=== PATIENT | male | born 1970 | race Caucasian/White ===

== ENCOUNTER → 2020-09-23 | Outpatient (CLI) | payer MEDICARE ==
[2020-09-24 14:09] LABS: Lyme Disease IgG/IgM Antibodie <0.91 ISR (0.00-0.90); Lyme Disease IgM Ab Quantitati <0.80 index (0.00-0.79)
== END ==
LOC: M LAB 11:13
PROVIDERS: ATTEND Physician Assistant
DX: R21 Rash and other nonspecific skin eruption (principal)
CPT/HCPCS: 36415; 86617; G0463

== ENCOUNTER → 2020-09-28 | Outpatient (CLI) | payer MEDICARE ==
[2020-09-29 16:08] LABS: IgG P18 AB Absent (.); IgG P23 AB Present (.); IgG P28 AB Absent (.); IgG P30 AB Absent (.); IgG P39 AB Absent (.); IgG P41 AB Absent (.); IgG P45 AB Absent (.); IgG P66 AB Absent (.); IgG P93 AB Absent (.); IgM P23 AB Absent (.); IgM P39 AB Absent (.); IgM P41 AB Absent (.); LYME IgG WB INTERPRETATION Negative (.); LYME IgM WB INTERPRETATION Negative (.)
== END ==
LOC: M LAB 11:57
PROVIDERS: ATTEND Physician Assistant
DX: A69.20 Lyme disease, unspecified (principal)

== ENCOUNTER → 2020-12-23 | Outpatient (REF) | payer MEDICARE ==
[2020-12-23 13:27] LABS: BASO # 0.1 10^3/uL (0.0-0.2); BASO % 1.1 % (0.0-1.0); EOS # 0.4 10^3/uL (0.0-0.5); EOS % 4.9 % (0.0-3.0); HEMATOCRIT 46.2 % (42.0-52.0); HEMOGLOBIN 14.2 g/dl (13.5-17.5); LYMPH # 2.5 10^3/uL (1.5-5.0); LYMPH % 31.2 % (24.0-44.0); MEAN CORPUSCULAR HEMOGLOBIN 24.5 pg (27.0-33.0); MEAN CORPUSCULAR HGB CONC 30.7 g/dl (32.0-36.5); MEAN CORPUSCULAR VOLUME 79.8 fl (80.0-96.0); MONO # 0.7 10^3/uL (0.0-0.8); MONO % 8.6 % (2.0-8.0); NEUTROPHILS # 4.3 10^3/uL (1.5-8.5); NEUTROPHILS % 53.9 % (36.0-66.0); PLATELET COUNT, AUTOMATED 240 10^3/uL (150-450); RED BLOOD COUNT 5.79 10^6/uL (4.30-6.10)
[2020-12-23 14:08] LABS: ALBUMIN 4.1 GM/DL (3.2-5.2); ALT/SGPT 20 U/L (12-78); BILIRUBIN,TOTAL 0.6 MG/DL (0.2-1.0); BLOOD UREA NITROGEN 15 MG/DL (7-18); CALCIUM LEVEL 9.8 MG/DL (8.5-10.1); CARBON DIOXIDE LEVEL 30 MEQ/L (21-32); CHLORIDE LEVEL 106 MEQ/L (98-107); CHOLESTEROL LEVEL 209 MG/DL (<200); CREATININE FOR GFR 0.76 MG/DL (0.70-1.30); FREE T4 0.88 NG/DL (0.76-1.46); GLOMERULAR FILTRATION RATE > 60.0 (>56); GLUCOSE, FASTING 110 MG/DL (70-100); HDL CHOLESTEROL 27 MG/DL (>40); LDL CHOLESTEROL 121 MG/DL (<100); NON-HDL-C 182 MG/DL; POTASSIUM SERUM 4.9 MEQ/L (3.5-5.1); SODIUM LEVEL 139 MEQ/L (136-145); TOTAL PROTEIN 6.8 GM/DL (6.4-8.2); TRIGLYCERIDES LEVEL 304 MG/DL (<150)
[2020-12-23 14:09] LABS: MALB URINE SIEMENS 6.2 MG/L; MAU/CREAT RATIO 9.8 MCG/MG (0.0-30.0)
[2020-12-23 15:07] LABS: HEMOGLOBIN A1c 5.6 %
== END ==
LOC: M PLALAB 09:25
PROVIDERS: ATTEND Student in an Organized Health Care Education/Training Program
DX: Z00.00 Encounter for general adult medical examination without abnormal findings (principal); Z79.899 Other long term (current) drug therapy

== ENCOUNTER 2021-02-02 07:36 | Emergency (ER) | payer MEDICAID, MEDICARE ==
[~2021-02-02] VITALS: Ht 175.3 cm; Wt 112.7 kg
[2021-02-02] MEDS ORDERED: LABETALOL 100MG/20ML VIAL IV STA (08:09)
[2021-02-02 08:14] LABS: BASO # 0.1 10^3/uL (0.0-0.2); EOS # 0.4 10^3/uL (0.0-0.5); EOS % 3.1 % (0.0-3.0); HEMATOCRIT 48.1 % (42.0-52.0); HEMOGLOBIN 15.2 g/dl (13.5-17.5); LYMPH % 26.3 % (24.0-44.0); MEAN CORPUSCULAR HEMOGLOBIN 24.6 pg (27.0-33.0); MEAN CORPUSCULAR HGB CONC 31.6 g/dl (32.0-36.5); MEAN CORPUSCULAR VOLUME 77.8 fl (80.0-96.0); MONO # 0.8 10^3/uL (0.0-0.8); MONO % 6.6 % (2.0-8.0); NEUTROPHILS # 7.1 10^3/uL (1.5-8.5); NEUTROPHILS % 62.6 % (36.0-66.0); PLATELET COUNT, AUTOMATED 233 10^3/uL (150-450); RED BLOOD COUNT 6.18 10^6/uL (4.30-6.10); WHITE BLOOD COUNT 11.4 10^3/uL (4.0-10.0)
[2021-02-02] MEDS ORDERED: DOXY1CAP62 PO (08:14)
[2021-02-02] MEDS ORDERED: METO1TAB87 PO ×2 (08:14)
[2021-02-02] MEDS ORDERED: BUSP30TA PO (08:14)
[2021-02-02] MEDS ORDERED: TAMS1CAP17 PO (08:14)
[2021-02-02] MEDS ORDERED: GABA-283 PO ×2 (08:14)
[2021-02-02] MEDS ORDERED: CLON0.5T2 PO (08:14)
[2021-02-02] MEDS ORDERED: VENL150C43 PO (08:14)
[2021-02-02] MEDS ORDERED: LEVO25TA5 PO (08:14)
[2021-02-02] MEDS ORDERED: HYDR-3363 PO (08:14)
[2021-02-02] MEDS ORDERED: SYMB80INH INH (08:14)
[2021-02-02] MEDS ORDERED: VALS1TAB68 PO (08:14)
[2021-02-02] MEDS ORDERED: OMEP-218 PO (08:14)
[2021-02-02 08:34] LABS: ALBUMIN 4.1 GM/DL (3.2-5.2); BILIRUBIN,DIRECT 0.2 MG/DL (0.0-0.2); BILIRUBIN,TOTAL 0.6 MG/DL (0.2-1.0); TOTAL PROTEIN 7.2 GM/DL (6.4-8.2)
--- NOTE | 2021-02-02 08:45 | REP ---
INDICATION: dizzy. COMPARISON: None. TECHNIQUE: Helical scanning is acquired. 5 mm axial images were reformatted. Coronal MPR images were generated. FINDINGS: Bone window settings demonstrate an intact bony calvarium. There is no evidence of skull fracture or incidental bony calvarial lesion. The visualized paranasal sinuses appear clear. No intraorbital abnormality is seen. On soft tissue window setting images; the lateral, third, and fourth ventricles are normal in size and position. Saldivar-white differentiation pattern is normal above and below the tentorium. There are is no evidence of intracranial hemorrhage. No mass, edema, infarction, or midline shift is seen. No extra-axial fluid collection is appreciated. IMPRESSION: Negative noncontrast head CT. <Electronically signed by Montana Martines > 02/02/21 [id number]
[2021-02-02] MEDS ORDERED: METOPROLOL TART 25 MG TABLET PO ONE (10:00)
[2021-02-02 10:03] VITALS: BP 180/112
--- NOTE | 2021-02-02 13:51 | REPVR ---
PROCEDURE INFORMATION: Exam: MR Head Without Contrast Exam date and time: 02/02/2021 12:33 PM Age: 50 years old Clinical indication: Dizziness; Additional info: Dizzy? Cerebellar TECHNIQUE: Imaging protocol: MR of the head without contrast. COMPARISON: CT Head without contrast 02/02/2021 8:28 AM FINDINGS: Brain: There is no extra-axial collection or intra-axial mass. Mild diffuse volume loss is within the range of normal for patient age. Normal parenchymal signal is preserved. There is no acute intracranial abnormality. Cerebral ventricles: Normal. No ventriculomegaly. Bones/joints: Unremarkable. Paranasal sinuses: Normal as visualized. No acute sinusitis. Mastoid air cells: Normal as visualized. No mastoid effusion. Orbital cavity: Unremarkable. Soft tissues: Unremarkable. IMPRESSION: No acute findings. Electronically signed by: Raeann Covarrubias On 02/02/2021 13:50:49 PM
--- NOTE | 2021-02-02 13:52 | REPVR ---
PROCEDURE INFORMATION: Exam: MRA Head Without Contrast; Arteriography Exam date and time: 02/02/2021 12:33 PM Age: 50 years old Clinical indication: Dizziness and giddiness; Additional info: Dizzy? Cerebellar TECHNIQUE: Imaging protocol: Magnetic resonance angiography head without contrast. Exam focused on the arteries. COMPARISON: CT Head without contrast 02/02/2021 8:28 AM FINDINGS: ANTERIOR CIRCULATION: Right internal carotid artery: Intracranial segment is patent with no significant stenosis. No aneurysm. Right middle cerebral artery: No occlusion or significant stenosis. No aneurysm. Right anterior cerebral artery: No occlusion or significant stenosis. No aneurysm. Left internal carotid artery: Intracranial segment is patent with no significant stenosis. No aneurysm. Left middle cerebral artery: No occlusion or significant stenosis. No aneurysm. Left anterior cerebral artery: No occlusion or significant stenosis. No aneurysm. POSTERIOR CIRCULATION: Right vertebral artery: No occlusion or significant stenosis. No aneurysm. Left vertebral artery: No occlusion or significant stenosis. No aneurysm. Basilar artery: No occlusion or significant stenosis. No aneurysm. Right posterior cerebral artery: No occlusion or significant stenosis. No aneurysm. Left posterior cerebral artery: No occlusion or significant stenosis. No aneurysm. IMPRESSION: No stenosis or occlusion. Electronically signed by: Raeann Covarrubias On 02/02/2021 13:52:30 PM
[2021-02-02 14:15] VITALS: BP 151/105
--- NOTE | 2021-02-03 07:12 | ECGEPIP ---
[facility] - ED Test Date: 2021-02-02 Pat Name: ARLEEN BEVERLY Department: Room: - Gender: Male Hunter Trapper: Awilda BYRNE : 1970 Requested By: Shawna Michael Order Number: [id number] Reading MD: Romeo Edwards Measurements Intervals Thayne Rate: 72 P: NV: 140 QRS: 208 QRSD: 82 T: 80 QT: 390 QTc: 427 Interpretive Statements Normal sinus rhythm Right axis deviation NSTTW ABNORMALITY(S) NO PRIORS FOR COMPARISON Electronically Signed on 02-03-2021 7:12:13 EDT by Romeo Edwards
== END 2021-02-02 14:15 | disposition home or self-care (01) ==
LOC: M ED 07:36 → EDBD 07:36 → M ED 14:15
DX: I10 Essential (primary) hypertension (principal); F17.200 Nicotine dependence, unspecified, uncomplicated; J45.909 Unspecified asthma, uncomplicated; Z86.19 Personal history of other infectious and parasitic diseases

== ENCOUNTER → 2021-04-09 | Outpatient (CLI) | payer MEDICARE ==
[~2021-04-09] MED LIST: ASPI81CH48 PO; BUSP30TA PO; CLON0.5T2 PO; DOXY1CAP62 PO; GABA-283 PO; HYDR-3363 PO; LEVO25TA5 PO; METO1TAB87 PO; METO50TA7 PO; OMEP-218 PO; ROSU40TA4 PO; SYMB80INH INH; TAMS1CAP17 PO; VALS1TAB68 PO; VENL150C43 PO
== END ==
LOC: M LABSMTC 09:26
PROVIDERS: ATTEND Anesthesiology
DX: Z20.828 Contact with and (suspected) exposure to other viral communicable diseases (principal); Z11.59 Encounter for screening for other viral diseases

== ENCOUNTER → 2021-06-30 | Outpatient (CLI) | payer MEDICARE, MEDICAID ==
[~2021-06-30] MED LIST changes: +COQ150CH PO; +DOXY-443 PO; -DOXY1CAP62 PO; +EQL400CA9 PO; +GINK60CA2 PO; +SERO1TAB3 PO; +VALS1TAB67 PO; +VITA400C53 PO; +VITMTA PO
== END ==
LOC: M LABSMTC 11:05
PROVIDERS: ATTEND Anesthesiology
DX: Z01.812 Encounter for preprocedural laboratory examination (principal); Z20.822 Contact with and (suspected) exposure to COVID-19

== ENCOUNTER 2021-07-04 10:38 | Day surgery (SDC) | payer MEDICARE ==
[~2021-07-04] VITALS: Ht 175.3 cm; Wt 108.9 kg
[~2021-07-04 10:38] MED LIST changes: +LIDOCAINE 2% 100MG/5ML SDV (FOR ANES.) As Ordered ONE; +NS 1,000 ML IV ONE; +propofoL 500 MG/50 ML VIAL As Ordered ONE
--- OUTSIDE RECORDS SUMMARY | 2021-07-04 10:42 | CCD ---
Author Author [facility] Organization [facility] Address Unknown Phone Unavailable Care Team Providers Care Environment Artist Name Role Phone Tameka Dick Unavailable PROBLEMS ALLERGIES No Known Allergies ENCOUNTERS from 1970 to 2021-06-29 IMMUNIZATIONS No Information SOCIAL HISTORY REASON FOR REFERRAL No Information VITAL SIGNS MEDICATIONS PROCEDURES No Information RESULTS No Results REASON FOR VISIT MEDICAL (GENERAL) HISTORY Goals Section Health Concerns MEDICAL EQUIPMENT No Information MENTAL STATUS FUNCTIONAL STATUS ASSESSMENTS No Information PLAN OF TREATMENT Insurance Providers
--- OUTSIDE RECORDS SUMMARY | 2021-07-04 10:43 | CCD ---
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 Active confirmed 747175639 Problem Mild persistent asthma without complication J45.30 Active confirmed 839360156 Problem MARIA (obstructive sleep apnea) G47.33 Active confirm ed 23442375 Problem POTS (postural orthostatic tachycardia syndrome) I 49.8 Active confirmed 186666197 Problem Essential hypertension with goal blood pressure less t euceda 130/80 I10 Active confirmed 77530052 ALLERGIES No Known Allergies ENCOUNTERS from 1970 to 2021-06-08 Encounter Location Date Provider Diagnosis [facility] [place] [address] [facility] [address] [phone] [place] [address] May, Efraín Seth IMMUNIZATIONS No Information SOCIAL HISTORY Tobacco Use: Social History Observation Description Date Details (start date - stop date) Current Smoker Sex Assigned At : Social History Observation Description Sex Assigned At Unknown Education: Question Answer Notes Level of Education: College Language: Question Answer Notes Languages spoken: Latvian Alcohol Screening: Question Answer Notes Did you have a drink containing alcohol in the past year? Ye s Points 1 Interpretation Negative How often did you have six or more drinks on one occas ion in the past year? Never (0 points) How many drinks did you have on a typica l day when you were drinking in the past year? 1 or 2 (0 points) How often did you have a drink containing alcohol in t he past year? Monthly or less (1 point) Tobacco Use: Question Answer Notes Are you a: current smoker How many cigarettes a day do you smoke? 5 or less REASON FOR REFERRAL No Information VITAL SIGNS No information MEDICATIONS Medication SIG (Take, Route, Frequency, Duration) Notes Start Da te End Date Status Flomax 0.4 MG 1 capsule 30 minutes after t he same meal each day Orally Once a day for 90 days Active Ginkgo Biloba 40 MG as directed Orally Active Metoprolol Tartrate 25 MG TAKE 1 TABLET BY MOUTH DAILY TAKE WITH METOPROLOL 50MG AT NIGHT Oral for 30 Not-Taking Omeprazole 20 MG TAKE ONE CAPSULE BY MOUTH 30 MINUTES PRIOR TO MORNING MEAL for 90 Active Nasonex 50 MCG/ACT 2 sprays in each nostril Nasally Once a day f or 30 day(s) December, Active PIC 200 434.8 (200 Fe) MG 1 capsule Orally Once a day for 30 day(s) Active Venlafaxine HCl 25 MG 1 tablet with food Orally Twice a day for 30 da y(s) Active clonazePAM 0.5 MG 1 tablet at bedtime Orally twice a day Active Symbicort 80-4.5 MCG/ACT 2 puffs Inhalation Twice a day Nov, Active Albuterol Sulfate (2.5 MG/3ML) 0.083% 3 ml as needed I nhalation every 6 hrs for 90 days Apr, Active hydrOXYzine HCl 25 MG 1 tablet as needed Orally 3 times a day Active busPIRone HCl 30 MG 1 tablet Orally Twice a day for 90 days Active Doxycycline Monohydrate 100 MG 1 capsule Orally Once a day for 30 day s Active Rosuvastatin Calcium 40 MG 1 tablet Orally Once a day for 90 day s Feb, Active Sinemet CR 25-100mg 1 tablet orally at night Not-Taking Gabapentin 400 MG 3 capsule Orally 2qhs & 1 am Active Probiotic Acidophilus - as directed Orally Active Valsartan 320 MG 1 tablet Orally Once a day for 90 day(s) Not-Taking Levothyroxine Sodium 25 MCG 1 tablet in the morning on an empty stomach Orally Every other day Active Vitamin D3 250 MCG (65127 UT) as directed Orally Once a day for 30 da ys Not-Taking Metoprolol Tartrate 50 MG 1 tablet with food Orally 2 tablets in am and 1 tablet in PM for 90 days Active Sinemet 25-100 MG 1 tablet Orally Once a day for 30 day(s) Not-Taking [place] 3 1000 MG 2 capsule Orally Once a day Active Aspirin 81 MG 1 tablet Orally Once a day for 30 day(s) Feb, Active Ibuprofen 200 MG 1 tablet with food or milk as needed Ora lly Three times a day Not-Taking Coenzyme Q10 50 MG as directed Orally Feb, Active Flonase Allergy Relief 50 MCG/ACT 1 spray in each nost ril Nasally Once a day for 30 day(s) December, Not-Taking Albuterol Sulfate HFA 108 (90 Base) MCG/ACT 1 puff as needed Inhalation every 4 hrs for 90 days May, Active PROCEDURES No Information RESULTS No Results REASON FOR VISIT New Refill Request MEDICAL (GENERAL) HISTORY Type Description Date Medical History High blood pressure Medical History Parkinsons disease undiagnosed Medical History hypothyroidism Medical History lymes disease Medical History mild persistent asthma Medical History sarcoidosis involving multip le organs brain, lungs, liver, spleen, skin Medical History GERD Medical History generalized anxiety disorder Medical History major depressive disorder Medical History osteoarthritis] open cervical, thoracic, lumbar bracket close Medical History morgellons disease Medical History irritable bowel syndrome Medical History memory loss Medical History neuropathy bilateral legs Medical History cognitive decline Surgical History cardiac cath 03/2021 Hospitalization History cardiac 03/2021 Goals Section No Information Health Concerns No Information MEDICAL EQUIPMENT No Information MENTAL STATUS No Information FUNCTIONAL STATUS No Information ASSESSMENTS No Information PLAN OF TREATMENT Medication Medication Name Sig Start Date Stop Date Venlafaxine HCl 25 MG 1 tablet with food Orally Twice a day for 30 day(s) Albuterol Sulfate HFA 108 (90 Base) MCG/ACT 1 puff as needed Inhalation every 4 hrs for 90 days May, Omeprazole 20 MG TAKE ONE CAPSULE BY MOUTH 30 MINUTES PRIOR TO MORNING MEAL for 90 Albuterol Sulfate (2.5 MG/3ML) 0.083% 3 ml as needed I nhalation every 6 hrs for 90 days Apr, Next Appt Details Provider Name:Efraín Mcculloughi, 2021-07-14 10: 30:00 AM, [address] [facility], , [place], [address], Insurance Providers Payer Name Payer Address Payer Phone Insured Name Patient Relati onship to Insured Coverage Start Date Coverage End Date MEDICAID [employer] [address] [facility] [id number] ARLEEN BEVERLY self [facility] [id number] [facility] [phone] WO ARLEEN GRESHAM self
--- OUTSIDE RECORDS SUMMARY | 2021-07-04 10:43 | CCD ---
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 Active confirmed 130946465 Problem Mild persistent asthma without complication J45.30 Active confirmed 326324758 Problem MARIA (obstructive sleep apnea) G47.33 Active confirm ed 56672689 Problem POTS (postural orthostatic tachycardia syndrome) I 49.8 Active confirmed 540590874 Problem Essential hypertension with goal blood pressure less t euceda 130/80 I10 Active confirmed 41544947 ALLERGIES No Known Allergies ENCOUNTERS from 1970 to 2021-06-10 Encounter Location Date Provider Diagnosis [address] [phone] [place] [address] May, Efraín Seth IMMUNIZATIONS No Information SOCIAL HISTORY Tobacco Use: Social History Observation Description Date Details (start date - stop date) Current Smoker Sex Assigned At : Social History Observation Description Sex Assigned At Unknown Education: Question Answer Notes Level of Education: College Language: Question Answer Notes Languages spoken: Chinese Alcohol Screening: Question Answer Notes Did you [...] Once a day for 90 days Active Omeprazole 20 MG TAKE ONE CAPSULE BY MOUTH 30 MINUTES PRIOR TO MORNING MEAL for 90 Active Metoprolol Tartrate 25 MG TAKE 1 TABLET BY MOUTH DAILY TAKE WITH METOPROLOL 50MG AT NIGHT Oral for 30 Not-Taking Vitamin D3 250 MCG (36917 UT) as directed Orally Once a day for 30 da ys Not-Taking Venlafaxine HCl 25 MG 1 tablet with food Orally Twice a day for 30 da y(s) Active clonazePAM 0.5 MG 1 tablet at bedtime Orally twice a day Active Venlafaxine HCl ER 150 MG 1 capsule with food Orally Once a day for 90 day(s) May, Active Ginkgo Biloba 40 MG as directed Orally Active hydrOXYzine HCl 25 MG 1 tablet as needed Orally 3 times a day Active Nasonex 50 MCG/ACT 2 sprays in each nostril Nasally Once a day f or 30 day(s) December, Active PIC 200 434.8 (200 Fe) MG 1 capsule Orally Once a day for 30 day(s) Active Symbicort 80-4.5 MCG/ACT 2 puffs Inhalation Twice a day Nov, Active busPIRone HCl 30 MG 1 tablet Orally Twice a day for 90 days Active Doxycycline Monohydrate 100 MG 1 capsule Orally Once a day for 30 day s Active Rosuvastatin Calcium 40 MG 1 tablet Orally Once a day for 90 day s Feb, Active Sinemet CR 25-100mg 1 tablet orally at night Not-Taking Levothyroxine Sodium 25 MCG 1 tablet in the morning on an empty stomach Orally Every other day Active Probiotic Acidophilus - as directed Orally Active Valsartan 320 MG 1 tablet Orally Once a day for 90 day(s) Not-Taking Albuterol Sulfate (2.5 MG/3ML) 0.083% 3 ml as needed I nhalation every 6 hrs for 90 days Apr, Active Gabapentin 400 MG 3 capsule Orally 2qhs & 1 am Active Metoprolol Tartrate 50 MG 1 tablet with food Orally 2 tablets in am and 1 tablet in PM for 90 days Active Sinemet 25-100 MG 1 tablet Orally Once a day for 30 day(s) Not-Taking [place] 3 1000 MG 2 capsule Orally Once [...] Information RESULTS No Results REASON FOR VISIT Venlafaxine ER HCl 150 Mg MEDICAL (GENERAL) HISTORY Type Description Date Medical [...] Sig Start Date Stop Date Venlafaxine HCl ER 150 MG 1 capsule with food Orally Once a day for 90 day(s) May, Albuterol Sulfate HFA 108 (90 Base) MCG/ACT 1 puff as needed Inhalation every 4 hrs for 90 days May, Albuterol Sulfate (2.5 MG/3ML) 0.083% 3 ml as needed I nhalation every 6 hrs for 90 days Apr, Venlafaxine HCl 25 MG 1 tablet with food Orally Twice a day for 30 day(s) Omeprazole 20 MG TAKE ONE CAPSULE BY MOUTH 30 MINUTES PRIOR TO MORNING MEAL for 90 Next Appt Details Provider Name:Efraín Seth, 2021-07-14 10: 30:00 AM, [address] [facility], , [place], [address], Insurance Providers Payer Name Payer Address Payer Phone Insured Name Patient Relati onship to Insured Coverage Start Date Coverage End Date MEDICAID [employer] [address] [facility] [id number] ARLEEN BEVERLY self [facility] [address] [facility] [id number] WO ARLEEN GRESHAM self
--- OUTSIDE RECORDS SUMMARY | 2021-07-04 10:43 | CCD ---
Author Author [facility] Organization [facility] Address Unknown Phone Unavailable Care Team Providers Care Dental Appliance Fixer Name Role Phone Efraín Seth Unavailable PROBLEMS Type Condition ICD9-CM Code XAS84-BF Code Onset Dates Condition S tatus W/U Status Risk SNOMED Code Notes Problem Essential hypertension with goal blood pressure less t euceda 130/80 I10 Active confirmed 41932011 Problem MARIA (obstructive sleep apnea) G47.33 Active confirm ed 16007743 Problem Delusions of parasitosis F22 Active confirmed 395297481 Problem Mild persistent asthma without complication J45.30 Active confirmed 158277734 Problem POTS (postural orthostatic tachycardia syndrome) I 49.8 Active confirmed 487706343 ALLERGIES No Known Allergies ENCOUNTERS from 1970 to 2021-04-08 Encounter Location Date Provider Diagnosis [address] [phone] [place] [address] Mar, Efraín Seth IMMUNIZATIONS No Information SOCIAL HISTORY Tobacco Use: Social History Observation Description Date Details (start date - stop date) Current Smoker Sex Assigned At : Social History Observation Description Sex Assigned At Unknown Education: Question Answer Notes Level of Education: College Language: Question Answer Notes Languages spoken: Hebrew Alcohol Screening: Question Answer Notes Did you [...] Notes Start Da te End Date Status Rosuvastatin Calcium 40 MG 1 tablet Orally Once a day for 90 day s Feb, Unknown hydrOXYzine HCl 25 MG 1 tablet as needed Orally every 8 hrs for 90 da ys Unknown Metoprolol Tartrate 50 MG 1 tablet with food Orally 2 tablets in am and 1 tablet in PM for 90 days Unknown Symbicort 80-4.5 MCG/ACT 2 puffs Inhalation Once a day for 30 da ys Nov, Unknown Doxycycline Monohydrate 100 MG 1 capsule Orally Once a day for 30 day s Active PIC 200 434.8 (200 Fe) MG 1 capsule Orally Once a day for 30 day(s) Unknown Flonase Allergy Relief 50 MCG/ACT 1 spray in each nost ril Nasally Once a day for 30 day(s) December, Unknown Venlafaxine HCl 25 MG 1 tablet with food Orally Twice a day for 30 da y(s) Unknown Sinemet CR 25-100mg 1 tablet orally at night Not-Taking Ginkgo Biloba 40 MG as directed Orally Unknown Metoprolol Tartrate 25 MG TAKE 1 TABLET BY MOUTH DAILY TAKE WITH METOPROLOL 50MG AT NIGHT Oral for 30 Unknown Flomax 0.4 MG 1 capsule 30 minutes after t he same meal each day Orally Once a day for 90 days Unknown [place] 3 1000 MG 2 capsule Orally Once a day Unknown Sinemet 25-100 MG 1 tablet Orally Once a day for 30 day(s) Not-Taking Aspirin 81 MG 1 tablet Orally Once a day for 30 day(s) Feb, Unknown Valsartan 320 MG 1 tablet Orally Once a day for 90 day(s) Unknown Omeprazole 20 MG 1 capsule 30 minutes before morning meal Orally Once a day for 90 days Unknown Levothyroxine Sodium 25 MCG 1 tablet in the morning on an empty stomach Orally Every other day for 30 days Unkn own Ibuprofen 200 MG 1 tablet with food or milk as needed Ora lly Three times a day Unknown Probiotic Acidophilus - as directed Orally Unknown busPIRone HCl 30 MG 1 tablet Orally Twice a day for 90 days Unknown Coenzyme Q10 50 MG as directed Orally Feb, Unknown Gabapentin 400 MG 3 capsule Orally qhs for 60 days Unknown Nasonex 50 MCG/ACT 2 sprays in each nostril Nasally Once a day f or 30 day(s) December, Unknown Vitamin D3 250 MCG (13777 UT) as directed Orally Once a day for 30 da ys Unknown clonazePAM 0.5 MG 1 tablet at bedtime Orally twice a day Unknown PROCEDURES No Information RESULTS No Results REASON FOR VISIT stopped Valsartan MEDICAL (GENERAL) HISTORY Type Description Date Medical History High blood pressure Medical History Parkinsons disease Medical History hypothyroidism Medical History lymes disease [...] legs Medical History cognitive decline Surgical History No Surgical history information Goals Section No Information Health Concerns No Information MEDICAL EQUIPMENT No Information MENTAL STATUS No Information FUNCTIONAL STATUS No Information ASSESSMENTS No Information PLAN OF TREATMENT Medication Medication Name Sig Start Date Stop Date Doxycycline Monohydrate 100 MG 1 capsule Orally Once a day for 3 0 days Next Appt Details Provider Name:Efraín Seth, 2021-05-03 10: 00:00 AM, [facility], , [place], [address], Provider Name:Efraín Seth, 2021-05-10 11: 00:00 AM, [address] [facility] [address], , [place], [address], Insurance Providers Payer Name Payer Address Payer Phone Insured Name Patient Relati onship to Insured Coverage Start Date Coverage End Date [facility] [address] [facility] [id number] [address] ARLEEN GRESHAM self MEDICAID [employer] [address] [facility] [id number] ARLEEN BEVERLY self
--- OUTSIDE RECORDS SUMMARY | 2021-07-04 10:43 | CCD ---
Continuity of Care Document (CCD) Created on: 05/16/2021 Myles Hannon External Reference #: [id number] : 1970 Sex: Male Author Organization Unknown Address Unknown Phone Unavailable Care Team Providers Care Optimization Engineer Name Role Phone Efraín Seth MD AUTM [phone] Problems Description No Information Available Social History Type Date Description Comments Sex Unknown Allergies and adverse reactions Description No Information Available Medications Description No Information Available Immunizations Description No Information Available Vital Signs Description No Information Available Results Test Acquired Date Facility Test Result H/L Range Note CMP 12/23/2020 [facility] - not interfaced (315)- - Albumin Serum/Plasma 4.1 Alt - SGPT 20 Calcium Ser/Plasma Mass/Vol 9.8 Carbon Dioxide Ser/Plasm 30 Chloride Serum/Plasma 106 Alkaline Phosphatase 82 Potassium 4.9 Protein Total 6.8 Sodium 139 Ast - Sgot 33 BUN - Urea Nitrogen 15 Glucose 110 High 70-100 Creatinine For GFR 0.76 Lipid Profile/Cardiac Risk Pro 12/23/2020 [facility] - not interfaced (315)- - Triglycerides 304 High <150 Cholesterol 209 High <200 HDL 27 Low >40.0 LDL Cholesterol 121 Chol/HDL Ratio 7.740 High <5 Laboratory test finding 12/23/2020 [facility] - not interf aced (315)- - Thyroid Stimulating Hormone 2.040 Free T4 0.88 Procedures Description No Information Available Medical Devices Description No Information Available Encounters Description No Information Available Assessments Description No Information Available Plan of Treatment Future Appointment(s):* 05/20/2021 10:30 am - Valerio Farmer MD at Main Office Functional Status Description No Information Available Mental Status Description No Information Available Referrals Description No Information Available
--- OUTSIDE RECORDS SUMMARY | 2021-07-04 10:43 | CCD | Continuity of Care Document ---
Author Organization Unknown Address Unknown Phone Unavailable Care Team Providers Care Entry Level Mechanical Engineer Name Role Phone Efraín Seth MD AUT [phone] Problems Description No Information Available Social History Type Date Description Comments Sex Unknown Allergies and adverse reactions Description No Information Available Medications Description No Information Available Immunizations Description No Information Available Vital Signs Description No Information Available Results Test Acquired Date Facility Test Result H/L Range Note Liver Function Test/ Liver Hep 02/02/2021 [facility] - not interfaced (315)- - Ast/Sgot 39 High 15-37 Alt/SGPT 60 30-65 Alk Phos 100 50-136 Albumin 4.1 3.2-5.2 Total Bilirubin 0.6 0.0-1.0 Total Protein 7.2 6.4-8.2 A/G Ratio 1.3 1.00-1.93 CBC without Differential 02/02/2021 [facility] - not inter faced (315)- - White Blood Count 11.4 High 4.0-10.0 Red Blood Count 6.18 High 4.30-6.10 Platelets 233 150-450 Hemoglobin 15.2 Hematocrit 48.1 CMP 12/23/2020 [facility] - not interfaced (315)- - Albumin Serum/Plasma 4.1 Alt - SGPT 20 Calcium Ser/Plasma Mass/Vol 9.8 Carbon Dioxide Ser/Plasm 30 Chloride Serum/Plasma 106 Alkaline Phosphatase 82 Potassium 4.9 Protein Total 6.8 Sodium 139 Ast - Sgot 33 BUN - Urea Nitrogen 15 Glucose 110 High 70-100 Creatinine For GFR 0.76 Lipid Profile/Cardiac Risk Pro 12/23/2020 [facility] - not interfaced (315)- - Triglycerides 304 High <150 Cholesterol 209 High <200 HDL 27 Low >40.0 LDL Cholesterol 121 Chol/HDL Ratio 7.740 High <5 Laboratory test finding 12/23/2020 [facility] - not interf aced (315)- - Thyroid [...]
--- OUTSIDE RECORDS SUMMARY | 2021-07-04 10:43 | CCD ---
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 Active confirmed 085020972 Problem Mild persistent asthma without complication J45.30 Active confirmed 532255109 Problem MARIA (obstructive sleep apnea) G47.33 Active confirm ed 23412957 Problem POTS (postural orthostatic tachycardia syndrome) I 49.8 Active confirmed 312050661 Problem Essential hypertension with goal blood pressure less t euceda 130/80 I10 Active confirmed 04573551 ALLERGIES No Known Allergies ENCOUNTERS from 1969 to 2021-05-11 Encounter Location Date Provider Diagnosis [address] [phone] [place] [address] Apr, Efraín Seth Mild persistent asthma witho ut complication J45.30 IMMUNIZATIONS No Information SOCIAL HISTORY Tobacco Use: Social History Observation Description Date Details (start date - stop date) Current Smoker Sex Assigned At : Social History Observation Description Sex Assigned At Unknown Education: Question Answer Notes Level of Education: College Language: Question Answer Notes Languages spoken: Austrian Alcohol Screening: Question Answer Notes Did you [...] Notes Start Da te End Date Status Omeprazole 20 MG 1 capsule 30 minutes before morning meal Orally Once a day for 90 days Active PIC 200 434.8 (200 Fe) MG 1 capsule Orally Once a day for 30 day(s) Active Flomax 0.4 MG 1 capsule 30 minutes after t he same meal each day Orally Once a day for 90 days Active clonazePAM 0.5 MG 1 tablet at bedtime Orally twice a day Active Albuterol Sulfate (2.5 MG/3ML) 0.083% 3 ml as needed I nhalation every 6 hrs for 90 days Apr, Active hydrOXYzine HCl 25 MG 1 tablet as needed Orally 3 times a day Active Nasonex 50 MCG/ACT 2 sprays in each nostril Nasally Once a day f or 30 day(s) December, Active Venlafaxine HCl 25 MG 1 tablet with food Orally Twice a day for 30 da y(s) Active Levothyroxine Sodium 25 MCG 1 tablet in the morning on an empty stomach Orally Every other day Active Symbicort 80-4.5 MCG/ACT 2 puffs Inhalation Twice a day Nov, Active Valsartan 320 MG 1 tablet Orally Once a day for 90 day(s) Not-Taking busPIRone HCl 30 MG 1 tablet Orally Twice a day for 90 days Active Metoprolol Tartrate 50 MG 1 tablet with food Orally 2 tablets in am and 1 tablet in PM for 90 days Active Sinemet 25-100 MG 1 tablet Orally Once a day for 30 day(s) Not-Taking Vitamin D3 250 MCG (39134 UT) as directed Orally Once a day for 30 da ys Not-Taking [place] 3 1000 MG 2 capsule Orally Once a day Active Sinemet CR 25-100mg 1 tablet orally at night Not-Taking Gabapentin 400 MG 3 capsule Orally 2qhs & 1 am Active Ginkgo Biloba 40 MG as directed Orally Active Probiotic Acidophilus - as directed Orally Active Metoprolol Tartrate 25 MG TAKE 1 TABLET BY MOUTH DAILY TAKE WITH METOPROLOL 50MG AT NIGHT Oral for 30 Not-Taking Doxycycline Monohydrate 100 MG 1 capsule Orally Once a day for 30 day s Active Rosuvastatin Calcium 40 MG 1 tablet Orally Once a day for 90 day s Feb, Active Coenzyme Q10 50 MG as directed Orally Feb, Active Aspirin 81 MG 1 tablet Orally Once a day for 30 day(s) Feb, Active Ibuprofen 200 MG 1 tablet with food or milk as needed Ora lly Three times a day Not-Taking Flonase Allergy Relief 50 MCG/ACT 1 spray in each nost ril Nasally Once a day for 30 day(s) December, Not-Taking PROCEDURES No Information RESULTS No Results REASON FOR VISIT Prio auth MEDICAL (GENERAL) HISTORY Type Description Date Medical [...] No Information FUNCTIONAL STATUS No Information ASSESSMENTS Encounter Date Diagnosis Assessment Notes Treatment Notes Treatm ent Clinical Notes Apr, Mild persistent asthma without complication (ICD -10 - J45.30) PLAN OF TREATMENT Medication Medication Name Sig Start Date Stop Date Albuterol Sulfate (2.5 MG/3ML) 0.083% 3 ml as needed I nhalation every 6 hrs for 90 days Apr, Next Appt Details Provider Name:Efraín Seth, 2021-05-31 03: 30:00 PM, [address] , , [place], [address], Insurance Providers Payer Name Payer Address Payer Phone Insured Name Patient Relati onship to Insured Coverage Start Date Coverage End Date [facility] [id number] [facility] [phone] [place] B self MEDICAID [employer] [address] [facility] [address] ARLEEN [place]
--- OUTSIDE RECORDS SUMMARY | 2021-07-04 10:43 | CCD ---
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 Active confirmed 277215764 Problem Mild persistent asthma without complication J45.30 Active confirmed 082242095 Problem MARIA (obstructive sleep apnea) G47.33 Active confirm ed 91283127 Problem POTS (postural orthostatic tachycardia syndrome) I 49.8 Active confirmed 257355503 Problem Essential hypertension with goal blood pressure less t euceda 130/80 I10 Active confirmed 75045605 ALLERGIES No Known Allergies ENCOUNTERS from 1970 to 2021-06-09 Encounter Location Date Provider Diagnosis [address] [phone] [place] [address] May, Efraín Seth IMMUNIZATIONS No Information SOCIAL HISTORY Tobacco Use: Social History Observation Description Date Details (start date - stop date) Current Smoker Sex Assigned At : Social History Observation Description Sex Assigned At Unknown Education: Question Answer Notes Level of Education: College Language: Question Answer Notes Languages spoken: Welsh Alcohol Screening: Question Answer Notes Did you [...] other day Active Vitamin D3 250 MCG (07826 UT) as directed Orally Once a day for 30 da ys Not-Taking Metoprolol Tartrate 50 MG 1 tablet with food Orally 2 tablets in am and 1 tablet in PM for 90 days Active Sinemet 25-100 MG 1 tablet Orally Once a day for 30 day(s) Not-Taking [place] 3 1000 MG 2 capsule Orally Once [...] Information RESULTS No Results REASON FOR VISIT REFILL Venlafaxine HCl 25 MG Tablet MEDICAL (GENERAL) HISTORY Type Description Date Medical [...] Name:Efraín Mcculloughi, 2021-07-14 10: 30:00 AM, [address] [facility] [address] , , [place], [address], Insurance Providers Payer Name Payer Address Payer Phone Insured Name Patient Relati onship to Insured Coverage Start Date Coverage End Date [facility] [id number] [facility] [id number] ARLEEN COTTON OD self MEDICAID [id number] [address] [facility] [id number] AR[place] self
--- OUTSIDE RECORDS SUMMARY | 2021-07-04 10:44 | CCD ---
Author Author [facility] Organization [facility] Address Unknown Phone Unavailable Care Team Providers Care Sponge Clipper Name Role Phone Azzam, R Yahya DO Unavailable Unavailable Azzam, R Yahya DO Unavailable Unavailable Azzam, R Yahya DO Unavailable Unavailable Azzam, R Yahya DO Unavailable Unavailable Azzam, R Yahya DO Unavailable Unavailable Denia Griggs MD, PGY-1 Unavailable Unavailable Denia Griggs MD, PGY-1 Unavailable Unavailable Denia Griggs MD, PGY-1 Unavailable Unavailable MAC VIRAMONTES Unavailable Unavailable Jayashree SANTOS Unavailable Unavailable Jayashree SANTOS Unavailable Unavailable Ugo Bertrand MD, MD [facility] Unavailable [phone] MD Rosemary Arnold MD Unavailable [phone] EINAV, ELDAD MD Unavailable Unavailable EINAV, ELDAD MD Unavailable Unavailable EINAV, ELDAD MD Unavailable Unavailable EINAV, ELDAD MD Unavailable Unavailable EINAV, ELDAD MD Unavailable Unavailable EINAV, ELDAD MD Unavailable Unavailable EINAV, ELDAD MD Unavailable Unavailable EINAV, ELDAD MD Unavailable Unavailable EINAV, ELDAD MD Unavailable Unavailable EINAV, ELDAD MD Unavailable Unavailable EINAV, ELDAD MD Unavailable Unavailable EINAV, ELDAD MD Unavailable Unavailable EINAV, ELDAD MD Unavailable Unavailable EINAV, ELDAD MD Unavailable Unavailable EINAV, ELDAD MD Unavailable Unavailable Girshab, Cooper MD Unavailable Unavailable Girshab, Cooper MD Unavailable Unavailable Girshab, Cooper MD Unavailable Unavailable Girshab, Cooper MD Unavailable Unavailable Girshab, Cooper MD Unavailable Unavailable Girshab, Cooper MD Unavailable Unavailable Girshab, Cooper MD Unavailable Unavailable Girshab, Cooper MD Unavailable Unavailable Girshab, Cooper MD Unavailable Unavailable Girshab, Cooper MD Unavailable Unavailable Girshab, Cooper MD Unavailable Unavailable Girshab, Cooper MD Unavailable Unavailable Girshab, Cooper MD Unavailable Unavailable Girshab, Cooper MD Unavailable Unavailable WASSEL, ANWAR MD Unavailable Unavailable WASSEL, ANWAR MD Unavailable Unavailable WASSEL, ANWAR MD Unavailable Unavailable WASSEL, ANWAR MD Unavailable Unavailable WASSEL, ANWAR MD Unavailable Unavailable WASSEL, ANWAR MD Unavailable Unavailable WASSEL, ANWAR MD Unavailable Unavailable WASSEL, ANWAR MD Unavailable Unavailable WASSEL, ANWAR MD Unavailable Unavailable WASSEL, ANWAR MD Unavailable Unavailable WASSEL, ANWAR MD Unavailable Unavailable WASSEL, ANWAR MD Unavailable Unavailable WASSEL, ANWAR MD Unavailable Unavailable WASSEL, ANWAR MD Unavailable Unavailable WASSEL, ANWAR MD Unavailable Unavailable WASSEL, ANWAR MD Unavailable Unavailable WASSEL, ANWAR MD Unavailable Unavailable WASSEL, ANWAR MD Unavailable Unavailable WASSEL, ANWAR MD Unavailable Unavailable WASSEL, ANWAR MD Unavailable Unavailable WASSEL, ANWAR MD Unavailable Unavailable WASSEL, ANWAR MD Unavailable Unavailable WASSEL, ANWAR MD Unavailable Unavailable WASSEL, ANWAR MD Unavailable Unavailable WASSEL, ANWAR MD Unavailable Unavailable WASSEL, ANWAR MD Unavailable Unavailable WASSEL, ANWAR MD Unavailable Unavailable WASSEL, ANWAR MD Unavailable Unavailable WASSEL, ANWAR MD Unavailable Unavailable WASSEL, ANWAR MD Unavailable Unavailable WASSEL, ANWAR MD Unavailable Unavailable WASSEL, ANWAR MD Unavailable Unavailable WASSEL, ANWAR MD Unavailable Unavailable WASSEL, ANWAR MD Unavailable Unavailable WASSEL, ANWAR MD Unavailable Unavailable WASSEL, ANWAR MD Unavailable Unavailable WASSEL, ANWAR MD Unavailable Unavailable WASSEL, ANWAR MD Unavailable Unavailable WASSEL, ANWAR MD Unavailable Unavailable WASSEL, ANWAR MD Unavailable Unavailable WASSEL, ANWAR MD Unavailable Unavailable WASSEL, ANWAR MD Unavailable Unavailable WASSEL, ANWAR MD Unavailable Unavailable WASSEL, ANWAR MD Unavailable Unavailable WASSEL, ANWAR MD Unavailable Unavailable WASSEL, ANWAR MD Unavailable Unavailable WASSEL, ANWAR MD Unavailable Unavailable WASSEL, ANWAR MD Unavailable Unavailable VALERIO, A LEIGHTON MD Unavailable Unavailable VALERIO, A LEIGHTON MD Unavailable Unavailable VALERIO, A LEIGHTON MD Unavailable Unavailable VALERIO, A LEIGHTON MD Unavailable Unavailable VALERIO, A LEIGHTON MD Unavailable Unavailable VALERIO, A LEIGHTON MD Unavailable Unavailable VALERIO, A LEIGHTON MD Unavailable Unavailable VALERIO, A LEIGHTON MD Unavailable Unavailable VALERIO, A LEIGHTON MD Unavailable Unavailable VALERIO, A LEIGHTON MD Unavailable Unavailable VALERIO, A LEIGHTON MD Unavailable Unavailable VALERIO, A LEIGHTON MD Unavailable Unavailable VALERIO, A LEIGHTON MD Unavailable Unavailable VALERIO, A LEIGHTON MD Unavailable Unavailable VALERIO, A LEIGHTON MD Unavailable Unavailable VALERIO, A LEIGHTON MD Unavailable Unavailable VALERIO, A LEIGHTON MD Unavailable Unavailable VALERIO, A LEIGHTON MD Unavailable Unavailable VALERIO, A LEIGHTON MD Unavailable Unavailable VALERIO, A LEIGHTON MD Unavailable Unavailable VALERIO, A LEIGHTON MD Unavailable Unavailable VALERIO, A LEIGHTON MD Unavailable Unavailable VALERIO, A LEIGHTON MD Unavailable Unavailable VALERIO, A LEIGHTON MD Unavailable Unavailable VALERIO, A LEIGHTON MD Unavailable Unavailable VALERIO, A LEIGHTON MD Unavailable Unavailable VALERIO, A LEIGHTON MD Unavailable Unavailable VALERIO, A LEIGHTON MD Unavailable Unavailable VALERIO, A LEIGHTON MD Unavailable Unavailable VALERIO, A LEIGHTON MD Unavailable Unavailable Bridger Pavonhi Unavailable Unavailable Makhuli, N Zahi Unavailable Unavailable Makhuli, N Zahi Unavailable Unavailable Makhuli, N Zahi Unavailable Unavailable Makhuli, N Zahi Unavailable Unavailable Makhuli, N Zahi Unavailable Unavailable Makhuli, N Zahi Unavailable Unavailable Makhuli, N Zahi Unavailable Unavailable Makhuli, N Zahi Unavailable Unavailable Makhuli, N Zahi Unavailable Unavailable Makhuli, N Zahi Unavailable Unavailable Makhuli, N Zahi Unavailable Unavailable Makhuli, N Zahi Unavailable Unavailable Makhuli, N Zahi Unavailable Unavailable Makhuli, N Zahi Unavailable Unavailable Makhuli, N Zahi Unavailable Unavailable Makhuli, N Zahi Unavailable Unavailable Makhuli, N Zahi Unavailable Unavailable Makhuli, N Zahi Unavailable Unavailable Makhuli, N Zahi Unavailable Unavailable Makhuli, N Zahi Unavailable Unavailable Makhuli, N Zahi Unavailable Unavailable Makhuli, N Zahi Unavailable Unavailable Makhuli, N Zahi Unavailable Unavailable Makhuli, N Zahi Unavailable Unavailable Makhuli, N Zahi Unavailable Unavailable Makhuli, N Zahi Unavailable Unavailable Makhuli, N Zahi Unavailable Unavailable Makhuli, N Zahi Unavailable Unavailable Makhuli, N Zahi Unavailable Unavailable Makhuli, N Zahi Unavailable Unavailable Makhuli, N Zahi Unavailable Unavailable Makhuli, N Zahi Unavailable Unavailable Makhuli, N Zahi Unavailable Unavailable Makhuli, N Zahi Unavailable Unavailable Makhuli, N Zahi Unavailable Unavailable Makhuli, N Zahi Unavailable Unavailable Makhuli, N Zahi Unavailable Unavailable Makhuli, N Zahi Unavailable Unavailable Makhuli, N Zahi Unavailable Unavailable Makhuli, N Zahi Unavailable Unavailable Makhuli, N Zahi Unavailable Unavailable Makhuli, N Zahi Unavailable Unavailable Makhuli, N Zahi Unavailable Unavailable Makhuli, N Zahi Unavailable Unavailable Makhuli, N Zahi Unavailable Unavailable Makhuli, N Zahi Unavailable Unavailable Mago Almanzar MD Unavailable Unavailable Mago Almanzar MD Unavailable Unavailable Yohan K Ruben DIAZ Unavailable Unavailable Yohan K Ruben MD Unavailable Unavailable Yohan K Ruben MD Unavailable Unavailable Yohan K Ruben MD Unavailable Unavailable Yohan K Ruben Unavailable Unavailable Yohan K Ruben MD Unavailable Unavailable Almanzar, K Ruben MD Unavailable Unavailable Almanzar, K Ruben MD Unavailable Unavailable Almanzar, K Ruben MD Unavailable Unavailable Almanzar, K Ruben MD Unavailable Unavailable Almanzar, K Ruben MD Unavailable Unavailable Almanzar, K Ruben MD Unavailable Unavailable Almanzar, K Ruben MD Unavailable Unavailable Almanzar, K Ruben MD Unavailable Unavailable Almanzar, K Ruben MD Unavailable Unavailable Schader, M Jyoti Unavailable Unavailable Schader, M Jyoti Unavailable Unavailable Schader, M Jyoti Unavailable Unavailable Schader, M Jyoti Unavailable Unavailable Schader, M Jyoti Unavailable Unavailable Schader, M Jyoti Unavailable Unavailable Schader, M Jyoti Unavailable Unavailable Schader, M Jyoti Unavailable Unavailable Schader, M Jyoti Unavailable Unavailable Schader, M Jyoti Unavailable Unavailable Schader, M Jyoti Unavailable Unavailable Schader, M Jyoti Unavailable Unavailable Schader, M Jyoti Unavailable Unavailable Schader, M Jyoti Unavailable Unavailable Schader, M Jyoti Unavailable Unavailable Schader, M Jyoti Unavailable Unavailable Schader, M Jyoti Unavailable Unavailable Schader, M Jyoti Unavailable Unavailable Schader, M Jyoti Unavailable Unavailable Schader, M Jyoti Unavailable Unavailable Schader, M Jyoti Unavailable Unavailable Strassburg B Jeffrey DIAZ Unavailable Unavailable [place], B Jeffrey MD Unavailable Unavailable [place] B Jeffrey MD Unavailable Unavailable [place], B Jeffrey MD Unavailable Unavailable [place], B Jeffrey MD Unavailable Unavailable [place], B Jeffrey MD Unavailable Unavailable [place], B Jeffrey DIAZ Unavailable Unavailable [place], B Jeffrey MD Unavailable Unavailable [place], B Jeffrey MD Unavailable Unavailable [place], B Jeffrey MD Unavailable Unavailable [place], B Jeffrey MD Unavailable Unavailable [place], B Jeffrey MD Unavailable Unavailable Pamela Pedraza MD Unavailable Unavailable Pamela Pedraza MD Unavailable Unavailable Pamela Pedraza MD Unavailable Unavailable Pamela Pedraza MD Unavailable Unavailable Pamela Pedraza MD Unavailable Unavailable Pamela Pedraza MD Unavailable Unavailable Pamela Pedraza MD Unavailable Unavailable Pamela Pedraza MD Unavailable Unavailable Pamela Pedraza MD Unavailable Unavailable Pamela Pedraza MD Unavailable Unavailable Pamela Pedraza MD Unavailable Unavailable Pamela Pedraza MD Unavailable Unavailable Pamela Pedraza MD Unavailable Unavailable Pamela BROWN MD Unavailable Unavailable SASSOWER, Pamela ZURITA MD Unavailable Unavailable SASSOWER, Pamela ZURITA MD Unavailable Unavailable SASSOWER, Pamela ZURITA MD Unavailable Unavailable SASSOWER, Pamela ZURITA MD Unavailable Unavailable SASSOWER, Pamela ZURITA MD Unavailable Unavailable SASSOWER, Pamela ZURITA MD Unavailable Unavailable SASSOWER, Pamela ZURITA MD Unavailable Unavailable SASSOWER, Pamela ZURITA MD Unavailable Unavailable SASSOWER, Pamela ZURITA MD Unavailable Unavailable SASSOWER, Pamela ZURITA MD Unavailable Unavailable SASSOWER, Pamela ZURITA MD Unavailable Unavailable SASSOWER, Pamela ZURITA MD Unavailable Unavailable SASSOWER, Pamela ZURITA MD Unavailable Unavailable SASSOWER, Pamela ZURITA MD Unavailable Unavailable SASSOWER, Pamela ZURITA MD Unavailable Unavailable SASSOWER, Pamela ZURITA MD Unavailable Unavailable SASSOWER, Pamela ZURITA MD Unavailable Unavailable SASSOWER, Pamela ZURITA MD Unavailable Unavailable SASSOWER, Pamela ZURITA MD Unavailable Unavailable SASSOWER, Pamela ZURITA MD Unavailable Unavailable SASSOWER, Pamela ZURITA MD Unavailable Unavailable SASSOWER, Pamela ZURITA MD Unavailable Unavailable SASSOWER, Pamela ZURITA MD Unavailable Unavailable SASSOWER, Pamela ZURITA MD Unavailable Unavailable SASSOWER, Pamela ZURITA MD Unavailable Unavailable SASSOWER, Pamela ZURITA MD Unavailable Unavailable SASSOWER, Pamela ZURITA MD Unavailable Unavailable SASSOWER, Pamela ZURITA MD Unavailable Unavailable SASSOWER, Pamela ZURITA MD Unavailable Unavailable SASSOWER, Pamela ZURITA MD Unavailable Unavailable SASSOWER, Pamela ZURITA MD Unavailable Unavailable SASSOWER, Pamela ZURITA MD Unavailable Unavailable SASSOWER, Pamela ZURITA MD Unavailable Unavailable SASSOWER, Pamela ZURITA MD Unavailable Unavailable SASSOWER, Pamela ZURITA MD Unavailable Unavailable SASSOWER, Pamela ZURITA MD Unavailable Unavailable SASSOWER, Pamela ZURITA MD Unavailable Unavailable SASSOWER, Pamela ZURITA MD Unavailable Unavailable SASSOWER, Pamela ZURITA MD Unavailable Unavailable SASSOWER, Pamela ZURITA MD Unavailable Unavailable SASSOWER, Pamela ZURITA MD Unavailable Unavailable SASSOWER, Pamela ZURITA MD Unavailable Unavailable SASSOWER, Pamela ZURITA MD Unavailable Unavailable SASSOWER, Pamela ZURITA MD Unavailable Unavailable SASSOWER, Pamela ZURITA MD Unavailable Unavailable Makhuli, N Zahi Unavailable Unavailable Makhuli, N Zahi Unavailable Unavailable Makhuli, N Zahi Unavailable Unavailable Makhuli, N Zahi Unavailable Unavailable Makhuli, N Zahi Unavailable Unavailable Makhuli, N Zahi Unavailable Unavailable Makhuli, N Zahi Unavailable Unavailable Makhuli, N Zahi Unavailable Unavailable Makhuli, N Zahi Unavailable Unavailable Makhuli, N Zahi Unavailable Unavailable Makhuli, N Zahi Unavailable Unavailable Makhuli, N Zahi Unavailable Unavailable Makhuli, N Zahi Unavailable Unavailable Makhuli, N Zahi Unavailable Unavailable Makhuli, N Zahi Unavailable Unavailable Makhuli, N Zahi Unavailable Unavailable Makhuli, N Zahi Unavailable Unavailable Makhuli, N Zahi Unavailable Unavailable Makhuli, N Zahi Unavailable Unavailable Makhuli, N Zahi Unavailable Unavailable Makhuli, N Zahi Unavailable Unavailable Makhuli, N Zahi Unavailable Unavailable Makhuli, N Zahi Unavailable Unavailable Makhuli, N Zahi Unavailable Unavailable Makhuli, N Zahi Unavailable Unavailable Makhuli, N Zahi Unavailable Unavailable Makhuli, N Zahi Unavailable Unavailable Makhuli, N Zahi Unavailable Unavailable Makhuli, N Zahi Unavailable Unavailable Makhuli, N Zahi Unavailable Unavailable Makhuli, N Zahi Unavailable Unavailable Makhuli, N Zahi Unavailable Unavailable Makhuli, N Zahi Unavailable Unavailable Makhuli, N Zahi Unavailable Unavailable Makhuli, N Zahi Unavailable Unavailable Makhuli, N Zahi Unavailable Unavailable Makhuli, N Zahi Unavailable Unavailable Makhuli, N Zahi Unavailable Unavailable Makhuli, N Zahi Unavailable Unavailable Makhuli, N Zahi Unavailable Unavailable Makhuli, N Zahi Unavailable Unavailable Makhuli, N Zahi Unavailable Unavailable Makhuli, N Zahi Unavailable Unavailable Makhuli, N Zahi Unavailable Unavailable Makhuli, N Zahi Unavailable Unavailable Makhuli, N Zahi Unavailable Unavailable Makhuli, N Zahi Unavailable Unavailable Esdras, Edwin DO Unavailable Unavailable Esdras, Edwin DO Unavailable Unavailable Esdras, Edwin DO Unavailable Unavailable Esdras, Edwin DO Unavailable Unavailable Esdras, Edwin DO Unavailable Unavailable Esdras, Edwin DO Unavailable Unavailable Esdras, Edwin DO Unavailable Unavailable Esdras, Edwin DO Unavailable Unavailable Esdras, Edwin DO Unavailable Unavailable Esdras, Edwin DO Unavailable Unavailable Esdras, Edwin DO Unavailable Unavailable Esdras, Edwin DO Unavailable Unavailable Esdras, Edwin DO Unavailable Unavailable Esdras, Edwin DO Unavailable Unavailable Esdras, Edwin DO Unavailable Unavailable Esdras, Edwin DO Unavailable Unavailable Esdras, Edwin DO Unavailable Unavailable Esdras, Edwin DO Unavailable Unavailable Esdras, Edwin DO Unavailable Unavailable Esdras, Edwin DO Unavailable Unavailable Esdras, Edwin DO Unavailable Unavailable Esdras, Edwin DO Unavailable Unavailable Esdras, Edwin DO Unavailable Unavailable Esdras, Edwin DO Unavailable Unavailable Esdras, Edwin DO Unavailable Unavailable Esdras, Edwin DO Unavailable Unavailable Esdras, Edwin DO Unavailable Unavailable Esdras, Edwin DO Unavailable Unavailable Esdras, Edwin DO Unavailable Unavailable Tania LEMUS MD Unavailable Unavailable Tania LEMUS MD Unavailable Unavailable Tania LEMUS MD Unavailable Unavailable Tania LEMUS MD Unavailable Unavailable Tania LEMUS MD Unavailable Unavailable Tania LEMUS MD Unavailable Unavailable Tania LEMUS MD Unavailable Unavailable Tania LEMUS MD Unavailable Unavailable Tania LEMUS MD Unavailable Unavailable Tania LEMUS MD Unavailable Unavailable Tania LEMUS MD Unavailable Unavailable Tania LEMUS MD Unavailable Unavailable Tania LEMUS MD Unavailable Unavailable Tania LEMUS MD Unavailable Unavailable Tania LEMUS MD Unavailable Unavailable Tania LEMUS MD Unavailable Unavailable Tania LEMUS MD Unavailable Unavailable Tania LEMUS MD Unavailable Unavailable Tania LEMUS MD Unavailable Unavailable Tania LEMUS MD Unavailable Unavailable Tania LEMUS MD Unavailable Unavailable Tania LEMUS MD Unavailable Unavailable Tania LEMUS MD Unavailable Unavailable Tania LEMUS MD Unavailable Unavailable Tania LEMUS MD Unavailable Unavailable Tania LEMUS MD Unavailable Unavailable Tania LEMUS MD Unavailable Unavailable Tania LEMUS MD Unavailable Unavailable Tania LEMUS MD Unavailable Unavailable Tania LEMUS MD Unavailable Unavailable Tania LEMUS MD Unavailable Unavailable Tania LEMUS MD Unavailable Unavailable Tania LEMUS MD Unavailable Unavailable Tania LEMUS MD Unavailable Unavailable Tania LEMUS MD Unavailable Unavailable Tania LEMUS MD Unavailable Unavailable Tania LEMUS MD Unavailable Unavailable Tania LEMUS MD Unavailable Unavailable Tania LEMUS MD Unavailable Unavailable Tania LEMUS MD Unavailable Unavailable MIHAILA, L JERAD MD Unavailable Unavailable MIHAILA, L JERAD MD Unavailable Unavailable MIHAILA, L JERAD MD Unavailable Unavailable MIHAILA, L JERAD MD Unavailable Unavailable MIHAILA, L JERAD MD Unavailable Unavailable MIHAILA, L JERAD MD Unavailable Unavailable MIHAILA, L JERAD MD Unavailable Unavailable MIHAILA, L JERAD MD Unavailable Unavailable MIHAILA, L JERAD MD Unavailable Unavailable MIHAILA, L JERAD MD Unavailable Unavailable MIHAILA, L JERAD MD Unavailable Unavailable MIHAILA, L JERAD MD Unavailable Unavailable MIHAILA, L JERAD MD Unavailable Unavailable MIHAILA, L JERAD MD Unavailable Unavailable MIHAILA, L JERAD MD Unavailable Unavailable MIHAILA, L JERAD MD Unavailable Unavailable MIHAILA, L JERAD MD Unavailable Unavailable MIHAILA, L JERAD MD Unavailable Unavailable MIHAILA, L JERAD MD Unavailable Unavailable MIHAILA, L JERAD MD Unavailable Unavailable Re-disclosure Warning The records that you are about to access may contain information from federally-assisted alcohol or drug abuse programs. If such information is present, then the following federally mandated warning applies: This information has been disclosed to you from records protected by federal confidentiality rules (42 CFR part 2). The federal rules prohibit you from making any further disclosure of this information unless further disclosure is expressly permitted by the written consent of the person to whom it pertains or as otherwise permitted by 42 CFR part 2. A general authorization for the release of medical or other information is NOT sufficient for this purpose. The Federal rules restrict any use of the information to criminally investigate or prosecute any alcohol or drug abuse patient.The records that you are about to access may contain highly sensitive health information, the redisclosure of which is protected by Article 27-F of the [facility] Public Health law. If you continue you may have access to information: Regarding HIV / AIDS; Provided by facilities licensed or operated by the [facility] Office of Mental Health; or Provided by the [facility] Office for People With Developmental Disabilities. If such information is present, then the following [facility] mandated warning applies: This information has been disclosed to you from confidential records which are protected by state law. State law prohibits you from making any further disclosure of this information without the specific written consent of the person to whom it pertains, or as otherwise permitted by law. Any unauthorized further disclosure in violation of state law may result in a fine or [place] [facility] sentence or both. A general authorization for the release of medical or other information is NOT sufficient authorization for further disc losure. Allergies and Adverse Reactions Type Description Substance Reaction Status Data Source(s ) Propensity to adverse reactions NO KNOWN ALLERGIES NO KNOWN ALLERGIES [facility] Propensity to adverse reactions NO KNOWN ALLERGIES NO KNOWN ALLERGIES [facility] Propensity to adverse reactions NO ALLERGIES ON FILE NO ALLERGIES ON FILE [facility] Drug allergy No Known Drug Allergies No Known Drug Allergies [facility] Food allergy No Known Food Allergies No Known Food Allergies [facility] Propensity to adverse reactions NO KNOWN ALLERGIES NO KNOWN ALLERGIES [facility] Propensity to adverse reactions ALLERGIES NOT ON FILE ALLERGIES NOT O N FILE [facility] Family History Family Member Name Family Member Gender Family Member Status Date o f Status Description Data Source(s) Unknown Female Diagnosis 06/19/2007 12:00:00 AM EST [facility] Unknown Female Diagnosis 06/19/2007 12:00:00 AM EST [facility] Unknown Female Diagnosis 06/19/2007 12:00:00 AM EST [facility] Encounters Encounter Providers Location Date Indications Data Source(s ) [place] [address] [facility] [address] 06/28/2021 12:00:00 AM EST [facility] [place] [address] [facility] [place] [address] 06/09/2021 12:00:00 AM EDT [facility]CW1 ([facility]) [place] [address] [facility] [place] [address] 06/08/2021 12:00:00 AM EDT eCW1 ([facility]) [place] [address] [facility] [place] [address] 06/02/2021 12:00:00 AM EDT eCW1 ([facility]) [place] [address] [facility] [place] [address] 05/06/2021 12:00:00 AM EDT eCW1 ([facility]) Unknown [address] [facility] [place] [address] 04/08/2021 12:00:00 AM EDT [facility] [place] [address] [facility] [address] 03/31/2021 12:00:00 AM EDT eCW1 ([facility]) [place] [address] [facility] [address] 03/30/2021 12:00:00 AM EDT eCW1 ([facility]) INPATIENT Attender: Chemo Sheridan nder: MALAIKA NANCE MDAttender: Kenneth Dickerson MDAdmitter: Kenneth Dickerson MDConsultant: PARMINDER BROWN MD 2E-[id number] 03/23/2021 04:28:00 PM EDT - 03/24/2021 04:58:00 PM EDT [facility] Patient discharged. Inpatient Attender: Jeffrey Shukla MD Attender: LEIGHTON VALERIO MDAttender: Ruben Almanzar MDAdmitter: Jeffrey Shukla MD 11:17:00 PM EDT - 03/23/2021 03:18:00 PM EDT [facility] Patient discharged. Unknown [address] [facility] [address] 03/21/2021 12:00:00 AM EDT [facility]CW1 [facility] [place] [address] [facility] [address] 03/09/2021 12:00:00 AM EDT eCW1 ([facility]) [place] [address] [facility] [address] 03/09/2021 12:00:00 AM EDT eCW1 ([facility]) [place] [address] [facility] [address] 03/09/2021 12:00:00 AM EDT eCW1 ([facility]) [place] [address] [facility] [address] 02/25/2021 12:00:00 AM EDT eCW1 ([facility]) Unknown [address] [facility] [address] 02/25/2021 12:00:00 AM EDT eCW1 ([facility]) [place] [address] [facility] [address] 02/25/2021 12:00:00 AM EDT eCW1 ([facility]) Unknown [address] [facility] [address] 02/25/2021 12:00:00 AM EDT eCW1 ([facility]) Unknown [address] [facility] [address] 02/25/2021 12:00:00 AM EDT eCW1 ([facility]) [place] [address] [facility] [address] 02/23/2021 12:00:00 AM EDT eCW1 ([facility]) Out[place] [address] [facility] [address] 02/22/2021 12:00:00 AM EDT eCW1 ([facility]) Unknown [address] [facility] [address] 02/21/2021 12:00:00 AM EDT eCW1 ([facility] [facility] [place] [address] [facility] [address] 02/03/2021 12:00:00 AM EDT eCW1 ([facility] [place] [address] [facility] [address] 01/24/2021 12:00:00 AM EDT eCW1 ([facility] [place] [address] [facility] [address] 01/07/2021 12:00:00 AM EDT eCW1 ([facility] [place] [address] [facility] [address] 01/07/2021 12:00:00 AM EDT eCW1 ([facility] [place] [address] [facility] [address] 01/04/2021 12:00:00 AM EDT eCW1 ([facility] [place] [address] [facility] [address] 01/04/2021 12:00:00 AM ED[facility] [address] [facility] [address] 12/28/2020 12:00:00 AM EDT [facility] [place] [address] [facility] [address] 12/28/2020 12:00:00 AM EDT [facility]CW1 [facility] [place] [address] [facility] [address] 12/20/2020 12:00:00 AM EDT [facility] [place] [address] [facility] [address] 12/14/2020 12:00:00 AM EDT eCW1 ([facility] [place] [address] [facility] [address] 11/22/2020 12:00:00 AM EDT eCW1 ([facility]) [place] [address] [facility] [address] 10/27/2020 12:00:00 AM EDT eCW1 ([facility]) [place] [address] [facility] [address] 09/27/2020 12:00:00 AM EST [facility]CW1 [facility] Outpatient Attender: Edwin Dewitt DOAdmitter: Edwin Dewitt DO [facility] 08/20/2020 10:04:00 AM EST - 09/09/2020 07:19:[address] [facility] Patient discharged. Outpatient Attender: JERAD LEMUS MD 08/19/2020 12:00:00 AM [facility] P PCE-PCE 08/09/2020 12:53:[address] [facility] <content styleCode="[id number]">OLL MS4 FIN 20 [id number] Date(s): 08/09/20 - 01/06/21</content>
[address] [phone]
[facility] 08/09/2020 12:53:00 PM EST - 01/06/2021 11:59:[address] [facility] 08/05/2020 09:17:42 AM EST [facility] Observation Attender: RUBY SANTOSAttender: MD Zara Bertrand MD 07/31/2020 02:36:00 PM EST - 08/02/2020 01:00:00 PM EST [facility] Hallucinations Patient discharged. Outpatient Attender: JERAD LEMUS MD 07/21/2020 12:00:00 AM EST [facility] Outpatient Attender: Jyoti SouzaAdmitter: Jyoti Souza OUT-OUT 07/14/2020 11:00:00 AM EST - 07/14/2020 11:00:[address] [facility] Patient discharged. P Attender: Jyoti SouzaAdmitter: Jyoti Souza ANC-ANC 06/16/2020 04:00:[address] [facility] Outpatient Attender: TAMANNA HERRERA MDAdmitter: TAMANNA HERRERA MD LCG-LCG 06/14/2020 12:36:00 PM EST - 06/14/2020 01:36:[address] [facility] Patient discharged. P Attender: TAMANNA HERRERA MDAdmitter: TAMANNA HERRERA MD LCG-LCG 06/14/2020 11:36:[address] [facility] P Attender: Kobe PavonAdmitter: Kobe Pavon ANC -ANC 06/14/2020 04:00:[address] [facility] Outpatient Attender: Kobe Pavon 06/10/2020 12:00:00 AM E [facility] Outpatient Attender: Kobe Valdeztawanna 06/10/2020 12:00:00 AM E [facility] Outpatient Referrer: Kobe Younggeronimo 06/10/2020 12:00:00 AM E [facility] P Attender: Kobe ValdeztawannaAdmitter: Kobe Pavon ANC -ANC 06/07/2020 04:00:[address] [facility] P Attender: Kobe ValdeztawannaAdmitter: Kobe Pavon ANC -ANC 06/04/2020 04:00:[address] [facility] Outpatient Attender: TAMANNA Krausi tter: TAMANNA HERRERA MDReferrer: Denia Griggs MD, PGY-1 LCG-LCG 06/03/2020 04:00:00 AM EDT - 06/03/2020 04:00:[address] [facility] Patient discharged. P Attender: Jyoti SouzaAdmitter: Jyoti Souza ANC-ANC 06/01/2020 04:00:[address] [facility] Outpatient Attender: Kaci Sagastume DOAdmitter: Kaci Sagastume DO PCM-PCM 05/24/2020 12:06:00 PM EDT - 05/24/2020 12:06:[address] [facility] Patient discharged. Outpatient Attender: Kaci Sagastume DOAdmitter: Kaci Sagastume DO [id number] 05/24/2020 12:06:[address] [facility] Outpatient Attender: MAC LAKEdmitter: MAC VIRAMONTES PCE -PCE 05/24/2020 05:00:00 AM EDT - 05/24/2020 06:00:[address] [facility] Patient discharged. Preadmit Attender: MAC LAKEdmitter: MAC VIRAMONTES PCE -PCE 05/24/2020 04:00:[address] [facility] P Attender: Kaci Sagastume DOAttender: MAC Santamaria mitter: MAC VIRAMONTES PCE-PCE 05/24/2020 04:00:[address] [facility] P Attender: MAC Dodsonitter: MAC VIKTORIA PCE -PCE 05/19/2020 02:45:[address] [facility] Outpatient Attender: Kobe PavonAdmitter: Kobe Pavon ANC -ANC 12/04/2019 10:32:00 AM EDT - 12/04/2019 10:32:[address] [facility] Patient discharged. Functional Status Immunizations Vaccine Date Status Description Data Source(s) COVID-19 VACCINE [facility] 12/24/2020 12:00:00 AM EDT completed [facility] Vaccine Series Complete: YESThis Data wa s Submitted to [facility] Via [employer]. Zoster, Recombinant 05/05/2020 12:00:00 AM EDT completed < td ID="[id number]">Zoster, Recombinant</td><td>05/05/2020</td><td></td> [facility] IIV3. This vaccine code is one of two wh ich replace CVX 15, influenza, split virus. 05/05/2020 12:00:00 AM EDT completed <td ID="[id number]">Influenza (IM) Preservative Free</td><td>05/05/2020, 05/13/2009</td><td></td> [facility] New in 2011. IIV4 05/05/2020 12:00:00 AM EDT completed <t d ID="[id number]">Flu, Recombinant, Quadrivalent, PF</td><td>05/05/2020, 07/13/2018</td><td></td> [facility] Medications Medication Brand Name Start Date Product Form Dose Route Admi nistrative Instructions Pharmacy Instructions Status Indications Reaction Description Data Source(s) 24 HR venlafaxine 150 MG Extended Releas e Oral Capsule Venlafaxine HCl ER 150 MG Venlafaxine HCl ER 150 MG 06/09/2021 12:00:00 AM EDT 1 .0 {capsule_with_food} active Venlafaxine HCl ER 1 50 MG eCW1 (Formerly [facility], 1928–1983) 24 HR venlafaxine 150 MG Extended Releas e Oral Capsule Venlafaxine HCl ER 150 MG Venlafaxine HCl ER 150 MG 06/09/2021 12:00:00 AM EDT 1 .0 {capsule_with_food} active eCW1 ([facility]) Albuterol Sulfate HFA 108 (90 Base) MCG/ACT Albuterol Sulfate HFA 108 (90 Base) MCG/ACT 06/07/2021 12:00:00 AM EDT 1.0 {puff_as_needed} active Albuterol Sulfate HFA 108 (90 Base) MCG/ACT eCW1 (Formerly [facility], 1928–1983) Albuterol Sulfate HFA 108 (90 Base) MCG/ACT Albuterol Sulfate HFA 108 (90 Base) MCG/ACT 06/07/2021 12:00:00 AM EDT 1.0 {puff_as_needed} active Albuterol Sulfate HFA 108 (90 Base) MCG/ACT eCW1 ([facility], 1928–1983) Albuterol Sulfate HFA 108 (90 Base) MCG/ACT Albuterol Sulfate HFA 108 (90 Base) MCG/ACT 06/07/2021 12:00:00 AM EDT 1.0 {puff_as_needed} active Albuterol Sulfate HFA 108 (90 Base) MCG/ACT eCW1 ([facility], 1928–1983) Albuterol Sulfate HFA 108 (90 Base) MCG/ACT Albuterol Sulfate HFA 108 (90 Base) MCG/ACT 06/07/2021 12:00:00 AM EDT 1.0 {puff_as_needed} active eCW1 ([facility], 1928–1983) Albuterol 0.83 MG/ML Inhalant Solution Albuterol Sulfa te (2.5 MG/3ML) 0.083% Albuterol Sulfate (2.5 MG/3ML) 0.083% 05/04/2021 12:00:00 AM EDT 3.0 {ml_as_needed} active eCW1 ([facility]) Albuterol 0.83 MG/ML Inhalant Solution Albuterol Sulfa te (2.5 MG/3ML) 0.083% Albuterol Sulfate (2.5 MG/3ML) 0.083% 05/04/2021 12:00:00 AM EDT 3.0 {ml_as_needed} active Albuterol Sulfate (2.5 MG/3ML) 0.083% eCW1 ([facility], 1928–1983) Albuterol 0.83 MG/ML Inhalant Solution Albuterol Sulfa te (2.5 MG/3ML) 0.083% Albuterol Sulfate (2.5 MG/3ML) 0.083% 05/04/2021 12:00:00 AM EDT 3.0 {ml_as_needed} active Albuterol Sulfate (2.5 MG/3ML) 0.083% eCW1 ([facility], 1928–1983) Albuterol 0.83 MG/ML Inhalant Solution Albuterol Sulfa te (2.5 MG/3ML) 0.083% Albuterol Sulfate (2.5 MG/3ML) 0.083% 05/04/2021 12:00:00 AM EDT 3.0 {ml_as_needed} active Albuterol Sulfate (2.5 MG/3ML) 0.083% eCW1 ([facility], 1928–1983) Albuterol 0.83 MG/ML Inhalant Solution Albuterol Sulfa te (2.5 MG/3ML) 0.083% Albuterol Sulfate (2.5 MG/3ML) 0.083% 05/04/2021 12:00:00 AM EDT 3.0 {ml_as_needed} active Albuterol Sulfate (2.5 MG/3ML) 0.083% eCW1 ([facility], 1928–1983) Lactobacillus acidophilus Lactobacillus Acidophilus (Probiotic Acidophilus) 1.5 mg (250 million cell) Capsule Lactobacillus Acidophilus (Probiotic Aci dophilus) 1.5 mg (250 million cell) Capsule 03/23/2021 01:23:03 AM EDT 2000 M MU CELLS active [facility] Metoprolol Tartrate 50 MG Oral Tablet Metoprolol Tartrate 02:03:58 PM EDT 50 MG active [facility] Rosuvastatin calcium 40 MG Oral Tablet Rosuvastatin (C restor) 40 mg Tablet Rosuvastatin (Crestor) 40 mg Tablet 03/22/2021 02:03:58 PM EDT 40 MG active [facility] Clonazepam 0.5 MG Oral Tablet Clonazepam 03/22/2021 02:03:58 PM EDT 0.5 MG active [facility] Gabapentin 03/22/2021 02:03:58 PM EDT 300 MG activ [facility] Albuterol Sulfate (Proair Hfa) 90 mcg/actuation Hfa Aerosol Inhaler 03/22/2021 02:03:58 PM EDT 2 PUFFS active [facility] coenzyme Q10 100 MG Oral Capsule Coenzyme Q10 (Coq-10) 100 mg Capsule Coenzyme Q10 (Coq-10) 100 mg Capsule 03/22/2021 02:03:58 PM EDT [facility] 30 MG Oral Tablet Buspirone Buspiron e 03/22/2021 02:03:58 PM EDT 30 MG active [facility] Hydroxyzine Hydrochloride 25 MG Oral Tablet Hydroxyzine Hcl Hydroxyzine Hcl 03/22/2021 02:03:58 PM EDT 25 MG active [facility] 24 HR venlafaxine 150 MG Extended Releas e Oral Capsule Venlafaxine (Effexor Xr) 150 mg Capsule,Extended Release 24hr Venlafaxine (Effexor Xr) 150 mg Capsule,Extended Release 24hr 03/22/2021 02:03:58 PM EDT 150 MG active [facility] Vitamin E 100 UNT Oral Capsule Vitamin E 03/22/2021 02:03:58 PM EDT 100 UNIT active [facility] B.Breve-L.Acid-L.Rham-S.Thermo (Probiotic) 3 billion cell Ta blet,Chewable 03/22/2021 02:03:58 PM EDT active [facility] Aspirin 81 MG Chewable Tablet Aspirin 03/22/2021 02:03:58 PM EDT 81 MG active [facility] gabapentin 600 MG Oral Tablet Gabapentin Gabapentin 021 02:03:58 PM EDT 600 MG active [facility] valsartan 320 MG Oral Tablet Valsartan Valsartan 03/22/2021 02:0 3:58 PM EDT 320 MG active [facility] Multivitamin 03/22/2021 02:03:58 PM EDT 1 TAB acti ve [facility] Omeprazole 20 MG Delayed Release Oral Tablet Omeprazole 03/22/2021 02:03:58 PM EDT 20 MG active [facility] Tamsulosin hydrochloride 0.4 MG Oral Capsule Tamsulosi n (Flomax) 0.4 mg Capsule Tamsulosin (Flomax) 0.4 mg Capsule 03/22/2021 02:03:58 PM EDT 0.4 MG active [facility] Levothyroxine Sodium 0.025 MG Oral Tablet Levothyroxine 03/22/2021 02:03:58 PM EDT 25 MCG active [facility] coenzyme Q10 50 MG Oral Capsule Coenzyme Q10 50 MG Coenzyme Q10 50 MG 02/22/2021 12:00:00 AM EDT active e CW1 (Former[facility], 1928–1983) Rosuvastatin calcium 40 MG Oral Tablet Rosuvastatin Ca lcium 40 MG Rosuvastatin Calcium 40 MG 02/22/2021 12:00:00 AM EDT 1.0 {tablet} active Rosuvastatin Calcium 40 MG eCW1 ([facility], 1928–1983) coenzyme Q10 50 MG Oral Capsule Coenzyme Q10 50 MG Coenzyme Q10 50 MG 02/22/2021 12:00:00 AM EDT active Coenzyme Q10 50 MG eCW1 ([facility], 1928–1983) Aspirin 81 MG Chewable Tablet Aspirin 81 MG 02/22/2021 12:00:00 AM EDT 1.0 {tablet} active Aspirin 81 MG eCW1 ([facility]) Aspirin 81 MG Chewable Tablet Aspirin 81 MG 02/22/2021 12:00:00 AM EDT 1.0 {tablet} active Aspirin 81 MG eCW1 ([facility]) coenzyme Q10 50 MG Oral Capsule Coenzyme Q10 50 MG Coenzyme Q10 50 MG 02/22/2021 12:00:00 AM EDT active Coenzyme Q10 50 MG eCW1 ([facility], 1928–1983) Rosuvastatin calcium 40 MG Oral Tablet Rosuvastatin Ca lcium 40 MG Rosuvastatin Calcium 40 MG 02/22/2021 12:00:00 AM EDT 1.0 {tablet} active Rosuvastatin Calcium 40 MG eCW1 ([facility], 1928–1983) Aspirin 81 MG Chewable Tablet Aspirin 81 MG 02/22/2021 12:00:00 AM EDT 1.0 {tablet} active Aspirin 81 MG eCW1 ([facility]) Rosuvastatin calcium 40 MG Oral Tablet Rosuvastatin Ca lcium 40 MG Rosuvastatin Calcium 40 MG 02/22/2021 12:00:00 AM EDT 1.0 {tablet} active Rosuvastatin Calcium 40 MG eCW1 ([facility], 1928–1983) Rosuvastatin calcium 40 MG Oral Tablet Rosuvastatin Ca lcium 40 MG Rosuvastatin Calcium 40 MG 02/22/2021 12:00:00 AM EDT 1.0 {tablet} active Rosuvastatin Calcium 40 MG eCW1 ([facility], 1928–1983) Rosuvastatin calcium 40 MG Oral Tablet Rosuvastatin Ca lcium 40 MG Rosuvastatin Calcium 40 MG 02/22/2021 12:00:00 AM EDT 1.0 {tablet} active Rosuvastatin Calcium 40 MG eCW1 ([facility], 1928–1983) Aspirin 81 MG Chewable Tablet Aspirin 81 MG 02/22/2021 12:00:00 AM EDT 1.0 {tablet} active Aspirin 81 MG eCW1 ([facility]) Rosuvastatin calcium 40 MG Oral Tablet Rosuvastatin Ca lcium 40 MG Rosuvastatin Calcium 40 MG 02/22/2021 12:00:00 AM EDT 1.0 {tablet} active Rosuvastatin Calcium 40 MG eCW1 ([facility], 1928–1983) coenzyme Q10 50 MG Oral Capsule Coenzyme Q10 50 MG Coenzyme Q10 50 MG 02/22/2021 12:00:00 AM EDT active Coenzyme Q10 50 MG eCW1 ([facility], 1928–1983) Rosuvastatin calcium 40 MG Oral Tablet Rosuvastatin Ca lcium 40 MG Rosuvastatin Calcium 40 MG 02/22/2021 12:00:00 AM EDT 1.0 {tablet} active Rosuvastatin Calcium 40 MG eCW1 (Former[facility], 1928–1983) Rosuvastatin calcium 40 MG Oral Tablet Rosuvastatin Ca lcium 40 MG Rosuvastatin Calcium 40 MG 02/22/2021 12:00:00 AM EDT 1.0 {tablet} active Rosuvastatin Calcium 40 MG eCW1 (Former[facility], 1928–1983) Aspirin 81 MG Chewable Tablet Aspirin 81 MG 02/22/2021 12:00:00 AM EDT 1.0 {tablet} active Aspirin 81 MG eCW1 ([facility]) Aspirin 81 MG Chewable Tablet Aspirin 81 MG 02/22/2021 12:00:00 AM EDT 1.0 {tablet} active Aspirin 81 MG eCW1 ([facility]) Rosuvastatin calcium 40 MG Oral Tablet Rosuvastatin Ca lcium 40 MG Rosuvastatin Calcium 40 MG 02/22/2021 12:00:00 AM EDT 1.0 {tablet} active Rosuvastatin Calcium 40 MG eCW1 ([facility], 1928–1983) Aspirin 81 MG Chewable Tablet Aspirin 81 MG 02/22/2021 12:00:00 AM EDT 1.0 {tablet} active Aspirin 81 MG eCW1 ([facility]) Aspirin 81 MG Chewable Tablet Aspirin 81 MG 02/22/2021 12:00:00 AM EDT 1.0 {tablet} active Aspirin 81 MG eCW1 ([facility]) Rosuvastatin calcium 40 MG Oral Tablet Rosuvastatin Ca lcium 40 MG Rosuvastatin Calcium 40 MG 02/22/2021 12:00:00 AM EDT 1.0 {tablet} active Rosuvastatin Calcium 40 MG eCW1 ([facility], 1928–1983) coenzyme Q10 50 MG Oral Capsule Coenzyme Q10 50 MG Coenzyme Q10 50 MG 02/22/2021 12:00:00 AM EDT active Coenzyme Q10 50 MG eCW1 ([facility], 1928–1983) Aspirin 81 MG Chewable Tablet Aspirin 81 MG 02/22/2021 12:00:00 AM EDT 1.0 {tablet} active Aspirin 81 MG eCW1 ([facility]) coenzyme Q10 50 MG Oral Capsule Coenzyme Q10 50 MG Coenzyme Q10 50 MG 02/22/2021 12:00:00 AM EDT active Coenzyme Q10 50 MG eCW1 ([facility], 1928–1983) Rosuvastatin calcium 40 MG Oral Tablet Rosuvastatin Ca lcium 40 MG Rosuvastatin Calcium 40 MG 02/22/2021 12:00:00 AM EDT 1.0 {tablet} ac tive eCW1 (Formerly [facility], [facility]–1983) Aspirin 81 MG Chewable Tablet Aspirin 81 MG 02/22/2021 12:00:00 AM EDT 1.0 {tablet} active Aspirin 81 MG eCW1 ([facility]) Aspirin 81 MG Chewable Tablet Aspirin 81 MG 02/22/2021 12:00:00 AM EDT 1.0 {tablet} active Aspirin 81 MG eCW1 ([facility]) Aspirin 81 MG Chewable Tablet Aspirin 81 MG 02/22/2021 12:00:00 AM EDT 1.0 {tablet} active Aspirin 81 MG eCW1 ([facility]) Rosuvastatin calcium 40 MG Oral Tablet Rosuvastatin Ca lcium 40 MG Rosuvastatin Calcium 40 MG 02/22/2021 12:00:00 AM EDT 1.0 {tablet} active Rosuvastatin Calcium 40 MG eCW1 (Former[facility], 1928–1983) Aspirin 81 MG Chewable Tablet Aspirin 81 MG 02/22/2021 12:00:00 AM EDT 1.0 {tablet} active Aspirin 81 MG eCW1 ([facility]) Aspirin 81 MG Chewable Tablet Aspirin 81 MG 02/22/2021 12:00:00 AM EDT 1.0 {tablet} active Aspirin 81 MG eCW1 ([facility]) Aspirin 81 MG Chewable Tablet Aspirin 81 MG 02/22/2021 12:00:00 AM EDT 1.0 {tablet} active eCW1 ([facility], 1928–1983) Rosuvastatin calcium 40 MG Oral Tablet Rosuvastatin Ca lcium 40 MG Rosuvastatin Calcium 40 MG 02/22/2021 12:00:00 AM EDT 1.0 {tablet} active Rosuvastatin Calcium 40 MG eCW1 (Former[facility], 1928–1983) coenzyme Q10 50 MG Oral Capsule Coenzyme Q10 50 MG Coenzyme Q10 50 MG 02/22/2021 12:00:00 AM EDT active Coenzyme Q10 50 MG eCW1 ([facility], 1928–1983) coenzyme Q10 50 MG Oral Capsule Coenzyme Q10 50 MG Coenzyme Q10 50 MG 02/22/2021 12:00:00 AM EDT active Coenzyme Q10 50 MG eCW1 ([facility], 1928–1983) coenzyme Q10 50 MG Oral Capsule Coenzyme Q10 50 MG Coenzyme Q10 50 MG 02/22/2021 12:00:00 AM EDT active Coenzyme Q10 50 MG eCW1 ([facility], 1928–1983) coenzyme Q10 50 MG Oral Capsule Coenzyme Q10 50 MG Coenzyme Q10 50 MG 02/22/2021 12:00:00 AM EDT active Coenzyme Q10 50 MG eCW1 ([facility], 1928–1983) Rosuvastatin calcium 40 MG Oral Tablet Rosuvastatin Ca lcium 40 MG Rosuvastatin Calcium 40 MG 02/22/2021 12:00:00 AM EDT 1.0 {tablet} active Rosuvastatin Calcium 40 MG eCW1 ([facility], 1928–1983) coenzyme Q10 50 MG Oral Capsule Coenzyme Q10 50 MG Coenzyme Q10 50 MG 02/22/2021 12:00:00 AM EDT active Coenzyme Q10 50 MG eCW1 ([facility], 1928–1983) coenzyme Q10 50 MG Oral Capsule Coenzyme Q10 50 MG Coenzyme Q10 50 MG 02/22/2021 12:00:00 AM EDT active Coenzyme Q10 50 MG eCW1 ([facility], 1928–1983) Aspirin 81 MG Chewable Tablet Aspirin 81 MG 02/22/2021 12:00:00 AM EDT 1.0 {tablet} active Aspirin 81 MG eCW1 ([facility]) Rosuvastatin calcium 40 MG Oral Tablet Rosuvastatin Ca lcium 40 MG Rosuvastatin Calcium 40 MG 02/22/2021 12:00:00 AM EDT 1.0 {tablet} active Rosuvastatin Calcium 40 MG eCW1 ([facility], 1928–1983) coenzyme Q10 50 MG Oral Capsule Coenzyme Q10 50 MG Coenzyme Q10 50 MG 02/22/2021 12:00:00 AM EDT active Coenzyme Q10 50 MG eCW1 ([facility], 1928–1983) Rosuvastatin calcium 40 MG Oral Tablet Rosuvastatin Ca lcium 40 MG Rosuvastatin Calcium 40 MG 02/22/2021 12:00:00 AM EDT 1.0 {tablet} active Rosuvastatin Calcium 40 MG eCW1 ([facility], 1928–1983) Aspirin 81 MG Chewable Tablet Aspirin 81 MG 02/22/2021 12:00:00 AM EDT 1.0 {tablet} active Aspirin 81 MG eCW1 ([facility]) Aspirin 81 MG Chewable Tablet Aspirin 81 MG 02/22/2021 12:00:00 AM EDT 1.0 {tablet} active Aspirin 81 MG eCW1 ([facility]) Aspirin 81 MG Chewable Tablet Aspirin 81 MG 02/22/2021 12:00:00 AM EDT 1.0 {tablet} active Aspirin 81 MG eCW1 ([facility]) Rosuvastatin calcium 40 MG Oral Tablet Rosuvastatin Ca lcium 40 MG Rosuvastatin Calcium 40 MG 02/22/2021 12:00:00 AM EDT 1.0 {tablet} active Rosuvastatin Calcium 40 MG eCW1 ([facility], 1928–1983) Rosuvastatin calcium 40 MG Oral Tablet Rosuvastatin Ca lcium 40 MG Rosuvastatin Calcium 40 MG 02/22/2021 12:00:00 AM EDT 1.0 {tablet} active Rosuvastatin Calcium 40 MG eCW1 ([facility], 1928–1983) coenzyme Q10 50 MG Oral Capsule Coenzyme Q10 50 MG Coenzyme Q10 50 MG 02/22/2021 12:00:00 AM EDT active Coenzyme Q10 50 MG eCW1 ([facility], 1928–1983) coenzyme Q10 50 MG Oral Capsule Coenzyme Q10 50 MG Coenzyme Q10 50 MG 02/22/2021 12:00:00 AM EDT active Coenzyme Q10 50 MG eCW1 ([facility], 1928–1983) coenzyme Q10 50 MG Oral Capsule Coenzyme Q10 50 MG Coenzyme Q10 50 MG 02/22/2021 12:00:00 AM EDT active Coenzyme Q10 50 MG eCW1 ([facility], 1928–1983) coenzyme Q10 50 MG Oral Capsule Coenzyme Q10 50 MG Coenzyme Q10 50 MG 02/22/2021 12:00:00 AM EDT active Coenzyme Q10 50 MG eCW1 ([facility], 1928–1983) Aspirin 81 MG Chewable Tablet Aspirin 81 MG 02/22/2021 12:00:00 AM EDT 1.0 {tablet} active Aspirin 81 MG eCW1 ([facility]) Aspirin 81 MG Chewable Tablet Aspirin 81 MG 02/22/2021 12:00:00 AM EDT 1.0 {tablet} active Aspirin 81 MG eCW1 ([facility]) Rosuvastatin calcium 40 MG Oral Tablet Rosuvastatin Ca lcium 40 MG Rosuvastatin Calcium 40 MG 02/22/2021 12:00:00 AM EDT 1.0 {tablet} active Rosuvastatin Calcium 40 MG eCW1 ([facility], 1928–1983) coenzyme Q10 50 MG Oral Capsule Coenzyme Q10 50 MG Coenzyme Q10 50 MG 02/22/2021 12:00:00 AM EDT active Coenzyme Q10 50 MG eCW1 ([facility], 1928–1983) coenzyme Q10 50 MG Oral Capsule Coenzyme Q10 50 MG Coenzyme Q10 50 MG 02/22/2021 12:00:00 AM EDT active Coenzyme Q10 50 MG eCW1 ([facility], 1928–1983) Rosuvastatin calcium 40 MG Oral Tablet Rosuvastatin Ca lcium 40 MG Rosuvastatin Calcium 40 MG 02/22/2021 12:00:00 AM EDT 1.0 {tablet} active Rosuvastatin Calcium 40 MG eCW1 ([facility], 1928–1983) Rosuvastatin calcium 40 MG Oral Tablet Rosuvastatin Ca lcium 40 MG Rosuvastatin Calcium 40 MG 02/22/2021 12:00:00 AM EDT 1.0 {tablet} active Rosuvastatin Calcium 40 MG eCW1 ([facility], 1928–1983) coenzyme Q10 50 MG Oral Capsule Coenzyme Q10 50 MG Coenzyme Q10 50 MG 02/22/2021 12:00:00 AM EDT active Coenzyme Q10 50 MG eCW1 ([facility], 1928–1983) coenzyme Q10 50 MG Oral Capsule Coenzyme Q10 50 MG Coenzyme Q10 50 MG 02/22/2021 12:00:00 AM EDT active Coenzyme Q10 50 MG eCW1 ([facility], [facility]–1983) magnesium citrate 58.2 MG/ML Oral Solution Magnesium Citrate 01/18/2021 12:00:00 AM EDT active [facility] ([facility] ) POLYETHYLENE GLYCOL 3350 142 MG/ML Oral Solution [Miralax] M iralax 01/18/2021 12:00:00 AM EDT active M [facility] ([facility], ) Nasonex 50 MCG/ACT Nasonex 50 MCG/ACT 12/20/2020 12:00:00 AM EDT 2.0 {sprays_in_each_nostril} active Nasonex 50 MCG/ACT eCW1 (Formerly [facility], 1928–1983) Nasonex 50 MCG/ACT Nasonex 50 MCG/ACT 12/20/2020 12:00:00 AM EDT 2.0 {sprays_in_each_nostril} active Nasonex 50 MCG/ACT eCW1 (Formerly [facility], 1928–1983) Nasonex 50 MCG/ACT Nasonex 50 MCG/ACT 12/20/2020 12:00:00 AM EDT 2.0 {sprays_in_each_nostril} active Nasonex 50 MCG/ACT eCW1 (Formerly [facility], 1928–1983) Nasonex 50 MCG/ACT Nasonex 50 MCG/ACT 12/20/2020 12:00:00 AM EDT 2.0 {sprays_in_each_nostril} active Nasonex 50 MCG/ACT eCW1 (Formerly [facility], 1928–1983) Nasonex 50 MCG/ACT Nasonex 50 MCG/ACT 12/20/2020 12:00:00 AM EDT 2.0 {sprays_in_each_nostril} active eCW1 (Formerly [facility], 1928–1983) Nasonex 50 MCG/ACT Nasonex 50 MCG/ACT 12/20/2020 12:00:00 AM EDT 2.0 {sprays_in_each_nostril} active Nasonex 50 MCG/ACT eCW1 (Formerly [facility], 1928–1983) Nasonex 50 MCG/ACT Nasonex 50 MCG/ACT 12/20/2020 12:00:00 AM EDT 2.0 {sprays_in_each_nostril} active Nasonex 50 MCG/ACT eCW1 (Formerly [facility], 1928–1983) Nasonex 50 MCG/ACT Nasonex 50 MCG/ACT 12/20/2020 12:00:00 AM EDT 2.0 {sprays_in_each_nostril} active Nasonex 50 MCG/ACT eCW1 (Formerly [facility], 1928–1983) Nasonex 50 MCG/ACT Nasonex 50 MCG/ACT 12/20/2020 12:00:00 AM EDT 2.0 {sprays_in_each_nostril} active Nasonex 50 MCG/ACT eCW1 (Formerly [facility], 1928–1983) Nasonex 50 MCG/ACT Nasonex 50 MCG/ACT 12/20/2020 12:00:00 AM EDT 2.0 {sprays_in_each_nostril} active Nasonex 50 MCG/ACT eCW1 (Formerly [facility], 1928–1983) Nasonex 50 MCG/ACT Nasonex 50 MCG/ACT 12/20/2020 12:00:00 AM EDT 2.0 {sprays_in_each_nostril} active Nasonex 50 MCG/ACT eCW1 (Formerly [facility], 1928–1983) Nasonex 50 MCG/ACT Nasonex 50 MCG/ACT 12/20/2020 12:00:00 AM EDT 2.0 {sprays_in_each_nostril} active Nasonex 50 MCG/ACT eCW1 (Formerly [facility], 1928–1983) Nasonex 50 MCG/ACT Nasonex 50 MCG/ACT 12/20/2020 12:00:00 AM EDT 2.0 {sprays_in_each_nostril} active Nasonex 50 MCG/ACT eCW1 (Formerly [facility], 1928–1983) Nasonex 50 MCG/ACT Nasonex 50 MCG/ACT 12/20/2020 12:00:00 AM EDT 2.0 {sprays_in_each_nostril} active Nasonex 50 MCG/ACT eCW1 (Formerly [facility], 1928–1983) Nasonex 50 MCG/ACT Nasonex 50 MCG/ACT 12/20/2020 12:00:00 AM EDT 2.0 {sprays_in_each_nostril} active Nasonex 50 MCG/ACT eCW1 (Formerly [facility], 1928–1983) Nasonex 50 MCG/ACT Nasonex 50 MCG/ACT 12/20/2020 12:00:00 AM EDT 2.0 {sprays_in_each_nostril} active Nasonex 50 MCG/ACT eCW1 (Formerly [facility], 1928–1983) Nasonex 50 MCG/ACT Nasonex 50 MCG/ACT 12/20/2020 12:00:00 AM EDT 2.0 {sprays_in_each_nostril} active Nasonex 50 MCG/ACT eCW1 (Formerly [facility], 1928–1983) Nasonex 50 MCG/ACT Nasonex 50 MCG/ACT 12/20/2020 12:00:00 AM EDT 2.0 {sprays_in_each_nostril} active Nasonex 50 MCG/ACT eCW1 (Formerly [facility], 1928–1983) Nasonex 50 MCG/ACT Nasonex 50 MCG/ACT 12/20/2020 12:00:00 AM EDT 2.0 {sprays_in_each_nostril} active Nasonex 50 MCG/ACT eCW1 (Formerly [facility], 1928–1983) Nasonex 50 MCG/ACT Nasonex 50 MCG/ACT 12/20/2020 12:00:00 AM EDT 2.0 {sprays_in_each_nostril} active Nasonex 50 MCG/ACT eCW1 (Formerly [facility], 1928–1983) Nasonex 50 MCG/ACT Nasonex 50 MCG/ACT 12/20/2020 12:00:00 AM EDT 2.0 {sprays_in_each_nostril} active Nasonex 50 MCG/ACT eCW1 (Formerly [facility], 1928–1983) Nasonex 50 MCG/ACT Nasonex 50 MCG/ACT 12/20/2020 12:00:00 AM EDT 2.0 {sprays_in_each_nostril} active eCW1 (Formerly [facility], 1928–1983) Nasonex 50 MCG/ACT Nasonex 50 MCG/ACT 12/20/2020 12:00:00 AM EDT 2.0 {sprays_in_each_nostril} active Nasonex 50 MCG/ACT eCW1 (Formerly [facility], 1928–1983) Nasonex 50 MCG/ACT Nasonex 50 MCG/ACT 12/20/2020 12:00:00 AM EDT 2.0 {sprays_in_each_nostril} active Nasonex 50 MCG/ACT eCW1 (Formerly [facility], 1928–1983) Nasonex 50 MCG/ACT Nasonex 50 MCG/ACT 12/20/2020 12:00:00 AM EDT 2.0 {sprays_in_each_nostril} active Nasonex 50 MCG/ACT eCW1 (Formerly [facility], 1928–1983) Nasonex 50 MCG/ACT Nasonex 50 MCG/ACT 12/20/2020 12:00:00 AM EDT 2.0 {sprays_in_each_nostril} active Nasonex 50 MCG/ACT eCW1 (Formerly [facility], 1928–1983) Nasonex 50 MCG/ACT Nasonex 50 MCG/ACT 12/20/2020 12:00:00 AM EDT 2.0 {sprays_in_each_nostril} active Nasonex 50 MCG/ACT eCW1 (Formerly [facility], 1928–1983) Nasonex 50 MCG/ACT Nasonex 50 MCG/ACT 12/20/2020 12:00:00 AM EDT 2.0 {sprays_in_each_nostril} active Nasonex 50 MCG/ACT eCW1 (Formerly [facility], 1928–1983) Nasonex 50 MCG/ACT Nasonex 50 MCG/ACT 12/20/2020 12:00:00 AM EDT 2.0 {sprays_in_each_nostril} active Nasonex 50 MCG/ACT eCW1 (Formerly [facility], 1928–1983) Nasonex 50 MCG/ACT Nasonex 50 MCG/ACT 12/20/2020 12:00:00 AM EDT 2.0 {sprays_in_each_nostril} active Nasonex 50 MCG/ACT eCW1 (Formerly [facility], 1928–1983) Flonase Allergy Relief 50 MCG/ACT Flonase Allergy Relief 50 MCG/ACT 12/14/2020 12:00:00 AM EDT 1.0 {spray_in_each_nostril} acti ve Flonase Allergy Relief 50 MCG/ACT eCW1 (Formerly [facility], 1928–1983) Flonase Allergy Relief 50 MCG/ACT Flonase Allergy Relief 50 MCG/ACT 12/14/2020 12:00:00 AM EDT 1.0 {spray_in_each_nostril} susp ended Flonase Allergy Relief 50 MCG/ACT eCW1 (Formerly [facility], 1928–1983) Flonase Allergy Relief 50 MCG/ACT Flonase Allergy Relief 50 MCG/ACT 12/14/2020 12:00:00 AM EDT 1.0 {spray_in_each_nostril} acti ve Flonase Allergy Relief 50 MCG/ACT eCW1 (Formerly [facility], 1928–1983) Flonase Allergy Relief 50 MCG/ACT Flonase Allergy Relief 50 MCG/ACT 12/14/2020 12:00:00 AM EDT 1.0 {spray_in_each_nostril} susp ended Flonase Allergy Relief 50 MCG/ACT eCW1 (Formerly [facility], 1928–1983) Flonase Allergy Relief 50 MCG/ACT Flonase Allergy Relief 50 MCG/ACT 12/14/2020 12:00:00 AM EDT 1.0 {spray_in_each_nostril} acti ve Flonase Allergy Relief 50 MCG/ACT eCW1 (Formerly [facility], 1928–1983) Flonase Allergy Relief 50 MCG/ACT Flonase Allergy Relief 50 MCG/ACT 12/14/2020 12:00:00 AM EDT 1.0 {spray_in_each_nostril} acti ve Flonase Allergy Relief 50 MCG/ACT eCW1 (Formerly [facility], 1928–1983) Flonase Allergy Relief 50 MCG/ACT Flonase Allergy Relief 50 MCG/ACT 12/14/2020 12:00:00 AM EDT 1.0 {spray_in_each_nostril} acti ve Flonase Allergy Relief 50 MCG/ACT eCW1 (Formerly [facility], 1928–1983) Flonase Allergy Relief 50 MCG/ACT Flonase Allergy Relief 50 MCG/ACT 12/14/2020 12:00:00 AM EDT 1.0 {spray_in_each_nostril} susp ended Flonase Allergy Relief 50 MCG/ACT eCW1 (Formerly [facility], 1928–1983) Flonase Allergy Relief 50 MCG/ACT Flonase Allergy Relief 50 MCG/ACT 12/14/2020 12:00:00 AM EDT 1.0 {spray_in_each_nostril} acti ve Flonase Allergy Relief 50 MCG/ACT eCW1 (Formerly [facility], 1928–1983) Flonase Allergy Relief 50 MCG/ACT Flonase Allergy Relief 50 MCG/ACT 12/14/2020 12:00:00 AM EDT 1.0 {spray_in_each_nostril} susp ended Flonase Allergy Relief 50 MCG/ACT eCW1 (Formerly [facility], 1928–1983) Flonase Allergy Relief 50 MCG/ACT Flonase Allergy Relief 50 MCG/ACT 12/14/2020 12:00:00 AM EDT 1.0 {spray_in_each_nostril} susp ended Flonase Allergy Relief 50 MCG/ACT eCW1 (Formerly [facility], 1928–1983) Flonase Allergy Relief 50 MCG/ACT Flonase Allergy Relief 50 MCG/ACT 12/14/2020 12:00:00 AM EDT 1.0 {spray_in_each_nostril} susp ended Flonase Allergy Relief 50 MCG/ACT eCW1 (Formerly [facility], 1928–1983) Flonase Allergy Relief 50 MCG/ACT Flonase Allergy Relief 50 MCG/ACT 12/14/2020 12:00:00 AM EDT 1.0 {spray_in_each_nostril} suspende d eCW1 (Formerly [facility], 1928–1983) Flonase Allergy Relief 50 MCG/ACT Flonase Allergy Relief 50 MCG/ACT 12/14/2020 12:00:00 AM EDT 1.0 {spray_in_each_nostril} acti ve Flonase Allergy Relief 50 MCG/ACT eCW1 (Formerly [facility], 1928–1983) Flonase Allergy Relief 50 MCG/ACT Flonase Allergy Relief 50 MCG/ACT 12/14/2020 12:00:00 AM EDT 1.0 {spray_in_each_nostril} susp ended Flonase Allergy Relief 50 MCG/ACT eCW1 (Formerly [facility], 1928–1983) Flonase Allergy Relief 50 MCG/ACT Flonase Allergy Relief 50 MCG/ACT 12/14/2020 12:00:00 AM EDT 1.0 {spray_in_each_nostril} acti ve Flonase Allergy Relief 50 MCG/ACT eCW1 (Formerly [facility], 1928–1983) Flonase Allergy Relief 50 MCG/ACT Flonase Allergy Relief 50 MCG/ACT 12/14/2020 12:00:00 AM EDT 1.0 {spray_in_each_nostril} acti ve Flonase Allergy Relief 50 MCG/ACT eCW1 (Formerly [facility], 1928–1983) Flonase Allergy Relief 50 MCG/ACT Flonase Allergy Relief 50 MCG/ACT 12/14/2020 12:00:00 AM EDT 1.0 {spray_in_each_nostril} susp ended Flonase Allergy Relief 50 MCG/ACT eCW1 (Formerly [facility], 1928–1983) Flonase Allergy Relief 50 MCG/ACT Flonase Allergy Relief 50 MCG/ACT 12/14/2020 12:00:00 AM EDT 1.0 {spray_in_each_nostril} susp ended Flonase Allergy Relief 50 MCG/ACT eCW1 (Formerly [facility], 1928–1983) Flonase Allergy Relief 50 MCG/ACT Flonase Allergy Relief 50 MCG/ACT 12/14/2020 12:00:00 AM EDT 1.0 {spray_in_each_nostril} susp ended Flonase Allergy Relief 50 MCG/ACT eCW1 (Formerly [facility], 1928–1983) Flonase Allergy Relief 50 MCG/ACT Flonase Allergy Relief 50 MCG/ACT 12/14/2020 12:00:00 AM EDT 1.0 {spray_in_each_nostril} susp ended Flonase Allergy Relief 50 MCG/ACT eCW1 (Formerly [facility], 1928–1983) Flonase Allergy Relief 50 MCG/ACT Flonase Allergy Relief 50 MCG/ACT 12/14/2020 12:00:00 AM EDT 1.0 {spray_in_each_nostril} susp ended Flonase Allergy Relief 50 MCG/ACT eCW1 (Formerly [facility], 1928–1983) Flonase Allergy Relief 50 MCG/ACT Flonase Allergy Relief 50 MCG/ACT 12/14/2020 12:00:00 AM EDT 1.0 {spray_in_each_nostril} acti ve Flonase Allergy Relief 50 MCG/ACT eCW1 (Formerly [facility], 1928–1983) Flonase Allergy Relief 50 MCG/ACT Flonase Allergy Relief 50 MCG/ACT 12/14/2020 12:00:00 AM EDT 1.0 {spray_in_each_nostril} susp ended Flonase Allergy Relief 50 MCG/ACT eCW1 (Formerly [facility], 1928–1983) Flonase Allergy Relief 50 MCG/ACT Flonase Allergy Relief 50 MCG/ACT 12/14/2020 12:00:00 AM EDT 1.0 {spray_in_each_nostril} susp ended Flonase Allergy Relief 50 MCG/ACT eCW1 (Formerly [facility], 1928–1983) Flonase Allergy Relief 50 MCG/ACT Flonase Allergy Relief 50 MCG/ACT 12/14/2020 12:00:00 AM EDT 1.0 {spray_in_each_nostril} acti ve Flonase Allergy Relief 50 MCG/ACT eCW1 (Formerly [facility], 1928–1983) Flonase Allergy Relief 50 MCG/ACT Flonase Allergy Relief 50 MCG/ACT 12/14/2020 12:00:00 AM EDT 1.0 {spray_in_each_nostril} susp ended Flonase Allergy Relief 50 MCG/ACT eCW1 (Formerly [facility], 1928–1983) Flonase Allergy Relief 50 MCG/ACT Flonase Allergy Relief 50 MCG/ACT 12/14/2020 12:00:00 AM EDT 1.0 {spray_in_each_nostril} susp ended Flonase Allergy Relief 50 MCG/ACT eCW1 (Formerly [facility], 1928–1983) Flonase Allergy Relief 50 MCG/ACT Flonase Allergy Relief 50 MCG/ACT 12/14/2020 12:00:00 AM EDT 1.0 {spray_in_each_nostril} susp ended Flonase Allergy Relief 50 MCG/ACT eCW1 (Formerly [facility], 1928–1983) Flonase Allergy Relief 50 MCG/ACT Flonase Allergy Relief 50 MCG/ACT 12/14/2020 12:00:00 AM EDT 1.0 {spray_in_each_nostril} active eCW1 (Formerly [facility], 1928–1983) Flonase Allergy Relief 50 MCG/ACT Flonase Allergy Relief 50 MCG/ACT 12/14/2020 12:00:00 AM EDT 1.0 {spray_in_each_nostril} acti ve Flonase Allergy Relief 50 MCG/ACT eCW1 (Formerly [facility], 1928–1983) Flonase Allergy Relief 50 MCG/ACT Flonase Allergy Relief 50 MCG/ACT 12/14/2020 12:00:00 AM EDT 1.0 {spray_in_each_nostril} acti ve Flonase Allergy Relief 50 MCG/ACT eCW1 (Formerly [facility], 1928–1983) 120 ACTUAT Budesonide 0.08 MG/ACTUAT / f ormoterol fumarate 0.0045 MG/ACTUAT Metered Dose Inhaler [Symbicort] Symbicort 80-4.5 MCG/ACT Symbicort 80-4.5 MCG/ACT 11/22/2020 12:00:00 AM EDT 2.0 {puffs} active eCW1 (Formerly [facility], 1928–1983) 120 ACTUAT Budesonide 0.08 MG/ACTUAT / f ormoterol fumarate 0.0045 MG/ACTUAT Metered Dose Inhaler [Symbicort] Symbicort 80-4.5 MCG/ACT Symbicort 80-4.5 MCG/ACT 11/22/2020 12:00:00 AM EDT 2.0 {puffs} activ e Symbicort 80- 4.5 MCG/ACT eCW1 (Formerly [facility], 1928–1983) 120 ACTUAT Budesonide 0.08 MG/ACTUAT / f ormoterol fumarate 0.0045 MG/ACTUAT Metered Dose Inhaler [Symbicort] Symbicort 80-4.5 MCG/ACT Symbicort 80-4.5 MCG/ACT 11/22/2020 12:00:00 AM EDT 2.0 {puffs} activ e Symbicort 80- 4.5 MCG/ACT eCW1 (Formerly [facility], 1928–1983) 120 ACTUAT Budesonide 0.08 MG/ACTUAT / f ormoterol fumarate 0.0045 MG/ACTUAT Metered Dose Inhaler [Symbicort] Symbicort 80-4.5 MCG/ACT Symbicort 80-4.5 MCG/ACT 11/22/2020 12:00:00 AM EDT 2.0 {puffs} activ e Symbicort 80- 4.5 MCG/ACT eCW1 (Formerly [facility], 1928–1983) 120 ACTUAT Budesonide 0.08 MG/ACTUAT / f ormoterol fumarate 0.0045 MG/ACTUAT Metered Dose Inhaler [Symbicort] Symbicort 80-4.5 MCG/ACT Symbicort 80-4.5 MCG/ACT 11/22/2020 12:00:00 AM EDT 2.0 {puffs} activ e Symbicort 80- 4.5 MCG/ACT eCW1 (Formerly [facility], 1928–1983) 120 ACTUAT Budesonide 0.08 MG/ACTUAT / f ormoterol fumarate 0.0045 MG/ACTUAT Metered Dose Inhaler [Symbicort] Symbicort 80-4.5 MCG/ACT Symbicort 80-4.5 MCG/ACT 11/22/2020 12:00:00 AM EDT 2.0 {puffs} activ e Symbicort 80- 4.5 MCG/ACT eCW1 (Formerly [facility], 1928–1983) 120 ACTUAT Budesonide 0.08 MG/ACTUAT / f ormoterol fumarate 0.0045 MG/ACTUAT Metered Dose Inhaler [Symbicort] Symbicort 80-4.5 MCG/ACT Symbicort 80-4.5 MCG/ACT 11/22/2020 12:00:00 AM EDT 2.0 {puffs} activ e Symbicort 80- 4.5 MCG/ACT eCW1 (Formerly [facility], 1928–1983) 120 ACTUAT Budesonide 0.08 MG/ACTUAT / f ormoterol fumarate 0.0045 MG/ACTUAT Metered Dose Inhaler [Symbicort] Symbicort 80-4.5 MCG/ACT Symbicort 80-4.5 MCG/ACT 11/22/2020 12:00:00 AM EDT 2.0 {puffs} activ e Symbicort 80- 4.5 MCG/ACT eCW1 (Formerly [facility], 1928–1983) 120 ACTUAT Budesonide 0.08 MG/ACTUAT / f ormoterol fumarate 0.0045 MG/ACTUAT Metered Dose Inhaler [Symbicort] Symbicort 80-4.5 MCG/ACT Symbicort 80-4.5 MCG/ACT 11/22/2020 12:00:00 AM EDT 2.0 {puffs} activ e Symbicort 80- 4.5 MCG/ACT eCW1 (Formerly [facility], 1928–1983) 120 ACTUAT Budesonide 0.08 MG/ACTUAT / f ormoterol fumarate 0.0045 MG/ACTUAT Metered Dose Inhaler [Symbicort] Symbicort 80-4.5 MCG/ACT Symbicort 80-4.5 MCG/ACT 11/22/2020 12:00:00 AM EDT 2.0 {puffs} activ e Symbicort 80- 4.5 MCG/ACT eCW1 (Formerly [facility], 1928–1983) 120 ACTUAT Budesonide 0.08 MG/ACTUAT / f ormoterol fumarate 0.0045 MG/ACTUAT Metered Dose Inhaler [Symbicort] Symbicort 80-4.5 MCG/ACT Symbicort 80-4.5 MCG/ACT 11/22/2020 12:00:00 AM EDT 2.0 {puffs} activ e Symbicort 80- 4.5 MCG/ACT eCW1 (Formerly [facility], 1928–1983) 120 ACTUAT Budesonide 0.08 MG/ACTUAT / f ormoterol fumarate 0.0045 MG/ACTUAT Metered Dose Inhaler [Symbicort] Symbicort 80-4.5 MCG/ACT Symbicort 80-4.5 MCG/ACT 11/22/2020 12:00:00 AM EDT 2.0 {puffs} activ e Symbicort 80- 4.5 MCG/ACT eCW1 (Formerly [facility], 1928–1983) 120 ACTUAT Budesonide 0.08 MG/ACTUAT / f ormoterol fumarate 0.0045 MG/ACTUAT Metered Dose Inhaler [Symbicort] Symbicort 80-4.5 MCG/ACT Symbicort 80-4.5 MCG/ACT 11/22/2020 12:00:00 AM EDT 2.0 {puffs} activ e Symbicort 80- 4.5 MCG/ACT eCW1 (Formerly [facility], 1928–1983) 120 ACTUAT Budesonide 0.08 MG/ACTUAT / f ormoterol fumarate 0.0045 MG/ACTUAT Metered Dose Inhaler [Symbicort] Symbicort 80-4.5 MCG/ACT Symbicort 80-4.5 MCG/ACT 11/22/2020 12:00:00 AM EDT 2.0 {puffs} active eCW1 (Formerly [facility], 1928–1983) 120 ACTUAT Budesonide 0.08 MG/ACTUAT / f ormoterol fumarate 0.0045 MG/ACTUAT Metered Dose Inhaler [Symbicort] Symbicort 80-4.5 MCG/ACT Symbicort 80-4.5 MCG/ACT 11/22/2020 12:00:00 AM EDT 2.0 {puffs} activ e Symbicort 80- 4.5 MCG/ACT eCW1 (Formerly [facility], 1928–1983) 120 ACTUAT Budesonide 0.08 MG/ACTUAT / f ormoterol fumarate 0.0045 MG/ACTUAT Metered Dose Inhaler [Symbicort] Symbicort 80-4.5 MCG/ACT Symbicort 80-4.5 MCG/ACT 11/22/2020 12:00:00 AM EDT 2.0 {puffs} activ e Symbicort 80- 4.5 MCG/ACT eCW1 (Formerly [facility], 1928–1983) 120 ACTUAT Budesonide 0.08 MG/ACTUAT / f ormoterol fumarate 0.0045 MG/ACTUAT Metered Dose Inhaler [Symbicort] Symbicort 80-4.5 MCG/ACT Symbicort 80-4.5 MCG/ACT 11/22/2020 12:00:00 AM EDT 2.0 {puffs} activ e Symbicort 80- 4.5 MCG/ACT eCW1 (Formerly [facility], 1928–1983) 120 ACTUAT Budesonide 0.08 MG/ACTUAT / f ormoterol fumarate 0.0045 MG/ACTUAT Metered Dose Inhaler [Symbicort] Symbicort 80-4.5 MCG/ACT Symbicort 80-4.5 MCG/ACT 11/22/2020 12:00:00 AM EDT 2.0 {puffs} activ e Symbicort 80- 4.5 MCG/ACT eCW1 (Formerly [facility], 1928–1983) 120 ACTUAT Budesonide 0.08 MG/ACTUAT / f ormoterol fumarate 0.0045 MG/ACTUAT Metered Dose Inhaler [Symbicort] Symbicort 80-4.5 MCG/ACT Symbicort 80-4.5 MCG/ACT 11/22/2020 12:00:00 AM EDT 2.0 {puffs} activ e Symbicort 80- 4.5 MCG/ACT eCW1 (Formerly [facility], 1928–1983) 120 ACTUAT Budesonide 0.08 MG/ACTUAT / f ormoterol fumarate 0.0045 MG/ACTUAT Metered Dose Inhaler [Symbicort] Symbicort 80-4.5 MCG/ACT Symbicort 80-4.5 MCG/ACT 11/22/2020 12:00:00 AM EDT 2.0 {puffs} activ e Symbicort 80- 4.5 MCG/ACT eCW1 (Formerly [facility], 1928–1983) 120 ACTUAT Budesonide 0.08 MG/ACTUAT / f ormoterol fumarate 0.0045 MG/ACTUAT Metered Dose Inhaler [Symbicort] Symbicort 80-4.5 MCG/ACT Symbicort 80-4.5 MCG/ACT 11/22/2020 12:00:00 AM EDT 2.0 {puffs} activ e Symbicort 80- 4.5 MCG/ACT eCW1 (Formerly [facility], 1928–1983) 120 ACTUAT Budesonide 0.08 MG/ACTUAT / f ormoterol fumarate 0.0045 MG/ACTUAT Metered Dose Inhaler [Symbicort] Symbicort 80-4.5 MCG/ACT Symbicort 80-4.5 MCG/ACT 11/22/2020 12:00:00 AM EDT 2.0 {puffs} activ e Symbicort 80- 4.5 MCG/ACT eCW1 (Formerly [facility], 1928–1983) 120 ACTUAT Budesonide 0.08 MG/ACTUAT / f ormoterol fumarate 0.0045 MG/ACTUAT Metered Dose Inhaler [Symbicort] Symbicort 80-4.5 MCG/ACT Symbicort 80-4.5 MCG/ACT 11/22/2020 12:00:00 AM EDT 2.0 {puffs} activ e Symbicort 80- 4.5 MCG/ACT eCW1 (Formerly [facility], 1928–1983) 120 ACTUAT Budesonide 0.08 MG/ACTUAT / f ormoterol fumarate 0.0045 MG/ACTUAT Metered Dose Inhaler [Symbicort] Symbicort 80-4.5 MCG/ACT Symbicort 80-4.5 MCG/ACT 11/22/2020 12:00:00 AM EDT 2.0 {puffs} activ e Symbicort 80- 4.5 MCG/ACT eCW1 (Formerly [facility], 1928–1983) 120 ACTUAT Budesonide 0.08 MG/ACTUAT / f ormoterol fumarate 0.0045 MG/ACTUAT Metered Dose Inhaler [Symbicort] Symbicort 80-4.5 MCG/ACT Symbicort 80-4.5 MCG/ACT 11/22/2020 12:00:00 AM EDT 2.0 {puffs} activ e Symbicort 80- 4.5 MCG/ACT eCW1 (Formerly [facility], 1928–1983) 120 ACTUAT Budesonide 0.08 MG/ACTUAT / f ormoterol fumarate 0.0045 MG/ACTUAT Metered Dose Inhaler [Symbicort] Symbicort 80-4.5 MCG/ACT Symbicort 80-4.5 MCG/ACT 11/22/2020 12:00:00 AM EDT 2.0 {puffs} activ e Symbicort 80- 4.5 MCG/ACT eCW1 (Formerly [facility], 1928–1983) 120 ACTUAT Budesonide 0.08 MG/ACTUAT / f ormoterol fumarate 0.0045 MG/ACTUAT Metered Dose Inhaler [Symbicort] Symbicort 80-4.5 MCG/ACT Symbicort 80-4.5 MCG/ACT 11/22/2020 12:00:00 AM EDT 2.0 {puffs} activ e Symbicort 80- 4.5 MCG/ACT eCW1 (Formerly [facility], 1928–1983) 120 ACTUAT Budesonide 0.08 MG/ACTUAT / f ormoterol fumarate 0.0045 MG/ACTUAT Metered Dose Inhaler [Symbicort] Symbicort 80-4.5 MCG/ACT Symbicort 80-4.5 MCG/ACT 11/22/2020 12:00:00 AM EDT 2.0 {puffs} activ e Symbicort 80- 4.5 MCG/ACT eCW1 (Formerly [facility], 1928–1983) 120 ACTUAT Budesonide 0.08 MG/ACTUAT / f ormoterol fumarate 0.0045 MG/ACTUAT Metered Dose Inhaler [Symbicort] Symbicort 80-4.5 MCG/ACT Symbicort 80-4.5 MCG/ACT 11/22/2020 12:00:00 AM EDT 2.0 {puffs} activ e Symbicort 80- 4.5 MCG/ACT eCW1 (Formerly [facility], 1928–1983) 120 ACTUAT Budesonide 0.08 MG/ACTUAT / f ormoterol fumarate 0.0045 MG/ACTUAT Metered Dose Inhaler [Symbicort] Symbicort 80-4.5 MCG/ACT Symbicort 80-4.5 MCG/ACT 11/22/2020 12:00:00 AM EDT 2.0 {puffs} activ e Symbicort 80- 4.5 MCG/ACT eCW1 (Formerly [facility], 1928–1983) 120 ACTUAT Budesonide 0.08 MG/ACTUAT / f ormoterol fumarate 0.0045 MG/ACTUAT Metered Dose Inhaler [Symbicort] Symbicort 80-4.5 MCG/ACT Symbicort 80-4.5 MCG/ACT 11/22/2020 12:00:00 AM EDT 2.0 {puffs} activ e Symbicort 80- 4.5 MCG/ACT eCW1 (Formerly [facility], 1928–1983) 120 ACTUAT Budesonide 0.08 MG/ACTUAT / f ormoterol fumarate 0.0045 MG/ACTUAT Metered Dose Inhaler [Symbicort] Symbicort 80-4.5 MCG/ACT Symbicort 80-4.5 MCG/ACT 11/22/2020 12:00:00 AM EDT 2.0 {puffs} activ e Symbicort 80- 4.5 MCG/ACT eCW1 (Formerly [facility], 1928–1983) Triamcinolone Acetonide 0.001 MG/MG Topi ariel Ointment Triamcinolone Acetonide 0.1 % Triamcinolone Acetonide 0.1 % 09/23/2020 12:00:00 AM EST 1.0 {application} active Triamcinolone Aceton micah 0.1 % eCW1 (Formerly [facility], 1928–1983) Doxycycline Monohydrate 100 MG Oral Capsule Doxycycline [place] hydrate 100 MG 09/23/2020 12:00:00 AM EST 1.0 {capsule} active Doxycycline Monohydrate 100 MG eCW1 (Formerly [facility], 1928–1983) Ivermectin 3 MG Oral Tablet Ivermectin 3 MG 09/23/2020 12:00:00 AM EST active Ivermectin 3 MG eCW1 ([facility]) Doxycycline Monohydrate 100 MG Oral Capsule Doxycycline [place]assen hydrate 100 MG 09/23/2020 12:00:00 AM EST 1.0 {capsule} active Doxycycline Monohydrate 100 MG eCW1 (Formerly [facility], 1928–1983) Triamcinolone Acetonide 0.001 MG/MG Topi ariel Ointment Triamcinolone Acetonide 0.1 % Triamcinolone Acetonide 0.1 % 09/23/2020 12:00:00 AM EST 1.0 {application} active Triamcinolone Aceton micah 0.1 % eCW1 (Formerly [facility], 1928–1983) Ivermectin 3 MG Oral Tablet Ivermectin 3 MG 09/23/2020 12:00:00 AM EST active Ivermectin 3 MG eCW1 ([facility]) venlafaxine 150 mg oral capsule, extended release [id number] 09/21/2020 02:26:00 PM EST Extended Release Capsule 150.0 mg By Mouth active 150 mg = 1 cap(s), PO (oral), qDay, TAKE 1 CAPSULE BY MOUTH EVERY DAY, # 90 cap(s), 1 Refill(s), Maintenance, Pharmacy: [facility] [id number] [facility], 1 cap(s) PO (oral) qDay,Instr:TAKE 1 CAPSULE BY MOUTH EVERY DAY [facility] metoprolol tartrate 25 mg oral tablet [id number] 09/21/2020 02:26 :00 PM EST Tablet 25.0 mg By Mouth active 25 mg = 1 tab(s), PO (oral), qDay, Take with Metoprolol 50 mg at night, # 30 tab(s), 2 Refill(s), Maintenance, Pharmacy: [facility] [id number] [facility], 1 tab(s) PO (oral) qDay,x30 day(s),Instr:Take with Metoprolol 50 mg at night [facility] Nasonex 50 mcg/inh nasal spray [id number] 09/03/2020 12:55:00 PM EST 2.0 Nose active 2 spray(s), Nasal, qDay, INHALE 2 SPRAYS NASALLY EVERY DAY, # 1 each, 1 Refill(s), Maintenance, Pharmacy: [facility]/pharmacy #[id number], 2 spray(s) Nasal qDay,x30 day(s),Instr:INHALE 2 SPRAYS NASALLY EVERY DAY [facility] Metoprolol Tartrate 50 mg oral tablet [id number] 09/03/2020 12:55 :00 PM EST 50.0 mg By Mouth active 50 mg = 1 tab(s), PO (oral), bid, Take a s directed, # 60 tab(s), 2 Refill(s), Maintenance, Pharmacy: [facility]/pharmacy #[id number], 1 tab(s) PO (oral) bid,x30 day(s),Instr:Take as directed [facility], [facility] Amlodipine 5 MG Oral Tablet amLODIPine 5 mg oral table t amLODIPine 5 mg oral tablet 08/09/2020 02:05:00 PM EST 5.0 mg By Mouth acti ve 5 mg = 1 tab(s), PO (oral), qDay, # 30 t ab(s), Maintenance, Pharmacy: [facility]/pharmacy #[id number], 1 tab(s) PO (oral) qDay [facility] Nasonex 50 mcg/inh nasal spray [id number] 07/13/2020 09:55:00 AM EST 2.0 Nose active 2 spray(s), Nasal, qDay, INHALE 2 SPRAYS NASALLY EVERY DAY, # 1 each, 1 Refill(s), Maintenance, Pharmacy: [facility]/pharmacy #[id number], 2 spray(s) Nasal qDay,x30 day(s),Instr:INHALE [address] DAY [facility] Metoprolol Tartrate 50 mg oral tablet [id number] 06/29/2020 12:35 :00 PM EST 50.0 mg By Mouth active 50 mg = 1 tab(s), PO (oral), bid, Take a s directed, # 60 tab(s), 2 Refill(s), Maintenance, Pharmacy: [facility]/pharmacy #[id number], 1 tab(s) PO (oral) bid,x30 day(s),Instr:Take as directed [facility] metoprolol tartrate 25 mg oral tablet [id number] 06/29/2020 12:34 :00 PM EST Tablet 25.0 mg By Mouth active 25 mg = 1 tab(s), PO (oral), qDay, Take with Metoprolol 50 mg at night, # 30 tab(s), 2 Refill(s), Maintenance, Pharmacy: [facility]/pharmacy #[id number], 1 tab(s) PO (oral) qDay,x30 day(s),Instr:Take with Metoprolol [address] [facility] valsartan 320 MG Oral Tablet valsartan 320 mg oral tab let valsartan 320 mg oral tablet 06/18/2020 03:13:00 PM EST 320.0 mg By Mouth act rose mary 320 mg = 1 tab(s), PO (oral), qDay, # 90 tab(s), 1 Refill(s), Maintenance, Pharmacy: [facility]/pharmacy #[id number], 1 tab(s) PO (oral) qDay [facility], [facility] Vitamin B Complex oral capsule 06/14/2020 11:50:00 AM EST 1.0 By Mouth completed 1 cap(s), PO (oral), qDay, # 30 tab(s), 0 Refill(s), Maintenance [facility], [facility] Vitamin B Complex oral capsule [id number] 06/14/2020 11:50:00 AM EST 1.0 By Mouth active 1 cap(s), PO (oral), qDay, # 30 tab(s), 0 Refill(s), M aintenance [facility], [facility] Vitamin B Complex oral capsule 06/14/2020 11:50:00 AM EST 1.0 By Mouth completed 1 cap(s), PO (oral), qDay, # 30 tab(s), 0 Refill(s), Maintenance [facility] Ginkgo Biloba 06/14/2020 11:49:00 AM EST By Mouth completed PO (oral), qDay, 0 Refill(s), Maintenance [facility] - [facility], [facility] Probiotic Formula oral capsule [id number] 06/14/2020 11:49:00 AM EST 1.0 By Mouth active 1 cap(s), PO (oral), qDay, 0 Refill(s), Maintenance [facility] - [facility], [facility] Ginkgo Biloba [id number] 06/14/2020 11:49:00 AM EST By Mouth active PO (oral), qDay, 0 Refill(s), Maintenance [facility], [facility] Ginkgo Biloba 06/14/2020 11:49:00 AM EST By Mouth completed PO (oral), qDay, 0 Refill(s), Maintenance [facility], [facility] Probiotic Formula oral capsule 06/14/2020 11:49:00 AM EST 1.0 By Mouth completed 1 cap(s), PO (oral), qDay, 0 Ref ill(s), Maintenance [facility] - [facility], [facility] Probiotic Formula oral capsule 06/14/2020 11:49:00 AM EST 1.0 By Mouth completed 1 cap(s), PO (oral), qDay, 0 Ref ill(s), Maintenance [facility] metoprolol tartrate 25 mg oral tablet 06/14/2020 11:47:00 AM EST 25.0 By Mouth completed 25 mg = 1 tab( s), PO (oral), bid, 0 Refill(s), Maintenance [facility] metoprolol tartrate 25 mg oral tablet 06/14/2020 11:47:00 AM EST 25.0 By Mouth completed 25 mg = 1 tab( s), PO (oral), bid, 0 Refill(s), Maintenance [facility] metoprolol tartrate 25 mg oral tablet [id number] 06/14/2020 11:47 :00 AM EST 25.0 mg By Mouth active 25 mg = 1 tab(s), PO (oral), bid, 0 Refill(s), Mainten ance [facility] levothyroxine 25 mcg (0.025 mg) oral tablet 06/01/2020 09: 15:00 PM EDT 25.0 By Mouth completed 25 mcg = 1 tab (s), PO (oral), qOTHERday, # 15 tab(s), 1 Refill(s), Maintenance, Pharm[facility]: [id number], 1 tab(s) PO (oral) qOTHERday [facility] levothyroxine 25 mcg (0.025 mg) oral tablet 06/01/2020 09: 15:00 PM EDT 25.0 By Mouth completed 25 mcg = 1 tab (s), PO (oral), qOTHERday, # 15 tab(s), 1 Refill(s), Maintenance, [facility]acy: [id number], 1 tab(s) PO (oral) [facility] levothyroxine 25 mcg (0.025 mg) oral tablet 06/01/2020 09: 15:00 PM EDT 25.0 By Mouth completed 25 mcg = 1 tab (s), PO (oral), qOTHERday, # 15 tab(s), 1 Refill(s), Maintenance, Pharmacy: [id number], 1 tab(s) PO (oral) qOTHERday [facility] levothyroxine 25 mcg (0.025 mg) oral tablet 06/01/2020 09: 15:00 PM EDT 25.0 By Mouth completed 25 mcg = 1 tab (s), PO (oral), qOTHERday, # 15 tab(s), 1 Refill(s), Maintenance, Pharmacy: [id number], 1 tab(s) PO (oral) qOTHERday [facility], [facility] Levothyroxine Sodium 0.025 MG Oral Table t levothyroxine 25 mcg (0.025 mg) oral tablet levothyroxine 25 mcg (0.025 mg) oral tablet 06/01/2020 09:15 :00 PM EDT Tablet 25.0 ug By Mouth active 25 mcg = 1 tab(s), PO (oral), qOTHERday, # 15 tab(s), 1 Refill(s), Maintenance, [id number], 1 tab(s) PO (oral) qOTHERday [facility] Hydrochlorothiazide 12.5 MG Oral Tablet hydroCHLOROthi azide 12.5 mg oral tablet hydroCHLOROthiazide 12.5 mg oral tablet 05/28/2020 11:34:00 AM EDT 12.5 mg By Mouth active 12.5 mg = 1 tab(s), PO (oral), qDay, Dr. Garay patient-needs medicaid provider, # 90 tab(s), 0 Refill(s), Maintenance, [id number], 1 tab(s) PO (oral) qDay,x90 day(s),Instr:Dr. Garay patient-needs medicaid provider [facility], [facility] hydroCHLOROthiazide 12.5 mg oral tablet 05/28/2020 11:34:0 0 AM EDT 12.5 By Mouth completed 12.5 mg = 1 ta b(s), PO (oral), qDay, Dr. Garay patient-needs medicaid provider, # 90 tab(s), 0 Refill(s), Maintenance, [id number], 1 tab(s) PO (oral) qDay,x90 day(s),Instr:Dr. Rajesh meneses patient-needs medicaid provider Dr. Garay patient-needs medicaid provider [facility] hydroCHLOROthiazide 12.5 mg oral tablet 05/28/2020 11:34:0 0 AM EDT 12.5 By Mouth completed 12.5 mg = 1 ta b(s), PO (oral), qDay, Dr. Garay patient-needs medicaid provider, # 90 tab(s), 0 Refill(s), Maintenance, Pharmacy: [facility]/pharmacy #[id number], 1 tab(s) PO (oral) qDay,x90 day(s),Instr:Dr. Rajesh meneses patient-needs medicaid provider Dr. Garay patient-needs medicaid provider Luke Elmore [facility], [facility] hydroCHLOROthiazide 12.5 mg oral tablet 05/28/2020 11:34:0 0 AM EDT 12.5 By Mouth completed 12.5 mg = 1 ta b(s), PO (oral), qDay, Dr. Garay patient-needs medicaid provider, # 90 tab(s), 0 Refill(s), Maintenance, Pharmacy: [id number], 1 tab(s) PO (oral) qDay,x90 day(s),Instr:Dr. Rajesh meneses patient-needs medicaid provider Dr. Garay patient-needs medicaid provider Luke Elmore [facility], [facility] hydroCHLOROthiazide 12.5 mg oral tablet 05/28/2020 11:34:0 0 AM EDT 12.5 By Mouth completed 12.5 mg = 1 ta b(s), PO (oral), qDay, Dr. Garay patient-needs medicaid provider, # 90 tab(s), 0 Refill(s), Maintenance, Pharmacy: [id number], 1 tab(s) PO (oral) qDay,x90 day(s),Instr:Dr. Rajesh meneses patient-needs medicaid provider Dr. Garay patient-needs medicaid provider Luke Elmore [facility], [facility] hydrOXYzine hydrochloride 25 mg oral tablet 05/27/2020 05: 26:00 PM EDT 25.0 By Mouth completed 25 mg = 1 tab( s), PO (oral), tid, PRN for itching, # 90 tab(s), 3 Refill(s), Maintenance, Pharmacy: [id number], 1 tab(s) PO (oral) tid,x30 day(s),PRN:for itching Luke Elmore [facility], [facility] hydrOXYzine hydrochloride 25 mg oral tablet 05/27/2020 05: 26:00 PM EDT 25.0 By Mouth completed 25 mg = 1 tab( s), PO (oral), tid, PRN for itching, # 90 tab(s), 3 Refill(s), Maintenance, Pharmacy: [id number], 1 tab(s) PO (oral) tid,x30 day(s),PRN:for itching [facility], [facility] Hydroxyzine Hydrochloride 25 MG Oral Tab let hydrOXYzine hydrochloride 25 mg oral tablet hydrOXYzine hydrochloride 25 mg oral tablet 05/27/2020 05:26 :00 PM EDT 25.0 mg By Mouth active 25 mg = 1 tab(s), PO (oral), tid, PRN fo r itching, # 90 tab(s), 3 Refill(s), Maintenance, Pharmacy: [id number], 1 tab(s) PO (oral) tid,x30 day(s),PRN:for itching [facility] hydrOXYzine hydrochloride 25 mg oral tablet 05/27/2020 05: 26:00 PM EDT 25.0 By Mouth completed 25 mg = 1 tab( s), PO (oral), tid, PRN for itching, # 90 tab(s), 3 Refill(s), Maintenance, Pharmacy: [id number], 1 tab(s) PO (oral) tid,x30 day(s),PRN:for itching [facility], [facility] hydrOXYzine hydrochloride 25 mg oral tablet 05/27/2020 05: 26:00 PM EDT 25.0 By Mouth completed 25 mg = 1 tab( s), PO (oral), tid, PRN for itching, # 90 tab(s), 3 Refill(s), Maintenance, [facility]: [id number], 1 tab(s) PO (oral) tid,x30 day(s),PRN:for itching [facility] Carbidopa 25 MG / Levodopa 100 MG Oral T ablet Carbidopa-Levodopa 25-100 MG Oral Tablet (Sinemet) Carbidopa-Levodopa 25-100 MG Oral Tablet (Sinemet) 12:00:00 AM EDT 1 {tbl} Oral active Take 1 tablet by mouth Four times daily [facility] metoprolol tartrate 25 mg oral tablet 03/25/2020 04:02:00 PM EDT 25.0 By Mouth completed 25 mg = 1 tab( s), PO (oral), qDay, Take 1 tablet with each metoprolol tartrate 50 mg dose, # 30 tab(s), 2 Refill(s), Maintenance, Pharmacy: [facility]/pharmacy #[id number], 1 tab(s) PO (oral) qDay,x30 day(s),Instr:Take 1 tablet with each metoprolol tartrate 50 mg... Take 1 tablet with each metoprolol tartrate [address] [facility] Nasonex 50 mcg/inh nasal spray 03/15/2020 03:50:00 PM EDT 2.0 Nose completed 2 spray(s), Nasal, q Day, INHALE 2 SPRAYS NASALLY EVERY DAY, # 1 each, 1 Refill(s), Maintenance, Pharmacy: [facility]/pharmacy #[id number], 2 spray(s) Nasal qDay,x30 day(s),Instr:INHALE 2 SPRAYS NASALLY EVERY DAY INHALE 2 SPRAYS NASALLY EVERY DAY [facility] Nasonex 50 mcg/inh nasal spray 03/15/2020 03:50:00 PM EDT 2.0 Nose completed 2 spray(s), Nasal, q Day, INHALE 2 SPRAYS NASALLY EVERY DAY, # 1 each, 1 Refill(s), Maintenance, Pharmacy: [facility]/pharmacy #[id number], 2 spray(s) Nasal qDay,x30 day(s),Instr:INHALE 2 SPRAYS NASALLY EVERY DAY INHALE 2 SPRAYS NASALLY EVERY DAY [facility] Nasonex 50 mcg/inh nasal spray 03/15/2020 03:50:00 PM EDT 2.0 Nose completed 2 spray(s), Nasal, q Day, INHALE 2 SPRAYS NASALLY EVERY DAY, # 1 each, 1 Refill(s), Maintenance, Pharmacy: [facility]/pharmacy #[id number], 2 spray(s) Nasal qDay,x30 day(s),Instr:INHALE 2 SPRAYS NASALLY EVERY DAY INHALE 2 SPRAYS NASALLY EVERY DAY [facility] Nasonex 50 mcg/inh nasal spray 03/15/2020 03:50:00 PM EDT 2.0 Nose completed 2 spray(s), Nasal, q Day, INHALE 2 SPRAYS NASALLY EVERY DAY, # 1 each, 1 Refill(s), Maintenance, Pharmacy: [facility]/pharmacy #[id number], 2 spray(s) Nasal qDay,x30 day(s),Instr:INHALE 2 SPRAYS NASALLY EVERY DAY INHALE [address] EVERY DAY [facility], [facility] Nasonex 50 mcg/inh nasal spray 03/15/2020 03:50:00 PM EDT 2.0 Nose completed 2 spray(s), Nasal, q Day, INHALE 2 SPRAYS NASALLY EVERY DAY, # 1 each, 1 Refill(s), Maintenance, Pharmacy: [facility]/pharmacy #[id number], 2 spray(s) Nasal qDay,x30 day(s),Instr:INHALE 2 SPRAYS NASALLY EVERY DAY INHALE [address] DAY [facility], [facility] Nasonex 50 mcg/inh nasal spray 03/15/2020 03:50:00 PM EDT 2.0 Nose completed 2 spray(s), Nasal, q Day, INHALE 2 SPRAYS NASALLY EVERY DAY, # 1 each, 1 Refill(s), Maintenance, [id number], 2 spray(s) Nasal qDay,x30 day(s),Instr:INHALE 2 SPRAYS NASALLY EVERY DAY INHALE [address] [facility] Nasonex 50 mcg/inh nasal spray 03/15/2020 03:50:00 PM EDT 2.0 Nose completed 2 spray(s), Nasal, q Day, INHALE 2 SPRAYS NASALLY EVERY DAY, # 1 each, 1 Refill(s), Maintenance, Pharmacy: [facility]/pharmacy #[id number], 2 spray(s) Nasal qDay,x30 day(s),Instr:INHALE 2 SPRAYS NASALLY EVERY DAY INHALE [address] DAY [facility] Nasonex 50 mcg/inh nasal spray 03/15/2020 03:50:00 PM EDT 2.0 Nose completed 2 spray(s), Nasal, q Day, INHALE 2 SPRAYS NASALLY EVERY DAY, # 1 each, 1 Refill(s), Maintenance, Pharmacy: [facility]/pharmacy #[id number], 2 spray(s) Nasal qDay,x30 day(s),Instr:INHALE 2 SPRAYS NASALLY EVERY DAY INHALE [address] [facility], [facility] Nasonex 50 mcg/inh nasal spray 03/15/2020 03:50:00 PM EDT 2.0 Nose completed 2 spray(s), Nasal, q Day, INHALE 2 SPRAYS NASALLY EVERY DAY, # 1 each, 1 Refill(s), Maintenance, Pharmacy: [facility]/pharmacy #[id number], 2 spray(s) Nasal qDay,x30 day(s),Instr:INHALE 2 SPRAYS NASALLY EVERY DAY INHALE [address] [facility], [facility] Nasonex 50 mcg/inh nasal spray 03/15/2020 03:50:00 PM EDT 2.0 Nose completed 2 spray(s), Nasal, q Day, INHALE 2 SPRAYS NASALLY EVERY DAY, # 1 each, 1 Refill(s), Maintenance, Pharmacy: [facility]/pharmacy #[id number], 2 spray(s) Nasal qDay,x30 day(s),Instr:INHALE 2 SPRAYS NASALLY EVERY DAY INHALE [address] [facility], [facility] Nasonex 50 mcg/inh nasal spray 03/15/2020 03:50:00 PM EDT 2.0 Nose completed 2 spray(s), Nasal, q Day, INHALE 2 SPRAYS NASALLY EVERY DAY, # 1 each, 1 Refill(s), Maintenance, Pharmacy: [id number], 2 spray(s) Nasal qDay,x30 day(s),Instr:INHALE 2 SPRAYS NASALLY EVERY DAY INHALE [address] [facility], [facility] Nasonex 50 mcg/inh nasal spray 03/15/2020 03:50:00 PM EDT 2.0 Nose completed 2 spray(s), Nasal, q Day, INHALE 2 SPRAYS NASALLY EVERY DAY, # 1 each, 1 Refill(s), Maintenance, Pharmacy: [facility]/pharmacy #[id number], 2 spray(s) Nasal qDay,x30 day(s),Instr:INHALE 2 SPRAYS NASALLY EVERY DAY INHALE 2 SPRAYS NASALLY EVERY DAY Luke Elmore [facility], [facility] Nasonex 50 mcg/inh nasal spray [id number] 03/15/2020 03:50:00 PM EDT 2.0 Nose active 2 spray(s), Nasal, qDay, INHALE 2 SPRAYS NASALLY EVERY DAY, # 1 each, 1 Refill(s), Maintenance, [id number], 2 spray(s) Nasal qDay,x30 day(s),Instr:INHALE [address] DAY [facility], [facility] Nasonex 50 mcg/inh nasal spray 03/15/2020 03:50:00 PM EDT 2.0 Nose completed 2 spray(s), Nasal, q Day, INHALE 2 SPRAYS NASALLY EVERY DAY, # 1 each, 1 Refill(s), Maintenance, Pharmacy: [facility]/pharmacy #[id number], 2 spray(s) Nasal qDay,x30 day(s),Instr:INHALE 2 SPRAYS NASALLY EVERY DAY INHALE 2 SPRAYS NASALLY EVERY DAY Luke Elmore [facility], [facility] hydroCHLOROthiazide 12.5 mg oral tablet 02/09/2020 12:05:0 0 PM EDT 12.5 By Mouth completed 12.5 mg = 1 ta b(s), PO (oral), qDay, Dr. Garay patient-needs medicaid provider, # 90 tab(s), 0 Refill(s), Maintenance, Pharmacy: [facility]/pharmacy #[id number], 1 tab(s) PO (oral) qDay,x90 day(s),Instr:Dr. Rajesh meneses patient-needs medicaid provider Dr. Garay patient-needs medicaid provider [facility] hydroCHLOROthiazide 12.5 mg oral tablet 02/09/2020 12:05:0 0 PM EDT 12.5 By Mouth completed 12.5 mg = 1 ta b(s), PO (oral), qDay, Dr. Garay patient-needs medicaid provider, # 90 tab(s), 0 Refill(s), Maintenance, [id number], 1 tab(s) PO (oral) qDay,x90 day(s),Instr:Dr. Rajesh meneses patient-needs medicaid provider Dr. Garay patient-needs medicaid provider [facility], [facility] gabapentin 300 mg oral capsule 02/09/2020 12:05:00 PM EDT 300.0 By Mouth completed 300 mg = 1 cap(s ), PO (oral), tid, 1 capsule in the Am and 2 before bedtime, # 180 cap(s), 1 Refill(s), Maintenance, [id number], 1 cap(s) PO (oral) tid,x60 day(s),Instr:1 capsule in the Am and 2 before bedtime 1 capsule in the Am and 2 before bedtime Luke katz [facility], [facility] hydroCHLOROthiazide 12.5 mg oral tablet 02/09/2020 12:05:0 0 PM EDT 12.5 By Mouth completed 12.5 mg = 1 ta b(s), PO (oral), qDay, Dr. Garay patient-needs medicaid provider, # 90 tab(s), 0 Refill(s), Maintenance, Pharmacy: [facility]/pharmacy #[id number], 1 tab(s) PO (oral) qDay,x90 day(s),Instr:Dr. Rajesh meneses patient-needs medicaid provider Dr. Garay patient-needs medicaid provider Luke Elmore [facility], [facility] hydroCHLOROthiazide 12.5 mg oral tablet 02/09/2020 12:05:0 0 PM EDT 12.5 By Mouth completed 12.5 mg = 1 ta b(s), PO (oral), qDay, Dr. Garay patient-needs medicaid provider, # 90 tab(s), 0 Refill(s), Maintenance, Pharmacy: [facility]/pharmacy #[id number], 1 tab(s) PO (oral) qDay,x90 day(s),Instr:Dr. Rajesh meneses patient-needs medicaid provider Dr. Garay patient-needs medicaid provider [facility], [facility] hydroCHLOROthiazide 12.5 mg oral tablet 02/09/2020 12:05:0 0 PM EDT 12.5 By Mouth completed 12.5 mg = 1 ta b(s), PO (oral), qDay, Dr. Garay patient-needs medicaid provider, # 90 tab(s), 0 Refill(s), Maintenance, Pharmacy: [facility]/pharmacy #[id number], 1 tab(s) PO (oral) qDay,x90 day(s),Instr:Dr. Rajesh meneses patient-needs medicaid provider Dr. Garay patient-needs medicaid provider [facility], [facility] hydroCHLOROthiazide 12.5 mg oral tablet 02/09/2020 12:05:0 0 PM EDT 12.5 By Mouth completed 12.5 mg = 1 ta b(s), PO (oral), qDay, Dr. Garay patient-needs medicaid provider, # 90 tab(s), 0 Refill(s), Maintenance, Pharmacy: [facility]/pharm[facility] #[id number], 1 tab(s) PO (oral) qDay,x90 day(s),Instr:Dr. Rajesh meneses patient-needs medicaid provider Dr. Garay patient-needs medicaid provider [facility], [facility] hydroCHLOROthiazide 12.5 mg oral tablet 02/09/2020 12:05:0 0 PM EDT 12.5 By Mouth completed 12.5 mg = 1 ta b(s), PO (oral), qDay, Dr. Garay patient-needs medicaid provider, # 90 tab(s), 0 Refill(s), Maintenance, Pharmacy: [facility]/pharmacy #[id number], 1 tab(s) PO (oral) qDay,x90 day(s),Instr:Dr. Rajesh meneses patient-needs medicaid provider Dr. Garay patient-needs medicaid provider [facility], [facility] hydroCHLOROthiazide 12.5 mg oral tablet 02/09/2020 12:05:0 0 PM EDT 12.5 By Mouth completed 12.5 mg = 1 ta b(s), PO (oral), qDay, Dr. Garay patient-needs medicaid provider, # 90 tab(s), 0 Refill(s), Maintenance, Pharmacy: [facility]/pharm[facility] #[id number], 1 tab(s) PO (oral) qDay,x90 day(s),Instr:Dr. Rajesh meneses patient-needs medicaid provider Dr. Garay patient-needs medicaid provider [facility] hydroCHLOROthiazide 12.5 mg oral tablet 02/09/2020 12:05:0 0 PM EDT 12.5 By Mouth completed 12.5 mg = 1 ta b(s), PO (oral), qDay, Dr. Garay patient-needs medicaid provider, # 90 tab(s), 0 Refill(s), Maintenance, Pharmacy: [facility] #[id number], 1 tab(s) PO (oral) qDay,x90 day(s),Instr:Dr. Rajesh meneses patient-needs medicaid provider Dr. Garay patient-needs medicaid provider [facility] gabapentin 300 mg oral capsule 02/09/2020 12:05:00 PM EDT 300.0 By Mouth completed 300 mg = 1 cap(s ), PO (oral), tid, 1 capsule in the Am and 2 before bedtime, # 180 cap(s), 1 Refill(s), Maintenance, Pharmacy: [facility] #[id number], 1 cap(s) PO (oral) tid,x60 day(s),Instr:1 capsule in the Am and 2 before bedtime 1 capsule in the Am and 2 before bedtime Luke katz [facility] hydrOXYzine hydrochloride 25 mg oral tablet 02/09/2020 12: 04:00 PM EDT 25.0 By Mouth completed 25 mg = 1 tab( s), PO (oral), tid, PRN for itching, # 90 tab(s), 3 Refill(s), Maintenance, [facility]: [id number], 1 tab(s) PO (oral) tid,x30 day(s),PRN:for itching [facility] - [facility] hydrOXYzine hydrochloride 25 mg oral tablet 02/09/2020 12: 04:00 PM EDT 25.0 By Mouth completed 25 mg = 1 tab( s), PO (oral), tid, PRN for itching, # 90 tab(s), 3 Refill(s), Maintenance, [facility]acy: [id number], 1 tab(s) PO (oral) tid,x30 day(s),PRN:for itching [facility] - [facility], [facility] hydrOXYzine hydrochloride 25 mg oral tablet 02/09/2020 12: 04:00 PM EDT 25.0 By Mouth completed 25 mg = 1 tab( s), PO (oral), tid, PRN for itching, # 90 tab(s), 3 Refill(s), Maintenance, Pharmacy: [id number], 1 tab(s) PO (oral) tid,x30 day(s),PRN:for itching [facility] hydrOXYzine hydrochloride 25 mg oral tablet 02/09/2020 12: 04:00 PM EDT 25.0 By Mouth completed 25 mg = 1 tab( s), PO (oral), tid, PRN for itching, # 90 tab(s), 3 Refill(s), Maintenance, Pharmacy: [id number], 1 tab(s) PO (oral) tid,x30 day(s),PRN:for itching [facility] - [facility] hydrOXYzine hydrochloride 25 mg oral tablet 02/09/2020 12: 04:00 PM EDT 25.0 By Mouth completed 25 mg = 1 tab( s), PO (oral), tid, PRN for itching, # 90 tab(s), 3 Refill(s), Maintenance, [facility]acy: [id number], 1 tab(s) PO (oral) tid,x30 day(s),PRN:for itching [facility] hydrOXYzine hydrochloride 25 mg oral tablet 02/09/2020 12: 04:00 PM EDT 25.0 By Mouth completed 25 mg = 1 tab( s), PO (oral), tid, PRN for itching, # 90 tab(s), 3 Refill(s), Maintenance, [facility]: [id number], 1 tab(s) PO (oral) tid,x30 day(s),PRN:for itching [facility], [facility] hydrOXYzine hydrochloride 25 mg oral tablet 02/09/2020 12: 04:00 PM EDT 25.0 By Mouth completed 25 mg = 1 tab( s), PO (oral), tid, PRN for itching, # 90 tab(s), 3 Refill(s), Maintenance, Pharmacy: [id number], 1 tab(s) PO (oral) tid,x30 day(s),PRN:for itching [facility], [facility] hydrOXYzine hydrochloride 25 mg oral tablet 02/09/2020 12: 04:00 PM EDT 25.0 By Mouth completed 25 mg = 1 tab( s), PO (oral), tid, PRN for itching, # 90 tab(s), 3 Refill(s), Maintenance, Pharmacy: [id number], 1 tab(s) PO (oral) tid,x30 day(s),PRN:for itching [facility] hydrOXYzine hydrochloride 25 mg oral tablet 02/09/2020 12: 04:00 PM EDT 25.0 By Mouth completed 25 mg = 1 tab( s), PO (oral), tid, PRN for itching, # 90 tab(s), 3 Refill(s), Maintenance, Pharmacy: [id number], 1 tab(s) PO (oral) tid,x30 day(s),PRN:for itching [facility] Carbidopa 25 MG / Levodopa 100 MG Oral T ablet Carbidopa-Levodopa 25-100 MG Oral Tablet (Sinemet) Carbidopa-Levodopa 25-100 MG Oral Tablet (Sinemet) 05/2020 12:00:00 AM EDT 1 {tbl} Oral active Take 1 tablet by mouth Four times daily [facility] Carbidopa 25 MG / Levodopa 100 MG Extend ed Release Oral Tablet carbidopa- levodopa (SINEMET CR) 25-100 mg CR tablet carbidopa-levodopa (SINEMET CR) 25-100 mg CR tablet 1 {tbl} oral completed Take 1 tablet by mouth every night. Swallow whole. Do not crush, chew, or split. [facility] Take 1 tablet by mouth every night. Swal low whole. Do not crush, chew, or split. Carbidopa 25 MG / Levodopa 100 MG Oral T ablet carbidopa-levodopa (SINEMET) 25- 100 mg tablet carbidopa-levodopa (SINEMET) 25-100 mg tablet 1 {tbl} oral completed Take 1 tablet by mouth 4 (fo ur) times a day. [facility] Take 1 tablet by mouth 4 (four) times a day. Metoprolol Tartrate 25 MG Oral Tablet me toprolol tartrate (LOPRESSOR) 25 mg tablet metoprolol tartrate (LOPRESSOR) 25 mg tablet oral completed Take by mouth. [facility] Take by mouth. Insurance Providers Payer name Policy type / Coverage type Policy ID Covered republican ID Covered republican's relationship to gonzalez Policy Gonzalez Plan Information [facility] MEDICAID [id number] Self [id number] [facility] MEDICARE HMO G [id number] Self [id number] MEDICARE PART A [facility] [id number] A [id number] UHC UNITED MEDICARE DUAL G [id number] Self [id number] UHC UNITED MEDICARE DUAL G [id number] Self [id number] COMMERCIAL INSURANCE OTHER COM [id number] A 1 COM [id number] A [facility] MEDIC[facility] [id number] A [id number] MEDICAID [facility] Hango S [facility] [id number] A [id number] MEDICAID [id number] Self [id number] [facility] [id number] A [id number] ERIC I [id number] Self [id number] [facility] MEDICARE [facility] [id number] A [id number] [facility] MEDICARE ADVANTAGE MEDICAID [facility] COMPUTER S [place] [id number] A [id number] [place] [facility] MEDICARE [id number] Self [id number] [facility] MEDICARE [id number] Self [id number] [facility] MEDICAID [id number] Self [id number] [place]ID [place] [id number] Self [id number] [facility] [place] [id number] self [place] [id number] SP [id number] [id number] MEDICARE MCR [id number] A [id number] [place]ARE [place] [id number] A [id number] HMOBLUE OPTION [place] [id number] A DENTAL [facility] DENT [place] [id number] A [id number] DENTAL DENTAQUEST [place] [id number] A [id number] WELLCARE MEDICARE MCR [id number] A [id number] PFAP 100% COM [id number] A DENTAL MEDICAID [facility] [id number] A [id number] [facility] MCRO [id number] SP [id number] MEDICARE COMPLETE [id number] SP [id number] United [employer] [place]ARE [id number] self [place] Eric [id number] Self [id number] Wellcare [id number] Self [id number] [facility] [id number] SP [id number] UHC MEDICARE MCR [id number] A [id number] MEDICARE COMPLETE [id number] SP [id number] [place]ID [place] COMPUTER [place] [id number] A [id number] UHC MEDICARE MCR [id number] A [id number] [facility] [id number] Self [id number] Medicaid [id number] Self [id number] Problems, Conditions, and Diagnoses Code Display Name Description Problem Type Effective Dates Data Source(s) I20.0 Unstable angina Unstable angina Diagnosis 03/23/2021 05:1 2:09 PM EDT [facility] Z01.818 Encounter for other preprocedural examin ation Encounter for other preprocedural examination Diagnosis 03/23/2021 04:28:00 PM EDT [facility] unstable angina unstable angina Diagnosis 03/23/2021 04:2 8:00 PM EDT [facility] Hospital Follow up Hospital Follow up Diagnosis 0 12:53:[address] 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 XR ESOPH AND UGI MLB XR ESOPH AND UGI MLB Diagnosis 06/16/2020 04:00:[address] [facility] 6 month/Pt prefers NOT coming in office 6 month/Pt prefers NOT coming in office Diagnosis 06/14/2020 12:36:[address] [facility] R079 Chest pain, unspecified Chest pain, unspecified Diagno sis 06/14/2020 12:36:[address] [facility] I10 Essential (primary) hypertension Essential (primary) h ypertension Diagnosis 06/14/2020 12:36:[address] [facility] R931 Abnormal findings on dx imaging of heart and cor circ Abnormal findings on dx imaging of heart and cor circ Diagnosis 06/14/2020 12:36:[address] [facility] US MLB US MLB Diagnosis 06/14/2020 04:00:[address] [facility] US AA US AA Diagnosis 06/07/2020 04:00:[address] [facility] [id number] Unspecified asthma, uncomplicated Unspecified as thma, uncomplicated Diagnosis 06/03/2020 04:00:[address] [facility] R0600 Dyspnea, unspecified Dyspnea, unspecified Diagnosis 06/03/2020 04:00:[address] [facility] XR ESOPH UGI MLB XR ESOPH UGI MLB Diagno sis 06/01/2020 04:00:[address] [facility] [id number] Prediabetes Prediabetes Diagnosis 05/24/2020 12:06:[address] [facility] LABS MLB LABS MLB Diagnosis 05/24/2020 05:00:[address] [facility] BP issues BP issues Diagnosis 05/19/2020 02:45:[address] 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 Problem 05/04/2021 12:00:00 AM EDT eCW1 ([facility]ly [facility], 1928[facility]1983) G20 [id number] Parkinsonism, unspecified Parkinsonism ty pe Problem 05/04/2021 12:00:00 AM EDT eCW1 (Formerly [facility], [facility]1983) G20 [id number] Parkinson's disease Problem 05/03/2021 12:00 :00 AM EDT eCW1 ([facility]ly [facility], [facility]1983) I10 [id number] Essential hypertension with goal blood pressure less than 130/80 Problem 02/22/2021 12:00:00 AM EDT eCW1 ([facility]) I49.8 [id number] POTS (postural orthostatic tachycardia sy ndrome) Problem 02/22/2021 12:00:00 AM EDT eCW1 ([facility]ly [facility], [facility]–1983) G47.33 [id number] MARIA (obstructive sleep apnea) Problem 02/22/2021 12:00:00 AM EDT eCW1 ([facility], [facility]1983) [id number] Essential hypertension Essential hypertension Problem 01/18/2021 12:00:00 AM EDT MEDENT ([facility], ) [id number] Allergic asthma without status asthmatic us Allergic asthma without status asthmaticus Problem 01/18/2021 12:00:00 AM EDT [facility]ENT ([facility], ) J45.30 [id number] Mild persistent asthma without complicati on Problem 11/22/2020 12:00:00 AM EDT eCW1 ([facility], [facility]1983) 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 Cardiology) Echocardiography (procedure) 03/23/2021 01:41:00 PM ED T [facility] Echocardiography, Profl,Tranthoracic, Realtime Image Documen tatio 03/23/2021 12:00:00 AM EDT [facility] Cardiology) INITIAL HOSPITAL CARE/DAY 70 MINUTES 03/23/2021 12:00: 00 AM EDT [facility] Cardiology) CTA Chest non-card W/ & or w/o 03/22/2021 06:15:00 PM EDT [facility] Plain chest X-ray (procedure) 03/22/2021 03:10:00 PM E [facility] SARS-CoV-2 Rapid RNA (RT-PCR) 03/22/2021 12:00:00 AM E [facility] CONTRAINDICATION TO LESLI/ARB CONTRAINDICATION TO LESLI/ARB 07/14 11:36:05 AM EST [facility] NOTIFY PROVIDER (COMMUNICATION) NOTIFY PROVIDER (COMMUNICATI ON) 08/02/2020 11:36:05 AM EST [facility] IV TO SALINE LOCK IV TO SALINE LOCK 08/02/2020 11:36:05 AM EST [facility] DISCHARGE PATIENT DISCHARGE PATIENT 08/02/2020 11:36:04 AM EST [facility] FOLLOW UP PRIMARY PHYSICIAN FOLLOW UP PRIMARY PHYSICIAN 07/14 11:36:01 AM EST [facility] DISCHARGE ACTIVITY DISCHARGE ACTIVITY 08/02/2020 11:36:01 AM EST [facility] ADULT DISCHARGE DIET ADULT DISCHARGE DIET 08/02/2020 11:36:01 AM LOLITA Marmolejo [facility] IP CONSULT TO NUTRITION SERVICES IP CONSULT TO NUTRITION SER VICES 08/02/2020 07:32:05 AM [facility] YELLOW TOP YELLOW TOP 08/01/2020 04:27:00 AM EST [facility] BASIC METABOLIC PANEL BASIC METABOLIC PANEL 08/01/2020 04:04:00 AM [facility] Services OT-EVALUATE PATIENT, DEVELOP A PLAN OF CARE, AND IMPLE MENT PLAN OT-EVALUATE PATIENT, DEVELOP A PLAN OF CARE, AND IMPLEMENT PLAN 07/31/2020 10:03:36 PM EST [facility] PT-EVALUATE PATIENT, DEVELOP A PLAN OF CARE, AND IMPLE MENT PLAN PT-EVALUATE PATIENT, DEVELOP A PLAN OF CARE, AND IMPLEMENT PLAN 07/31/2020 10:03:36 PM [facility] ADMIT TO INPATIENT ADMIT TO INPATIENT 07/31/2020 09:41:10 PM [facility] GRADUATED COMPRESSION STOCKING APPLIED GRADUATED COMPRESSION STOCKING APPLIED 07/31/2020 09:40:01 PM [facility] NOTIFY PROVIDER (VITALS PARAMETERS) NOTIFY PROVIDER (VITALS PARAMETERS) 07/31/2020 09:40:01 PM EST [facility] ACTIVITY ACTIVITY 07/31/2020 09:40:01 PM EST [facility] SALINE LOCK IV SALINE LOCK IV 07/31/2020 09:40:01 PM [facility] MAINTAIN IV ACCESS MAINTAIN IV ACCESS 07/31/2020 09:40:01 PM [facility] INSERT SALINE LOCKIV INSERT SALINE LOCKIV 07/31/2020 09:40:01 PM LOLITA Marmolejo [facility] VITAL SIGNS VITAL SIGNS 07/31/2020 09:40:01 PM EST [facility] ADULT DIET ADULT DIET 07/31/2020 09:40:01 PM EST [facility] FULL CODE FULL CODE 07/31/2020 09:40:01 PM EST [facility] IP CONSULT TO HOSPITALIST IP CONSULT TO HOSPITALIST 07/31/2020 0 7:40:04 PM [facility] CONSULT CPEP CONSULT CPEP 07/31/2020 06:57:20 PM EST [facility] URINALYSIS WITH REFLEX MICROSCOPIC URINALYSIS WITH REFLEX RI CROSCOPIC 07/31/2020 04:48:00 PM [facility] DRUG SCREEN, URINE DRUG SCREEN, URINE 07/31/2020 04:48:00 PM [facility] FLU A/B RSV NAAT FLU A/B RSV NAAT 07/31/2020 04:36:00 PM [facility] SARS-COV-2 BY NAAT SARS-COV-2 BY NAAT 07/31/2020 04:36:00 PM [facility] COVID-19 ORDERABLE [facility] COVID-19 ORDERABLE [facility] 07/31/2020 04:36:00 P M [facility] CT HEAD WO CONTRAST CT HEAD WO CONTRAST 07/31/2020 03:53:01 PM [facility] GASTON TOP (BLOOD) GASTON TOP (BLOOD) 07/31/2020 03:39:00 PM [facility] LIGHT BLUE TOP LIGHT BLUE TOP 07/31/2020 03:39:00 PM [facility] EXTRA BLOOD CULTURE EXTRA BLOOD CULTURE 07/31/2020 03:39:00 PM [facility] EXTRA TUBES EXTRA TUBES 07/31/2020 03:39:00 PM [facility] CBC AUTO DIFF CBC AUTO DIFF 07/31/2020 03:39:00 PM [facility] TSH TSH 07/31/2020 03:39:00 PM [facility] TROPONIN I TROPONIN I 07/31/2020 03:39:00 PM [facility] CBC WITH AUTO DIFFERENTIAL CBC WITH AUTO DIFFERENTIAL 2019 03:39:00 PM [facility] COMPREHENSIVE METABOLIC PANEL COMPREHENSIVE METABOLIC PANEL 07/31/2020 03:39:00 PM [facility] MAGNESIUM MAGNESIUM 07/31/2020 03:39:00 PM [facility] LIPASE LIPASE 07/31/2020 03:39:00 PM [facility] ETHANOL ETHANOL 07/31/2020 03:39:00 PM [facility] SALICYLATE LEVEL SALICYLATE LEVEL 07/31/2020 03:39:00 PM [facility] ACETAMINOPHEN LEVEL ACETAMINOPHEN LEVEL 07/31/2020 03:39:00 PM [facility] CK CK 07/31/2020 03:39:00 PM [facility] C-REACTIVE PROTEIN C-REACTIVE PROTEIN 07/31/2020 03:39:00 PM EST [facility] HIV ANTIBODY SCREEN (RAPID) HIV ANTIBODY SCREEN (RAPID) 07/13 03:39:00 PM EST [facility] XR CHEST 1 VIEW XR CHEST 1 VIEW 07/31/2020 03:30:21 PM EST [facility] ECG 12-LEAD ECG 12-LEAD 07/31/2020 03:19:11 PM EST [facility] FLIGHT RISK FLIGHT RISK 07/31/2020 02:49:40 PM EST [facility] SUICIDE PRECAUTIONS SUICIDE PRECAUTIONS 07/31/2020 02:49:13 PM EST [facility] US EXAM ABDO BACK WALL COMP US EXAM ABDO BACK WALL COMP 09/2019 12:00:[address] [facility] US EXAM ABDO BACK WALL COMP US EXAM ABDO BACK WALL COMP 09/2019 12:00:[address] [facility] GLYCOSYLATED HEMOGLOBIN TEST GLYCOSYLATED HEMOGLOBIN TEST 12:00:[address] [facility] ASSAY THYROID STIM HORMONE ASSAY THYROID STIM HORMONE 2019 12:00:[address] [facility] ASSAY THYROID STIM HORMONE ASSAY THYROID STIM HORMONE 2019 12:00:[address] [facility] ROUTINE VENIPUNCTURE ROUTINE VENIPUNCTURE 05/24/2020 12:00:[address] [facility] GLYCOSYLATED HEMOGLOBIN TEST GLYCOSYLATED HEMOGLOBIN TEST 12:00:[address] [facility] ASSAY THYROID STIM HORMONE ASSAY THYROID STIM HORMONE 2019 12:00:[address] [facility] ASSAY THYROID STIM HORMONE ASSAY THYROID STIM HORMONE 2019 12:00:[address] [facility] ROUTINE VENIPUNCTURE ROUTINE VENIPUNCTURE 05/24/2020 12:00:[address] [facility] GLYCOSYLATED HEMOGLOBIN TEST GLYCOSYLATED HEMOGLOBIN TEST 12:00:[address] [facility] ASSAY THYROID STIM HORMONE ASSAY THYROID STIM HORMONE 2019 12:00:[address] [facility] ASSAY THYROID STIM HORMONE ASSAY THYROID STIM HORMONE 2019 12:00:[address] [facility] ROUTINE VENIPUNCTURE ROUTINE VENIPUNCTURE 05/24/2020 12:00:[address] [facility] ASSAY THYROID STIM HORMONE ASSAY THYROID STIM HORMONE 2019 12:00:[address] [facility] ASSAY THYROID STIM HORMONE ASSAY THYROID STIM HORMONE 2019 12:00:[address] [facility] ROUTINE VENIPUNCTURE ROUTINE VENIPUNCTURE 05/24/2020 12:00:[address] [facility] GLYCOSYLATED HEMOGLOBIN TEST GLYCOSYLATED HEMOGLOBIN TEST 12:00:[address] [facility] ASSAY THYROID STIM HORMONE ASSAY THYROID STIM HORMONE 2019 12:00:[address] [facility] ASSAY THYROID STIM HORMONE ASSAY THYROID STIM HORMONE 2019 12:00:[address] [facility] Results ID Date Data Source [id number] 03/24/2021 09:54:02 PM EDT [facility] Name Value Range Interpretation Code Description Data Jammie rce(s) Supporting Document(s) Discharge Summary [facility] OCQSBn0tXnNONiVd45/IDUxfZRZyl3MjADwoSXc8IWlnRXStQ5OyLAV2xI2tWVV5PJjIQuPwGvHiJWQu [facility] EpGwxDKnQfFASmFqeWMbPrHSfjXvruyUCrCC9XhVO1WNVkJ50cREXzZUAiC9BgNKR9JGC+Gu6FXWRvyD PqPF0XPzxA8WnjY0g1Ez2+Puac3VDytt0JqPT3nBEMLZXgLNKzX6m8+7XlValTI4L3yIz22Mtf4qcepH 89122IjGdjTQZxht7savIiQ3KRg8+LnSiQUorqZ/Ux TmY9pQmi/bMxla2seIa/sw5aYN9kAFeRli+eevjATuJFOkC/WpinQc1lAfQZeSQMjopvKIaKPQvFjAcr 0g2+uhJ1Hd1BsL02JUa6cUxq8QSofJU/NuWDV0QNij8/94MY/Vco3y+yYmZcvIM4DxQvkRNbXWTzdYn4 OSXXtmyGMRvALofmzp6HhA96gJ1bzCx16ERKEGIEOT QsYzOUCOvbaYfp26mjFZc3uqLBwpDB2sXP63zZsLdPW2iRU+VAzDF2fkPY5hVDcGleXiWUPwltkJlFip 7d065PvCOjuqevArw+ekYQEV6Vsx3KkbGZZx+EVKIvAde8YB0F66kHjZxhQlAXqHFE6BPtORrxKQ/KpK MWVZuQoHPJbrj0wYor3cJnnSfn1kZ4+B/Tr+lYvBfn N2n+9xsNAUu76Yy8SB3k0BeIZUSvIXc6n+PY9Z32RilmQSEi5dsfmqhxQx1FasC8ie8fsUhssKWohR/m r3iKNmKpRxcsJkM/m3F6S+JccGTopuFxxXFVT6hTlEJakv9XO9wFVGPr6jtp9z3Iv5qqNECeVeZAFPPi +YoRbVhTpfdo5eIuroF2IauygDs16dVheXXB3/x5b0 rLhZW+/ulPc4DeO8Vy1zCdk+vZ9l4G+WxB9UFkpFjzrXaakFSh/E/Imssi7KIwSKFxyP0RowF8f [file] ICAgICAgICAgICAgICAgICAgICAgICAgICAgICAgIC AgICAgICAgICAgICAgICAgICAgICAgICAgICAgICAgICAgICAgICAgICAgICAgDQogICAgICAgICAgIC AgICAgICAgICAgICAgICAgICAgICAgICAgICAgICAgICAgICAgICAgICAgICAgICAgICAgICAgICAgIC AgICAgICAgICAgICAgICAgICAgICAgICAgICAgDQog ICAgICAgICAgICAgICAgICAgICAgICAgICAgICAgICAgICAgICAgICAgICAgICAgICAgICAgICAgICAg ICAgICAgICAgICAgICAgICAgICAgICAgICAgICAgICAgICAgICAgDQogICAgICAgICAgICAgICAgICAg ICAgICAgICAgICAgICAgICAgICAgICAgICAgICAgIC AgICAgICAgICAgICAgICAgICAgICAgICAgICAgICAgICAgICAgICAgICAgICAgICAgDQogICAgICAgIC AgICAgICAgICAgICAgICAgICAgICAgICAgICAgICAgICAgICAgICAgICAgICAgICAgICAgICAgICAgIC AgICAgICAgICAgICAgICAgICAgICAgICAgICAgICAg DQogICAgICAgICAgICAgICAgICAgICAgICAgICAgICAgICAgICAgICAgICAgICAgICAgICAgICAgICAg ICAgICAgICAgICAgICAgICAgICAgICAgICAgICAgICAgICAgICAgICAgDQogICAgICAgICAgICAgICAg ICAgICAgICAgICAgICAgICAgICAgICAgICAgICAgIC AgICAgICAgICAgICAgICAgICAgICAgICAgICAgICAgICAgICAgICAgICAgICAgICAgICAgDQogICAgIC AgICAgICAgICAgICAgICAgICAgICAgICAgICAgICAgICAgICAgICAgICAgICAgICAgICAgICAgICAgIC AgICAgICAgICAgICAgICAgICAgICAgICAgICAgICAg ICAgDQogICAgICAgICAgICAgICAgICAgICAgICAgICAgICAgICAgICAgICAgICAgICAgICAgICAgICAg ICAgICAgICAgICAgICAgICAgICAgICAgICAgICAgICAgICAgICAgICAgICAgDQogICAgICAgICAgICAg ICAgICAgICAgICAgICAgICAgICAgICAgICAgICAgIC ApUARhHPViIQAsLGYuGXLcQJOfGREwWXIbWRRtCWUhAWWzVHRgSCUuAWKpXESxJUXzQCRbVRWvRWq2B2 gsUDTiBDYrNI2dGQp7Ef2+NBxAJcSbXKZ4abYmyW4TVH9bo8PvRAflBSDru2TsJJz5BW8DSWSpACprYX 9ISIehal0GQAXgDFLmvALJi6htJnMeZQP0HAUxRrnt HP0IMEKmP7iigaLgHRViSXMAYKiwIQFCDEdzFILWGGDuNZNvCpXuTsBpOQGfZTPoQLYOKP8TXjWlN7Vd kX13YSPMDs7+SMfslgLrShzXFzH5UVYim7TvWCx9ZA4UQEEmBmbxj0ItFtilZJTWSWluWA4OJUX7NMM4 QXLjJc7USWUmG794nmNhXH2UAk3LHaWnWK4azr3ULz qgSFPhEcnGRxc1OUimSX3GjAIaTUjSbSRtrDAsL4HkA7AbeCAreEOffTYYEDdmJGVMRGWpGJvslFggBZ IfJNHgTN2oEr3bMGCvXEJeOwV6HWAOWK3OWADaAXBhcHPtYDWsPUYVXG6DRAxhFRH9JvakwjEauKQcIT fvDV0MGPOtvzVcNcftJATVUSx+Dp8JGT9ck0GyXGk4 URMfBT1ozq2VQSpHBwDkI6Z9qGWsX5R2MGmxPw9BGIQsEWByKfXeXYWGTBcrIQ7EHX7ivyQ0LR8LyTBu ALFiYBCebOXvPRq4J13yiQZbFPbnSE1NBSI+[place]+Oj2OXNVhECUxOMLkApPvQQURQlEsH7QcR3CEe3Ev Y2LdKA85nBldgwFsPNhxRP5LPE3gRNBdRTSTZD2FkH MyhM4yakJcUZHxQPIJUcKtP12jzENkSPKcJDT8OVQzCf3BSWJjD9GtemXpoQkqimJeEUOgZGOISE7BEJ vqxgVxkGXzbOqcSK87gXihMJ8IEb0XAaIeGD3gci9KyYArPo7BKLA3FR5JVLGcKTZmFMYuRPF5LKLhNq GeEAviYHGvLGAvPJM9NGPuPLGwWZ6OOvLxSERsKwW3 KcNvVJIxTUVuvt2FPABnAUInQEkzZoVfJVMoBLHaOHgzZQDhFASzXTC7JARuWTQlYQ1MIbCkBSTtWGB9 WRGjJIMlNSQkqk3ESQRbCGTjLip5KRTaDYNeFNCtDLuvIOQmTNQ0Tsy2VUPhDQRqVF3JKcFoWOCzEDI2 ZCtcTVBgUNGwvn3YDPJxUMFtFEW8QPVvJUCbDXWeTQ coUSZuLQU5RnBxBXRjQQVaCQ5GRpEdWNHxRCYgBCOwCKKdSHIvbm9WQGUdKNQlJGN3YHXjOERrHSMuYK yfZLJbUZCoIFM6JSMbPLZsSJ9QKgMbTQLpJMYpYxYoUDDoXSEpui8FMZQyIFOvKXR9PIFpLIZtPQMpSN inIOBwDXM4QAD0FATtDDUsCP5YKgVyDLEsIUM2FBMx ZPNlDNWdjb6WPLEkKQUmXPJbZbMsRAMyWMRnVPjgESRdOAP3SPP8UXSeTUSnJZ8TOuTqDBHlTGV2PwAb IJPcJWJgcs2VHGPmOJJpDni2BoZnPLXtXSQeGZobEPKnKRG2VZB2HXUsVCNkRS1DJzDeBPIlQFleSSZu MFDeGMPbpd1KIEInTBKtEPAcMHHaJHAzJAAaIXbcHM ClHNR1LQDqBVJkRVCrMU8WOkWfYDAyNIm3EDtnQDCgXSVusi1JASRrTVJeDBR1EPQdXRLxYULmIXbrHR KmMZP7DMR1DIOsBRIoZH6PPiBfIQSxNdS5WOQsHNYhWUKawc5FPCRxSMUlZLFrMQTsJNIuHWGmBJfgNF XjINA5SxFuOOByHEAkKD2OXzOkMUSiJrJ2WmGfRVAl IEIapq6JUYDhZCDbAADnQSMuIHTzCMRmDTxcHYVzZNP8BWCiBFWaBYDvPO4HXbXdNQQwOpK1ISklUAVk QFZmil6UQKBcHPDhVit1UDYzANCiXKRaXFkrJRUvNRF5JwenKGDzHAPyQI6AWjEtDGMeGab3FrHjHRVo LYWgep2LSPYpUQUoZOgkQHRxTAEfFGHsAPcbKIMdHG X9BZu8QTIyQMQjJS4KTwFrXQljWAQLMvj8FJcyN1m8INN3EO8VJ4Pwi3GiQGOgUVECKXpqOR9dsvNzID LzAh2PB0kEHlr6FwTnQwHbNwPxLRI5OTp6BxSgJyK1WQW8YMqrCxU2XI0yYFXmGLYiAVF1WsF8Rar1Tm a9IVS0JsB6RvwjACXgFPrnDtBbBD7SCx9LQrB8SYQ0iTEiHj3WVkuvEhYHBcKvKZ8SQZq= ID Date Data Source [id number] 03/24/2021 04:52:29 PM EDT [facility] Name Value Range Interpretation Code Description Data Jammie rce(s) Supporting Document(s) Nursing Note [facility] SDRUKw7xHaHTQeQn44/JIIhwBVNqh0GlNIrjXXe9HNevSFYxA9XkZJF7lH9jQHJ2OIfDFxRtEsOpOHPx lbm [file] KlX6RNao/et[employer] circuit boards+QVx7nCeqO5y5BeGi7RXv0uUS09EjXVZgGMZWWL2jUOXCNbpyIHnXQ8/ALcmlDgNCmVu [file] LmE4U0RRq3M9NbVqGgTtauAxn4NwCmQG6LGh3YCeE0XZK9kCPrIj8NYcBiAJEYZjZuSF2OZRg= ID Date Data Source [id number] 03/24/2021 03:51:32 PM EDT [facility] Name Value Range Interpretation Code Description Data Jammie rce(s) Supporting Document(s) Progress Notes [facility] GDZUPs7lLkTBXyHu72/OGHxxWDKxs2NrSEjfLGu1EVzpLFWaF8HhFXT0wF7lFBX5MKmKIoLcZcFfMECw lbm [file] c4OWU+AT9rEFu+Tq2Nt2LsxxM0ulPyNXwfKbC6ZC3ECIKMR5GJVq== ID Date Data Source [id number] 03/24/2021 03:47:15 PM EDT [facility] Name Value Range Interpretation Code Description Data Jammie rce(s) Supporting Document(s) Progress Notes [facility] LHHHXh7uZdXZChDm04/VZDwdAYLam2ZbQXfnCYh3ZCutLCTrT9EfSXY7aP8cYNZ0HBdCLdXzGjGmCSKo lbm [file] AgICAgICAgICAgICAgICAgICAgICAgICAgICAgICAg PBFtKTNaLPAiVGDvNZXwAJIiZWOiGLCjKYKaSSUyQVGuVSYaXQVcUWNgAB5JIDOnGOSiEQCdXAAoDTEy ICAgICAgICAgICAgICAgICAgICAgICAgICAgICAgICAgICAgICAgICAgICAgICAgICAgICAgICAgICAg FANnUDDrIPHaVQKfMXLgVFYcMPYiOCUzMM4LRYVqVO AgICAgICAgICAgICAgICAgICAgICAgICAgICAgICAgICAgICAgICAgICAgICAgICAgICAgICAgICAgIC HrYWDlKYYsBFFcJVYaWKIuWTVyQYHrOOEqXNWzHWOxXKRyKX2GDAFpSSUqLHSrVWIuXFYfTKRiFMEpRH AgICAgICAgICAgICAgICAgICAgICAgICAgICAgICAg XVXsCZCiIBFbNDWdIEQeGFWsONSjIFMeQVYbVNTkOENdFHSuPPDjZKXfQUTdFC4KOZEpDFHwNIGxVHXi ICAgICAgICAgICAgICAgICAgICAgICAgICAgICAgICAgICAgICAgICAgICAgICAgICAgICAgICAgICAg XEAsQGJrAJDtYPKkZMKyETTxBDIfOMTlFJDhRE0PAY AgICAgICAgICAgICAgICAgICAgICAgICAgICAgICAgICAgICAgICAgICAgICAgICAgICAgICAgICAgIC PqIMFpBZCpRJYpHXGaFDJfCJQzJQIgSKMeBIXcXJWgAAXwKNKwDT6MLUBlCFKzQMAwCJVnOMQbDTVdRW AgICAgICAgICAgICAgICAgICAgICAgICAgICAgICAg WRCkTHCjNKBkAPHjRGGyHAZiYDDhLXWqJNHrZEVwJQKuTTIiJALbZJEaISXpKIIkIC4EWJLtAHVkWNKb ICAgICAgICAgICAgICAgICAgICAgICAgICAgICAgICAgICAgICAgICAgICAgICAgICAgICAgICAgICAg ICAgICAgICAgICAgICAgICAgICAgICAgICAgICAgIA 0KICAgICAgICAgICAgICAgICAgICAgICAgICAgICAgICAgICAgICAgICAgICAgICAgICAgICAgICAgIC OsFTIoIWMlGLBtMKBwVJXqNWWsUMIfVGEjHXHgWPFzFHJyFDFuCJSuOK6YTAJqYJPxFINhRWZuUUYlZU AgICAgICAgICAgICAgICAgICAgICAgICAgICAgICAg FXKkYRIwPCOvHUYmLNZkFUMcCTHlMNRdLYGpMQTnQKBeELLjCXAtIDLnURCyDCWmSJJbWH7MGO17iUIa y7B5PYKtUL3fshz/Tk1MZXryqwJavZAuBJ4IHxRoLG1dhw3BYjPaHO8elx4ZHMqUXrMzE7P4zBApTSVb RNENTdErT65vIVilTn73HIhnFQIhLaFtNRs8Ew3YTj PsO2inVULwGnQ6HFCrOqOiWUasQV0My2BzcTAhOBx+Gy1QVJ9ju0XwJQhvBPLdDW4ude0WOHeJNfZmV6 GowyG3ZVA7IZMrVm9MNBVuNYXmaMTwBpQsDHSEVfAgZ4CcuP06DAXWKp5+ERwesmFgRruRZjE6NFQmh6 LdLBt1QY8YDMYsVSd6eIIdTQWbJ5Xmx5PxYc48HJYb JvljFHT6cwfbQF3eqpFbDG1tXMCfZT2jSg1aMVTdWEGwOjFlABSMQW7LXEJmGPJnqLPpYAFjYQZGEG4F WBmsSCO2BnrgwlSyyMRfODepMV0UWJZbcfDiMaNgKKJWZPr+Je4NGN1ra4YaCHafUtTsKN2jun0PRSzX JrLvM6Z6eQHcX1J2CAzxOb2VNKIyRKAdOfRdRWICDX twIC6FQS7usrK7PC5HkBFxTGXeDOJmlCFtPSg9G84qkISbCGrbRN1JSEM+Paolo+Wt9ZUHBaJUDdUNSuKu JjZSAXIrNqE4KuR2FIw6LlU2SxRO77lJyhazXsEWoxML5COB7bYRQxXPEPAQ0PnXGhvT2ggmOoISIcDA DXCyAbG76zuFDdXZTgEDA7PWKcJc1SMOQcB5LbtjRb jRvpnhVhAVYpYSFIIT8BAIfrkqSmnJFhlPtnRU08lRbaYN9BPq9UXzHzUF7tbx6UcHCsGc1CTERnOJ7S OGYeDTIaNXHvXAZ1GBTcGvFaNFqsYUXfOFEtGUT0MTWvJFJbXQ2TTmUmLFRePuBaGbBsQJUnKISqwi7D HOVsEALbAzEaNZYgVFFmGEKbAYvwSDYiOTJmYAE7KE CtPFJmAZ1QHvVuUKOoQTP2DIWxNPBbGDYsnj8CNEKbPXKoPun2HKHtSDJkGQUrKCbcHNPoQMUbVbE4YP VjZVYkKW7OIfLlADHkOQR2LStmZVZpDVYevj4DLEKwYKJqAOR1TyBeIHGaJIDtWRtvQQCkRPK7ACGtDD MjGITxNF2RIuOzVMCcIRNiPAqcISHyYFPxib1ZZQBl MNBcDOO6FFIgGWCkPUWuBYvySQCzZNP9HVK5EQSlBEWpTG9SGxLnKLQuWVzbPLHhEFAsSTWopi2XYHWj CCVvDVG7FCIyDNOmREGuSRhfZKJlTXL1EZu0TQXdWUSbER6TEiZgIBKkQLs5MVVaJMCrLTLqjd6WJISj RGIzAKJ6OdTjMVYeVXMfFHjuYQQbMRQ3NMg3HLWjAS DaXF4YPcQeKRTkHhXaMBOoHSRzXNGvua6UMAGeCEHpRBd7FQYsVIElXHDvBWinHNIfTDTrWIm1PMRqYP SpCG9QGmUkPVRjUcPgIFOxBZTgTKOjgu9ASTJgCQYjJDe6VJDnUDRpPNAsCRyaOURuBJFzGuElZPNeRW KqBW5KRsAdMSRxEuPuDUFsZUDvRBBzfx4DPRAbLCMc RfWvVELtUUXrITWjRMv1sjNxaSZsJAo1JC4KP3AokhFwExxPQn6Eq850SYB6NGKkCm2HM1nuEk0mEQUn GEOWSw3VEHd9YTNwXlDkEtIuRFYtBQD7HDLwVKjeAPYwEyUfSHTqVLU+PVx5NrKzMXZkR3MiTdGvTYd4 IqF1RFVyOqLdOmYhIdT0ET6zXSPKDt0+SHakaVZtvNcbBGABZnJpZrpyUPbyQZTERi8B ID Date Data Source [id number] 03/24/2021 10:53:23 AM EDT [facility] Name Value Range Interpretation Code Description Data Jammie rce(s) Supporting Document(s) Cardiology/IR note [facility] RLPBBd0cEcWTFyZg38/MKRzqBNUih9HaQAwmNQv7XSehPTKjM9KgBSM7fY4aJGG2OTtMMhKwAdCzBXCx lbm [file] ICAgICAgICAgICAgICAgICAgICAgICAgICAgICAgIC ZpCJTlOAQxEBJnGPRlFIOmCDTnWKMtBKHoEGEwAENfXQEkAMTkTTTcNRObKGTwAUUqXRFiDI9NEXEdPD AgICAgICAgICAgICAgICAgICAgICAgICAgICAgICAgICAgICAgICAgICAgICAgICAgICAgICAgICAgIC AgICAgICAgICAgICAgICAgICAgICAgICAgICAgICAg SJDuXP0CZEOdAUThJSLrDFIyCIMyKNAcCCRsXKHlQATgRFFaAYFxSAGoACElIAHyRNArPFXoQUCpIBSn WKVfCWJxCNKaZTEgGBYbDKGbPJAtKGMmHBBsSQGsYBCdFACmVKSaJNJcNLRxZD4NKSChYBJbZRAzPSAp ICAgICAgICAgICAgICAgICAgICAgICAgICAgICAgIC RfGRLfFROgBHSsBQFnPIHpGWPpLUYkOQPnZZUdEPWfICKbYRIqMIItMZPcIAKxCARbOFSeSICgMA6GHN AgICAgICAgICAgICAgICAgICAgICAgICAgICAgICAgICAgICAgICAgICAgICAgICAgICAgICAgICAgIC AgICAgICAgICAgICAgICAgICAgICAgICAgICAgICAg ZPTpMSCfSI6RCKXcSSZbUWEbRCUzCREoKNLiGINrPAAtUQIuSGVaXKHcJDVlYNBgPCSqQOZoPEQxWGAs XBWiUAZkSMUbZODdUSDrXCUaFXNlJTFjJJYyTWLgSTCkPQBzODEfXOWuMDXjRKKeOH0WOKMlHUZuALAy ICAgICAgICAgICAgICAgICAgICAgICAgICAgICAgIC AgICAgICAgICAgICAgICAgICAgICAgICAgICAgICAgICAgICAgICAgICAgICAgICAgICAgICAgICAgIA 0KICAgICAgICAgICAgICAgICAgICAgICAgICAgICAgICAgICAgICAgICAgICAgICAgICAgICAgICAgIC AgICAgICAgICAgICAgICAgICAgICAgICAgICAgICAg HBCuHOOyGCLbBP7LXUAdHBAdTWJfYOYxUGNcQHVfJVGsJIQqIKHfFCSqBSRkGVZoWQCvCGBaJVRdXUUc JMBpSAHeUEMcHLOsPBOjYGMnHLIzJBNtGMHkYZIpXFRqPZToEDSfKIBaPMFfFCOlMGIfEP2ZAP13aSLf w3X7LNDfHR8fcql/Xl9JUHwudaPqhWLqMO0TBzUuRR 0and5TNeCdIN5rvd3IJRcOIhCoP8S9cDMrKDFwGFBFXbFzZ75aPFjaPi54QArbRYLpHkJbXZe2Px4HSb SsK9oxHMVaVxA5HZKgJtF8DWKiZeUuKWokLY7Eh4VjqCEaQHb+Hd9OXM6nn5ZmWSzwEFUrPU1gqd6IMT wOLlFbN5VkamR4FCR1EQZqLr9SAXYnAJSsoUErRrAw IWTJLcEyT3OvyP67IKRVKt6+CFyztoEhQbuCSqU6XGCtl2GuXDk3WW5IKXKjUCw2nRPlR7LrRUmktY6w wQ5YYwAug5FfMQE1JCpee97bQMIch6RgPFHXDEJlzTH9XdWfDyHtQcZmVVX3THtrAH1dZRbaHV8WHES1 PDkbUXLvSLDjW5sSMqEcOXnaCOMlzYdcCV6KXpRoE1 BhcmVudCAyNSAwIFINCj4+FJuqfsFdEdyCFaG9HVQra3EtMTm8CT1DTLEmWPoeNX8DIAZggG8vVKfcNK 4TTqPqNgDmTQIFMfNmU43qwCXzRCq3L1EuPxZhAKYrTtufQSRsVJuyGxQkYXUfEbMyWOknED6+ID4+DQ ueML6PNLmhssNjAAVtSc5XLLPlWYUbDZ4bZREaSLSu B0V1iJvxDXFMObKdS7lfdeafXP2kJPFjT223qZbqqfRyDXX8JQTrYb9ZTXNnLXF9DKUdiUVgTgBeBHUI MFqkYR8PpDNmLVT1eY0nWAipPRErZSUfR8zMLmXqlMkqWQ91bKdtzcOfoESbJNe+Oz6NGG5ur6YfNWc7 vdNtYEitYOS7XQidYOQtABShFCNaWJJ6QHV9MEQVTg RuWUBnINNiNPonLIEwWUSupu8ZECOwGGUvMHgsBpYpISVoFDPmKHoeREEuDRHfOKa3EOQwNJKuVQ0IRh BpJPIxAVDqAGroYCAjVCNqpm3SNHUfJTZpQocqCPVoRQCmGQDfEEbePJOvJADkSXSmQFNoVOLoXV6CIx LwDAQeXXF5ZUEsDSWzIUBjje3VAMBvFZPgBVi9KUVi SSSuNRTxCOtjSVHcPCQ0TZL6CVXgHIIdWG5DLyJkENRqNNWoUUrrOONmGVMkje5VWPPmZVAiEjNmXWMa LOYyBPIqCDffTQTbLUG9OnJ4SKQqGVMjXC9TUdJmOEZmWIs2HlNzROTjPJUakx3ACEUuXUMtJzV9KOHf WJCqZVRtAKutZZZuGKN4QhD8EUMuJCRrVH7GKjWeWG IkEYn7KIYyJADeVNPtwn3PJABaQAIyQAYzRIKeAVZtQUXeYMtxSSFzUQS0DYK0XJLsZORsAA8TMnUsMK DbQZCoJuXdTAPuXRTqpx8CPHSmTWOjTMM3TPFvLIZbXJHxBLhzDFYxFHSzRvMbXRDvMNJkTB2EIeBjYW PwUCU6OJJrJKXmNXAkxv8IIVQrBCMyOHS4NPQnPFOb OCNgSBhqSPDjIOXiARP7PQHdNWKfVY1IQgEzPGNvPEP3QWZvQNHxUEOcpb2RHRRvQMFlZeS9VbOmZZMu QQJgDEweCGKlWCWsXKQxWTGcVWBlZB4BEeMdDUbaUQYWOvq1TPhuV8j1ETWxWG3EO9Aec3ZxMlsaANDG RIeaFN8howVlKZSpWz9PR4zPIoqjPuKbXua5ENHtEy P7MjceNMLbJyJ6NQFrFWN9LsayLX4dSDQkABSpMHe7QXEbWZLeGLQuIqE5CZX0UvWgPNN7HLYqBcGxMU 7GFy5TBoT8ITF8xJYyDm7LOYRuYLpNTsGnIV8GUVi= ID Date Data Source [id number] 03/24/2021 10:19:42 AM EDT [facility] Name Value Range Interpretation Code Description Data Jammie rce(s) Supporting Document(s) Nursing Note [facility] NYJIUy0qQnJGSaCz81/YYZebJHZij8SyDWilZPo3JQpvOREjK4EyQJI7rD4pPPK6SBtWNgYuLmFwESMw lbm [file] Cmj7CAw2HUX3U6HpFgPwUZQcD2L0Nlm2PCd+IF0g DQo+Rg7Nr6MuypC2rlHzQXfrVIdxEz8DWAVQP6FMDw== ID Date Data Source [id number] 03/24/2021 08:03:40 AM EDT [facility] Name Value Range Interpretation Code Description Data Jammie rce(s) Supporting Document(s) Perioperative Nursing Note [facility] UKJABr1iHeNBTyWy46/GZKesNOJbg7EkFNgeCTn1ELlgBOUgU5YiARO1iB8lLGE5LWzGMgYbNuOkYEUc lbm [file] ICAgICAgICAgICAgICAgICAgICAgICAgICAgICAgICAgICAgICAgICAgICAgICAgICAgICAgICAgICAg ICAgICAgDQogICAgICAgICAgICAgICAgICAgICAgIC AgICAgICAgICAgICAgICAgICAgICAgICAgICAgICAgICAgICAgICAgICAgICAgICAgICAgICAgICAgIC AgICAgICAgICAgICAgICAgDQogICAgICAgICAgICAgICAgICAgICAgICAgICAgICAgICAgICAgICAgIC AgICAgICAgICAgICAgICAgICAgICAgICAgICAgICAg ICAgICAgICAgICAgICAgICAgICAgICAgICAgDQogICAgICAgICAgICAgICAgICAgICAgICAgICAgICAg ICAgICAgICAgICAgICAgICAgICAgICAgICAgICAgICAgICAgICAgICAgICAgICAgICAgICAgICAgICAg ICAgICAgICAgDQogICAgICAgICAgICAgICAgICAgIC AgICAgICAgICAgICAgICAgICAgICAgICAgICAgICAgICAgICAgICAgICAgICAgICAgICAgICAgICAgIC AgICAgICAgICAgICAgICAgICAgDQogICAgICAgICAgICAgICAgICAgICAgICAgICAgICAgICAgICAgIC AgICAgICAgICAgICAgICAgICAgICAgICAgICAgICAg ICAgICAgICAgICAgICAgICAgICAgICAgICAgICAgDQogICAgICAgICAgICAgICAgICAgICAgICAgICAg ICAgICAgICAgICAgICAgICAgICAgICAgICAgICAgICAgICAgICAgICAgICAgICAgICAgICAgICAgICAg ICAgICAgICAgICAgDQogICAgICAgICAgICAgICAgIC AgICAgICAgICAgICAgICAgICAgICAgICAgICAgICAgICAgICAgICAgICAgICAgICAgICAgICAgICAgIC AgICAgICAgICAgICAgICAgICAgICAgDQogICAgICAgICAgICAgICAgICAgICAgICAgICAgICAgICAgIC AgICAgICAgICAgICAgICAgICAgICAgICAgICAgICAg ICAgICAgICAgICAgICAgICAgICAgICAgICAgICAgICAgDQogICAgICAgICAgICAgICAgICAgICAgICAg ICAgICAgICAgICAgICAgICAgICAgICAgICAgICAgICAgICAgICAgICAgICAgICAgICAgICAgICAgICAg BADqYLJwTELxYYNrALDySRe6I0erSWWvAZJkES8oQZ d3Jz8+UDsTCpGjMYO3szKklZ7IEH7yo4RaAAuaTEGee6NhGPt7DG6DPTQdTFaqKW5KMYgmgs8JFTDeVL ZaaNFFp5maLsGwDWO4KXTuCdltZW2BWKJzU6mgcfZmTBFtZGJYFQ5UEgDxM8FfoL18RQJXLc0+DQplbm DfNtzGBzLnOGOxc6ThPMp3CZ9WKZEpAminy6AzAfFq UFSOLIaqVV2OKJC8KSYjVJRaFc5IFFUyX250dfApPD8UQu8EOeKcYA1yrn9VRaJzXYNsHmlBJxo0KTmm MO2BtIDaITeMNMLwm2AnqrJ7jDWxIO82rcIugxaoJw81HJWtrOFXQCTbvvqhFZouTwB1ZVnvHq8jIKTq IL0hAj3rSPCvFWE6WkZ9JFVAPT2OWOWeVVPlkPEpDK JyILVFZZ8RRWxzQRP4EhovetBrbFJvZHslEW0ZKVPxxfMbXrMuJIQNBZz+Gv5LMG2pf8NaAUkxTkZdBW 7kxl9BHYhDSjTdH8J4uKLmG4P3DShxBv5DEXUgYPRjTtlhJDAKVQxsVZ7SBM2wyyK9BB7MhDIiISSyGZ KccNEjQAb3Y52hkEYmSQnlEH2DYHP+Paolo+Wn7DBFFi JEMsDKAsXmMaABGTYfLpZ8LcK3DAh9XxT3IlWT28fObvbkVfIFomAL6OTM8cDBDkSXTKQJ2UjGQqqT8e neQxNWLtTDVBWaRpT50wrNRdDIEmGCF2VKXqDg5CBJIxK5MqulBvwDmrgdYqUWDiEASFYP6BPZazmfIt sZRatBjxXV16cXreHZ9TKa2YEgSxTU8bod2KqZAdGt 6GBTQrSy8QLDFoJQKpIYBjKGM1PTDsNlCbLVnjHDBdWXDeKTR8ZEUrXJVrLW8MEmYuVXDzMqU5XPGqRC UpGNEgcp9DIUVrMPPjOck4BkFwWEMoCHBfFQlbXVLzSRVdHVC0XJJxORVeGB8DLlNgHXLcWFM6IHLvFX MrJHQuqv2PTWXuOODhQAY2NLTsZTZbXCAmXWpvIZUb DEVlNoA9EVXxFQAqKR8JOxGwZWUaKFT3ASchWEGnGGZyju0BTRBpTXBxUen7TuBkTLCuYBRdKQdbBIXe YFDsYLSqDNUcNNBwMG6XOqPqNTKfPINkBBvgFAVwXMEfha6SSUCxDGBwCCJzRTSdVYSlUXOnVUyvEQMl SWV1Njc4PPSdDYObNO0GCkMbLRKvRWD2RNOnNKTnVE Zhtn6XJPFtXKAjWwXmGKRkHYJfIYRrFZuqSSWxEXN9XJP6PTZqTCBqNW8TTvNmGKAvSVm3OEMcTWTwZZ Zmqu1KXFYoRAJjPSBcRwOqZVFvNYZiQRkpUZAoVSS3CbC5BAReYYGnJC1AZpEqRERyJDe7HTHjJONxYH Tbyc1POUJpUAYvLoi8FzWoUDVnWSFnWQtiEQDsMUY2 BUL7GBOkGRXoZP5RAbJzJMDwWwXjAjvtBMHfOXTglb6QBSZcGAKqZEXfUqFgMFZtGNBvQFsbQJEhNXQ2 SxV6VMFlEZEcZN6KCiDuZYIfZfF7TTQgXQGdODHala8UCEJbZIPeCWw0VXLfQDCeESLfCEdhHNYaBYO9 IWC0EMAgYAKzHN8DPuSbUPKsXkK7IECrYWVxBPAtxs 0IUZFgTIKkGin1OLPvJFKcDRNjYLfaEVXyYBR3KJAlHEJjQZFiXW3SBqQyRMTbJinuLZTmGJJjIKBrci 6WrFGblAmebf8FKPpKCh9IzKulQJSlDFicVr4jtRGeFmZeZZXWJm6ThdZhLXQoABBDYZphUQQfVFInOx ZfLAHtH8CmNcXmDYG9KXF0SoOhGWX2L5S6ARswQnO7 PPEiCPWkCRH7RJZ3AZZtFqJ9XAYtXsQ8JJn4WxyoW0X+IM1bGFj+Hp1Na5KtnrH2nmNnLImcQGMyQn4E BBNCZ2YUIq== ID Date Data Source [id number] 03/25/2021 05:10:00 PM EDT [facility] Name Value Range Interpretation Code Description Data Jammie rce(s) Supporting Document(s) Angiotensin Converting Enzyme, S 84 U/L 16 - 85 Normal (applies to non-numeric results) [facility] Test Performed by:[address] [id number] Director: Nahid Niño M.D. Ph.D.; CLIA# [id number] above 1 analytes were performed by [facility] ([id number]) ID Date Data Source [id number] 03/24/2021 06:15:00 AM EDT [facility] Name Value Range Interpretation Code Description Data Jammie rce(s) Supporting Document(s) TSH 3.00 uIU/ml 0.36-3.74 Normal (applies to non-numeric resu lts) [facility] Concentrations of Biotin above 100 ng/mL can potentially result ininterference.The above 1 analytes were performed by [facility] [id number] [place] [address], ,[place] [address] ID Date Data Source [id number] 03/24/2021 06:15:00 AM EDT [facility] Name Value Range Interpretation Code Description Data Jammie rce(s) Supporting Document(s) T4, Free 0.95 ng/dl 0.59-1.61 Normal (applies to non-numeric resul ts) [facility] The above 1 analytes were performed by [facility] [id number] [place] [address], ,[place] [address] ID Date Data Source [id number] 03/24/2021 06:15:00 AM EDT [facility] Name Value Range Interpretation Code Description Data Jammie rce(s) Supporting Document(s) AST 35 IU/L 15-37 Normal (applies to non-numeric resul ts) [facility] Sulfasalazine and sulfapyridine have the potential to falsely depressAspartate Aminotransferase results. Baseline values before medication administration are recommended. ALT 52 IU/L 16-61 Normal (applies to non-numeric resul ts) [facility] Sulfasalazine and sulfapyridine have the potential to falsely depressAlanine Aminotransferase results. Baseline values before medication administration are recommended. Alkaline Phosphatase 92 mIU/ml 50-136 Normal (applies to non-num sun results) [facility] Total Bilirubin 0.60 mg/dl 0.20-1.00 Normal (applies to non-numeric results) [facility] Blood Urea Nitrogen 18 mg/dl 7-18 Normal (applies to non-nume arvin results) [facility] Creatinine 0.82 mg/dl 0.67-1.17 Normal (applies to non-numeric resul ts) [facility] N-Acetylcysteine (NAC) and Metamizole bernstein ve the potential to falselydepress Creatinine results. Baseline values before medication adminstration are recommended. Patients undergoing treatment with phenindione will have falselydepressed results. Patients on phenindione therapy should be tested with an alternativeCREA method.Toxic levels of acetaminophen may lead to falsely depressed results forpatient samples. Glomerular Filtration Rate >90.00 mL/min/1.73m2 [facility] GFR Reference Ranges:Normal Function or Mild Renal Disease,if clinically at risk:>or= 60Moderately decreased:30 - 59Severely decreased:15 - 29Renal Failure:<15 Please note that the MDRD equation requires an additional adjustment forAfrican-Americans (multiply the GFR result by 1.210).Glomarular Filtration Rate (GFR) is estimated based on the MDRDequation, which assumes a steady state for creatinine (Tammi Int Med 139/2 137-149, 2003), as recommended by the NationalKidney Disease Education Program in conjunction with the National Institutes of Health and the National KidneyFoundation. The [place] method used in calculating this result is traceable to IDMS standards. Glucose 102 mg/dl 70-110 Normal (applies to non-numeric resul ts) [facility] Sulfasalazine has the potential to false ly depress Glucose results. Sulfapyridine has the potential to falsely elevate Glucose results. Baseline values before medication administration are recommended. Calcium 9.1 mg/dl 8.5-10.1 Normal (applies to non-numeric resul ts) [facility] Total Protein 7.3 g/dl 6.4-8.2 Normal (applies to non-numeric re sults) [facility] Albumin 3.7 g/dl 3.4-5.0 Normal (applies to non-numeric resul ts) [facility] Sodium 139 mEq/L 136-145 Normal (applies to non-numeric resul ts) [facility] Potassium 3.9 mEq/L 3.5-5.1 Normal (applies to non-numeric resul ts) [facility] Chloride 107.0 mEq/L 98.0-107.0 Normal (applies to non-numeric resu lts) [facility] Carbon Dioxide 23.7 mMol/L 21.0-32.0 Normal (applies to non-numeric results) [facility] Anion Gap 12.2 7.0-15.0 Normal (applies to non-numeric resul ts) [facility] The above 16 analytes were performed by [facility] [id number] [place] [address], ,[place] [address] ID Date Data Source [id number] 03/24/2021 06:15:00 AM EDT [facility] Name Value Range Interpretation Code Description Data Jammie rce(s) Supporting Document(s) Magnesium 2.0 mg/dl 1.6-2.6 Normal (applies to non-numeric resul ts) [facility] The above 1 analytes were performed by [facility] [id number] [place] [address], ,[place] [address] ID Date Data Source [id number] 03/24/2021 05:37:00 AM EDT [facility] Name Value Range Interpretation Code Description Data Jammie rce(s) Supporting Document(s) WBC 17.17 x1000/ul 4.80-10.00 Above high normal [facility] RBC 5.88 x1Mil/ul 4.70-6.10 Normal (applies to non-numeric re sults) [facility] Hemoglobin 14.4 g/dl 14.0-18.0 Normal (applies to non-numeric resul ts) [facility] Hematocrit 45.7 % 42.0-52.0 Normal (applies to non-numeric resul ts) [facility] MCV 77.7 fL 80.0-94.0 Below low normal [facility] MCH 24.5 pg 27.0-31.0 Below low normal [facility] MCHC 31.5 g/dl 32.2-37.0 Below low normal [facility] RDW 15.7 % 11.5-14.5 Above high normal [facility] Platelet Count 219 x1000/ul 130-400 Normal (applies to non-numeric results) [facility] MPV 11.7 fL 9.4-12.4 Normal (applies to non-numeric resul ts) [facility] Neutrophils 73.5 % 40.0-74.0 Normal (applies to non-numeric resu lts) [facility] Lymphocytes 18.2 % 19.0-48.0 Below low normal [facility] Monocytes 7.0 % 3.4-9.0 Normal (applies to non-numeric resul ts) [facility] Eosinophils 0.6 % 0.0-7.0 Normal (applies to non-numeric resu lts) [facility] Basophils 0.4 % 0.0-2.0 Normal (applies to non-numeric resul ts) [facility] Immature Granulocytes 0.3 % 0.0-0.5 Normal (applies to non-nu meric results) [facility] Nucleated RBCs 0.00 % 0.00-0.20 Normal (applies to non-numeric r esults) [facility] Abs. Neutrophils 12.61 x1000/ul 1.92-8.31 Above high normal [facility] Abs. Lymphocyte 3.13 x1000/ul 1.20-3.70 Normal (applies to non-n umeric results) [facility] Abs. Monocytes 1.20 x1000/ul 0.14-0.97 Above high normal [facility] Abs. Eosinophils 0.10 x1000/ul 0.00-0.76 Normal (applie s to non-numeric results) [facility] Abs. Basophils 0.07 x1000/ul 0.00-0.22 Normal (applies to non-n umeric results) [facility] Abs. Immature Gran. 0.06 x1000/ul 0.00-0.02 Above high normal [facility] Abs. Nucleated RBCs 0.00 x1000/ul 0.00-0.02 Normal (appl ies to non-numeric results) [facility] The above 24 analytes were performed by [facility] [id number] [facility]#: [id number],[place] [address] ID Date Data Source [id number] 03/24/2021 04:43:18 AM EDT [facility] Name Value Range Interpretation Code Description Data Jammie rce(s) Supporting Document(s) H&P [facility] FJPOPt0nPpLSFfUw57/CTDseOBYjp1HdWQbwLQh1PCzeQWRoQ3ZyZDO0lU1fYRS3MZqJArHxWrOcDAEj lbm [file] AgICAgICAgICAgICAgICAgICAgICAgICAgICAgICAg ICAgICAgICAgICAgICAgICAgICAgICAgICANCiAgICAgICAgICAgICAgICAgICAgICAgICAgICAgICAg ICAgICAgICAgICAgICAgICAgICAgICAgICAgICAgICAgICAgICAgICAgICAgICAgICAgICAgICAgICAg ICAgICAgICANCiAgICAgICAgICAgICAgICAgICAgIC AgICAgICAgICAgICAgICAgICAgICAgICAgICAgICAgICAgICAgICAgICAgICAgICAgICAgICAgICAgIC AgICAgICAgICAgICAgICAgICANCiAgICAgICAgICAgICAgICAgICAgICAgICAgICAgICAgICAgICAgIC AgICAgICAgICAgICAgICAgICAgICAgICAgICAgICAg ICAgICAgICAgICAgICAgICAgICAgICAgICAgICANCiAgICAgICAgICAgICAgICAgICAgICAgICAgICAg ICAgICAgICAgICAgICAgICAgICAgICAgICAgICAgICAgICAgICAgICAgICAgICAgICAgICAgICAgICAg ICAgICAgICAgICANCiAgICAgICAgICAgICAgICAgIC AgICAgICAgICAgICAgICAgICAgICAgICAgICAgICAgICAgICAgICAgICAgICAgICAgICAgICAgICAgIC AgICAgICAgICAgICAgICAgICAgICANCiAgICAgICAgICAgICAgICAgICAgICAgICAgICAgICAgICAgIC AgICAgICAgICAgICAgICAgICAgICAgICAgICAgICAg ICAgICAgICAgICAgICAgICAgICAgICAgICAgICAgICANCiAgICAgICAgICAgICAgICAgICAgICAgICAg ICAgICAgICAgICAgICAgICAgICAgICAgICAgICAgICAgICAgICAgICAgICAgICAgICAgICAgICAgICAg ICAgICAgICAgICAgICANCiAgICAgICAgICAgICAgIC AgICAgICAgICAgICAgICAgICAgICAgICAgICAgICAgICAgICAgICAgICAgICAgICAgICAgICAgICAgIC AgICAgICAgICAgICAgICAgICAgICAgICANCiAgICAgICAgICAgICAgICAgICAgICAgICAgICAgICAgIC AgICAgICAgICAgICAgICAgICAgICAgICAgICAgICAg ICAgICAgICAgICAgICAgICAgICAgICAgICAgICAgICAgICANCjw/oUSfC7xihJBsppT1F1xlAw7KGp5N JI8nj1OzZESaYQdvthUhZxtLUoYsKAHxQbnBJmh0YGykRU6XfAPmZ8SgC3GtOSgtOU7VAFPyXRBdoKMw ZCCgZWTxQdD1MIPePJfpJT7JgRTcRHomJLDtUDCzEw MiMPZnYQQmIZJkAL1JYNQtK684mcStWm1NAt4QEnQxTO8fid7RWfGxBMVaAkuOUol9MEgsVO0YkIJqpZ NnNnIjJFAYWiXxO7xvm3DeHvEqMTLKRPcjQY6Eq9BbfPYeLTn+Gi5BLY3xy6RgZNscIiRuBS7jqh7NTK bCQxCnA4JdlHhcETwpMDQhrSVUjehnkqYSCAXuVKrm GB8TFLS7RVdsUUVzWyEnFJLyGxi3CMCVIGxURiCjH3Xce7VnPtY0QSNwIxDaVMupOIIwPnN0HC00mZht SL5ZGXBmJTMqHV83BTNrXRNeKu3OCr1AOoUuQQ4yin9RRsOdCAUhQhhHIfq4MFmjPU7GyLItM2HypIEe v2hWUbTkM4QLUUCwYRYrBd0MMOFpHwAdJABcTWjhNK 2kWCIcAKFBrPfgjtY2QD5CHW4roqPoGK9PGwSaRq2eRh0IPdWdQ1KgQ6QtYUWsNANMNSwkDY8XBDblBK 0dPU1Fd8YRgKJbdZ8tqv5CRNMyTBBfFsttvv6WObzhW6R7iXifDIXbYtUkVPNCQUzwEL1YNIFvWEU0MP TnZAOzUQJNQuKmD74eSM6NL0Yyk29iQyS5BZWjIgLy PHbcXN21pMcqteZcuCZooMwdJH9XKs9+DQplbmRvYmoNCnhyZWYNCjAgMzUNCjAwMDAwMDAwMDAgNjU1 MfMjMy2KMCGkUHZgVEOdCvTmBMJpYVIyGPyoSUVlNJWaXSA1RRWlJUHfTM4TYdVhDWSjXAR4IHZuSBRx THPmar5JCCMyKZQtKEP4HcKrIJNxFWAsKJbjARNtJH IvCGK0DCVyTUPuDI6JKdKyMAHaANL5MeelHVFbDMWgyw4RWRCwOVAaWrv2HNKyGVHzBXGuJEcfFKCiAE G4TKw0EQHfTMBnMX3IZfEnOGNySOBzHSnnNTGdFMGpja4CEFLoYVDfUMIlWpEbARJoIUKoXTugPQTnCZ EfCWWlGXLoWWZcHR0CZdFkCGFeBCO7UkJrBWNnCQUq pg2YPECfXNGoMQy3GMMeILYyDOTzYStyRVGuLDGzYYBdQUWiXPUiLW8MSdMwDSDfRCUkYAqhRBHuVKNk ok6XMZElLNDjHiV6RVJzLJNjRMRmRJdeVVBiBRW1IHZvYWQhVNPxZJ0KQuOuZGAmXKZyDYmcDKRgFTDy ox0BOVKoUKNxQXB8IiHbKERhCKLjAWgfSGSsIHI2WQ X1FDYlBCXrRI8BYyPcIZFbKAM2HAVbDGSmCIKcrt2XAGLnOFLuHZh5YEWlCOHbLKNaJQiiHIKmUYZ5Es XbDCCoMYBeSO6PEnFxZECjLubfYvOlFKYsUPDkgi0EWAMnCTKmEKI6DQViZYBaCDUoYLqdGEBjBNRtKK B8SPUwYRUoDG9KMkVjSLKgZVV3YDSrAOAfVSLnjq7D UOJzXTM9TAXfUVJyQBMqRIRdVXvbJWUrWDIhIrA9ZZHwWCTgDE1ORlJrFXHxLOM7FlDdZTTfPYBrjo6Y IHCjZJF9BeT3LUEeXMYgTJCjFAywMEPmIBJrBBBpXWHaXYDrPC8ONeRnAYJmQAG2ODYcJEEhNPMpqc9J IUVaPKM6VHSjHNFcRKPzACAqMHk9bbLbpQFoULw4WK 5DN8SsorJdXpWOTj9Uo105KDB2ZEVqHc7VO6zdMl0fGJEjRZIATc6SKUt0GCZpN7VdVKZmMXX1YQUeTy QkVHZ7ZYv2PmBbHEkuYYM+FQx6XAEaDIA3XSA2NLm9HcQ8KgTcTpKdNaykRQN2EFW2HB3rBGNFUi5+DQ iabQHsyAfvGNXKYfA7EnihRDdyCTHKAt4W ID Date Data Source [id number] 03/23/2021 05:53:00 PM EDT [facility] [address] [place] [id number] [phone] NAME SEX PT STATUS ACCOUNT NUMBER MYLES BEVERLY DIS GOVIND [id number] ORDERING PHYSICIAN LOCATION MEDICAL RECORD NO. Jeffrey Shukla MD EW [id number] ATTENDING PHYSICIAN DATE OF DATE OF EXAM/TIME Alexx Shah 1970 03/23/211340 TYPE / EXAM US Echo complete REASON FOR EXAM chest pain MEASUREMENTS: Aortic root 2.5 cm, left atrium 4.3 cm, left ventricle in diastole 5.5 cm. 2-D AND M-MODE STUDY: 1. Normal sized aortic root. Enlarged left atrium. Normal right atrium, left ventricle and right ventricle. 2. Normal aortic, mitral and tricuspid valve. 3. Normal systolic function, estimated EF 55%. 4. No pericardial effusion. 5. Mild MR and TR. CONCLUSION: 1. Normal systolic function. 2. Left atrial enlargement. 3. Mild MR and TR. Reported By Marcel Hamilton MD on 03/23/211752 Signed By Marcel Hamilton MD on 04/05/21 1331 <<Signature on File>> Date Time CC: Alexx Shah MD; Marcel Hamilton M.D. Techn: BUSMI Trans Dt/Tm: 03/23/211931 Trans by: MAXI Rosas Dt/Tm: : Total DLP = 0.00 mGy-cm [id number]: Total Radiation Dose = 0.0000 mSv Lifetime Dose: 2.5134 mSv Name Value Range Interpretation Code Description Data Jammie rce(s) Supporting Document(s) ID Date Data Source [id number] 03/23/2021 06:48:12 PM EDT [facility] Name Value Range Interpretation Code Description Data Jammie rce(s) Supporting Document(s) Progress Notes [facility] HYCERw2oIvDBIhSk67/UANuzMFKdn8IcOFeiEAh9WXklGMZdA8LlHZI5gV2uDYI9XPvNVkNhLqNiBPAz lbm [file] TpVVUsUcSqCC5LFc6OKhB3JOE8jZTkVw5QEel5YYCCXaGaQL2OMId= ID Date Data Source [id number] 03/23/2021 05:10:24 PM EDT [facility] Name Value Range Interpretation Code Description Data Jammie rce(s) Supporting Document(s) Consults [facility] [id number] [file] Supervisor Statement [id number] [file] [id number] ID Date Data Source [id number] 03/23/2021 01:23:00 PM EDT [facility] Therapy Department MYLES BEVERLY DO B: 1970 [id number] Attending: Jeffrey Shukla MD OT Inpatient Evaluation - Therapy Evaluation OT Order Rec'd:: 03/23/21 Date Started:: 03/23/21 Time Started:: 09:47 Name: Jeffrey Shukla Diagnosis:: SOB Reason for Evaluation: New Admission Rehab Diagnosis:: difficulty walking PMH and Social Hx. Reviewed per MD, Nursing, and ER Assess.: Yes - Subjective/History Subjective:: Pt is a 50 year old male who presented with increased SOB. Pt states he has been unsteady when walking for a few years now. Pt states he was diagnosed in [place] however his MD in [place] believes it is orthostatic tremor. Pt states he uses a 4WW for long distances and a cane for short distance. Pt states he was supposed to start outpatient PT this date at [facility] and is recommendedto call and made new appointment when discharged from hospital as his neurologist wants his to see aPT. Prior Level of Function:: Patient lives alone. He uses a cane for short distances and a 4WW for longdistances. He lives in senior housing. Pt was independent with ADLs and IADLs prior. Type of Dwelling: Apartment Physical Barriers in Home Environment: Elevator - Objective Observations: Alert and oriented x 3 - Transfer Sit<>Stand:: Independent Bed<>Chair:: Contact Guard Assistance Sit<>Supine:: Independent Supine<>Sit:: Independent Bed Mobility:: Independent - Ambulation Ambulation Assistance:: Contact Guard # Required to Assist:: 1 Assistive Device:: Standard Cane Distance (ft):: 150 - Hand Hand Leonila nance: Right - ADL's Upper Body Dressing Ability: Within Normal/Functional Limits for patient Lower Body Dressing Ability: Within Normal/Functional Limits for patient Upper Body Bathing Ability: Within Normal/Functional Limits for patient Lower Body Bathing Ability: Within Normal/Functional Limits for patient Feet Bathing Ability: Within Normal/Functional Limits for patient Oral Care Ability: Within Normal/Functional Limits for patient Grooming Ability: Within Normal/Functional Limits for patient Toileting Ability: Within Normal/Functional Limits for patient Eating (Feeding) Ability: Within Normal/Functional Limits for patient - IADL'S Laundry Ability: Within Normal/Functional Limits for patient Meal Prep Ability: Within Normal/Functional Limits for patient - Assessment/Recommendations Assessment: Pt is a 50 year old male who lives alone with his cat. Pt with decreased balance at times and requires frequent rest breaks when ambulating. Pt states this is his norm. Pt state he hasn't fallenlately. Pt sitting to perform ADLs at home and demonstrates ability to perform transfers and bed mobility. Pt with no further OT needs at this time. PT recommending outpatient PT which pt did have setup prior to admission to hospital. Frequency: 1 - Plan of Care STG #1: na STG #2: na STG #3: na LTG #1: na LTG #2: na LTG #3: na - End Date Ended:: 03/23/21 Time Ended:: 09:58 Elapsed Time (minutes): 11 Elapsed Time Minutes: 11 OT Education - Topic Education Handouts: Asthma (GEN) Therapist Opal Moon 03/23/21 1323 <Electronically signed by Opal Moon > 03/23/21 1336 Date Time Cosigner: Jeffrey Shukla MD 03/23/21 1510 Date Time LAST EDIT: Name Value Range Interpretation Code Description Data Jammie rce(s) Supporting Document(s) ID Date Data Source [id number] 03/23/2021 11:36:00 AM EDT [facility] Therapy Department MYLES BEVERLY : 1970 Date: 03/23/21 [id number] Attending: Jeffrey Shukla MD Physical Therapy Inpatient Radha - Therapy Evaluation Date PT Order Received:: 03/23/21 Time:: 07:00 Date Started:: 03/23/21 Time Started:: 09:46 Diagnosis:: SOB Reason for Evaluation: New Admission Rehab Diagnosis:: difficulty walking - Subjective/History Subjective:: Patient presents due to c/o increased SOB for the past couple weeks that has worsened with exertion. Patient reports he recently moved from [place] and is suppose to set up with a neurologist in the area. He also reports he was suppose to have his first outpatient PT appointment yesterday Hx pertinent to PT concerns:: anxiety, asthma, lyme disease, neuropathy Prior Level of Function:: Patient lives alone. He uses a cane for short distances and a 4WW for longdistances. He lives in senior housing Type of Dwelling: Apartment Physical Barriers in Home Environment: Elevator Does the patient have pain?: Yes - Pain Detail Pain Location: low back Pain Description: Chronic - Objective Observations: Alert and oriented x 3 - Transfer Sit<>Stand:: Independent Bed<>Chair:: Independent Supine<>Sit:: Independent Bed Mobility:: Independent - Ambulation Ambulation Assistance:: Contact Guard # Required to Assist:: 1 Assistive Devices: Standard Cane Distance (ft):: 150 Ambulation Comments: patient's knees buckle at times and he states this is chronic for him due to his low back pain - Balance Balance Tests:: fair - Assessment Physical Therapy Impressions/Assessment: Patient is a 50 y/o male who presents to hospital due to SOB. Patient would benefit from use of 4WWat all times due to knees buckling from chronic LB pain - End Date Ended:: 03/23/21 Time Ended:: 09:58 Elapsed Time (minutes): 12 Elapsed Time Minutes: 12 - PT Orders Current Equipment: Walker Strength - Extremity Strength Extremities: Bilateral Extremities: Leg Muscle Strength (Extremity): Mild Weakness Education Topics - Topic Education Handouts: Asthma (GEN) Therapist Mary Blakely 03/23/21 1136 I certify this plan of care Jeffrey Cabral MD 03/23/21 1510 Date Time LAST EDIT: Name Value Range Interpretation Code Description Data Jammie rce(s) Supporting Document(s) ID Date Data Source [id number] 03/23/2021 11:23:00 AM EDT [facility] Name: MYLES BEVERLY : 1970 Age: 50 MR#: [id number] Admit Date: 03/22/21 Provider: Jeffrey Shukla MD Room #: 295 Consulting Provider: Dictation Date: 03/23/21 Discharge Summary Discharge Summary Admit Info/Diagnoses/Course Date of service:: 03/23/21 Admission Information: Patient, MYLES BEVERLY, a 50 year old M, admitted on 03/22/21 23:17 by Jeffrey Shukla MD for [facility] No Family Doctor Provided Discharge Date: 03/23/21 Most Recent Lab Results: 03/23/21 05:23 03/23/21 05:23 Laboratory Results Last 24 hours 03/22/21 15:10: WBC 9.7, RBC 5.71, Hgb 14.2, Hct 44.8, MCV 79 L, MCH 25 L, MCHC 32 L, RDW 16 H, Plt Count 201, MPV 11.0, Immature Gran % (Auto) 0.2, Neut % (Auto) 58.9, Lymph % (Auto) 29.3, Lassen % (Auto) 7.0, Eos % (Auto) 3.6, Baso % (Auto) 1.0, Lymph # (Auto) 2.9, Abs Immat Gran (auto) 0.0, Add Manual Diff No, Absolute Neutrophils 5.7, Monocytes # 0.7, Absolute Eosinophils 0.4, Absolute Basophils 0.1 03/22/21 15:10: Sodium 141, Potassium 4.2, Chloride 110 H, Carbon Dioxide 28, Anion Gap 7 L, BUN 14,Creatinine 0.9, GFR Calculation Greater than 60, Glucose 122 H, Calcium 8.4 L, Total Bilirubin 0.5, AST 37 H, ALT 52 H, Alkaline Phosphatase 89, Troponin I Less than 0.015, Kte-N-Cugezejdldo Pept 546.00 H, Serum Total Protein 6.9, Albumin 3.9 03/22/21 15:10: Magnesium 2.1 03/23/21 05:23: WBC 12.9 H, RBC 5.92, Hgb 14.6, Hct 46.8, MCV 79 L, MCH 25 L, MCHC 31 L, RDW 16 H, Plt Count 211 03/23/21 05:23: Sodium 141, Potassium 4.5, Chloride 108, Carbon Dioxide 30, Anion Gap 8, BUN 15, Creatinine 0.9, GFR Calculation Greater than 60, Glucose 94, Calcium 8.8, Total Bilirubin 0.6, AST 44 H, ALT 55 H, Alkaline Phosphatase 97, Serum Total Protein 7.0, Albumin 4.0 03/23/21 09:35: Troponin I Less than 0.015 Microbiology 03/22/21 18:20 Nasopharyngeal SA RS-CoV-2 Rapid RNA (RT-PCR) - Final Sars-Cov-2 Not Detected Influenza A Not Detected Influenza B Not Detected RSV Not Detected Hospital Course: Discharge diagnosis: 1. Chest pain/acute coronary syndrome 2. Dyspnea 3. Probable COPD exacerbation 4. Sarcoidosis 5. Anxiety 6. Hypothyroidism 7. Lyme's disease 8. Obstructive sleep apnea 9. Hyperlipidemia 10. Questionable parkinsonism 11. Hypertension 12. GERD 13. Neuropathy 14. Fatigue Hospital course: Patient hospitalized with concern that he may have COPD exacerbation and all this still may represent part of his clinical presentation, his EKG changes and chest pain are more consistent with acute coronary syndrome. His troponins been negative. He is being transferred for urgent cardiac catheterization at [facility] in [place] for the expertise of Dr. Hamilton. He has received aspi rin 325 mg, Lipitor, metoprolol, valsartan. He is stable for transfer. Patient outpatientshould follow-up with consulting actuary both regarding COPD sarcoidosis as well obstructive sleep apnea. Patient also should follow-up outpatient with neurology regarding questionable parkinsonism. Tobacco abstinence marijuana abstinence strongly advised. Patient was also given 1 dose of prednisone and Ceftin regarding mild COPD exacerbation Review of Systems General: Denies Fever HEENT: Denies Headaches Endocrine: Denies Excessive sweating Cardiovascular: Reports Chest Pain Pulmonary: Reports Dyspnea and Cough Gastrointestinal: Denies nausea Genitourinary: Denies Dysuria Musculoskeletal: Denies Muscle Pain Neurological: Denies Weakness Psych: Reports anxiety and depression Hematological/Lymphatic: Denies easy bleeding Allergic/Immunologic: Denies rash or seasonal rhinitis Exam Condition Vital Signs - Most Recent: Last Vital Signs Temp 98.9 F 03/23/21 07:17 Pulse 72 03/23/21 09:32 Resp 18 03/23/21 07:21 BP 160/70 03/23/21 09:32 Pulse Ox 97 03/23/21 07:21 Ht Wt BMI Current Height 5 ft 9 in Current Weight 255 lb 2 oz Body Mass Index (BMI) 37.6 Body Mass Index (BMI) Obese Classification General: positive Alert and positive Oriented x3 HEENT: Atraumatic, PERRLA and EOMI Neck: Supple and No JVD Lungs: Clear to auscultation Cardiovascular: Regular rate, Normal S1 and Normal S2 Abdomen: Normal bowel sounds and Soft; negative for Tenderness Extremities: No clubbing, No cyanosis and No edema Skin: Skin warm and dry, Mucus membranes moist Psych/Mental Status: Mental status NL Discharge Plan Discharge Education Printouts: Asthma (GEN) Free Text/Narrative:: 1. Follow-up with car bracer and hospitalist at [facility] 2. N.p.o. 3. Bedrest 4. Follow-up with pulmonology neurology as outpatient Care plan: Plan of care discussed with patient and or family Medications Home Medications B.breve-L.acid-L.melyam-SFrankthermo [Probiotic] tab 03/22/21 [History] albuterol sulfate [ProAir HFA] 2 puff INHALATION QID 03/22/21 [History] aspirin 81 mg PO DAILY 03/22/21 [History] buspirone 30 mg PO BID 03/22/21 [History] clonazepam 0.5 mg PO BID 03/22/21 [History] coenzyme Q10 [CoQ-10] 100 mg PO DAILY 03/22/21 [History] gabapentin 300 mg PO BID 03/22/21 [History] gabapentin 600 mg PO HS 03/22/21 [History] hydroxyzine HCl 25 mg PO TID 03/22/21 [History] levothyroxine 25 mcg PO DAILY 03/22/21 [History] metoprolol tartrate 50 mg PO TID 03/22/21 [History] multivitamin 1 tab PO DAILY 03/22/21 [History] omeprazole 20 mg PO DAILY 03/22/21 [History] rosuvastatin [Crestor] 40 mg PO DAILY 03/22/21 [History] tamsulosin [Flomax] 0.4 mg PO DAILY 03/22/21 [History] valsartan 320 mg PO DAILY 03/22/21 [History] venlafaxine [Effexor XR] 150 mg PO DAILY 03/22/21 [History] vitamin E 100 unit PO DAILY 03/22/21 [History] Lactobacillus acidophilus [Probiotic Acidophilus] 2,000 mmu cells PO DAILY 03/23/21 [History] Time Spent on Discharge: > 30 Minutes Quality Measures Tobacco Use Smoking Status: Current some day smoker Smoking Cessation Education: Patient refused smoking cessation information BMI Screening: Current Height: 5 ft 9 in Current Weight: 255 lb 2 oz Body Mass Index (BMI): 37.6 Influenza Immunization Hx/Date of Influenza Vaccination (from nursing Hx): Yes Safety Future fall risk?: Patient screens as a future fall risk Diabetes Care Measures Glucose/POC Glucose: Glucose last 48 hrs 03/22/21 03/23/21 15:10 05:23 Glucose 122 H 94 Discharge Plan Admission/Discharge Dx Primary (Admit) Diagnosis: COPD with hypoxia, marijuana abuse Primary DC Diagnosis: Chest pain acute coronary syndrome Condition Condition: Serious Discharge Detail Disposition: Transfer - [facility] Med Rec New Prescriptions: No Action multivitamin Tablet 1 tab PO DAILY RF: 0 gabapentin 600 mg Tablet 600 mg PO HS RF: 0 vitamin E 100 unit Capsule 100 unit PO DAILY RF: 0 clonazepam 0.5 mg Tablet 0.5 mg PO BID RF: 0 venlafaxine [Effexor XR] 150 mg Capsule,Extended Release 24hr 150 mg PO DAILY RF: 0 levothyroxine 25 mcg Tablet 25 mcg PO DAILY RF: 0 tamsulosin [Flomax] 0.4 mg Capsule 0.4 mg PO DAILY RF: 0 buspirone 30 mg Tablet 30 mg PO BID RF: 0 valsartan 320 mg Tablet 320 mg PO DAILY RF: 0 metoprolol tartrate 50 mg Tablet 50 mg PO TID RF: 0 aspirin 81 mg Tablet,Chewable 81 mg PO DAILY RF: 0 hydroxyzine HCl 25 mg Tablet 25 mg PO TID RF: 0 albuterol sulfate [ProAir HFA] 90 mcg/actuation Hfa Aerosol Inhaler 2 puff INHALATION QID RF: 0 coenzyme Q10 [CoQ-10] 100 mg Capsule 100 mg PO DAILY RF: 0 rosuvastatin [Crestor] 40 mg Tablet 40 mg PO DAILY RF: 0 gabapentin 300 mg Tablet 300 mg PO BID RF: 0 omeprazole 20 mg Tablet,Delayed Release (Dr/Ec) 20 mg PO DAILY RF: 0 Probiotic 3 billion cell Tablet,Chewable RF: 0 Probiotic Acidophilus 1.5 mg (250 million cell) Capsule 2,000 mmu cells PO DAILY RF: 0 Discharge Education Printouts: Asthma (GEN) Diet:: NPO Medications Medication reconciliation performed by provider at discharge: Yes Follow Up Care/Instructions Diet/Activity/Wound Care..: 1. Follow-up with car bracer and hospitalist at [facility] 2. N.p.o. 3. Bedrest 4. Follow-up with pulmonology neurology as outpatient *Discharge Patient* Discharge Orders: Discharge Order (Routine); Ordered 03/23/21 Ordered By: Jeffrey Shukla Dictated by: <Electronically signed by Jeffrey Shukla MD> Jeffrey Shukla MD 03/23/21 1510 Jeffrey Shukla MD SIGNATURE DA Report Cosigners: D: STRAL 03/23/21 1123 T: STRAL 03/23/21 1123 CC: Name Value Range Interpretation Code Description Data Jammie rce(s) Supporting Document(s) ID Date Data Source [id number] 03/23/2021 11:06:00 AM EDT [facility] Name Value Range Interpretation Code Description Data Jammie rce(s) Supporting Document(s) Troponin I.cardiac [Mass/volume] in Serum or Plasma Less Than 0.015 0.00-0.09 [facility] Less than 0.09 NG/ML Negative0.10 - 0.77 NG/ML High Risk0.78 NG/ML or Greater PositiveThe WHO defined the cutoff (definition for diagnosis of RI)for this method as 0.78 ng/ml. ID Date Data Source [id number] 03/23/2021 09:22:00 AM EDT [facility] Name: MYLES BEVERLY : 1970 Age: 50 MR#: [id number] Admit Date: 03/22/21 Provider: Jeffrey Shukla MD Room #: 295 Consulting Provider: Dictation Date: 03/23/21 Progress Note Subjective-ROS Date of service Date of service:: 03/23/21 Review of Systems ROS (Free Text/Narrative):: Patient states he has had chest pain on and off for the last several days. Symptoms occur with exertion. He states that echocardiogram or stress test year ago May at outside [place] and was told he has no coronary disease. He has sarcoidosis and follow with consulting actuary regular the last 15 years [place] of state. He recently moved here. His dyspnea mostly with exertion. He does smoke tobacco and marijuana daily. He denies abdominal pain. He does feel better this morning. He is thinking about leaving AGAINST MEDICAL ADVICE General: Denies Fever or Chills HEENT: Denies Headaches Endocrine: Denies Excessive sweating Cardiovascular: Reports Chest Pain Pulmonary: Reports Dyspnea Gastrointestinal: Denies nausea, vomiting or abdominal pain Genitourinary: Denies Dysuria Musculoskeletal: Denies Muscle Pain Neurological: Denies Weakness Psych: Denies anxiety or feelings of guilt Hematological/Lymphatic: Denies easy bleeding Allergic/Immunologic: Denies rash Attestation/Length Of Stay: 03/22/21 23:17 Observation Order [STATUS] Routine Location: [facility] Primary diagnosis: SOB Isolation: Standard precautions Admitting Provider: Jeffrey Shukla Observation Status: OBV less than 2 midnights Anticipated Length of stay:: NA -Observation Patient Vital Signs and I O Vitals and I O: Vital Signs last 12 hours Temp Pulse Pulse Resp BP BP Pulse Ox 03/23/21 07:21 98 18 97 03/23/21 07:17 98.9 F 58 L 12 150/90 97 03/23/21 04:30 97.7 F 56 L 18 137/75 97 03/23/21 02:10 65 180/102 03/23/21 01:45 97.9 F 180/102 03/23/21 01:15 97.9 F 96 20 180/102 96 03/22/21 23:46 70 16 98 Intake Output Last 24 Hours 03/21/21 03/22/21 03/23/21 23:59 23:59 23:59 Intake Total 300 / 300 Output Total 600 / 600 Balance -300 / -300 Current Weight 256 lb 255 lb 2 oz Results Results: 03/23/21 05:23 03/23/21 05:23 Laboratory Results Last 24 hours 03/22/21 15:10: WBC 9.7, RBC 5.71, Hgb 14.2, Hct 44.8, MCV 79 L, MCH 25 L, MCHC 32 L, RDW 16 H, Plt Count 201, MPV 11.0, Immature Gran % (Auto) 0.2, Neut % (Auto) 58.9, Lymph % (Auto) 29.3, Lassen % (Auto) 7.0, Eos % (Auto) 3.6, Baso % (Auto) 1.0, Lymph # (Auto) 2.9, Abs Immat Gran (auto) 0.0, Add Manual Diff No, Absolute Neutrophils 5.7, Monocytes # 0.7, Absolute Eosinophils 0.4, Absolute Basophils 0.1 03/22/21 15:10: Sodium 141, Potassium 4.2, Chloride 110 H, Carbon Dioxide 28, Anion Gap 7 L, BUN 14, Creatinine 0.9, GFR Calculation Greater than 60, Glucose 122 H, Calcium 8.4 L, Total Bilirubin 0.5, AST 37 H, ALT 52 H, Alkaline Phosphatase 89, Troponin I Less than 0.015, Fdb-E-Ovskfychfyc Pept 546.00 H, Serum Total Protein 6.9, Albumin 3.9 03/22/21 15:10: Magnesium 2.1 03/23/21 05:23: WBC 12.9 H, RBC 5.92, Hgb 14.6, Hct 46.8, MCV 79 L, MCH 25 L, MCHC 31 L, RDW 16 H, Plt Count 211 03/23/21 05:23: Sodium 141, Potassium 4.5, Chloride 108, Carbon Dioxide 30, Anion Gap 8, BUN 15, Creatinine 0.9, GFR Calculation Greater than 60, Glucose 94, Calcium 8.8, Total Bilirubin 0.6, AST 44 H, ALT 55 H, Alkaline Phosphatase 97, Serum Total Protein 7.0, Albumin 4.0 Microbiology 03/22/21 18:20 Nasopharyngeal SARS-CoV-2 Rapid RNA (RT-PCR) - Final Sars-Cov-2 Not Detected Influenza A Not Detected Influenza B Not Detected RSV Not Detected Exam Orientation: Alert HEENT: Atraumatic, PERRLA and EOMI Lungs: wheezes Cardiovascular Exam: regular rate and normal rhythm Abdomen: Normal bowel sounds and Soft; negative for Tenderness Extremities: normal inspection Skin: Skin warm and dry, Mucus membranes moist Neurological: Normal speech Psych/Mental Status: normal affect Assessment/Plan A P Free Text/Narrative :: Impression: 1. Chest pain 2. Dyspnea 3. Probable COPD exacerbation 4. Sarcoidosis 5. Anxiety 6. Hypothyroidism 7. Lyme's disease 8. Obstructive sleep apnea 9. Hyperlipidemia 10. Questionable parkinsonism 11. Hypertension 12. GERD 13. Neuropathy 14. Fatigue Plan: Patient advised continued observation with telemetry serial troponin echocardiogram and obtain outside records. Patient will need urgent cardiac stress test once RI has been ruled out. EKG changes noted T wave inversions precordial. Will start low-dose prednisone and Ceftin continue inhaler regimen appreciate respiratory therapy expertise and tobacco and marijuana abstinence strongly advised. Continue outpatient medication. Patient full code Dictated by: <Electronically signed by Jeffrey Shukla MD> Jeffrey Shukla MD 03/23/21925 Jeffrey hSukla MD SIGNATURE DA Report Cosigners: D: STRAL 03/23/21921 T: STRAL 03/23/21921 CC: Name Value Range Interpretation Code Description Data Jammie rce(s) Supporting Document(s) ID Date Data Source [id number] 03/23/2021 05:59:00 AM EDT [facility] Name Value Range Interpretation Code Description Data Jammie rce(s) Supporting Document(s) Leukocytes [#/volume] in Blood by Automated count 12.9 10*3/uL 4.45-10.71 Above high normal [facility] Erythrocytes [#/volume] in Blood by Automated count 5.92 10*6/uL 4.3- 6.1 N [facility] Hemoglobin [Moles/volume] in Blood 14.6 g/dL 13-18 N [facility] Hematocrit [Volume Fraction] of Blood by Automated count 46.8 % 4 2-52 N [facility] Erythrocyte mean corpuscular volume [Ent itic volume] in Cord blood by Automated count 79 fL 80-96 Below low normal [facility] Erythrocyte mean corpuscular hemoglobin [Entitic mass] by Au tomated count 25 pg 27-31 Below low normal [facility] Erythrocyte mean corpuscular hemoglobin concentration [Mass/volume] in Cord blood 31 g/dL 33-37 Below low normal [facility] Erythrocyte distribution width [Entitic volume] by Automated cou nt 16 % 11-15 Above high normal [facility] Platelets [#/volume] in Blood by Automated count 211 10*3/uL 130-472 N [facility] ID Date Data Source [id number] 03/23/2021 06:41:00 AM EDT [facility] Name Value Range Interpretation Code Description Data Jammie rce(s) Supporting Document(s) Urea nitrogen [Mass/volume] in Serum or Plasma 15 mg/dL 9-23 N [facility] Sodium [Moles/volume] in Serum or Plasma 141 mmol/L 132-146 N [facility] Potassium [Moles/volume] in Serum or Plasma 4.5 mmol/L 3.5-5.5 N [facility] Chloride [Moles/volume] in Serum or Plasma 108 mmol/L 99-109 N [facility] Carbon dioxide, total [Moles/volume] in Serum or Plasma 30 mmol/L 20 -31 N [facility] Anion gap in Serum or Plasma 8 mmol/L 8-16 [facility] Glucose [Mass/volume] in Serum or Plasma 94 mg/dL 74-106 N [facility] Creatinine 0.9 mg/dL 0.5-1.1 [facility] Glomerular filtration rate/1.73 sq M.pre dicted [Volume Rate/Area] in Serum or Plasma Greater Than 60 ABOVE 60 [facility] Alanine aminotransferase [Enzymatic acti vity/volume] in Serum or Plasma by With P-5'-P 55 U/L 10-49 Above high normal [facility] Aspartate aminotransferase [Enzymatic ac tivity/volume] in Serum or Plasma by With P-5'-P 44 U/L 0-33 Above high normal [facility] Alkaline phosphatase [Enzymatic activity/volume] in Serum or Plasma 97 U/L 45-129 N [facility] Calcium [Mass/volume] in Serum or Plasma 8.8 mg/dL 8.5-10.1 [facility] Bilirubin.total [Mass/volume] in Serum or Plasma 0.6 mg/dL 0.3-1.2 [facility] Albumin [Mass/volume] in Serum or Plasma by Bromocresol purple (BCP) dye binding method 4.0 g/dL 3.2-4.8 [facility] ital Protein [Mass/volume] in Serum or Plasma 7.0 g/dL 5.7-8.2 N [facility] ID Date Data Source [id number] 03/22/2021 11:41:00 PM EDT [facility] Name: MYLES BEVERLY : 1970 Age: 50 MR#: [id number] Admit Date: 03/22/21 Provider: Henry Corcoran Room #: 295 Consulting Provider: Dictation Date: 03/22/21 History Physical HPI Date of service Date of service:: 03/22/21 History of Present Illness Chief Complaint: SOB Emergency Room stated complaint: Respiratory Pulmonary Admitted From: Emergency Dept Primary (Admitting) Diagnosis: SOB Source of information: Patient, Medical Record and Emergency Med Personnel HPI Free Text/Narrative:: Mr. Myles Beverly is a 50 y/o male pt who presented to [facility] ER with c/o increasing SOB. Pt states he has had progressive SOB for the past year but the past couple of weekshis SOB has worsened. He reports exertional dyspnea with any walking. He endorses occasional nonproductive cough. He reports "severe sleep apnea." He denies any chest pain or pressure, no jawpain but he endorses a history of costochondritis. No fever or chills, no recent illness. he reports a history of varying amount of cigarette smoking over the past two to three decades. He reports a regular history of marijuana smoking over the past two decades. he reports improvement with oxygen use in ER. ER reports SPO2 decreases to 88% with ambulation in ER. ER labs and imaging reviewed and noted. No leukocytosis, respiratory panel negative, CTA chest positive emphysematous change. No PE. pt to be admitted observation. Allergies/Home Meds Allergies Allergy/AdvReac Type Severity Reaction Status Date / Time No Known Drug Allergies Allergy Verified 03/22/21 14:03 [From No known Food or Drug Allergies] No Known Food Allergies Allergy Verified 03/22/21 14:03 [From No known Food or Drug Allergies] Home Medications Medication Instructions Recorded Confirmed Last Taken Type B.breve-L.acid-L.rham-S.thermo tab 03/22/21 03/22/21 08:00 History [Probiotic] albuterol sulfate [ProAir HFA] 2 puff INHALATION QID 03/22/21 03/22/21 03/22/21 11:30 History aspirin 81 mg PO DAILY 03/22/21 03/22/21 03/22/21 08:00 History buspirone 30 mg PO BID 03/22/21 03/22/21 03/22/21 08:00 History clonazepam 0.5 mg PO BID 03/22/21 03/22/21 03/22/21 08:00 History coenzyme Q10 [CoQ-10] 100 mg PO DAILY 03/22/21 03/22/21 03/22/21 08:00 History gabapentin 300 mg PO BID 03/22/21 03/22/21 03/22/21 08:00 History gabapentin 600 mg PO HS 03/22/21 03/22/21 03/21/21 21:00 History hydroxyzine HCl 25 mg PO TID 03/22/21 03/22/21 03/22/21 08:00 History levothyroxine 25 mcg PO DAILY 03/22/21 03/22/21 03/22/21 08:00 History metoprolol tartrate 50 mg PO QID 03/22/21 03/22/21 03/22/21 11:30 History multivitamin 1 tab PO DAILY 03/22/21 03/22/21 03/22/21 08:00 History omeprazole 20 mg PO DAILY 03/22/21 03/22/21 03/22/21 08:00 History rosuvastatin [Crestor] 40 mg PO DAILY 03/22/21 03/22/21 03/22/21 08:00 History tamsulosin [Flomax] 0.4 mg PO DAILY 03/22/21 03/22/21 03/22/21 08:00 History valsartan 320 mg PO DAILY 03/22/21 03/22/21 03/22/21 08:00 History venlafaxine [Effexor XR] 150 mg PO DAILY 03/22/21 03/22/21 03/22/21 08:00 History vitamin E 100 unit PO DAILY 03/22/21 03/22/21 03/22/21 08:00 History PFSH Medical History Anxiety Asthma Hypothyroidism Lyme disease Neuropathy Sarcoidosis Sleep apnea Social History Does the Patient have a Healthcare Proxy: No Does Patient have a DNR?: No Does Patient have a Living Will?: No Smoking Status: Current every day smoker Sickle cell Sickle Cell Screening:: Not indicated ROS Const Denies body ache(s), Denies chills, Denies fatigue, Denies fever(s), Denies headache(s) and Denies weakness Eyes Denies diplopia, Denies loss of vision and Denies eye pain ENT Denies dizziness, Denies headache(s), Denies nasal congestion, Denies sinus pain, Denies sinus pressure and Denies sore throat Card Denies chest pain, Denies lightheadedness, Denies radiating jaw, neck or arm pain, Denies palpitations, Reports dyspnea and Reports dyspnea on exertion Resp Reports cough, Denies hemoptysis, Denies excessive phlegm production, Reports dyspnea, Reports dyspnea on exertion and Denies wheezing GI Denies abdominal pain, Denies constipation, Denies diarrhea, Denies nausea and Denies vomiting Musc Denies myalgias, Denies muscle weakness and Denies radiating pain into limb Skin/Breast Reports lesions, Reports erythema, Reports rash and Reports wounds Neuro Denies di zziness, Denies headache(s), Denies loss of vision and Denies weakness Psych Reports system reviewed and no additional complaints, except as documented Endo Denies fatigue and Denies palpitations Vega/Lymph Reports system reviewed and no additional complaints, except as documented Aller/Immun Denies wheezing Vital Signs and I O Vitals and I O: Vital Signs last 12 hours Temp Pulse Resp BP Pulse Ox 03/22/21 13:31 98.0 F 67 18 156/101 98 Intake Output Last 24 Hours 03/20/21 03/21/21 03/22/21 23:59 23:59 23:59 Current Weight 256 lb Height,Weight BMI: Ht Wt BMI Current Height 5 ft 9 in Current Weight 256 lb Results Results: 03/22/21 15:10 03/22/21 15:10 Laboratory Results Last 24 hours 03/22/21 15:10: WBC 9.7, RBC 5.71, Hgb 14.2, Hct 44.8, MCV 79 L, MCH 25 L, MCHC 32 L, RDW 16 H, Plt Count 201, MPV 11.0, Immature Gran % (Auto) 0.2, Neut % (Auto) 58.9, Lymph % (Auto) 29.3, Lassen % (Auto) 7.0, Eos % (Auto) 3.6, Baso % (Auto) 1.0, Lymph # (Auto) 2.9, Abs Immat Gran (auto) 0.0, Add Manual Diff No, Absolute Neutrophils 5.7, Monocytes # 0.7, Absolute Eosinophils 0.4, Absolute Basophils 0.1 03/22/21 15:10: Sodium 141, Potassium 4.2, Chloride 110 H, Carbon Dioxide 28, Anion Gap 7 L, BUN 14,Creatinine 0.9, GFR Calculation Greater than 60, Glucose 122 H, Calcium 8.4 L, Total Bilirubin 0.5, AST 37 H, ALT 52 H, Alkaline Phosphatase 89, Troponin I Less than 0.015, Vct-R-Kjnzgamiihj Pept 546.00 H, Serum Total Protein 6.9, Albumin 3.9 Microbiology 03/22/21 18:20 Nasopharyngeal SARS-CoV-2 Rapid RNA (RT-PCR) - Final Sars-Cov-2 Not Detected Influenza A Not Detected Influenza B Not Detected RSV Not Detected Exam Const General: cooperative, comfortable and no acute distress Nutritional Appearance: obese Orientation: alert, awake and oriented x3 HENMT Head: normal to inspection and atraumatic Ears: hearing grossly normal bilaterally and external ears normal General nose exam: external nose normal Face and sinus: face symmetric Eyes General: appearance normal, both eyes and all related structures Conjunctivae: conjunctivae normal Sclera: sclerae normal Neck Neck: full ROM and JVD present Resp Effort Inspection: able to speak in complete sentences, no audible wheezes, no pursed lip breathing and no use of accessory muscles Auscultation: clear to auscultation bilaterally (decreased breath sounds upper lobes bilaterally), no rales, no rhonchi and no wheezes Cardio Jugular venous pressure: no JVD Rate: regular rate Rhythm: regular rhythm GI Inspection: Yes obesity Palpation: soft, no guarding and nontender Auscultation: normal bowel sounds Musc Cervical Spine: cervical ROM normal Skin Lesions: lesion noted Rashes: rashes noted Trauma: no abrasions Wounds: no wounds Neuro General: patient alert, patient awake, patient oriented x3 and moves all extremities Cognition: normal cognition Speech: speech normal Extrem General: normal to inspection, full ROM, capillary refill normal and no pedal edema Psych Appearance: grossly normal Mental Status: mental status grossly normal Speech and Movement: speech and movement normal Affect: normal affect Attitude: cooperative Thought Process: normal Thought Content: normal Assessment/Plan A P Free Text/Narrative :: SOB admit observation RT consult and treat supplemental O2 prn, nebs prn trend labs continue to monitor HTN continue metoprolol valsartan GERD continue omeprazole dyslipidemia continue Crestor hypothyroid continue levothyroxine anxiety / depression continue clonazepam, buspirone Dictated by: <Electronically signed by Henry DAVIS> Henry DAVIS 03/23/21 0003 Henry Corcoran SIGNATURE DA Report Cosigners: <<Signature on File>> Jeffrey Shukla MD 03/23/211509 <Electronically signed by Jeffrey Shukla MD> Jeffrey Shukla MD 03/23/211509 D: PAOLA 03/22/212340 T: PAOLA 03/22/212340 CC: Name Value Range Interpretation Code Description Data Jammie rce(s) Supporting Document(s) ID Date Data Source [id number] 03/22/2021 08:09:00 PM EDT [facility] [address] [place], [place] [id number] [phone] NAME SEX PT STATUS ACCOUNT NUMBER MYLES BEVERLY REG ER [id number] ORDERING PHYSICIAN LOCATION MEDICAL RECORD NO. Ruben Almanzar MD ER [id number] ATTENDING PHYSICIAN DATE OF DATE OF EXAM/TIME Doctor Provided,No Family 1970 03/22/211814 TYPE / EXAM CTA Chest non-card W/ or w/o REASON FOR EXAM r/o pe CTA CHEST WITH IV CONTRAST HISTORY: 50-year-old male with concern for pulmonary embolus. COMPARISON: Chest x- ray performed the same day. TECHNIQUE: Multiple axial images are taken from the level of the thyroid down through the upper abdomen with and without the use of IV contrast. Images are then reconstructed in the sagittal and coronal planes. This exam was performed according to our departmental dose- optimization program which includes use of Automated Exposure Control, adjustment of the mA and/or kV according to patient size and/or use of iterative reconstruction technique. Postprocessing was performed for CTA with the follow ing as per hospital protocol: Maximum intensity projection (MIPs) Contrast Used: 75 mL of Omnipaque 350 FINDINGS: Lungs: Lungs demonstrate emphysematous change. There is mild prominence of bronchopulmonary markings. On axial image 26 there is a focal opacity in the left apex. Bronchiectasis is demonstrated. Pleura: No pneumothorax. No pneumomediastinum. Thyroid: Normal Mediastinum: Aorta: Normal. Pulmonary artery: Normal. No pulmonary embolus. Heart: Borderline enlarged. Trachea/Bronchi: Well aerated. No intraluminal masses. Esophagus: Decompressed which limits evaluation. Normal for the lack of distention. Lymph Nodes: Subcentimeter lymph nodes are seen in the mediastinum. Chest wall: Normal. Axilla: Normal. Osseous Structures: Normal for patient's age. Sub diaphragm: Subdiaphragmatic abdominal organs included in the [id number] do not demonstrate any acute abnormality. IMPRESSION: No CT evidence for acute pulmonary embolus. Reported By Tania Benson MD on 03/22/212008 Signed By Tania Benson MD on 03/22/212017 Date Time CC: Tania Benson MD; No Family PHYS Provided Techn: BAIAB Trans Dt/Tm: Trans by: DT Prt Dt/Tm: : Total DLP = 426.00 mGy-cm : Total Radiation Dose = 2.5134 mSv Lifetime Dose: 2.5134 mSv Name Value Range Interpretation Code Description Data Jammie rce(s) Supporting Document(s) ID Date Data Source [id number] 03/22/2021 06:32:00 PM EDT [facility] ED Physician Documentation NAME: MYLES BEVERLY : 1970 AGE: 50 MR#: [id number] SERVICE DATE: 03/22/[address]: Leighton Valerio MD PRIMARY CARE DR: Alexx Shah MD ROOM#: [id number] HPI (Adult, General) <Ruben Almanzar MD - Last Filed: 04/10/21 17:29> General Chief Complaint: Respiratory Pulmonary Stated Complaint: SOB Time Seen by Provider: 03/22/21 13:40 History of Present Illness Narrative: Patient is a 50-year-old male who presented to the emergency room with chief complaint of shortness of breath with minimal exertion progressively getting worse since last 5 to 7 days.. Patient denies any fever or chills. Denies any cough. Denies any chest pain. Hemoptysis sputum production. Not wearany oxygen at home. Complain of generalized weakness. History of Present Illness Timing/Duration: 1 week Allergies/Home Meds Allergies Allergy/AdvReac Type Severity Reaction Status Date / Time No Known Drug Allergies Allergy Verified 03/22/21 14:03 [From No known Food or Drug Allergies] No Known Food Allergies Allergy Verified 03/22/21 14:03 [From No known Food or Drug Allergies] Home Medications Medication Instructions Recorded Confirmed Last Taken Type B.breve-L.acid-L.rham-S. tab 03/22/21 03/22/21 08:00 History thermophilus 3 billion cell chewable tablet albute rol sulfate 90 mcg/actuation 2 puff INHALATION QID 03/22/21 03/23/21 03/22/21 11:30 History aerosol inhaler (ProAir HFA) aspirin 81 mg chewable tablet 81 mg PO DAILY 03/22/21 03/23/21 03/22/21 08:00 History buspirone 30 mg tablet 30 mg PO BID 03/22/21 03/23/21 03/22/21 08:00 History clonazepam 0.5 mg tablet 0.5 mg PO BID 03/22/21 03/23/21 03/22/21 08:00 History coenzyme Q10 100 mg capsule 100 mg PO DAILY 03/22/21 03/23/21 03/22/21 08:00 History (CoQ-10) gabapentin 300 mg tablet 300 mg PO BID 03/22/21 03/23/21 03/22/21 08:00 History gabapentin 600 mg tablet 600 mg PO HS 03/22/21 03/23/21 03/21/21 21:00 History hydroxyzine HCl 25 mg tablet 25 mg PO TID 03/22/21 03/23/21 03/22/21 08:00 History levothyroxine 25 mcg tablet 25 mcg PO DAILY 03/22/21 03/23/21 03/22/21 08:00 History metoprolol tartrate 50 mg tablet 50 mg PO TID 03/22/21 03/23/21 03/22/21 11:30 History multivitamin 1 tab PO DAILY 03/22/21 03/23/21 03/22/21 08:00 History omepraz ole 20 mg tablet,delayed 20 mg PO DAILY 03/22/21 03/23/21 03/22/21 08:00 History release rosuvastatin 40 mg tablet (Crestor) 40 mg PO DAILY 03/22/21 03/23/21 03/22/21 08:00 History tamsulosin 0.4 mg capsule (Flomax) 0.4 mg PO DAILY 03/22/21 03/23/21 03/22/21 08:00 History valsartan 320 mg tablet 320 mg PO DAILY 03/22/21 03/23/21 03/22/21 08:00 History venlafaxine 150 mg 150 mg PO DAILY 03/22/21 03/23/21 03/22/21 08:00 History capsule,extended release 24 hr (Effexor XR) vitamin E 100 unit capsule 100 unit PO DAILY 03/22/21 03/23/21 03/22/21 08:00 History Lactobacillus acidophilus 1.5 mg 2,000 mmu cells PO DAILY 03/23/21 03/23/21 03/22/21 08:00 History (250 million cell) capsule (Probiotic Acidophilus) PMH (from Triage) <Ruben Almanzar MD - Last Filed: 04/10/21 17:29> Patient Medical History PMH/PSH from Triage: Medical History (Updated 03/22/21 @ 13:57 by Chris López) Anxiety (Medical) F41.9 Asthma (Medical) J45.909 Hypothyroidism (Medical) E03.9 Lyme disease (Medical) A69.20 Neuropathy (Medical) G62.9 Sarcoidosis (Medical) D86.9 Sleep apnea (Medical) G47.30 Hx Drug Resistant Infections Hx Other Resistant Infection?: No Isolation: Standard precautions Social History Are you in a relationship with/Does anyone hit you, yell/swear at you, steal from you?: No Substance Use Smoking Status: Current every day smoker Tobacco Use Tobacco Products:: Cigarettes 1/2 PPD Vaccination History Hx/Date of Tetanus, Diphtheria Vaccination: No Hx/Date of Influenza Vaccination: Yes Hx/Date of Pneumococcal Vaccination: No Immunizations Up to Date: Yes (COVID) <Leighton Valerio M.D. - Last Filed: 03/23/21 05:52> Patient Medical History PMH Reviewed/Updated as Needed: Yes PMH/PSH from Triage: Medical History (Updated 03/22/21 @ 13:57 by Chris López) Anxiety (Medical) F41.9 Asthma (Medical) J45.909 Hypothyroidism (Medical) E03.9 Lyme disease (Medical) A69.20 Neuropathy (Medical) G62.9 Sarcoidosis (Medical) D86.9 Sleep apnea (Medical) G47.30 PFSH <Ruben Almanzar MD - Last Filed: 04/10/21 17:29> Medical History Anxiety Asthma Hypothyroidism Lyme disease Neuropathy Sarcoidosis Sleep apnea Social History Does the Patient have a Healthcare Proxy: Yes Does Patient have a DNR?: No Does Patient have a Living Will?: No Does the Patient have a MOLST?: No Advance Directives on File or in chart?: No Hx Recent Travel (where): No Smoking Status: Current some day smoker <Leighton Valerio M.D. - Last Filed: 03/23/21 05:52> Sickle cell Sickle Cell Screening:: Not indicated ROS <Ruben Almanzar MD - Last Filed: 04/10/21 17:29> Review of Systems ROS Narrative: 13 systems were reviewed and negative except for above Physical Exam <Ruben Almanzar MD - Last Filed: 04/10/21 17:29> General Physical Exam Narrative: 50-year-old old male is lying in bed he appears to be comfortable sitting in bed while wearing oxygen General appearance: alert and in no apparent distress Head Head exam: Present atraumatic and normocephalic Eye Eye exam: Present normal apperance and EOMI ENT ENT exam: Present normal exam and normal orophraynx Neck Neck exam: Present normal inspection and full ROM Respiratory Respiratory exam: Present normal lung sounds bilaterally Cardiovascular Cardiovascular Exam: Present regular rate and normal rhythm GI/Abdominal GI/Abdominal exam: Present Abd soft, bowel sounds present all quadrents Extremities Exam Extremities exam: Present normal inspection and Full ROM without tenderness, capillary refill brisk Back Exam Back exam: Present normal inspection and full ROM Neurological Exam Neurological exam: Present alert, altered, oriented X3 and CN II-XII intact Skin Skin exam: Present warm and normal color Vital Signs Vital Signs: Vital Signs 03/22/21 13:31 03/22/21 23:46 Temperature 98.0 F Pulse Rate 67 70 Respiratory Rate 18 16 Blood Pressure 156/101 O2 Sat by Pulse Oximetry 98 98 <Leighton Valerio M.D. - Last Filed: 03/23/21 05:52> Vital Signs Vital Signs: Vital Signs 03/22/21 13:31 03/22/21 23:46 Temperature 98.0 F Pulse Rate 67 70 Respiratory Rate 18 16 Blood Pressure 156/101 O2 Sat by Pulse Oximetry 98 98 [facility] (comprehensive) <Ruben Almanzar MD - Last Filed: 04/10/21 17:29> Lab Data Labs: 03/22/21 15:10 03/22/21 15:10 Microbiology 03/22/21 18:20 Nasopharyngeal SARS-CoV-2 Rapid RNA (RT-PCR) - Final Sars-Cov-2 Not Detected Influenza A Not Detected Influenza B Not Detected RSV Not Detected Radiology Data Radiology impressions: IMPRESSION: Minor central interstitial prominence which is nonspecific possibly pneumonitis or airway disease versus some vascular congestion. Follow-up is suggested. Medical Decision Making Free Text/Narative:: I tried to get patient up and ambulate around. Minimal exertion his oxygen saturation dropped to mid80s and he got tachypneic and short of breath. Put back on bed and he will be sent for CT angiogram to rule out pulmonary embolism. Patient was signed out to the night provider Dr. Leighton Valerio differential pending reevaluation And follow-up on CT angiogram Accepted the patient in signout at approximately [address] angiogram ordered by my predecessor was returned is normal. I made an opportunity to go and talk to him. He has had sarcoidosis in the distant past. He has been short of breath with exertion for a long period of time. He informs me that he has severe obstructive sleep apnea that is untreated because he cannot tolerate the mask. When I pointed out to him that he had COPD and emphysema on the CT scan I asked him how much he smoked. He smokes cigarettes only occasionally but has been smoking marijuana regularly for over 34 years. I did point out to him that he had a "focal opacity" on image 26 in the left apex and that he would need to have this carefully washed in the future. I asked him not to forget that during this admission. I pointed out to him that he desaturated into the 80s with only minimal exercise I suggested admitting him for further evaluation and provision of oxygen at home at this time. He was accepted for admission by Henry Corcoran and admitted. <Leighton Valerio M.D. - Last Filed: 03/23/21 05:52> Lab Data Labs: 03/22/21 15:10 03/22/21 15:10 Microbiology 03/22/21 18:20 Nasopharyngeal SARS-CoV-2 Rapid RNA (RT-PCR) - Final Sars-Cov-2 Not Detected Influenza A Not Detected Influenza B Not Detected RSV Not Detected Medical Decision Making Free Text/Narative:: I tried to get patient up and ambulate around. Minimal exertion his oxygen saturation dropped to mid80s and he got tachypneic and short of breath. Put back on bed and he will be sent for CT angiogram to rule out pulmonary embolism Accepted the patient in signout at approximately [address] angiogram ordered by my predecessor was returned is normal. I made an opportunity to go and talk to him. He has had sarcoidosis in the distant past. He has been short of breath with exertion for a long period of time. He informs me that he has severe obstructive sleep apnea that is untreated because he cannot tolerate the mask. When I pointed out to him that he had COPD and emphysema on the CT scan I asked him how much he smoked. He smokes cigarettes only occasionally but has been smoking marijuana regularly for over 34 years. I did point out to him that he had a "focal opacity" on image 26 in the left apex and that he would need to have this carefully washed in the future. I asked him not to forget that during this admission. I pointed out to him that he desaturated into the 80s with only minimal exercise I suggested admitting him for further evaluation and provision of oxygen at home at this time. He was accepted for admission by Henry Corcoran and admitted. Plan <Ruben Almanzar MD - Last Filed: 04/10/21 17:29> Plan Plan: Patient will be signed out to the night provider disposition pending follow-up on the CAT scan and reevaluation. Visit Medications Administered ED medications:: Medications Discontinued Medications Generic Name Dose Route Start Last Admin Trade Name Mark PRN Reason Stop Dose Admin Albuterol Sulfate 2.5 mg 07:00 03/23/21 07:16 Albuterol Sulf 2.5 Mg/3 Ml Vial NEB Not Given RTQID ARNALDO Aspirin 81 mg 03/23/21 09:00 03/23/21 09:19 Aspirin Chew 81 Mg PO 81 mg DAILY ARNALDO Administration Aspirin 243 mg 03/23/21 12:16 03/23/21 12:55 Aspirin Chew 81 Mg PO 03/23/21 12:17 243 mg 1T STA Administration Atorvastatin Calcium 80 mg 03/23/21 09:00 03/23/21 09:24 Atorvastatin Calcium 40 Mg Tablet PO 80 mg DAILY ARNALDO Administration Buspirone HCl 30 mg 03/23/21 01:40 03/23/21 09:22 Buspirone Hcl 15 Mg Tablet PO 30 mg BID ARNALDO Administration Cefuroxime Axetil 250 mg 03/23/21 09:30 03/23/21 10:34 Cefuroxime Axetil 250 Mg Tablet PO 250 mg BID ARNALDO Administration Clonazepam 0.5 mg 03/23/21 01:45 03/23/21 09:25 Clonazepam 0.5 Mg Tablet PO 0.5 mg BID ARNALDO Administration Gabapentin 300 mg 03/23/21 09:00 03/23/21 13:34 Gabapentin 300 Mg Capsule PO 300 mg 0900,1400 ARNALDO Administration Gabapentin 600 mg 03/23/21 01:45 03/23/21 02:09 Gabapentin 300 Mg Capsule PO 600 mg HS ARNALDO Administration Hydroxyzine HCl 25 mg 03/23/21 09:00 03/23/21 12:55 Hydroxyzine Hcl 25 Mg Tablet PO 25 mg TID ARNALDO Administration Levothyroxine Sodium 25 mcg 03/23/21 06:00 03/23/21 05:26 Levothyroxine Sodium 25 Mcg Tablet PO 25 mcg 0600 ARNALDO Administration Metoprolol Tartrate 50 mg 03/23/21 01:25 03/23/21 12:59 Metoprolol Tartrate 50 Mg Tablet PO 50 mg QID ARNALDO Administration Omeprazole 20 mg 03/23/21 09:00 03/23/21 09:26 Omeprazole 20 Mg Capsule.Dr PO 20 mg DAILY ARNALDO Administration Prednisone 40 mg 03/23/21 09:20 03/23/21 10:32 Prednisone 20 Mg Tablet PO 40 mg 0800 ARNALDO Administration Tamsulosin HCl 0.4 mg 03/23/21 09:00 03/23/21 09:24 Tamsulosin Hcl 0.4 Mg Capsule PO 0.4 mg DAILY ARNALDO Administration Valsartan 320 mg 03/23/21 09:00 03/23/21 09:21 Valsartan 160 Mg Tablet PO 320 mg DAILY ARNALDO Administration Venlafaxine HCl 150 mg 03/23/21 09:00 03/23/21 09:20 Venlafaxine Hcl 75 Mg Er Cap PO 150 mg DAILY ARNALDO Administration <Leighton Valerio M.D. - Last Filed: 03/23/21 05:52> Visit Medications Administered ED medications:: Medications Discontinued Medications Generic Name Dose Route Start Last Admin Trade Name Freq PRN Reason Stop Dose Admin Albuterol Sulfate 2.5 mg 03/23/21 07:00 03/23/21 07:16 Albuterol Sulf 2.5 Mg/3 Ml Vial NEB Not Given RTQID [facility] Aspirin 81 mg 03/23/21 09:00 03/23/21 09:19 Aspirin Chew 81 Mg PO 81 mg DAILY ARNALDO Administration Aspirin 243 mg 03/23/21 12:16 03/23/21 12:55 Aspirin Chew 81 Mg PO 03/23/21 12:17 243 mg 1T STA Administration Atorvastatin Calcium 80 mg 03/23/21 09:00 03/23/21 09:24 Atorvastatin Calcium 40 Mg Tablet PO 80 mg DAILY ARNALDO Administration Buspirone HCl 30 mg 03/23/21 01:40 03/23/21 09:22 Buspirone Hcl 15 Mg Tablet PO 30 mg BID ARNALDO Administration Cefuroxime Axetil 250 mg 03/23/21 09:30 03/23/21 10:34 Cefuroxime Axetil 250 Mg Tablet PO 250 mg BID ARNALDO Administration Clonazepam 0.5 mg 03/23/21 01:45 03/23/21 09:25 Clonazepam 0.5 Mg Tablet PO 0.5 mg BID ARNALDO Administration Gabapentin 300 mg 03/23/21 09:00 03/23/21 13:34 Gabapentin 300 Mg Capsule PO 300 mg 0900,1400 ARNALDO Administration Gabapentin 600 mg 03/23/21 01:45 03/23/21 02:09 Gabapentin 300 Mg Capsule PO 600 mg HS ARNALDO Administration Hydroxyzine HCl 25 mg 03/23/21 09:00 03/23/21 12:55 Hydroxyzine Hcl 25 Mg Tablet PO 25 mg TID ARNALDO Administration Levothyroxine Sodium 25 mcg 03/23/21 06:00 03/23/21 05:26 Levothyroxine Sodium 25 Mcg Tablet PO 25 mcg 0600 ARNALDO Administration Metoprolol Tartrate 50 mg 03/23/21 01:25 03/23/21 12:59 Metoprolol Tartrate 50 Mg Tablet PO 50 mg QID ARNALDO Administration Omeprazole 20 mg 03/23/21 09:00 03/23/21 09:26 Omeprazole 20 Mg Capsule.Dr PO 20 mg DAILY ARNALDO Administration Prednisone 40 mg 03/23/21 09:20 03/23/21 10:32 Prednisone 20 Mg Tablet PO 40 mg 0800 ARNALDO Administration Tamsulosin HCl 0.4 mg 03/23/21 09:00 03/23/21 09:24 Tamsulosin Hcl 0.4 Mg Capsule PO 0.4 mg DAILY ARNALDO Administration Valsartan 320 mg 03/23/21 09:00 03/23/21 09:21 Valsartan 160 Mg Tablet PO 320 mg DAILY ARNALDO Administration Venlafaxine HCl 150 mg 03/23/21 09:00 03/23/21 09:20 Venlafaxine Hcl 75 Mg Er Cap PO 150 mg DAILY ARNALDO Administration Discharge Plan Admission/Discharge Dx Primary (Admit) Diagnosis: COPD with hypoxia, marijuana abuse Primary DC Diagnosis: Chest pain acute coronary syndrome ED Provider: Leighton Valerio ED Status: Discharge to ADM Time Seen by Provider: 03/22/21 13:40 Triaged At: 03/22/21 13:31 Condition Condition: Serious Discharge Detail Disposition: Admit to [facility] Diet:: NPO Medications Medication reconciliation performed by provider at discharge: Yes *Discharge Patient* Discharge Orders: Discharge Order (Routine); Ordered 03/23/21 Ordered By: Jeffrey Shukla Discharge Date/Time: 03/23/21 01:02 Interventions Interventions: ED Admission/Handoff Last Done: 03/23/21 01:02 ED Respiratory/Pulmonary Last Done: 03/22/21 13:48 Report Signers: <Electronically signed by Ruben Almanzar MD> Ruben Almanzar MD 04/10/21 1729 Ruben Almanzar MD SIGNATURE DA Report Cosigners: <Electronically signed by Leighton Valerio MD> Leighton Valerio MD 03/23/21 0553 D: PRABHA 03/22/211831 T: PRABHA 03/22/211831 CC: Alexx Shah MD Name Value Range Interpretation Code Description Data Jammie rce(s) Supporting Document(s) ID Date Data Source [id number] 03/22/2021 08:21:00 PM EDT [facility] NORMAL RESULT IS "Not Detected"Cepheid S ARS-CoV-2,FLU/RSV is Multiplex real time RT-PCRNegative results do not preclude SARS-COV-2, influenza orRSV infection and should not be used as the sole basis fortreatment or other patient management decisions.False negative results may occur if virus is present atlevels below the analytical limit of detection.This test has been authorized by FDA under an EUA for use by[facility] laboratoriesSARS-rel CoV RNA Resp Ql NITO+probeFLUAV RNA Resp Ql NITO+probeFLUBV RNA Resp Ql NITO+probeRSV RNA Resp Ql NITO+probe Name Value Range Interpretation Code Description Data Jammie rce(s) Supporting Document(s) ID Date Data Source [id number] 03/22/2021 06:20:00 PM EDT [facility] Name Value Range Interpretation Code Description Data Jammie rce(s) Supporting Document(s) Cepheid SARS/FLU/RSV RT-PCR SARS-COV-2 NOT DETECTED [facility] This lab was ordered by [facility] and reported by [facility]. ID Date Data Source [id number] 03/22/2021 03:23:00 PM EDT [facility] [address] [place] [address] [phone] NAME SEX PT STATUS ACCOUNT NUMBER MYLES BEVERLY REG ER [id number] ORDERING PHYSICIAN LOCATION MEDICAL RECORD NO. Ruben Almanzar MD ER [id number] ATTENDING PHYSICIAN DATE OF DATE OF EXAM/TIME Doctor Provided,No Family 1970 03/22/21 / 1510 TYPE / EXAM Xray Chest One View REASON FOR EXAM sob CLINICAL HISTORY: [facility] sob TECHNIQUE: Portable chest radiograph COMPARISON: None . FINDINGS: Heart/Mediastinum: Heart is normal size. Mediastinum is normal contour. Lungs: There is some prominence of the central interstitial markings which is nonspecific. There isno consolidation or effusion. Mild apical pleural thickening is present. Bony structures: No acute findings. Other: None IMPRESSION: Minor central interstitial prominence which is nonspecific possibly pneumonitis or airway disease versus some vascular congestion. Follow-up is suggested. Reported By Tae Lara MD on 03/22/21 152 Signed By Tae Lara MD on 03/22/21 152 Date Time CC: Tae Lara M.D.; No Family PHYS Provided Techn: CARRDwight Trans Dt/Tm: Trans by: DT Prt Dt/Tm: [id number]: Total DLP = 0.00 mGy-cm Fluoroscopy Time (in secs): Name Value Range Interpretation Code Description Data Jammie rce(s) Supporting Document(s) ID Date Data Source [id number] 03/23/2021 12:29:00 AM EDT [facility] Name Value Range Interpretation Code Description Data Jammie rce(s) Supporting Document(s) Magnesium [Mass/volume] in Serum or Plasma 2.1 mg/dL 1.3-2.7 [facility] ID Date Data Source [id number] 03/22/2021 03:18:00 PM EDT [facility] Name Value Range Interpretation Code Description Data Jammie rce(s) Supporting Document(s) Leukocytes [#/volume] in Blood by Automated count 9.7 10*3/uL 4.45-10 .71 N [facility] Erythrocytes [#/volume] in Blood by Automated count 5.71 10*6/uL 4.3- 6.1 N [facility] Hemoglobin [Moles/volume] in Blood 14.2 g/dL 13-18 N [facility] Hematocrit [Volume Fraction] of Blood by Automated count 44.8 % 4 2-52 N [facility] Erythrocyte mean corpuscular volume [Ent itic volume] in Cord blood by Automated count 79 fL 80-96 Below low normal [facility] Erythrocyte mean corpuscular hemoglobin [Entitic mass] by Au tomated count 25 pg 27-31 Below low normal [facility] Erythrocyte mean corpuscular hemoglobin concentration [Mass/volume] in Cord blood 32 g/dL 33-37 Below low normal [facility] Erythrocyte distribution width [Entitic volume] by Automated cou nt 16 % 11-15 Above high normal [facility] Platelets [#/volume] in Blood by Automated count 201 10*3/uL 130-472 N [facility] Platelet mean volume [Entitic volume] in Blood 11.0 fL 9.1-13.1 N [facility] Neutrophils/100 leukocytes in Blood by Automated count 58.9 % 41- 77 N [facility] Neutrophils [#/volume] in Blood by Automated count 5.7 U 1.7-7.6 N [facility] Lymphocytes/100 leukocytes in Blood by Automated count 29.3 % 14- 46 N [facility] Lymphocytes [#/volume] in Blood by Automated count 2.9 U 0.6-4.6 N [facility] Monocytes/100 leukocytes in Blood by Automated count 7.0 % 4-12 N [facility] Monocytes [#/volume] in Blood by Automated count 0.7 U 0.2-1.2 N [facility] Eosinophils/100 leukocytes in Blood by Automated count 3.6 % 0-7 N [facility] Eosinophils [#/volume] in Blood by Automated count 0.4 U 0.0-0.5 N [facility] Basophils/100 leukocytes in Blood by Automated count 1.0 % 0.4-1 .3 N [facility] Basophils [#/volume] in Blood by Automated count 0.1 U 0.0-0.2 N [facility] NUCLEATED RED BLOOD CELL 0 % [facility] NUCLEATED RED BLOOD CELL# 0 [facility] Immature granulocytes [Presence] in Blood by Automated count 0-2 N [facility] Immature granulocytes [#/volume] in Blood by Automated count 0.0 U 0-0.1 N [facility] Manual Differential panel - Blood NO [facility] ID Date Data Source [id number] 03/22/2021 03:41:00 PM EDT [facility] Name Value Range Interpretation Code Description Data Jammie rce(s) Supporting Document(s) Urea nitrogen [Mass/volume] in Serum or Plasma 14 mg/dL 9-23 N [facility] Sodium [Moles/volume] in Serum or Plasma 141 mmol/L 132-146 N [facility] Potassium [Moles/volume] in Serum or Plasma 4.2 mmol/L 3.5-5.5 [facility] Chloride [Moles/volume] in Serum or Plasma 110 mmol/L 99-109 Above high normal [facility] Carbon dioxide, total [Moles/volume] in Serum or Plasma 28 mmol/L 20 -31 [facility] Anion gap in Serum or Plasma 7 mmol/L 8-16 Below low normal [facility] Glucose [Mass/volume] in Serum or Plasma 122 mg/dL 74-106 Above high normal [facility] Creatinine 0.9 mg/dL 0.5-1.1 [facility] Glomerular filtration rate/1.73 sq M.pre dicted [Volume Rate/Area] in Serum or Plasma Greater Than 60 ABOVE 60 [facility] Alanine aminotransferase [Enzymatic acti vity/volume] in Serum or Plasma by With P-5'-P 52 U/L 10-49 Above high normal [facility] Aspartate aminotransferase [Enzymatic ac tivity/volume] in Serum or Plasma by With P-5'-P 37 U/L 0-33 Above high normal [facility] Alkaline phosphatase [Enzymatic activity/volume] in Serum or Plasma 89 U/L 45-129 N [facility] Calcium [Mass/volume] in Serum or Plasma 8.4 mg/dL 8.5-10.1 Below low normal [facility] Bilirubin.total [Mass/volume] in Serum or Plasma 0.5 mg/dL 0.3-1.2 N [facility] Albumin [Mass/volume] in Serum or Plasma by Bromocresol purple (BCP) dye binding method 3.9 g/dL 3.2-4.8 [facility] ital Protein [Mass/volume] in Serum or Plasma 6.9 g/dL 5.7-8.2 [facility] ID Date Data Source [id number] 03/22/2021 03:41:00 PM EDT [facility] Name Value Range Interpretation Code Description Data Jammie rce(s) Supporting Document(s) Troponin I.cardiac [Mass/volume] in Serum or Plasma Less Than 0.015 0.00-0.09 [facility] Less than 0.09 NG/ML Negative0.10 - 0.77 NG/ML High Risk0.78 NG/ML or Greater PositiveThe WHO defined the cutoff (definition for diagnosis of RI)for this method as 0.78 ng/ml. ID Date Data Source [id number] 03/22/2021 03:41:00 PM EDT [facility] Name Value Range Interpretation Code Description Data Jammie rce(s) Supporting Document(s) Natriuretic peptide.B prohormone N-Terminal [Mass/volu me] in Serum or Plasma 546.00 pg/mL 0.00-175 Above high normal [facility] ID Date Data Source [id number] 02/02/2021 04:19:00 PM EDT [facility] ([facility]) Name Value Range Interpretation Code Description Data Jammie rce(s) Supporting Document(s) White Blood Count 11.4 4.0-10.0 [facility] ([facility]) Platelets 233 150-450 [facility] ([facility]) Red Blood Count 6.18 4.30-6.10 [facility] ([facility]) Hemoglobin 15.2 [facility] ([facility]) Hematocrit 48.1 [facility] ([facility]) ID Date Data Source [id number] 02/02/2021 04:19:00 PM EDT [facility] ([facility]) Name Value Range Interpretation Code Description Data Jammie rce(s) Supporting Document(s) Aspartate aminotransferase [Enzymatic activity/volume] in Se rum or Plasma 39 15-37 [facility] ([facility]) Alanine aminotransferase [Enzymatic activity/volume] i n Serum or Plasma 60 30-65 [facility] ([facility] [place]) Alk Phos 100 50-136 [facility] Albumin 4.1 3.2-5.2 [facility] [place] Total Bilirubin 0.6 0.0-1.0 [facility] Total Protein 7.2 6.4-8.2 [facility] ([facility]) A/G Ratio 1.3 1.00-1.93 [facility] ID Date Data Source [id number] 12/23/2020 04:15:00 PM EDT [facility] ([facility] Name Value Range Interpretation Code Description Data Jammie rce(s) Supporting Document(s) Thyroid Stimulating Hormone 2.040 ME [facility] ([facility]) Free T4 0.88 [facility]) ID Date Data Source [id number] 12/23/2020 04:15:00 PM EDT [facility] ([facility]) Name Value Range Interpretation Code Description Data Jammie rce(s) Supporting Document(s) Triglycerides 304 [facility] Cholesterol 209 [facility] HDL 27 [facility]) Cholesterol in LDL [Mass/volume] in Serum or Plasma by calculation 12 1 [facility] Chol/HDL Ratio 7.740 [facility] ([facility]) ID Date Data Source [id number] 12/23/2020 04:15:00 PM EDT [facility]) Name Value Range Interpretation Code Description Data Jammie rce(s) Supporting Document(s) Albumin [Mass/volume] in Serum or Plasma 4.1 [facility] ([facility] [place]) Calcium [Mass/volume] in Serum or Plasma 9.8 [facility]) Alanine aminotransferase [Enzymatic activity/volume] in Serum or Pl asma 20 [facility] Carbon dioxide, total [Moles/volume] in Serum or Plasma 30 [facility]) Chloride [Moles/volume] in Serum or Plasma 106 [facility]) Alkaline phosphatase [Enzymatic activity/volume] in Serum or Plasma 8 2 [facility] ([facility]) Potassium [Moles/volume] in Serum or Plasma 4.9 [facility] ([facility]) Sodium 139 [facility] ([facility]) Protein [Mass/volume] in Serum or Plasma 6.8 [facility] ([facility]) Aspartate aminotransferase [Enzymatic activity/volume] in Serum or Plasma 33 [facility] ([facility]) Urea nitrogen [Mass/volume] in Serum or Plasma 15 [facility] ([facility]) Glucose 110 70-100 [facility] ([facility]) Creatinine For GFR 0.76 [facility] ([facility]) ID Date Data Source [id number] 08/11/2020 01:53:[address] [place] [facility], [facility] MYLES BEVERLY BPATIENT IDENTIFICATION:Psychiatric Site: [facility] Name: MYLES BEVERLY BMedical Record Number: [id number] Of : [id number] COMPLAINT:[facility] hospital f/uHISTORY OF PRESENT ILLNESS:Patient is a 50-year-old male with comorbidities [facility] . Patient reports it was social admission.Patient reports discharge paperwork was unable to be sent to our office andhe will tryto collectPatient is currently living with mother. dye worker follows up withpatient. Patient needsPT/OT referral for home- Catarina at home. and referral for home health aide. Current concern: Skin lesions: x 5 months, microbiotic cleanse given lastweek by hospital. Reports lesions initially were on legs, got a couch (floor model), reportssymptoms startedafter that. Lesions vary in size. he has not noticed any discharge fromthese lesions. heis constantly scratching at those lesions. Lesions on face, legs,arms, abdomen, upper backlower back. She has not had this type of lesions in the past. pt has triedbed bug spray/powderwithout much relief. Reports "sharp white" things , is what prompts him tokeep on scratchingthese lesions. Patient denies any illicit drug use. Neurology: Will be evaluated in [facility]: Currently on Valsartan 320 mg, Metoprolol 75 mg daily, hctzVaccines: Received flu vaccine.Medication refills, does not need.Psych: No delusions, hallucinations, suicidal ideations, homicidal ideationsColonoscopy hasnt had done since 2013- polyps. Did it at [facility].Smoking cigarettes: 1 pack a week, 1 pack every 3-4 days for only 3 yearsAlcohol use: NoneIllicit drug use: QUit marijuana about 6 weeks ago. Cocaine in 's. NOrecent ilicit drug use. REVIEW OF SYSTEMS:Review of Systems is as per HPI. All other systems reviewed and negative. PROBLEM LIST/PAST MEDICAL HISTORY:OngoingAsthmaAtopic dermatitisChest painDementiaDepression with anxietyDyspneaEchocardiogram abnormalGERD (gastroesophageal reflux disease)HyperlipemiaHypertensionIBS (irritable bowel syndrome)InsomniaLumbar herniated discLump in neckMemory lossNumerous molesOnychomycosis of toenailOsteoarthritisParkinsonismParkinsons diseasePolycythemiaPoor sleep patternRLS (restless legs syndrome)SarcoidSolar lentigoTourette syndromeTremorUnstable gaitUTI (urinary tract infection) with pyuriaVitamin D deficiencyHistoricalAbdominal pain in maleAcute gastroenteritisAcute URIAtypical chest painDiarrheaDizziness - light- headedExposure to potentially hazardous body fluidsFoot painGastroenteritis and colitis, viralHA (headache)HTN (hypertension)Lower leg edemaNausea and vomitingPROCEDURE/SURGICAL HISTORY:Procedure on wrist (Procedure on wrist)Biopsy of LiverCurettage of Calcaneus Bone CystArthroscopy Shoulder LeftBiopsy Lung PercutaneousCyst removed from lip as childSOCIAL HISTORY:AlcoholAlcohol Use Current. 1-2 times per month, 05/07/2019Alcohol Use Current., 09/20/2017Substance UseDrug Use Current. Marijuana, Daily, 07/24/2018Tobacco/Nicotine4 packs per month Use:., 06/14/2020FAMILY HISTORY:Anxiety: Patient.Brain tumor: Mother.Degenerative disc disease: Father.Gout: Father.Heart attack: Mother and Father.Hyperlipidemia.: Patient .Hypertension: Patient.Sarcoidosis: Patient.ALLERGIES:NKAHome Medications:Home Medications (29) ActiveMisc Medication (blood pressure cuff) See Instructions, Taking as prescribed;dose verified,(Special Instructions: take blood pressure daily) Misc Medication (cane) See Instructions, Taking as prescribed; dose verified,(SpecialInstructions: to use with ambulation) Misc Medication (held shower head) See Instructions, Taking as prescribed;dose verified,(Special Instructions: to use when showering) Misc Medication (shower bench) See Instructions, Taking as prescribed; doseverified, (SpecialInstructions: to use with showering) Misc Rx Supply (right wrist brace/splint) See Instructions, Taking asprescribed; dose verified,(Special Instructions: m25.531) Misc Rx Supply (Adjustable shower head) See Instructions, Taking asprescribed; dose verified,(Special Instructions: Use as Directed Dx: G20) Misc Rx Supply (Rollator/walker with brakes) See Instructions, Taking asprescribed; doseverified, (Special Instructions: Use as Directed) amLODIPine (amLODIPine 5 mg oral tablet) 5 mg = 1 tab(s), PO (oral), qDaybifidobacterium-lactobacillus (Probiotic Formula oral capsule) 1 cap(s), PO(oral), qDay, Takingas prescribed; dose verifiedbusPIRone (busPIRone 30 mg oral tablet) 30 mg = 1 tab(s), PO (oral), bid,Taking as prescribed;dose verifiedcarbidopa-levodopa (Sinemet 25 mg- 100 mg oral tablet) 1 tab(s), PO (oral),qid, Taking asprescribed; dose verifiedcarbidopa-levodopa (carbidopa-levodopa 25 mg-100 mg oral tablet, extendedrelease) 1 tab(s), PO(oral), at bedtime, Taking as prescribed; dose verifiedcholecalciferol (Vitamin D3 1000 intl units (25 mcg) oral capsule) 1,000IUnits = 1 cap(s), PO(oral), qDay, Taking as prescribed; dose verifiedgabapentin (gabapentin 300 mg oral capsule) 300 mg = 1 cap(s), PO (oral ),qAM, Taking asprescribed; dose verifiedgabapentin (gabapentin 300 mg oral capsule) 900 mg = 3 cap(s), PO (oral), atbedtime, Taking asprescribed; dose verifiedginkgo (Ginkgo Biloba) , PO (oral), qDay, Taking as prescribed; dose verifiedhydrOXYzine (hydrOXYzine hydrochloride 25 mg oral tablet) 25 mg = 1 tab(s),PRN, PO (oral), tid,Taking as prescribed; dose verifiedhydroCHLOROthiazide (hydroCHLOROthiazide 12.5 mg oral tablet) 12.5 mg = 1tab(s), PO (oral),qDay, Taking as prescribed; dose verified, (Special Instructions: patient-needsmedicaid provider) levothyroxine (levothyroxine 25 mcg (0.025 mg) oral tablet) 25 mcg = 1tab(s), PO (oral),qOTHERday, Taking as prescribed; dose verifiedmetoprolol (metoprolol tartrate 25 mg oral tablet) 25 mg = 1 tab(s), PO(oral), qDay, Taking asprescribed; dose verified, (Special Instructions: Take with Metoprolol 50 mgat night)metoprolol (Metoprolol Tartrate 50 mg oral tablet) 50 mg = 1 tab(s), PO(oral), bid, Taking asprescribed; dose verified, (Special Instructions: Take as directed) mometasone nasal (Nasonex 50 mcg/inh nasal spray) 2 spray(s), Nasal, qDay,Taking as prescribed;dose verified, (Special Instructions: INHALE 2 SPRAYS NASALLY EVERY DAY) multivitamin (Vitamin B Complex oral capsule) 1 cap(s), PO (oral), qDay,Taking as prescribed;dose verifiedomega-3 polyunsaturated fatty acids ([place]-3 oral capsule) 1 cap(s), PO(oral), qDay, Taking asprescribed; dose verifiedomeprazole (omeprazole 20 mg oral delayed release capsule) See Instructions,Taking asprescribed; dose verified, (Special Instructions: take 1 capsule by mouth oncedaily)rosuvastatin (Crestor 5 mg oral tablet) 5 mg = 1 tab(s), PO (oral), qDay,Taking as prescribed;dose verifiedtamsulosin (tamsulosin 0.4 mg oral capsule) 0.8 mg = 2 cap(s), PO (oral),qDay, Taking asprescribed; dose verifiedvalsartan (valsartan 320 mg oral tablet) 320 mg = 1 tab(s), PO (oral), qDay,Taking asprescribed; dose verifiedvenlafaxine (venlafaxine 150 mg oral capsule, extended release) 150 mg = 1cap(s), PO (oral),qDay, Taking as prescribed; dose verified, (Special Instructions: TAKE 1CAPSULE BY MOUTH EVERYDAY) PHYSICAL EXAM:VITALS:T: 35.9 C (Temporal Artery) T: 96.6 F (Temporal Artery)HR: 68 RR: 16 BP: 138/98HT: 180 cm WT: 107.5 kg BMI: 33.2 General: Better mood than prior visit. NO acute distressHead: Normocephalic, atraumatic.HEENT: Pupils round, equal and react to light. ENT - WNL.Neck: supple. no JVD. Trachea mid- line.Lungs: Clear bilaterally with no rales, rhonchi, or wheeze.Heart: Regular rhythm at normal rate is present without murmur, rub, or gallop.Abdomen: Flat, soft, and non-tender with positive BS.Extremities: Full RoM in all extremities. No clubbing, cyanosis, edema ordeformity noted.Distal pulses present and equal to opposing side.Neurological: Alert and Oriented X3. No focal deficits noted.Skin: Numerous circular/ovoid lesions of various sizes noted on bilateralupper/lowerextremities, abdomen, trunk. no signs of cellulitis noted. no active drainagefrom any lesions.Patient was actively picking at several lesions during office visit. Nourticaria. No erythemanodosum noted.LAB RESULTS:No qualifying data available.PATHOLOGY RESULTS:Pathology Results No qualifying data available.DIAGNOSTIC RESULTS:No qualifying data available.ASSESSMENT AND PLAN:1. Skin lesionsDifferential diagnosis discussed with patientEncourage patient to apply either CeraVe Cetaphil or Aquaphor to dry skinFor pruritus, patient can take Benadryl as neededEncourage patient to avoid scratching to limit possibility of secondaryinfection/cellulitisGiven nature of lesions will send referral to dermatology for furtherevaluation and management2. HypertensionDiscontinue hydrochlorothiazideContinue with valsartanPatient to start amlodipine, side effects discussed with patientBP log advised to bring to follow-up visitContinue with low-salt dietencouraged Physical activity3. Depression with anxietyCOntinue with current medsNo acute concerns4. [facility] send referrals for PT/OT and Catarina at [facility] followup at [place] No qualifying data available.Medications Affected this Encounter: Medication Changes/Renewals This Visit Status amLODIPine 5 mg, 1 tab(s), PO (oral), qDay, 30 Ordered tab(s) chlorhexidine topical See Instructions, Rinse area Discontinued with water, then apply minimum amount Misc Rx Supply See Instructions, PH[facility], 1 each, 0 Discontinued Refill(s) melatonin 2.5 mg, 1 cap(s), PO (oral), at bedtime, 30 Discontinued cap(s) Misc Rx Supply See Instructions, Use as Directed, 1 Discontinued each Misc Rx Supply See Instructions, Use as Directed, 1 Discontinued each Added Patient Education Heart Disease EducationEating Heart-Healthy Foods Follow-Up Appointments With: Denia Griggs MD, PGY-2Address: [phone] [place], [place], [facility]; This document was authenticated by Denia Griggs MD, PGY-2 , P on08/11/2020 01:53 PMItem was sent for review to Anabelle Jorge DO DO Name Value Range Interpretation Code Description Data Jammie rce(s) Supporting Document(s) ID Date Data Source [id number] 08/05/2020 09:17:42 AM EST [facility] Name Value Range Interpretation Code Description Data Jammie rce(s) Supporting Document(s) [facility] rv[facility] MIMLXg4rLeFRWyHd82/XKWcvSDOsz6TjBIhfYKu4VUzcSDPrA8KgAKJ9uW0aXPN9MCaKKyOwApZgHaU6 lbm [file] BOT5BoI+XG9fGBr+Yn3Bc1TdapR5svMfFPzpSJh1Av8QFSQAG0NYRf== ID Date Data Source [id number] 08/02/2020 03:23:11 PM EST [facility] Name Value Range Interpretation Code Description Data Jammie rce(s) Supporting Document(s) [facility]ch [facility] [place]HHYn6zCmKWZzVu67/DJSdgBJQjz2BiGUadIIl6FSiwXSFdL2YuQVK9aV0xYYU0ZPsBDbIhJfLpBjRk lbm [file] IlWgBL3ZMz3KPxL6IQA9uPLiKa0KWko3MhdKOiUkGO0EFCd= ID Date Data Source [id number] 08/02/2020 11:17:29 AM EST [facility] Name Value Range Interpretation Code Description Data Jammie rce(s) Supporting Document(s) [facility] XSYLOn8zBoGXVoRe91/KZIrrNKRof7CvKFsiFAl5QTzlYBVoA0WgENF3tB9zTLV7MXxQPsHuCaTbSuXf lbm [file] +Silver [file] Cg== ID Date Data Source [id number] 08/02/2020 06:39:00 AM EST [facility] Name Value Range Interpretation Code Description Data Jammie rce(s) Supporting Document(s) SODIUM (MMOL/L) IN SER/PLAS 135-146 [facility] POTASSIUM (MMOL/L) IN SER/PLAS 3.5-5.3 [facility] CHLORIDE (MMOL/L) IN SER/PLAS 98-107 [facility] CARBON DIOXIDE, TOTAL (MMOL/L) IN SER/PLAS 21-32 [facility] UREA NITROGEN (MG/DL) IN SER/PLAS 7-23 [facility] CREATININE (MG/DL) IN SER/PLAS 0.7-1.3 [facility] GLUCOSE (MG/DL) IN SER/PLAS 65-99 [facility] CALCIUM (MG/DL) IN SER/PLAS 8.4-10.4 [facility] ANION GAP IN SER/PLAS 5-15 [facility] GLOMERULAR FILTRATION RATE ML/MIN/1.73 SQ M.PREDICTED >60 [facility] UREA NITROGEN/CREATININE (MASS RATIO) IN SER/PLAS [facility] ID Date Data Source [id number] 08/02/2020 06:14:00 AM EST [facility] Name Value Range Interpretation Code Description Data Jammie rce(s) Supporting Document(s) LEUKOCYTES(10*3/UL) IN BLOOD BY AUTOMATED COUNT 4.0-10.5 Above high normal [facility] ERYTHROCYTES (10*6/UL) IN BLOOD BY AUTOMATED COUNT 4.00-5. 80 [facility] HEMOGLOBIN (G/DL) IN BLOOD 13.0-18.0 [facility] HEMATOCRIT (%) IN BLOOD BY AUTOMATED COUNT 37.0-50.0 [facility] ERYTHROCYTE MEAN CORPUSCULAR VOLUME (FL) BY AUTOMATED COUNT 77.0-100.0 [facility] ERYTHROCYTE MEAN CORPUSCULAR HEMOGLOBIN (PG) BY AUTOMATED COUNT 26.0-33.0 [facility] ERYTHROCYTE MEAN CORPUSCULAR HEMOGLOBIN CONCENTRATION (G/DL) BY AUTOMATED 31.0-36.0 [facility] ERYTHROCYTE DISTRIBUTION WIDTH (RATIO) BY AUTOMATED COUNT 12.0-17.0 [facility] PLATELET MEAN VOLUME (FL) IN BLOOD BY AUTOMATED COUNT 8.0-12.0 Above high normal [facility] NEUTROPHILS/100 LEUKOCYTES IN BLOOD BY AUTOMATED COUNT 35. 0-78.0 [facility] LYMPHOCYTES/100 LEUKOCYTES IN BLOOD BY AUTOMATED COUNT 20. 0-42.0 [facility] MONOCYTES/100 LEUKOCYTES IN BLOOD BY AUTOMATED COUNT <=15. 0 [facility] EOSINOPHILS/100 LEUKOCYTES IN BLOOD BY AUTOMATED COUNT <=1 0.0 [facility] BASOPHILS/100 LEUKOCYTES IN BLOOD BY AUTOMATED COUNT <=2.0 [facility] NEUTROPHILS (10*3/UL) IN BLOOD BY AUTOMATED COUNT 1.40-8.4 0 [facility] LYMPHOCYTES (10*3/UL) IN BLOOD BY AUTOMATED COUNT 1.00-4.0 0 [facility] MONOCYTES (10*3/UL) IN BLOOD BY AUTOMATED COUNT <=1.50 [facility] EOSINOPHILS (10*3/UL) IN BLOOD BY AUTOMATED COUNT <=0.70 [facility] BASOPHILS (10*3/UL) IN BLOOD BY AUTOMATED COUNT <=0.10 [facility] PLATELETS (10*3/UL) IN BLOOD AUTOMATED COUNT 125-425 [facility] IMMATURE NEUTROPHILS/100 LEUKOCYTES IN BLOOD BY AUTOMATED COUNT <=0.5 [facility] IMMATURE NEUTROPHILS (10*3/UL) IN BLOOD BY AUTOMATED COUNT <=0.40 [facility] ID Date Data Source [id number] 08/01/2020 12:22:23 PM EST [facility] Name Value Range Interpretation Code Description Data Jammie rce(s) Supporting Document(s) [facility] KWRJDh5zYzPJBhTn45/QCOggGEYxx3CcQMqwZQp2LWhzBQZvF3HgZNR1fR3vOPY5GGaOCtTmKrXpGpVt lbm [file] AgICAgICAgICAgICAgICAgICAgICAgICAgICAgICAg ICAgICAgICAgICAgICAgICAgICAgICAgICAgICAgICAgICAgICAgICAgDQogICAgICAgICAgICAgICAg ICAgICAgICAgICAgICAgICAgICAgICAgICAgICAgICAgICAgICAgICAgICAgICAgICAgICAgICAgICAg ICAgICAgICAgICAgICAgICAgICAgICAgDQogICAgIC AgICAgICAgICAgICAgICAgICAgICAgICAgICAgICAgICAgICAgICAgICAgICAgICAgICAgICAgICAgIC AgICAgICAgICAgICAgICAgICAgICAgICAgICAgICAgICAgDQogICAgICAgICAgICAgICAgICAgICAgIC AgICAgICAgICAgICAgICAgICAgICAgICAgICAgICAg ICAgICAgICAgICAgICAgICAgICAgICAgICAgICAgICAgICAgICAgICAgICAgDQogICAgICAgICAgICAg ICAgICAgICAgICAgICAgICAgICAgICAgICAgICAgICAgICAgICAgICAgICAgICAgICAgICAgICAgICAg ICAgICAgICAgICAgICAgICAgICAgICAgICAgDQogIC AgICAgICAgICAgICAgICAgICAgICAgICAgICAgICAgICAgICAgICAgICAgICAgICAgICAgICAgICAgIC AgICAgICAgICAgICAgICAgICAgICAgICAgICAgICAgICAgICAgDQogICAgICAgICAgICAgICAgICAgIC AgICAgICAgICAgICAgICAgICAgICAgICAgICAgICAg ICAgICAgICAgICAgICAgICAgICAgICAgICAgICAgICAgICAgICAgICAgICAgICAgDQogICAgICAgICAg ICAgICAgICAgICAgICAgICAgICAgICAgICAgICAgICAgICAgICAgICAgICAgICAgICAgICAgICAgICAg ICAgICAgICAgICAgICAgICAgICAgICAgICAgICAgDQ ogICAgICAgICAgICAgICAgICAgICAgICAgICAgICAgICAgICAgICAgICAgICAgICAgICAgICAgICAgIC AgICAgICAgICAgICAgICAgICAgICAgICAgICAgICAgICAgICAgICAgDQogICAgICAgICAgICAgICAgIC AgICAgICAgICAgICAgICAgICAgICAgICAgICAgICAg GXMcPFXtZQTsCGWjPWQmNSZoTVEkNPPlRKVvHKZhGPTlDYZhVRTtEJAiMXWrYKCmQCZlYZg4U7cnKZFg BZUlIJ5sBRi4Py3+DNtTVgIkHEC2ivVkfX5MHH4yz8BaYZqaQLGst1CdEQl8JK7XJBMbSYzdDG2TGYpu gc4ROEKnXMLpySTSq0ycRqCiVDU8IJWsRvenYY7PNK YuW5zaqrQpLHRjZNXNEGqhJHEZQFzsOFMIAZUiJNReYjUnTuBiQXCkGJUyIPWQLZM5CENsJgCuTDEbPV QbTlCtPLIWHDKcNEBjPiQmFBPzWQXvKW6RHWYjV006uqZpZDPYZr0+HEkrfyJsYczWEcWsMBGer7YyQU y9JL6KBUVhYscnv1MkRIJiZYCJVZpvYF0FSEF6NCJw WFRhJd6JFFNkL336olHuQB7TYh9SLkPzUF1rfe7CJHCxNNMwDarOApe5BIdrYH3KbPNuLGsCpn7hksZp auMXh5JiujGlcYJHGPWhgUEXQBYpX7kbSALiFD0NMAY7NGZbSvZpKiIhHvOvAOP2QFAvWX6gFOdbME3W ZQM1ITfnGACdUFHaN7tBVlEyJPy2UnCglBftHL1XCy PcI9XiljChiEM9MXVyUYTFKa2+CFngubBbKsdIIzWsVUZna1QtZSj4ZE7PHPOcWOblPU1VSQLjjC9qZG khVM5HNxLtFBLySRICNcLkF09eqGLpVLc2V3RnEaVqHVIqRcfwMSOnQYqgTdOzGGRtPjGuJYlrUD1+ID 4+EPcsMB8CTTopnvQsXMTfPx0BRSFaWTAeKH6bDPRg SFBiZ7R0gOfyTBBBMbOfA5yxvgcnAN4tLZOvU304rTogrrFiOIQqZWCzWz4ZDLIrXLP4EZNbbKGdYtmm VHEGQQgvFC5HyBQsEQI7aK0uMApcNNQzOQYmI2fSAeInvJxnCP98hPdyknZnjTQjFMx+Te3MZL4dg8Hm THi7czRaXIqrQNFvDUkeGHStEMKlBMMqGAY7UNH2JJ CZVwHgBLLyTFMjFMyqSSYtBVFfnn1IHKOrVVAuUXo7OKTqQUTnZICoWYlnAACsQVAcVdk1UOIvAMNvUW 2NOhYvOJJlLEWlTFcjURWoOWJqzp1VCNDjCVUvKjJqHPFxNSTfEFTqOMszYZRfSPDgDzF9RQJwTRWrXT 2ZQzWbKKXoDLR0HzHvCNUyCKPvjb9WHDSpUFPpWFj4 LCHhQAHrGRBaTDmrETUiOLS6DMM6FBOkTNReTU3SLhQmTJEwJNinFjkoBYFvOKGoqo8RXLDuEXOxTFd5 BMKvMUBjUALdZLspWFYuTYY3QEj5RBMhNDLnDR6PQpTxLBMwDMX2TuAdXFYcXPGkrw0MHHGtGFUnXJvx WuPsVTKoVRPqYNjmUOIxAMDsGaG4FFNsEGRnSG6QUc HvKRMnMXK0BvIsVWMjYDMuqe1LPDQiIWWyKAN7XGRuCNCvGBJpGZapNORvACE0SOw3CMKgBMIaTP4IRe CjCAVyBEjhEgkoHORvHXVoos7MXBUaMGYfIzT1JAUyZFJjXTKwPLdwFCSbOYT6PGlpHEKzKRDgPT1TTq RzJRKlCWfyLerwKECiKYJmtd5EYLPgSQXrZOW3JUYu XPVdVXYfVUvaYFFhBGNqErC6WNAmCMOdXU4QYrVyOWLjExOuLhFmCNXtJOUhhk1BRALaKOMtYyIeDRNk WFUxHIBxGAvvWPFsBJT2ZAc3RFOmXALwST3LXcVyWTIvDrV3OTloJMYmFHSfhk7XSTUgGELdWWe7JuJx AJYpHOBaPUduYCDzTYU0ARF9EXKzRALoHV5TIvNkLJ WoAkIpHzEqMWHbZFNllv3QZFKwRVZgZiJyFoXwUXVtHQObDQepWYMkZYH1JJw1CQQmSGSmBL0FLxQjZL LuNivsBXBjJGAuYQTcyf4OPRBiOZElAiY8VxAjRUDwPXNtGWezHXYxAAV8JNKnVPArICSbES9JBuBtQR WzOoz8RlFmNKHlJUFrop9NXTUgJQMwBVttPkMxWRTm KRCjVUxqVSRcPPX7DkR7VDWyEGAnZD8DSjCiAXZkZrK0VyEiVTGqVNYqgn2JURWyNREpTOgaOzAsOXGb ZOOtTRgzCNOvIUOeQHu4RHFwZMDmWT9BXjKaAHcsIFHEAme1LDrzY3h9XXV1Wb5PK1Zmi2ZrBPQeFIAO QAlzJR1gwoEeGHWhBj6MI3ySUwblNahpGtV5GWmvPG Y8BCXbVQB9DBV7SjE5EdSdHcvwNf2eTRL3YEZiLuCwQKXrSOX4ZPE5DqFqOXUuMAGeGfGiG6DbNaOjOI 2QJm9HPwO7KSZ2wREsVt1NBhDtUcAZKrGzIM2KKSs= ID Date Data Source [id number] 08/01/2020 04:53:00 AM EST [facility] Name Value Range Interpretation Code Description Data Jammie rce(s) Supporting Document(s) SODIUM (MMOL/L) IN [facility]/PLAS 135-146 [facility] POTASSIUM (MMOL/L) IN SER/PLAS 3.5-5.3 [facility] CHLORIDE (MMOL/L) IN SER/PLAS 98-107 [facility] CARBON DIOXIDE, TOTAL (MMOL/L) IN SER/PLAS 21-32 [facility] UREA NITROGEN (MG/DL) IN SER/PLAS 7-23 [facility] CREATININE (MG/DL) IN SER/PLAS 0.7-1.3 [facility] GLUCOSE (MG/DL) IN SER/PLAS 65-99 [facility] CALCIUM (MG/DL) IN SER/PLAS 8.4-10.4 [facility] ANION GAP IN SER/PLAS 5-[address] [facility] GLOMERULAR FILTRATION RATE ML/MIN/1.73 SQ M.PREDICTED >60 [facility] UREA NITROGEN/CREATININE (MASS RATIO) IN SER/PLAS [facility] ID Date Data Source [id number] 08/01/2020 04:35:00 AM EST [facility] Name Value Range Interpretation Code Description Data Jammie rce(s) Supporting Document(s) LEUKOCYTES(10*3/UL) IN BLOOD BY AUTOMATED COUNT 4.0-10.5 Above high normal [facility] ERYTHROCYTES (10*6/UL) IN BLOOD BY AUTOMATED COUNT 4.00-5. 80 [facility] HEMOGLOBIN (G/DL) IN BLOOD 13.0-18.0 [facility] HEMATOCRIT (%) IN BLOOD BY AUTOMATED COUNT 37.0-50.0 [facility] ERYTHROCYTE MEAN CORPUSCULAR VOLUME (FL) BY AUTOMATED COUNT 77.0-100.0 [facility] ERYTHROCYTE MEAN CORPUSCULAR HEMOGLOBIN (PG) BY AUTOMATED COUNT 26.0-33.0 [facility] ERYTHROCYTE MEAN CORPUSCULAR HEMOGLOBIN CONCENTRATION (G/DL) BY AUTOMATED 31.0-36.0 [facility] ERYTHROCYTE DISTRIBUTION WIDTH (RATIO) BY AUTOMATED COUNT 12.0-17.0 [facility] PLATELET MEAN VOLUME (FL) IN BLOOD BY AUTOMATED COUNT 8.0-12.0 Above high normal [facility] NEUTROPHILS/100 LEUKOCYTES IN BLOOD BY AUTOMATED COUNT 35. 0-78.0 [facility] LYMPHOCYTES/100 LEUKOCYTES IN BLOOD BY AUTOMATED COUNT 20. 0-42.0 [facility] MONOCYTES/100 LEUKOCYTES IN BLOOD BY AUTOMATED COUNT <=15. 0 [facility] EOSINOPHILS/100 LEUKOCYTES IN BLOOD BY AUTOMATED COUNT <=1 0.0 [facility] BASOPHILS/100 LEUKOCYTES IN BLOOD BY AUTOMATED COUNT <=2.0 [facility] NEUTROPHILS (10*3/UL) IN BLOOD BY AUTOMATED COUNT 1.40-8.4 0 [facility] LYMPHOCYTES (10*3/UL) IN BLOOD BY AUTOMATED COUNT 1.00-4.0 0 [facility] MONOCYTES (10*3/UL) IN BLOOD BY AUTOMATED COUNT <=1.50 [facility] EOSINOPHILS (10*3/UL) IN BLOOD BY AUTOMATED COUNT <=0.70 [facility] BASOPHILS (10*3/UL) IN BLOOD BY AUTOMATED COUNT <=0.10 Above high normal [facility] PLATELETS (10*3/UL) IN BLOOD AUTOMATED COUNT 125-425 [facility] IMMATURE NEUTROPHILS/100 LEUKOCYTES IN BLOOD BY AUTOMATED COUNT <=0.5 [facility] IMMATURE NEUTROPHILS (10*3/UL) IN BLOOD BY AUTOMATED COUNT <=0.40 [facility] ID Date Data Source [id number] 07/31/2020 10:02:42 PM EST [facility] Name Value Range Interpretation Code Description Data Jammie rce(s) Supporting Document(s) H&P [facility] es NEGHMo1gBzUQDfWc93/LDLfmWGGrw4OrQQplCVz1UMajOLYoY2CvLHG3xX2rBBJ6DImMGkBcOiRdHmZ4 lbm [file] GhOaE6u6l7Jb9QwkrHZd00HdF01jUBZ7j5x3nLFSGX4zdy87Ayu9q/yarn skeins examiner+43Lu8YeC+9g515BOvzcvLp wUEXfjW72lCjcMo52TcK4iEs9ACH8cc4KzQPQkVRmf tuAcLusLWmRaAXWke3LmGPcoFAr4ICivVTTzD7B2qMCxOLUcWU3DZBJwXQ1HMAGgkaKoFtPiYUUCHpLf MVCtHmKxb0DqR3SzRTLcOFZDYKnaQGIyD02uKJtsHi80QRehTSYmBnZmGUl1Kx7GYhMiANFgD08ypYYi jRQbZfHwBLKCHRpiLGLoY0vae0PbNSn3WR1XFI4Rmf Zuw0HboqCwR4cqE5EPVO5LDGVbG1FHV0LgA5vtNiWbd9IbK1nzSeLsx4VkWb2SYsMqVh5OFnLzZE1psz 2NTlElLGEkYcmLLtTuSVvbTtgbeTRoCC8FvHG4INOrR01dJGTmMVQcO8FzPFOzFvL+Tf1QHPEtlGZoRU 4NUayZ1Dwhf2s5OU0+YP+VA5WbZbYLig3BZkMy3YQY 29g6bQzxD9XVIgkuBObUvgBzDxvEWzeaNQgbrbz0GPaJ+8E7scz03hxevqQBvQ94NBjvEFCR86+3j3Gq hQtGuHwDkFvoq6jye68s4N7ta3FX0L6sc3S06kt1VDXT4HU+El4d4o8ng0/1zi5d7wR31u/Gol6KSsh6 eVtM/1txw93s6f1/c00bTUkomAQTXyLt7gwqIt/philip [file] AgICAgICAgICAgICAgICAgICAgICAgICAgICAgICAgICAgICAgICAgICAgICAgICAgICAgICAgICAgIC AgICAgICAgICAgICAgICAgICAgICAgICAgICAgICAgICAgDQogICAgICAgICAgICAgICAgICAgICAgIC AgICAgICAgICAgICAgICAgICAgICAgICAgICAgICAg ICAgICAgICAgICAgICAgICAgICAgICAgICAgICAgICAgICAgICAgICAgICAgDQogICAgICAgICAgICAg ICAgICAgICAgICAgICAgICAgICAgICAgICAgICAgICAgICAgICAgICAgICAgICAgICAgICAgICAgICAg ICAgICAgICAgICAgICAgICAgICAgICAgICAgDQogIC AgICAgICAgICAgICAgICAgICAgICAgICAgICAgICAgICAgICAgICAgICAgICAgICAgICAgICAgICAgIC AgICAgICAgICAgICAgICAgICAgICAgICAgICAgICAgICAgICAgDQogICAgICAgICAgICAgICAgICAgIC AgICAgICAgICAgICAgICAgICAgICAgICAgICAgICAg ICAgICAgICAgICAgICAgICAgICAgICAgICAgICAgICAgICAgICAgICAgICAgICAgDQogICAgICAgICAg ICAgICAgICAgICAgICAgICAgICAgICAgICAgICAgICAgICAgICAgICAgICAgICAgICAgICAgICAgICAg ICAgICAgICAgICAgICAgICAgICAgICAgICAgICAgDQ ogICAgICAgICAgICAgICAgICAgICAgICAgICAgICAgICAgICAgICAgICAgICAgICAgICAgICAgICAgIC AgICAgICAgICAgICAgICAgICAgICAgICAgICAgICAgICAgICAgICAgDQogICAgICAgICAgICAgICAgIC AgICAgICAgICAgICAgICAgICAgICAgICAgICAgICAg ICAgICAgICAgICAgICAgICAgICAgICAgICAgICAgICAgICAgICAgICAgICAgICAgICAgDQogICAgICAg ICAgICAgICAgICAgICAgICAgICAgICAgICAgICAgICAgICAgICAgICAgICAgICAgICAgICAgICAgICAg ICAgICAgICAgICAgICAgICAgICAgICAgICAgICAgIC AgDQogICAgICAgICAgICAgICAgICAgICAgICAgICAgICAgICAgICAgICAgICAgICAgICAgICAgICAgIC FwCCDlUADwIALsNZKqQVVyWMQxOPLxBCAsQGEpHKQfGYLbJYTwLANlGIWrFNr3Z9zrGPPlJAXbRF3uRB d3Jz8+XHtNMoTwODA8mbHjhP4MJK1zg8YfFNliQIXz l7UqKDz0QZ1QGWXdJAjeDS3ASOczrt7IUKHlIVDmnJONs3gaRlOrBMG0JSXzVvzuNM8HJEDmM6abiaTw DTQyYWIKDSqnJHRSOLvkAFPBGHOeIPPyTzYeJrXrIBVvSSFsLNZXHUF5AKNcGvKlDAYpULNqLkKgQHKT EIWdZRTdGlCbVCKtOXYlKsgjTYKIPWR6WNYbFhSaCJ oeTZ1Xl5HrvMUxBx1FLt5FByExTK6kym1FAUVyFESjEwoIQvj8GXihJP1BcJUwnTO6WxJxQPCNDpAdC3 quw5FkDUUnWICNTOfeZP0Hd4EfeWUiRCf+Bx4SPZ6ns3FcCKe4RsNaST6gat9ZRTtZCsFuQ1MclZrhER qbPILqsCJZjLfbnU2pGNVNsGKfLUPHUWDrmPLbRm0b LS8cICYyZOG6SaUbCQXYGN8QJVQtOQDiiSXzNRAvWCZCGV0JPTszPAJ8SPYalxFwfKSrLWnlHS5MEDTt bnQgNTIgMCBSDQo+Yq0JFR5kj4PnNOa4TKGcCB7fuh7GPVeTTkDzX4Q9jMKcM6R2CPvdGm3HLSMgPHKj IGQfCESPPWgxMO4BJF8ajyC4JJ4EoSYrPETeJRFdxG BcEOs5W99unWGtVXldYI6BTIL+Paolo+Wc5LNBGbXZZkFNUdCdCrBRYSFcEjI7RaV5TTi4GbZ7FrCJ43cE xdlmWsYKboGD1JGL7sBDJwJZPJAF0IpFFmxN2ebsR8BhJaOHCDLlZfA21jiPNqUBGuYPMaCELbTa8NAQ NnR5UnndUorVvhskWcDMDkJNSTQZ4HAPslkuBdyOXt ePxsGR48wXmkZS5ZQa5NGzSaFP3fjv5BcJPgGo4RNMU8LP3FPPIlJJEbEWPiOHQ3PFIaHvNtIOedOWYe IBSdCIE0PKNeTYQkFD1JMqEcBYGdJHetTpKqPZMiRUQuiw7RMWBpNTX3MHdsGYPaFCUqJWPxXIknHWVd YAWvGSQ1ARWqGZDzHT1SPzDcLJUhKOP2FRFqNUTpCA Zpgs2UGCIcLHXyFuszTgFrLCLyLXGnFDoiFOMwHQL7FTvhTZDkLUYoOX6TYoHnICXzXJYvZuMaLLPhJA Nkyp9FUOCpYYXfMdP9FoQaZHPjULJaMEuuKHWaEHG4KJOyIMNtGADnGU4DIzDuTQWjURf3SGBgTZTzVJ Fezi4AFCZnSYHlOTc8JbFrXKWxHVWoLLyhXERfSOXj KiFrBXNlBBEuOL2KGiRuMCYkTZF8ECWlERSnBHYuqs0ULOSpAUHwVHMeKUTeCKMxGDIpEHhkAGXkWXX9 IbKtSSUyPHMyIL1HEnKaZAXkETZpMWgpKJUzPVXccu3PPLLlBMGgNtY4DYMwEZGuYAKiEXjtYFDcVLA8 HsT1ISMgLBMyMM3RUhBrAADuFVp6FvRpWJRzTMCqtj 4WVQHdOIOyHGc1WuDcTDJrXFGdSUonPZDuWPBrCeAjPAZwTQSiSB4AVtSpRZYxIrBgGzSvSUOpILYwbq 8HEQBdVYJqXxDrBsYmURBsTKHtIGsfWIWvPWN4BTy0RRSyTMByUL9CPsEiZRKvKvO8XBJfDHWtGIMbzq 4UPGXsXTCkOzsoWHGpCOLaDAHjMQjaCAZfIYV9QJN6 KXGpNEZvLU4LHlHrWPOcCtn1FeWkVBAvLQRsge3MTHGfTNCbLYU1QBDlXTYnVZKlJOyfOJXlSAV0GIw5 QRPcTPAqOW8YCzVzRVNuIjg5OMMvSPNcDPWxpj6JCCHkRIAeGLn1MQBgDPWfLUKrWXpzUCZyXMNyOTM3 VRJaYPDsWN5QGmYeUDKePrDsHDLgZOWvAPXyrd0KCK YuUQGkQYBdYDGyCJPwXJBoFXctJXLhWRDrAkd0FTNjHAHtUK3EOmKjTOZoYkR1DWYvFDKgIYBygg3UWR WmRCAnMjL1FDUqRMAcPVBwKDpzYYTaSQHnJcJrJHGeEPQrHJ6DJkNvKXUrUiE9TTOcZIZpOGMsbn2OLL UtZIYmKRQuSPNrLCEkGNWcOEbmLBJvMYQ3XAi4EPOl NABbQA9FHeKyFRRoLUnxFJBzVZPkMRIrsb5PMHNzKED8YbDlHFSdVNLyMXYoSKkzZFHgXYH6YmO6ETLy ZAJbJC3QAcFsBBAzLIl6MTvtNMSeBRRdfm0CKLCeSAZ7YRpsDRHcQBOtYOGnYXhrHIEgXYR9OBLiIWIw JNAaRO1MIwNyOUEzUXhcFVTcHMYjXWLrhf3ZWWMiTP U5PEW3LCQzCERlKJMaCGjoZYOaNIRqMGkpNNZlNESwBV0NGrYcBIAgSRScHDXaXVGdYIYdjv8HWLEmCL W9XYF3FBJzUJNcSXJrHLp6azHcwRZfFVy4RM3GU1ExdwQdKUTUVz8Ut862SBJ8OTBkNl6AY7mnMk7iJV QhJKEQLq9YQHq6RUK0TsOiMcR7ZRJcTOXkVtDzXVX8 YkQ0RCI7EQZ5JFQ+VFrsDCxlHfRkBGuoDGC1GSOwDMYvKRgsHVH4OufxORpyOM5xVTIRGt5+DQpzdGFy oRriPXPRBbVjPEZ2HLbuIXNACl4Y ID Date Data Source [id number] 07/31/2020 05:35:00 PM EST [facility] Name Value Range Interpretation Code Description Data Jammie rce(s) Supporting Document(s) AMPHETAMINE+METHAMPHETAMINE SCREEN ([place]) IN URINE Negative (Cutoff: 1000 ng/mL) [facility] Drug of Abuse tests are screening result s only.Positive results are not confirmed by independent methodsand should be used for medical (treatment) purposes only.Unconfirmed screening results should not be used fornon-medical purposes(employment or legal testing). BENZODIAZEPINES ([place]) IN URINE BY SCREEN METHOD Negative (Cutoff: 200 ng/mL) [facility] CANNABINOID ([facility]) IN URINE BY SCREEN METHOD Negative (Cutoff: 50 ng/mL) Abnormal (applies to non-numeric results) [facility] ices COCAINE ([place]) IN URINE BY SCREEN METHOD Negative (Cut off: 300 ng/mL) [facility] BARBITURATES PRESENCE IN URINE BY SCREEN METHOD Negative (Cutoff: 200 ng/mL) [facility] OPIATES ([facility]) IN URINE BY SCREEN METHOD Negative (Cut off: 300 ng/mL) [facility] Please note that the Opiate assay does n ot detect Oxycodone and Metabolites. CREATININE IN URINE FOR UDS >30.0 [facility] ID Date Data Source [id number] 07/31/2020 05:06:00 PM EST [facility] Name Value Range Interpretation Code Description Data Jammie rce(s) Supporting Document(s) COLOR OF URINE Yellow, Light Yellow, Straw, Clear, Colorle ss, Dark Yellow [facility] CLARITY OF URINE Clear [facility] PH OF URINE 5.0, 5.5, 6.0, 6.5, 7.0, 7.5 [facility] LEUKOCYTE ESTERASE PRESENCE IN URINE BY TEST STRIP Negativ e, Trace [facility] NITRITE PRESENCE IN URINE Negative [facility] PROTEIN IN URINE BY TEST STRIP Negative, Trace [facility] GLUCOSE IN URINE Normal [facility] BILIRUBIN, PRESENCE IN URINE Negative [facility] SPECIFIC GRAVITY OF URINE 1.005-1.030 [facility] KETONES (MG/DL) IN URINE Negative, Trace [facility] UROBILINOGEN (MG/DL) IN URINE Normal Ab normal (applies to non-numeric results) [facility] HEMOGLOBIN PRESENCE IN URINE Negative [facility] ID Date Data Source [id number] 07/31/2020 04:36:00 PM EST [facility] Name Value Range Interpretation Code Description Data Jammie rce(s) Supporting Document(s) SARS-CoV-2 RNA Resp Ql NITO+probe [facility] This lab was ordered by [facility] and reported by [facility]. ID Date Data Source [id number] 07/31/2020 06:31:00 PM EST [facility] Name Value Range Interpretation Code Description Data Jammie rce(s) Supporting Document(s) INFLUENZA A DNA BY NAAT Negative [facility] INFLUENZA B DNA BY NAAT Negative [facility] RESPIRATORY SYNCYTIAL VIRUS DNA BY NAAT Negative [facility] ID Date Data Source [id number] 07/31/2020 06:24:00 PM EST [facility] Name Value Range Interpretation Code Description Data Jammie rce(s) Supporting Document(s) SARS-COV-2 BY NAAT Negative, Indeterminate [facility] NUCLEIC ACID SEQUENCES OF THE 2019 NOVEL CORONAVIRUSWERE NOT DETECTED BY NAAT.NOTE: THIS TEST WAS DEVELOPED FOR THE PURPOSE OFDIAGNOSTIC TESTING TO ALLOW FOR RAPID RESPONSEDURING A DECLARED PUBLIC HEALTH EMERGENCY AND HASEUA CLEARANCE FROM THE FDA. NEGATIVE RESULTS DO NOTPRECLUDE 2019_nCoV INFECTION AND SHOULD NOT BEUSED THE SOLE BASIS FOR PATIENT MANAGEMENT DECISIONS. ID Date Data Source [id number] 07/31/2020 04:11:57 PM EST [facility] -REPORT:HISTORY: Hallucinations.TECHNIQU E: Multiple axial images of the brain are submitted for review.COMPARISON: MRI of the brain dated March 29, 2015. Head CT dated 2014.FINDINGS: There is no hydrocephalus. There is no midline shift. There isno acute intracranial hemorrhage. There is no extra-axial fluidcollection. There is no CT evidence for acute large territorialinfarction. No depressed skull fracture is identified. Visualizedparanasal sinuses and mastoid air cells are well aerated.IMPRESSION:There is no acute intracranial hemorrhage or mass effect.TECHNICAL NOTE: This CT exam was performed using one or more of thefollowing dose reduction techniques: automated exposure control,adjustment of the mA and/or kV according to patient size, and/or use ofiterative reconstruction techniques.DWS: [id number] SIGNATURE: Angelo Rosado MD Name Value Range Interpretation Code Description Data Jammie rce(s) Supporting Document(s) ID Date Data Source [id number] 07/31/2020 04:03:40 PM EST [facility] Name Value Range Interpretation Code Description Data Jammie rce(s) Supporting Document(s) ED Procedure [facility] UTPIZg3iQoEDCqIa65/CZXphNESqz5JcQXupJKy0KGfeHCFlX3VfPHR8xP6wJYU3VIdWNiSpOkBtJrZ9 lbm [file] ICAgICAgICAgICAgICAgICAgICAgICAgICAgICAgIC LpDVNsYKAlVLCaVWIlQFEoOQSsYJCpSAKeXDRxTQIdXZZtUTMjGPFrKZRhRHBdSHNeGLPzWL5KOEFfVJ AgICAgICAgICAgICAgICAgICAgICAgICAgICAgICAgICAgICAgICAgICAgICAgICAgICAgICAgICAgIC AgICAgICAgICAgICAgICAgICAgICAgICAgICAgICAg HMToRI4IVHZeJUDbHUNoHSPhHUEiMSKdUQRwFZTaMKLxTXJsRKLsBVZyFQHsPSRjMMEyMQLgCZYgYGRm PFYyOQDuIOMaXHHpJEVjHVUmCBOfJGKgHYZjIYYdBRYiSKYgDAVgHVFzGSZxGX6DKIUuDRPtEKMnARJg ICAgICAgICAgICAgICAgICAgICAgICAgICAgICAgIC LdMDNlJPWuDTGeHWJkPJSsMNZyASYrGBOwIAJrMFBvWAVsPJPnRNStHMZuISKjPZBrQQSfWAIrHE5MXA AgICAgICAgICAgICAgICAgICAgICAgICAgICAgICAgICAgICAgICAgICAgICAgICAgICAgICAgICAgIC AgICAgICAgICAgICAgICAgICAgICAgICAgICAgICAg JQYeXVTbGW5CEOUtHVQrLTJeDGFzUMJnYEKvYIYdNFDkMOLkDBBhMZWpEJZuYOTwUDJvYKAqWJPsZCWy BVIeKMNkVLWpTMQzJIPqMFArPTTeLBMtFTYhHTNiAHYcBRWuFEHmSOWtHAKgWKNdHP4LSVYrPPMwPWKi ICAgICAgICAgICAgICAgICAgICAgICAgICAgICAgIC AgICAgICAgICAgICAgICAgICAgICAgICAgICAgICAgICAgICAgICAgICAgICAgICAgICAgICAgICAgIA 0KICAgICAgICAgICAgICAgICAgICAgICAgICAgICAgICAgICAgICAgICAgICAgICAgICAgICAgICAgIC AgICAgICAgICAgICAgICAgICAgICAgICAgICAgICAg DYXkTCShKLPhCC7HNSEwIVGsRLAfJAWsOHPxQGIsSYEfKQCgQADgPNJoYALkJVZsAGWoXRRzGHVcQWKj CUKyCALbMMSbKVPnCBInVWUzVINaDXDaOJUgBKGqFZMvAEDnLAOrGULoNORsVEYiVPMyYO1JMB23bSXf r1L7EJJuGJ6ajfi/Jw2CYKawwyRdaYNvHJ7SJgFuVC 0yxy7RRhZlOT4ibe2KOHpZMfQdX9T5kAQuXBTxXLYGWeCvR24fMZqyJp59ZBwrXVRfNlRqDFz5Tq1ORn MjM5msXTCaKyX4USLbLfX2VWIbWfOsEYoqPX0Ap2FwaCRcTDw+Os9DVQ8my8KrHFnwYrTnLD5fli5ZBG jGAmPlL2ZgstF6YXT7NMKbEg0HXSHbMTIosLGdCJXq KVGAHlXuF1ClzO53RJPNRo1+EAvguzDoInvIExT3PETez3XlATd4ZC6WTMCpBNh7bMMoSBCxKVZqA2Vp eWKbBM9dxSIjZcotVGDfdYEyeFRfJENNZGAvVLldVRBHPTK7FELlGsS6HpNyWsZgPUK7CETkFN7gPUrf GN6QVWQ1ZHhzDKCmACHvX0hSHkDqBKz2EnOwcNzpZA 1DRtGeB0WquoRnsPBnZyQfWRDDTc7+HHydvaNaUuiXKxJ4XZShl2BwQPq9FL1IMOWkFGqlXX8KBTLhiV 7hRGpdWJ5ZXpNxXUNhEJCDDbLoU78tnFZlEUj3I3CzTzMsIQQgFsnwGUPoHUjaXyEdJPFcKxXpIEunZJ 4+ID4+YYohCH5TUCrhbjZlIZXiYy5RYLOhTZGhFJ9x CRMeDAZoR6I6rAhiAMQKJcLhR1rsattiDJ3bMWEdM123yCojieSmEOD3LRBnTk3TINIfNNW9FNSmcEAo BpCiXHGXSIveZG7UhMYrKRW2aD0vMJdkSROiMMLvP6jAImKbbSkqMT70dXdbaaKyeGXkXVt+Wy0VEV0a o0LjSMk9isOfCBhnORMcJPqoYYIjQPVoJMFiXRZ0BS B8XJFVPyKxHBWeBSJiKHanICKxLGZyks3RUZKjVOLdZGAfHNScSKLhPZDlAEppKBCoEAJqJbw4WSIlHE EbRB8FHxGtUCDuBRCsLPnoERZbJJVgud2LPYMtOYAhUjU4DXMoGMYfNQOgKCipTKRyWFDcOgUvAKYiOU KwOW4UQmXjYPFzADS9EWDnBCGcEWMhne1BXSJrVWDq Xak3SSBcOJMgHWNkPCujQTSeSDWyTMMjHGWhODNnLT4ZOdRqJHDcCKJwEQHeDDNoHLPahz0ASEEuFDTe FYB9HTGeRRDjPCZsQXriRQCtICI5UfKhYZLpKWSiPP1JSuThXFFmCFA3CEjsLNCaHYOano7QXLTuRBYq NNRkHTUaBUVoIXDuOSqvHEDoTUM5WXm6HHCiSPHsLI 0VSlZsHGAnIBoiLULrKMCcMTQmxn1YBHWrULGnVbGyUOFyKOOcJTEpGCcqVOGdMMA7ZqZ3WUBxBYWrQD 2SXtMtQJOmZVr1QTMrKPFmCURqlm5VXDEkQFEtEDzwQaTnPWCnRDVrXOvqRINuGYT9JWC9XOLfKZKwDF 3THoOvUZPhMBcoUJKuRVAzFUSthn0POTRwMDCcMJT1 QIRfNRDiSYOnQBadHEKmSDJrFiD6AUAlIXRxIN5TPuMmWKIuHmY8CQRhIAEjUYKoyg5SJKJdFUJaZCev NSQzYAHcQCVmJYdyEORoHLRlWud2QAUuWTMkBU9QOjJaDSEjSlW1CBEwKYTkKNIcpj9BNGRoGNWhEsIv MtVcANLiBKTsTKp6omHxwOQcKDk6AY4TZ7XebuGxLo UWQq7Zj508ZNC5XYVkIo4WQ8joTf6mPOUsFSGNKq0MDAt3MDTkVYvlAYC6IYIjP6QlPactBcK1MQn2Ls [id number] ID Date Data Source [id number] 07/31/2020 03:50:51 PM EST [facility] -REPORT:PROCEDURE: XR CHEST 1 VIEWDATE A ND TIME: 07/31/2020 3:10 PM ESTHISTORY: Hallucinations. Sarcoidosis. Rib pain.COMPARISON: April 15, 2019.TECHNIQUE: Portable erect AP chest.FINDINGS: The lungs are clear and the heart, hilar and mediastinalshadows are unremarkable. There is resection of left distal clavicle.IMPRESSION:No acute pulmonary disease.DWS: [id number] SIGNATURE: Nate Pina MD Name Value Range Interpretation Code Description Data Jammie rce(s) Supporting Document(s) ID Date Data Source [id number] 07/31/2020 08:22:00 PM EST [facility] Name Value Range Interpretation Code Description Data Jammie rce(s) Supporting Document(s) THYROTROPIN (MIU/L) IN SER/PLAS BY DETECTION LIMIT <= 0.05 MIU/L 0.465-4.680 [facility] ID Date Data Source [id number] 07/31/2020 04:47:00 PM EST [facility] Name Value Range Interpretation Code Description Data Jammie rce(s) Supporting Document(s) ACETAMINOPHEN (UG/ML) IN SER/PLAS 3.0-30.0 ug/mL [facility] ID Date Data Source [id number] 07/31/2020 04:47:00 PM EST [facility] Name Value Range Interpretation Code Description Data Jammie rce(s) Supporting Document(s) C REACTIVE PROTEIN (MG/L) IN SER/PLAS <=0.9 Above hig h normal [facility] ID Date Data Source [id number] 07/31/2020 04:47:00 PM EST [facility] Name Value Range Interpretation Code Description Data Jammie rce(s) Supporting Document(s) CREATINE KINASE (U/L) IN SER/PLAS 39-308 [facility] ID Date Data Source [id number] 07/31/2020 04:34:00 PM EST [facility] Name Value Range Interpretation Code Description Data Jammie rce(s) Supporting Document(s) HIV-1 AND HIV-2 ANTIBODIES Non-reactive [facility] A non-reactive result indicates that HIV -1/O/2 antibodies or p24 antigen have not been detected. However, it does not preclude previous exposure of infection with HIV-1/O/2.All reactive results are referred for confirmatory testing by [facility] (EMANUEL).Only samples which give "reactive" results by both HIV-1/O/2 EIA and NATConfirmatory testing should be considered positive for HIV-1/O/2 antibodies.For specimens originating in [facility] the physician or other healthcare providers authorized to order HIV testing must certify that the person tested must be given informed written consent for this test, pursuant [facility] Law 27-F. Informed consent includes explanation of the test, meaning of results, benefits of diagnosis and intervention. Post testcounseling is provided at the time the test results are reported to thepatient when appropriate. This information is protected by [facility] and cannot be disclosed without written permission. HIV-1 P24 AG Non-reactive [facility] ID Date Data Source [id number] 07/31/2020 04:28:00 PM EST [facility] Name Value Range Interpretation Code Description Data Jammie rce(s) Supporting Document(s) TROPONIN I.CARDIAC (NG/ML) IN SERUM OR PLASMA [facility] <0.034 Normal0.034-0.119 Indeterminate>/ = 0.120 Abnormal ID Date Data Source [id number] 07/31/2020 04:17:00 PM EST [facility] Name Value Range Interpretation Code Description Data Jammie rce(s) Supporting Document(s) MAGNESIUM (MG/DL) IN SER/PLAS 1.6-2.4 [facility] ID Date Data Source [id number] 07/31/2020 04:17:00 PM EST [facility] Name Value Range Interpretation Code Description Data Jammie rce(s) Supporting Document(s) LIPASE (U/L) IN SER/PLAS <300 [facility] ID Date Data Source [id number] 07/31/2020 04:17:00 PM EST [facility] Name Value Range Interpretation Code Description Data Jammie rce(s) Supporting Document(s) SALICYLATES (MG/DL) IN SER/PLAS 2.0-20.0 mg/dL [facility] ID Date Data Source [id number] 07/31/2020 04:17:00 PM EST [facility] Name Value Range Interpretation Code Description Data Jammie rce(s) Supporting Document(s) SODIUM (MMOL/L) IN SER/PLAS 135-146 [facility] POTASSIUM (MMOL/L) IN SER/PLAS 3.5-5.3 [facility] CHLORIDE (MMOL/L) IN SER/PLAS 98-107 [facility] CARBON DIOXIDE, TOTAL (MMOL/L) IN SER/PLAS 21-32 [facility] ANION GAP IN SER/PLAS 5-15 [facility] UREA NITROGEN (MG/DL) IN SER/PLAS 7-23 [facility] CREATININE (MG/DL) IN SER/PLAS 0.7-1.3 [facility] UREA NITROGEN/CREATININE (MASS RATIO) IN SER/PLAS [facility] GLUCOSE (MG/DL) IN SER/PLAS 65-99 [facility] CALCIUM (MG/DL) IN SER/PLAS 8.4-10.4 [facility] ASPARTATE AMINOTRANSFERASE (SGOT) (U/L) IN SER/PLAS <59 [facility] ALANINE AMINOTRANSFERASE (SGPT) (U/L) IN SER/PLAS <50 [facility] ALKALINE PHOSPHATASE (U/L) IN SER/PLAS 38-126 [facility] PROTEIN (G/DL) IN SER/PLAS 6.3-8.2 [facility] ALBUMIN (G/DL) IN SER/PLAS 3.5-5.0 [facility] ALBUMIN/GLOBULIN (G/G RATIO) IN SER/PLAS [facility] BILIRUBIN TOTAL (MG/DL) IN SER/PLAS 0.0-1.3 [facility] GLOMERULAR FILTRATION RATE ML/MIN/1.73 SQ M.PREDICTED >60 [facility] ID Date Data Source [id number] 07/31/2020 04:17:00 PM EST [facility] Name Value Range Interpretation Code Description Data Jammie rce(s) Supporting Document(s) ETHANOL (G/DL) IN SER/PLAS <0.01 [facility] This test is for medical use only ID Date Data Source [id number] 07/31/2020 03:49:00 PM EST [facility] Name Value Range Interpretation Code Description Data Jammie rce(s) Supporting Document(s) LEUKOCYTES(10*3/UL) IN BLOOD BY AUTOMATED COUNT 4.0-10.5 Above high normal [facility] ERYTHROCYTES (10*6/UL) IN BLOOD BY AUTOMATED COUNT 4.00-5. 80 [facility] HEMOGLOBIN (G/DL) IN BLOOD 13.0-18.0 [facility] HEMATOCRIT (%) IN BLOOD BY AUTOMATED COUNT 37.0-50.0 [facility] ERYTHROCYTE MEAN CORPUSCULAR VOLUME (FL) BY AUTOMATED COUNT 77.0-100.0 [facility] ERYTHROCYTE MEAN CORPUSCULAR HEMOGLOBIN (PG) BY AUTOMATED COUNT 26.0-33.0 [facility] ERYTHROCYTE MEAN CORPUSCULAR HEMOGLOBIN CONCENTRATION (G/DL) BY AUTOMATED 31.0-36.0 [facility] ERYTHROCYTE DISTRIBUTION WIDTH (RATIO) BY AUTOMATED COUNT 12.0-17.0 [facility] PLATELET MEAN VOLUME (FL) IN BLOOD BY AUTOMATED COUNT 8.0- 12.0 [facility] NEUTROPHILS/100 LEUKOCYTES IN BLOOD BY AUTOMATED COUNT 35. 0-78.0 [facility] LYMPHOCYTES/100 LEUKOCYTES IN BLOOD BY AUTOMATED COUNT 20. 0-42.0 [facility] MONOCYTES/100 LEUKOCYTES IN BLOOD BY AUTOMATED COUNT <=15. 0 [facility] EOSINOPHILS/100 LEUKOCYTES IN BLOOD BY AUTOMATED COUNT <=1 0.0 [facility] BASOPHILS/100 LEUKOCYTES IN BLOOD BY AUTOMATED COUNT <=2.0 [facility] NEUTROPHILS (10*3/UL) IN BLOOD BY AUTOMATED COUNT 1.40-8.4 0 [facility] LYMPHOCYTES (10*3/UL) IN BLOOD BY AUTOMATED COUNT 1.00-4.0 0 [facility] MONOCYTES (10*3/UL) IN BLOOD BY AUTOMATED COUNT <=1.50 [facility] EOSINOPHILS (10*3/UL) IN BLOOD BY AUTOMATED COUNT <=0.70 [facility] BASOPHILS (10*3/UL) IN BLOOD BY AUTOMATED COUNT <=0.10 Above high normal [facility] PLATELETS (10*3/UL) IN BLOOD AUTOMATED COUNT 125-425 [facility] IMMATURE NEUTROPHILS/100 LEUKOCYTES IN BLOOD BY AUTOMATED COUNT <=0.5 [facility] IMMATURE NEUTROPHILS (10*3/UL) IN BLOOD BY AUTOMATED COUNT <=0.40 [facility] ID Date Data Source [id number] 07/14/2020 05:35:[address] [place] [facility] katz - [facility], [facility] EXAM:XR SWALLOWING FUNCTION W/ VIDEOMRN: [id number] PROVIDER:, PGY-1 Osiris Walker MD, PGY-1CLINICAL HISTORY:50-year-old male history of dysphagia.This procedure was performed by VONNIE Jimenes under the directsupervision of Valerio Madrid M.D..COMPARISON STUDY:NoneTECHNIQUE:A swallowing evaluation was performed by the speech pathologist. The patientwas given various consistencies of barium. A video recording of the exam wasobtained. The fluoroscopy time is 1.4 minutes.FINDINGS:No penetration and/or aspiration is identified. There are no strictures noted.There is no abnormal pooling identified. Swallowing reflex and transit timeappeared to be within normal limits.IMPRESSION:Essentially an unremarkable video fluoroscopy. For clinical informationincluding feeding recommendations please refer to the speech pathologist'sreport.This document has been authenticated by Valerio Madrid MD on 07/14/2020 5:33 PM. Thank you for referring your patient to [facility]. Name Value Range Interpretation Code Description Data Jammie rce(s) Supporting Document(s) ID Date Data Source [id number] 06/14/2020 02:49:[address] [place] [facility] - [facility], [facility] EXAMINATION: US KIDNEYS AND BLADDERMRN: [id number] PROVIDER:Kobe Sánchez DATE: 06/14/2020 1:54 PMDATE OF : 1970HISTORY:Urinary retentionCOMPARISON: Retroperitoneal ultrasound 12/04/2019.TECHNIQUE: Routine sonographic images were obtained through the regions of the kidney,bladder and prostate.FINDINGSRIGHT KIDNEY:The right kidney measures 11.2 x 5.6 x 6.1 cm. The right cortex measures 2.4cm.. No focal abnormality, calculi, cyst or hydronephrosis identifiedLEFT KIDNEY:The left kidney measures 12.1 x 5.4 x 6.2 cm. The left cortex measures 1.4 cm.No focal abnormality, calculi, cyst or hydronephrosis identified.BLADDER:Grossly unremarkable on limited visualizationPROSTATE:The prostate measures 3.6 x 3.7 x 3.9 centimetersIMPRESSION:1. Unremarkable sonographic evaluation of the kidney/b ladderThis document has been authenticated by Valerio Barraza MD on 06/14/2020 2:47PM. Thank you for referring your patient to [facility]. Name Value Range Interpretation Code Description Data Jammie rce(s) Supporting Document(s) ID Date Data Source [id number] 06/14/2020 12:27:[address] [place] [facility] rdes - [facility], [facility] MYLES BEVERLY BPATIENT IDENTIFICATION:[facility] Name: MYLES BEVERLY BMedical Record Number: [id number] Of : 1970CHIEF COMPLAINT:Patient presents for follow up with HX HTN and echo completed 06/03/2020. C/OSOB at rest andwith exertion, occasional BLE edema, occasional palpitations, daily postruallightheadednss withoccasional episodes of presyncope and denies CP.HISTORY OF PRESENT ILLNESS:49-year-old man with past medical history ofhypertension, asthma Parkinson, dementia.Patient was previously seen complaining mostly of neurological symptoms.He was also mentioning chest discomfort which is nonexertional and stablefor the last 10 years. Chest pain has improved since he lost weight recently. His shortness ofbreath was attributedto asthma and also improved.No interval changes since last appointment. He denies chest pain.He continues to smoke. Denies orthopnea or PND.His previous echocardiogram from 2015 showed mildly reduced systolicfunction with ejectionfraction of 45 to 50%.Follow-up echocardiogram from June 03, 2020 showed normal systolicfunction ejection to 65% with trace mitral regurgitation. REVIEW OF SYSTEMS:All 10 point review of systems were obtained and all are negative other thanthe ones mentionedin history of present illness. PROBLEM LIST/PAST MEDICAL HISTORY:OngoingAsthmaAtopic dermatitisChest painDementiaDepression with anxietyDyspneaEchocardiogram abnormalGERD (gastroesophageal reflux disease)HyperlipemiaHypertensionIBS (irritable bowel syndrome)InsomniaLumbar herniated discLump in neckMemory lossNumerous molesOnychomycosis of toenailOsteoarthritisParkinsonismParkinsons diseasePolycythemiaPoor sleep patternRLS (restless legs syndrome)SarcoidSolar lentigoTourette syndromeTremorUnstable gaitUTI (urinary tract infection) with pyuriaVitamin D deficiencyHistoricalAbdominal pain in maleAcute gastroenteritisAcute URIAtypical chest painDiarrheaDizziness - light- headedExposure to potentially hazardous body fluidsFoot painGastroenteritis and colitis, viralHA (headache)HTN (hypertension)Lower leg edemaNausea and vomitingPROCEDURE/SURGICAL HISTORY:Procedure on wrist (Procedure on wrist)Biopsy of LiverCurettage of Calcaneus Bone CystArthroscopy Shoulder LeftBiopsy Lung PercutaneousCyst removed from lip as childSOCIAL HISTORY:AlcoholAlcohol Use Current. 1-2 times per month, 05/07/2019Alcohol Use Current., 09/20/2017Substance UseDrug Use Current. Marijuana, Daily, 07/24/2018Tobacco/Nicotine4 packs per month Use:., 06/14/2020FAMILY HISTORY:Anxiety: Patient.Brain tumor: Mother.Degenerative disc disease: Father.Gout: Father.Heart attack: Mother and Father.Hyperlipidemia.: Patient.Hypertension: Patient.Sarcoidosis: Patient.ALLERGIES:NKAHome Medications:Home Medications (31) ActiveMisc Medication (blood pressure cuff) Se e Instructions, Taking as prescribed;dose verified,(Special Instructions: take blood pressure daily) Misc Medication (cane) See Instructions, Taking as prescribed; dose verified,(SpecialInstructions: to use with ambulation) Misc Medication (held shower head) See Instructions, Taking as prescribed;dose verified,(Special Instructions: to use when showering) Misc Medication (shower bench) See Instructions, Taking as prescribed; doseverified, (SpecialInstructions: to use with showering) Misc Rx Supply (Please provide a CPAP compliance in 2 weeks) SeeInstructions, Taking asprescribed; dose verified, (Special Instructions: PHC) Misc Rx Supply (right wrist brace/splint) See Instructions, Taking asprescribed; dose verified,(Special Instructions: m25.531) Misc Rx Supply (Adjustable shower head) See Instructions, Taking asprescribed; dose verified,(Special Instructions: Use as Directed Dx: G20) Misc Rx Supply (Shower bench/chair) See Instructions, Taking as prescribed;dose verified,(Special Instructions: Use as Directed) Misc Rx Supply (Rollator/walker with brakes) See Instructions, Taking asprescribed; doseverified, (Special Instructions: Use as Directed) Misc Rx Supply (Hand held/adjustable shower he ad) See Instructions, Takingas prescribed; doseverified, (Special Instructions: Use as Directed) bifidobacterium-lactobacillus (Probiotic Formula oral capsule) 1 cap(s), PO(oral), qDay, Takingas prescribed; dose verifiedbusPIRone (busPIRone 30 mg oral tablet) 30 mg = 1 tab(s), PO (oral), bid,Taking as prescribed;dose verifiedcarbidopa-levodopa (Sinemet 25 mg-100 mg oral tablet) 1 tab(s), PO (oral),qid, Taking asprescribed; dose verifiedcarbidopa-levodopa (carbidopa- levodopa 25 mg-100 mg oral tablet, extendedrelease) 1 tab(s), PO(oral), at bedtime, Taking as prescribed; dose verifiedcholecalciferol (Vitamin D3 1000 intl units (25 mcg) oral capsule) 1,000IUnits = 1 cap(s), PO(oral), qDay, Taking as prescribed; dose verifiedgabapentin (gabapentin 300 mg oral capsule) 300 mg = 1 cap(s), PO (oral),qAM, Taking asprescribed; dose verifiedgabapentin (gabapentin 300 mg oral capsule) 900 mg = 3 cap(s), PO (oral), atbedtime, Taking asprescribed; dose verifiedginkgo (Ginkgo Biloba) , PO (oral), qDay, Taking as prescribed; dose verifiedhydrOXYzine (hydrOXYzine hydrochloride 25 mg oral tablet) 25 mg = 1 tab(s),PRN, PO (oral), tid,Taking as prescribed; dose verifiedhydroCHLOROthiazide (hydroCHLOROthiazide 12.5 mg oral tablet) 12.5 mg = 1tab(s), PO (oral),qDay, Taking as prescribed; dose verified, (Special Instructions: patient-needsmedicaid provider) levothyroxine (levothyroxine 25 mcg (0.025 mg) oral tablet) 25 mcg = 1tab(s), PO (oral),qOTHERday, Taking as prescribed; dose verifiedmelatonin (Melatonin 2.5 mg oral capsule) 2.5 mg = 1 cap(s), PO (oral), atbedtime, Taking asprescribed; dose verifiedmetoprolol (metoprolol tartrate 25 mg oral tablet) 25 mg = 1 tab(s), PO(oral), bid, Taking asprescribed; dose verifiedmometasone nasal (Nasonex 50 mcg/inh nasal spray) 2 spray(s), Nasal, qDay,Taking as prescribed;dose verified, (Special Instructions: INHALE 2 SPRAYS NASALLY EVERY DAY) multivitamin (Vitamin B Complex oral capsule) 1 cap(s), PO (oral), qDay,Taking as prescribed;dose verifiedomega-3 polyunsaturated fatty acids ([place]-3 oral capsule) 1 cap(s), PO(oral), qDay, Taking asprescribed; dose verifiedomeprazole (omeprazole 20 mg oral delayed release capsule) See Instructions,Taking asprescribed; dose verified, (Special Instructions: take 1 capsule by mouth oncedaily)rosuvastatin (Crestor 5 mg oral tablet) 5 mg = 1 tab(s), PO (oral), qDay,Taking as prescribed;dose verifiedtamsulosin (tamsulosin 0.4 mg oral capsule) 0.8 mg = 2 cap(s), PO (oral),qDay, Taking asprescribed; dose verifiedvalsartan (valsartan 320 mg oral tablet) 320 mg = 1 tab(s), PO (oral), qDay,Taking asprescribed; dose verifiedvenlafaxine (venlafaxine 150 mg oral capsule, extended release) 150 mg = 1cap(s), PO (oral),qDay, Taking as prescribed; dose verified, (Special Instructions: TAKE 1CAPSULE BY MOUTH EVERYDAY) PHYSICAL EXAM:VITALS:BP: 144/107 HT: 180 cm WT: 109.7 kg BMI: 33.9 General- Patient is sitting comfortably with no apparent distress.Head- atraumatic and normocephalic.Neck supple no JVD appreciated.Cardiovascular regular S1 and S2 no murmurs gallops or rubs.Lungs clear to auscultation bilaterally.Abdomen soft nontender.Extremities mild edema noted.Skin warm and dry.Neurologic- patient is alert and oriented 3 no focal deficits.Psychiatric- Normal affect LAB RESULTS:CHEMISTRYEst. Avg. Glucose: 111 mg/dL (05/24/20)Hgb A1c: 5.5 % (05/24/20)TSH: 1.4 mcIU/mL (05/24/20)PATHOLOGY RESULTS:Pathology Results No qualifying data available.DIAGNOSTIC RESULTS:No qualifying data available.EKG INTERPRETATIONSINUS RHYTHMBORDERLINE LEFT AXIS DEVIATION [QRS AXIS < - 20]MODERATE T-WAVE ABNORMALITY, CONSIDER LATERAL ISCHEMIA [-0.1+ mV T WAVE INI/aVL/V5/V6]ABNORMAL ECGPerformed By: Tamanna Herrera Signed Date: 06/14/2020 12:22 ASSESSMENT AND PLAN:1. Echocardiogram abnormal Patient has normal echocardiogram.No CHF symptoms, patient is advised to call for any worsening shortness ofbreath or chestdiscomfort.2. Hypertension Continue management by primary physician.3. Chest pain No episodes since last appoin tme.Previously had atypical chest pain, nonexertional for years which hasresolved recently. No qualifying data available.Medications Affected this Encounter:No Prescription Activity This EncounterAdded Patient Education Heart Disease Education Follow-Up Appointments With: Tamanna HerreraAddress: [facility] (), [address] [place] [address];[place], [place],[facility]; Business ()When: In 1 year(s) [1] Cardiology phone Visit GALA; Tamanna Herrera 12/11/2019 12:05 EDTThis document was authenticated by Tamanna Herrera MD on 06/14/2020 12:27 PM Name Value Range Interpretation Code Description Data Jammie rce(s) Supporting Document(s) ID Date Data Source [id number] 06/14/2020 12:14:[address] [place] Sh[facility] katz - [facility], [facility] TRANSTHORACIC ECHOCARDIOGRAMHeight: 180 cmWeight: 110 kgBP: 136 / 84SONOGRAPHER: Aysha Plascencia RDCS INDICATIONS: Chest pain (R07.9) Shortness of breath(R06.02) CONCLU SIONSSUMMARY:1. Left ventricle: The cavity size is normal. There is moderate concentric hypertrophy. Systolic function is normal. The estimated ejection fraction is 60-65%. Wall motion is normal; there are no regional wall motion abnormalities.2. Aortic valve: Thickening and calcification, consistent with sclerosis. STUDY DATA: Procedure: Transthoracic echocardiography wasperformed for diagnosis. Image quality was technicallylimited. Scanning was performed from the parasternal,apical, and subcostal acoustic windows. M-mode, [id number], complete spectral Doppler, and color Doppler. Studystatus: Routine. Patient status: Outpatient. Location:Echo laboratory. Objective: Diagnostic evaluation.LEFT VENTRICLE: The cavity size is normal. There ismoderate concentr ic hypertrophy. Systolic function isnormal. The estimated ejection fraction is 60-65%. Wallmotion is normal; there are no regional wall motionabnormalities. Diastolic function is normal.LEFT ATRIUM: The left atrium is normal in size.RIGHT VENTRICLE: The cavity size is normal. Wall thicknessis normal. Systolic function is normal.RIGHT ATRIUM: The right atrium is normal in size.ATRIAL SEPTUM: The septum is normal.AORTA: Aortic root: The aortic root is not dilated.AORTIC VALVE: Thickening and calcification, consistentwith sclerosis. Doppler: There is no stenosis. Noregurgitation.MITRAL VALVE: Doppler: There is no evidence forstenosis. No regurgitation.TRICUSPID VALVE: Doppler: There is no evidence forstenosis. Trivial regurgitation.PULMONIC VALVE: Doppler: There is no evidence forstenosis. Trivial regurgitation.PULMONARY ARTERY: PA peak pressure: 10 mm Hg (S).SYSTEMIC VEINS:Inferior vena cava: Diameter: 1.5 cm.PERICARDIUM: There is no pericardial effusion.----- Measurements IVC Value 05/25/2016 Reference Diameter (N) 1.5 cm 1.3 <2.0 Left ventricle Value 05/25/2016 Reference LV Diastolic (N) 4.4 cm 4.5 4.2 - 5.8 Dimension LV Systolic (N) 3.1 cm 3.4 2.5 - 4.0 Dimension LV PW thickness, (H) 1.3 cm 1.1 0.7 - 1.2 ED EF (Bi-Plane) (N) 66 % 50 52 - 74 LV stroke volume, 51 ml --------- Teichholz MM LV stroke 21.4 ml/m2 --------- volume/bsa, Teichholz MM LV e', lateral 8.49 cm/sec 14 --------- LV E/e', lateral 9 3 --------- LV e', medial 8.03 cm/sec --------- LV E/e', medial 10 --------- LV e', average 8.26 cm/sec --------- LV E/e', average 9 ----- ----- --------- Ventricular septum Value 05/25/2016 Reference Diastolic (H) 1.6 cm 1.1 0.7 - 1.2 Thickness LVOT Value 05/25/2016 Reference LVOT ID, S 2.1 cm --------- LVOT area 3 cm2 --------- Aortic valve Value 05/25/2016 Reference Aortic valve peak 1.5 m/sec 1.2 --------- velocity, S Aortic valve VTI, 30.8 cm 20.8 --------- S Mean gradient, S 5 mm Hg 3 --------- Aortic peak 9 mm Hg 6 --------- gradient, S Aorta Value 05/25/2016 Reference Aortic Root (N) 3.3 cm <4.4 Diameter Left atrium Value 05/25/2016 Reference LA volume, ES, 66 ml --------- 2-p RIA (N) 28 ml/m2 16 - 34 Mitral valve Value 05/25/2016 Reference Mitral E-wave 0.78 m/sec 0.46 --------- peak velocity Mitral A-wave 0.71 m/sec 0.54 --------- peak velocity Mitral 153 ms --------- deceleration time Mitral peak 2 mm Hg --------- gradient, D Mitral E/A ratio, 1.09 0.84 --------- peak Pulmonary arteries Value 05/25/2016 Reference PA pressure, S, 10 mm Hg --------- DP Tricuspid valve Value 05/25/2016 Reference Tricuspid regurg 1.4 m/sec 3.1 --------- peak velocity Tricuspid peak 7 mm Hg 38 --------- RV-RA gradient Systemic veins Value 05/25/2016 Reference Estimated RAP 3 mm Hg --------- Right ventricle Value 05/25/2016 Reference TAPSE (N) 2.9 cm 1.7 - 3.1Legend:(L) and (H) loulou values outside specified referencerange.(N) llanes values inside specified reference range.Electronically signed Tamanna Rosa06/14/2020 12:14 Name Value Range Interpretation Code Description Data Jammie rce(s) Supporting Document(s) ID Date Data Source [id number] 05/24/2020 02:44:[address] [place] Sh[facility] katz - [facility] Name Value Range Interpretation Code Description Data Jammie rce(s) Supporting Document(s) Hgb A1c 5.5 % <=5.7 [place] Dinorah roseann - [facility] The estimated average glucose was calcul ated using the [place] [employer] equation eAG = (28.7 X HbA1C) - 46.7In accordance with the ADA, the prediabetic A1c range = 5.7-6.4%The [place] Hemoglobin A1c assay should not be used to diagnose or monitor diabetes in patients with altered red cell lifespan, such as homozygous hemoglobin variants, HbS, HbC, HbF > 5% and hemolytic anemia. Est. Avg. Glucose 111 mg/dL [facility] ID Date Data Source [id number] 05/24/2020 02:21:[address] [facility] [facility] Name Value Range Interpretation Code Description Data Jammie rce(s) Supporting Document(s) TSH 1.40 mcIU/mL 0.36-3.74 [facility] ID Date Data Source [id number] 05/19/2020 03:55:[address] [facility] [facility] MYLES BEVERLY BPATIENT IDENTIFICATION:[facility]LY BMedical Record Number: [id number] Of : [id number] COMPLAINT:BP has been running highHISTORY OF PRESENT ILLNESS:MYLES BEVERLY is a 49 Years old Male who presents to the clinic thisafternoon for concernsabout elevated blood pressure. States that "every time I get up my bloodpressure shoots up [id number]." Reports that he feels light-headed when changing positions tooquickly. He feels like thisall has to do with his adrenal gland. He states that [place] as he feels like all of this is connected.Also complaining ofbilateral tingling and color changes to toenails. Is requesting referral topodiatrist.REVIEW OF SYSTEMS:Complete Review of Systems was performed and is negative unless statedotherwise in the HPI.PROBLEM LIST/PAST MEDICAL HISTORY:OngoingAsthmaAtopic dermatitisChest painDementiaDepression with anxietyDyspneaEchocardiogram abnormalGERD (gastroesophageal reflux disease)HyperlipemiaHypertensionIBS (irritable bowel syndrome)InsomniaLumbar herniated discLump in neckMemory lossNumerous molesOnychomycosis of toenailOsteoarthritisParkinsonismParkinsons diseasePolycythemiaPoor sleep patternRLS (restless legs syndrome)SarcoidSolar lentigoTourette syndromeTremorUnstable gaitUTI (urinary tract infection) with pyuriaVitamin D deficiencyHistoricalAbdominal pain in maleAcute gastroenteritisAcute URIAtypical chest painDiarrheaDizziness - light- headedExposure to potentially hazardous body fluidsFoot painGastroenteritis and colitis, viralHA (headache)HTN (hypertension)Lower leg edemaNausea and vomitingPROCEDURE/SURGICAL HISTORY:Procedure on wrist (Procedure on wrist)Biopsy of LiverCurettage of Calcaneus Bone CystArthroscopy Shoulder LeftBiopsy Lung PercutaneousCyst removed from lip as childSOCIAL HISTORY:AlcoholAlcohol Use Current. 1-2 times per month, 05/07/2019Alcohol Use Current., 09/20/2017Substance UseDrug Use Current. Marijuana, Daily, 07/24/2018Tobacco/Nicotine4 or less cigarettes(less than 1/4 pack)/day in last 30 days Use:.,05/07/2019FAMILY HISTORY:Anxiety: Patient.Brain tumor: Mother.Degenerative disc disease: Father.Gout: Father.Heart attack: Mother and Father.Hyperlipidemia.: Patient.Hypertension: Patient.Sarcoidosis: Patient.ALLERGIES:NKAHome Medications:Home Medications (28) ActiveMisc Medication (blood pressure cuff) See Instructions, Taking as prescribed;dose verified,(Special Instructions: take blood pressure daily) Misc Medication (cane) See Instructions, Taking as prescribed; dose verified,(SpecialInstructions: to use with ambulation) Misc Medication (held shower head) See Instructions, Taking as prescribed;dose verified,(Special Instructions: to use when showering) Misc Medication (shower bench) See Instructions, Taking as prescribed; doseverified, (SpecialInstructions: to use with showering) Misc Rx Supply (Please provide a CPAP compliance in 2 weeks) SeeInstructions, Taking asprescribed; dose verified, (Special Instructions: PHC) Misc Rx Supply (right wrist brace/splint) See Instructions, Taking asprescribed; dose verified,(Special Instructions: m25.531) Misc Rx Supply (Adjustable shower head) See Instructions, Taking asprescribed; dose verified,(Special Instructions: Use as Directed Dx: G20) Misc Rx Supply (Shower bench/chair) See Instructions, Taking as prescribed;dose verified,(Special Instructions: Use as Directed) Misc Rx Supply (Rollator/walker with brakes) See Instructions, Taking asprescribed; doseverified, (Special Instructions: Use as Directed) Misc Rx Supply (Hand held/adjustable shower head) See Instructions, Takingas prescribed; doseverified, (Special Instructions: Use as Directed) busPIRone (busPIRone 30 mg oral tablet) 30 mg = 1 tab(s), PO (oral), bid,Taking as prescribed;dose verifiedcarbidopa-levodopa (Sinemet 25 mg-100 mg oral tablet) 1 tab(s), PO (oral),qid, Taking asprescribed; dose verifiedcarbidopa-levodopa (carbidopa-levodopa 25 mg-100 mg oral tablet, extendedrelease) 1 tab(s), PO(oral), at bedtime, Taking as prescribed; dose verifiedcholecalciferol (Vitamin D3 1000 intl units (25 mcg) oral capsule) 1,000IUnits = 1 cap(s), PO(oral), qDay, Taking as prescribed; dose verifiedgabapentin (gabapentin 300 mg oral capsule) 300 mg = 1 cap(s), PO (oral),qAM, Taking asprescribed; dose verifiedgabapentin (gabapentin 300 mg oral capsule) 900 mg = 3 cap(s), PO (oral), atbedtime, Taking asprescribed; dose verifiedhydrOXYzine (hydrOXYzine hydrochloride 25 mg oral tablet) 25 mg = 1 tab(s),PRN, PO (oral), tid,Taking as prescribed; dose verifiedhydroCHLOROthiazide (hydroCHLOROthiazide 12.5 mg oral tablet) 12.5 mg = 1tab(s), PO (oral),qDay, Taking as prescribed; dose verified, (Special Instructions: patient-needsmedicaid provider) levo thyroxine (levothyroxine 25 mcg (0.025 mg) oral tablet) 25 mcg = 1tab(s), PO (oral),qOTHERday, Taking as prescribed; dose verifiedmelatonin (Melatonin 2.5 mg oral capsule) 2.5 mg = 1 cap(s), PO (oral), atbedtime, Taking asprescribed; dose verified (PRN MED)metoprolol (Metoprolol Tartrate 50 mg oral tablet) 75 mg = 1.5 tab(s), PO(oral), bid, Taking asprescribed; dose verifiedmometasone nasal (Nasonex 50 mcg/inh nasal spray) 2 spray(s), Nasal, qDay,Taking as prescribed;dose verified, (Special Instructions: INHALE 2 SPRAYS NASALLY EVERY DAY) omega-3 polyunsaturated fatty acids ([place]-3 oral capsule) 1 cap(s), PO(oral), qDay, Taking asprescribed; dose verifiedomeprazole (omeprazole 20 mg oral delayed release capsule) See Instructions,(SpecialInstructions: take 1 capsule by mouth once daily) rosuvastatin (Crestor 5 mg oral tablet) 5 mg = 1 tab(s), PO (oral), qDaytamsulosin (tamsulosin 0.4 mg oral capsule) 0.8 mg = 2 cap(s), PO (oral),qDay, Taking asprescribed; dose verifiedvalsartan (valsartan 320 mg oral tablet) 320 mg = 1 tab(s), PO (oral), qDay,Taking asprescribed; dose verifiedvenlafaxine (venlafaxine 150 mg oral capsule, extended release) 150 mg = 1cap(s), PO (oral),qDay, Taking as prescribed; dose verified, (Special Instructions: TAKE 1CAPSULE BY MOUTH EVERYDAY) PHYSICAL EXAM:VITALS:HR: 67 RR: 16 BP: 136 /84 SpO2: 97% HT: 180 cm WT: 109.9 kg BMI: 33.9 General: The patient is well developed, obese, in no acute distress. Skin warmand dry. Patientis sitting comfortably.Lungs: Clear bilaterally with no rales, rhonchi, or wheezing.Heart: Regular rate and rhythm without murmur, rub, or gallop.Extremities: Minimal clubbing of hallux bilateral. Onychomycosis noted onthe fifth digits ofboth feet. 2+ dorsalis pedis bilateral. Sensation intact bilateral.Neurological: Alert and Oriented X4. No focal deficits noted. CNII - XIIgrossly intactbilateral. 2+ Deep Tendon Reflexes of patella bilateral.Psychiatric: Mood and affect appropriate.LAB RESULTS:HEMATOLOGYBasophils, absolute: 0.1 K/mcL (04/20/20)Basophils, auto: 1 % (04/20/20)Eosinophils, absolute: 0.4 K/mcL High (04/20/20)Eosinophils, auto: 2.9 % (04/20/20)Hct: 49.3 % (04/20/20)Hgb: 15.8 gm/dL (04/20/20)Immature Gran: 0.3 % (04/20/20)Immature Gran Absolute: 0.04 K/mcL (04/20/20)Lymphocytes, absolute: 3.2 K/mcL (04/20/20)Lymphocytes, auto: 26.5 % (04/20/20)MCH: 26.5 pg (04/20/20)MCHC: 32 gm/dL (04/20/20)MCV: 82.6 fL (0 04/20/20)Monocytes, absolute: 0.8 K/mcL (04/20/20)Monocytes, auto: 6.8 % (04/20/20)MPV: 11.5 fL (04/20/20)Neutrophils, absolute: 7.5 K/mcL (04/20/20)Neutrophils, auto: 62.5 % (04/20/20)Platelet: 235 K/mcL (04/20/20)RBC: 5.97 Million/mcL (04/20/20)RDW: 14 % (04/20/20)WBC: 12 K/uL High (04/20/20)CHEMISTRYAGAP: 9 mEq/L (04/20/20)Albumin Level: 4.3 gm/dL (04/20/20)Alk Phos: 92 unit/L (04/20/20)ALT: 27 unit/L (04/20/20)AST: 38 unit/L High (04/20/20)Bilirubin Total.: 0.6 mg/dL (04/20/20)BUN: 14 mg/dL (04/20/20)Calcium: 9.2 mg/dL (04/20/20)Chloride: 105 mmol/L (04/20/20)CO2: 24 mmol/L (04/20/20)Creatinine: 0.83 mg/dL (04/20/20)GFR-AA: >60 (04/20/20)GFR-NITO: >60 (04/20/20)Globulin: 3.1 gm/dL (04/20/20)Glucose Level.: 95 mg/dL (04/20/20)Potassium Level: 3.8 mmol/L (04/20/20)Sodium Level: 138 mmol/L (04/20/20)Total Protein: 7.4 gm/dL (04/20/20)Troponin-I: 0.02 ng/mL (04/20/20)COAGULATIONAPTT: 28 second(s) (04/20/20)INR: 1 (04/20/20)PT: 10.9 second(s) (04/20/20)URINALYSISUA Bilirubin: Negative (04/20/20)UA Blood w/UC: Negative (04/20/20)UA Clarity: Clear (04/20/20)UA Color: Yellow (04/20/20)UA Glucose: Normal (04/20/20)UA Ketones: Negative (04/20/20)UA Leuk w/uc: Negative (04/20/20)UA Nitrite w/UC: Negative (04/20/20)UA pH: 7 (04/20/20)UA Protein w/UC: Negative (04/20/20)UA Specific [place]: 1.016 (04/20/20)UA Urobilinogen: Normal (04/20/20)TOXICOLOGYAlcohol percent: <0.010 (04/20/20)Amphetamines Screen, Urine: Negative (04/20/20)Barbiturates Sceen, Urine: Negative (04/20/20)Benzodiazapines Screen, Urine: Negative (04/20/20)Buprenorphine, Urine: Negative (04/20/20)Cannabinoid Screen Urine.: Presumptive Positive Abnormal (04/20/20)Cannabinoids Confimation, Urine: >500 (04/20/20)Cocaine Screen, Urine: Negative (04/20/20)Ecstasy, Urine: NEG (04/20/20)Methadone Screen, Urine: Negative (04/20/20)Methamphetamine Screen, Urine: Negative (04/20/20)Opiates Screen, Urine: Negative (04/20/20)Oxycodone, Urine.: Negative (04/20/20)Phencyclidine Screen, Urine: Negative (04/20/20)Tricyclic Antidepressants Screen, Urine: Negative (04/20/20)PATHOLOGY RESULTS:Pathology Results No qualifying data available.DIAGNOSTIC RESULTS:No qualifying data available.ASSESSMENT AND PLAN:1. Hypertension- Patient is insistent on something being wrong with his blood pressure, thathe thinks it has todo with his adrenal gland- Normotensive in the office- States that his uncontrolled blood pressure changes might have to dosomething withhis parkinsonism, that he is in the process of being evaluated in [place]- Patient was monitored his blood pressure multiple times a, even immediatelyafter positionchanges- Instructed to only check his blood pressure once a around the same timeand given the similarcircumstances- He has been followed by nephrology in the past, and states that he willsee if he can be seenby them again- Instructed to present to the ED if he has any severe headachesor auditory or visual changes2. Onychomycosis of toenail- Fifth toe bilateral- Will refer to podiatry to address this and his other complaints as notedabove No qualifying data available.Medications Affected this Encounter:No Prescription Activity This EncounterAdded Patient Education Aerobic Exercise for a Healthy HeartControlling High Blood Pressure Follow-Up Appointments With: Denia Griggs MD, PGY-2Address: [phone] [place], [address]; Comment: For routine medical care This document was authenticated by Mac Viramontes DO, PGY-2 Jayashree MUNIZ on05/19/2020 03:55 PMItem was sent for review to Shawna Dotson DO Name Value Range Interpretation Code Description Data Jammie rce(s) Supporting Document(s) Procedure Social History Code Duration Value Status Description Data Source(s ) Smoking 05/03/2021 12:00:00 AM EDT Current Smoker completed Curre nt Smoker eCW1 (Formerly [facility], 1928–1983) Smoking 05/03/2021 12:00:00 AM EDT Current Smoker completed Curre nt Smoker eCW1 (Formerly [facility], 1928–1983) Smoking 05/03/2021 12:00:00 AM EDT Current Smoker completed Curre nt Smoker eCW1 (Formerly [facility], 1928–1983) Smoking 05/03/2021 12:00:00 AM EDT Current Smoker completed Curre nt Smoker eCW1 (Formerly [facility], 1928–1983) Smoking 05/03/2021 12:00:00 AM EDT Current Smoker completed Curre nt Smoker eCW1 (Formerly [facility], 1928–1983) 03/23/2021 11:30:27 AM EDT Current some day smoker com pleted Current some day smoker [facility] Smoking 03/23/2021 11:30:00 AM EDT Current some day smoker com pleted Current some day smoker [facility] 03/22/2021 11:46:00 PM EDT Current every day smoker co mpleted Current every day smoker [facility] Smoking 03/22/2021 11:46:00 PM EDT Current every day smoker co mpleted Current every day smoker [facility] Smoking 02/18/2021 12:00:00 AM EDT Current Smoker completed Curre nt Smoker eCW1 (Formerly [facility], 1928–1983) Smoking 02/18/2021 12:00:00 AM EDT Current Smoker completed Curre nt Smoker eCW1 (Formerly [facility], 1928–1983) Smoking 02/18/2021 12:00:00 AM EDT Current Smoker completed Curre nt Smoker eCW1 (Formerly [facility], 1928–1983) Smoking 02/18/2021 12:00:00 AM EDT Current Smoker completed Curre nt Smoker eCW1 (Formerly [facility], 1928–1983) Smoking 02/18/2021 12:00:00 AM EDT Current Smoker completed Curre nt Smoker eCW1 (Formerly [facility], 1928–1983) Smoking 02/18/2021 12:00:00 AM EDT Current Smoker completed Curre nt Smoker eCW1 (Formerly [facility], 1928–1983) Smoking 02/18/2021 12:00:00 AM EDT Current Smoker completed Curre nt Smoker eCW1 (Formerly [facility], 1928–1983) Smoking 02/18/2021 12:00:00 AM EDT Current Smoker completed Curre nt Smoker eCW1 (Formerly [facility], 1928–1983) Smoking 02/18/2021 12:00:00 AM EDT Current Smoker completed Curre nt Smoker eCW1 (Formerly [facility], 1928–1983) Smoking 02/18/2021 12:00:00 AM EDT Current Smoker completed Curre nt Smoker eCW1 (Formerly [facility], 1928–1983) Smoking 02/18/2021 12:00:00 AM EDT Current Smoker completed Curre nt Smoker eCW1 (Formerly [facility], 1928–1983) Smoking 02/18/2021 12:00:00 AM EDT Current Smoker completed Curre nt Smoker eCW1 (Formerly [facility], 1928–1983) Smoking 02/18/2021 12:00:00 AM EDT Current Smoker completed Curre nt Smoker eCW1 (Formerly [facility], 1928–1983) Smoking 02/18/2021 12:00:00 AM EDT Current Smoker completed Curre nt Smoker eCW1 (Formerly [facility], 1928–1983) Smoking 02/18/2021 12:00:00 AM EDT Current Smoker completed Curre nt Smoker eCW1 (Formerly [facility], 1928–1983) Smoking 02/18/2021 12:00:00 AM EDT Current Smoker completed Curre nt Smoker eCW1 (Formerly [facility], 1928–1983) Smoking 02/08/2021 12:00:00 AM EDT Current Smoker completed Curre nt Smoker eCW1 (Formerly [facility], 1928–1983) Smoking 01/24/2021 12:00:00 AM EDT Current Smoker completed Curre nt Smoker eCW1 (Formerly [facility], 1928–1983) Smoking 01/11/2021 12:00:00 AM EDT Current Smoker completed Curre nt Smoker eCW1 (Formerly [facility], 1928–1983) Smoking 01/11/2021 12:00:00 AM EDT Current Smoker completed Curre nt Smoker eCW1 (Formerly [facility], 1928–1983) Smoking 12/18/2020 12:00:00 AM EDT Current Smoker completed Curre nt Smoker eCW1 (Formerly [facility], 1928–1983) Smoking 12/18/2020 12:00:00 AM EDT Current Smoker completed Curre nt Smoker eCW1 (Formerly [facility], 1928–1983) Smoking 12/18/2020 12:00:00 AM EDT Current Smoker completed Curre nt Smoker eCW1 (Formerly [facility], 1928–1983) Smoking 12/18/2020 12:00:00 AM EDT Current Smoker completed Curre nt Smoker eCW1 (Formerly [facility], 1928–1983) Smoking 12/18/2020 12:00:00 AM EDT Current Smoker completed Curre nt Smoker eCW1 (Formerly [facility], 1928–1983) Smoking 12/18/2020 12:00:00 AM EDT Current Smoker completed Curre nt Smoker eCW1 (Formerly [facility], 1928–1983) Smoking 11/22/2020 12:00:00 AM EDT Current Smoker completed Curre nt Smoker eCW1 (Formerly [facility], 1928–1983) Smoking 10/14/2020 12:00:00 AM EST Current Smoker completed Curre nt Smoker eCW1 (Formerly [facility], 1928–1983) Smoking 09/23/2020 12:00:00 AM EST Current Smoker completed Curre nt Smoker eCW1 (Formerly [facility], 1928–1983) Tobacco smoking status NHIS 08/10/2020 12:00:00 AM EST Current e very day smoker [facility] Tobacco use and exposure 08/10/2020 12:00:00 AM EST Never used [facility] Alcohol intake 08/10/2020 12:00:00 AM EST Ex-drinker (finding) [facility] Alcohol intake 07/31/2020 12:00:00 AM EST Ex-drinker (finding) [facility] Vital Signs ID Date Data Source UNK Name Value Range Interpretation Code Description Data Source(s) Body weight 254.0 [lb_av] 254.0 [lb_av] eCW1 ([facility]) Body height 69 [in_i] 69 [in_i] eCW1 ([facility]) Body mass index (BMI) [Ratio] 37.51 kg/m2 37.51 kg/m2 eCW1 (Formerly [facility], 1928–1983) Heart rate 81 /min 81 /min eCW1 ([facility]) Respiratory rate 18 /min 18 /min eCW1 (Formerly [facility]) Body temperature 97.7 [degF] 97.7 [degF] eCW1 ( Formerly [facility], 1928–1983) Systolic blood pressure 144 mm[Hg] 144 mm[Hg] e CW1 (Formerly [facility], 1928–1983) Diastolic blood pressure 96 mm[Hg] 96 mm[Hg] eCW1 (Formerly [facility], 1928–1983) Body weight 254.0 [lb_av] 254.0 [lb_av] eCW1 ([facility]) Body height 69 [in_i] 69 [in_i] eCW1 ([facility]) Body mass index (BMI) [Ratio] 37.51 kg/m2 37.51 kg/m2 eCW1 (Formerly [facility], 1928–1983) Heart rate 81 /min 81 /min eCW1 ([facility]) Respiratory rate 18 /min 18 /min eCW1 (Formerly [facility]) Body temperature 97.7 [degF] 97.7 [degF] eCW1 ( Formerly [facility], 1928–1983) Systolic blood pressure 144 mm[Hg] 144 mm[Hg] e CW1 (Formerly [facility], 1928–1983) Diastolic blood pressure 96 mm[Hg] 96 mm[Hg] eCW1 (Formerly [facility], 1928–1983) Body weight 258 [lb_av] 258 [lb_av] eCW1 ([facility]) Body height [in_i] eCW1 ([facility]) Body mass index (BMI) [Ratio] 50.38 kg/m2 50.38 kg/m2 eCW1 (Formerly [facility], 1928–1983) Systolic blood pressure 146 mm[Hg] 146 mm[Hg] e CW1 (Formerly [facility], 1928–1983) Diastolic blood pressure 96 mm[Hg] 96 mm[Hg] eCW1 (Formerly [facility], 1928–1983) Systolic blood pressure 134 mm[Hg] 134 mm[Hg] Deyanira GAO ([facility], ) Diastolic blood pressure 92 mm[Hg] 92 mm[Hg] [facility] Body height 69 [in_i] 69 [in_i] [facility] ([facility]) 5'9" Body weight 254.00 [lb_av] 254.00 [lb_av] MEDEN T ([facility]) Body mass index (BMI) [Ratio] 37.5 kg/m2 37.5 k g/m2 [facility] ([facility]) [place] body weight 160 [lb_av] 160 [lb_av] MEDEN T ([facility]) Body weight 115.214 kg 115.214 kg [facility] ([facility]) Body surface area Derived from formula 2.29 m2 2.29 m2 [facility] ([facility]) Diastolic blood pressure 98 mm[Hg] 98 mm[Hg] eCW1 (Formerly [facility], 1928–1983) Body weight 250.1 [lb_av] 250.1 [lb_av] eCW1 ([facility]) Body height [in_i] eCW1 ([facility]) Body mass index (BMI) [Ratio] 48.84 kg/m2 48.84 kg/m2 eCW1 (Formerly [facility], 1928–1983) Heart rate 85 /min 85 /min eCW1 ([facility]) Respiratory rate 18 /min 18 /min W1 (Formerly [facility]) Body temperature 97.6 [degF] 97.6 [degF] eCW1 ( Formerly [facility], 1928–1983) Systolic blood pressure 142 mm[Hg] 142 mm[Hg] e CW1 (Formerly [facility], 1928–1983) Body height 70.9 [in_i] 70.9 [in_i] [facility] [facility] Result Comment: Result placed secondary from cm, converted to Inches Body weight Measured 237 lb 0 oz 237 lb 0 oz [facility] Result Comment: Result placed secondary from kg, converted to lbs Systolic blood pressure 138 mm[Hg] Normal (applies t o non-numeric results) 138 mm[Hg] [facility] [place] [facility] Diastolic blood pressure 98 mm[Hg] Above high normal 98 m m[Hg] [facility] Heart rate 68 /min Normal (applies to non-numeric resul ts) 68 /min [facility] Respiratory rate 16 /min Normal (applies to non-numeric results) 16 /min [facility] Body height 70.9 [in_i] 70.9 [in_i] [facility] 1Result Comment: Result placed secondary from cm, converted to Inches Body weight Measured 241 lb 14 oz [address] [facility] [place] [facility] 2Result Comment: Result placed secondary from kg, converted to lbs Systolic blood pressure 90-140 Above high normal mm[H g] [facility] [place] Body height 70.9 [in_i] 70.9 [in_i] [facility] [place] [facility] 1Result Comment: Result placed secondary from cm, converted to Inches Body weight Measured 242 lb 5 oz 242 lb 5 oz [facility] 2Result Comment: Result placed secondary from kg, converted to lbs Systolic blood pressure 90-140 Normal (applies t o non-numeric results) mm[Hg] [facility] [place] Heart rate 67 /min 60-100 Normal (applies to non-numeric resul ts) 67 /min [facility] Respiratory rate 16 /min 14-20 Normal (applies to non-numeric results) 16 /min [facility] Deprecated Oxygen saturation in Capillary blood by Oximetry 97 % 90-100 Normal (applies to non-numeric results) 97 % [facility] [place] [facility] ID Date Data Source [id number] 08/16/2020 12:50:50 PM EST [facility] Name Value Range Interpretation Code Description Data Source(s) PREFERRED NAME Myles Bueno [facility] ID Date Data Source [id number] 11/09/2020 09:24:56 AM EDT [facility] Name Value Range Interpretation Code Description Data Source(s) WEIGHT 240 lb 240 lb [facility] HEIGHT 69 in 69 in [facility] Patient Treatment Plan of Care Planned Activity Planned Date Details Description Data Source (s) 24 HR venlafaxine 150 MG Extended Release Oral Capsule 06/09/2021 12:00:00 AM EDT eCW1 ([facility]) 24 HR venlafaxine 150 MG Extended Release Oral Capsule 06/09/2021 12:00:00 AM EDT eCW1 ([facility]) Albuterol Sulfate HFA 108 (90 Base) MCG/ACT 06/07/2021 12:00:00 AM EDT eCW1 (Formerly [facility], 1928–1983) Albuterol Sulfate HFA 108 (90 Base) MCG/ACT 06/07/2021 12:00:00 AM EDT eCW1 (Formerly [facility], 1928–1983) Albuterol Sulfate HFA 108 (90 Base) MCG/ACT 06/07/2021 12:00:00 AM EDT eCW1 (Formerly [facility], 1928–1983) Albuterol Sulfate HFA 108 (90 Base) MCG/ACT 06/07/2021 12:00:00 AM EDT eCW1 (Formerly [facility], 1928–1983) Albuterol 0.83 MG/ML Inhalant Solution 05/04/2021 12:00:00 AM EDT eCW1 (Formerly [facility], 1928–1983) Albuterol 0.83 MG/ML Inhalant Solution 05/04/2021 12:00:00 AM EDT eCW1 (Formerly [facility], 1928–1983) Albuterol 0.83 MG/ML Inhalant Solution 05/04/2021 12:00:00 AM EDT eCW1 (Formerly [facility], 1928–1983) Albuterol 0.83 MG/ML Inhalant Solution 05/04/2021 12:00:00 AM EDT eCW1 (Formerly [facility], 1928–1983) Albuterol 0.83 MG/ML Inhalant Solution 05/04/2021 12:00:00 AM EDT eCW1 (Formerly [facility], 1928–1983) Rosuvastatin calcium 40 MG Oral Tablet 02/22/2021 12:00:00 AM EDT eCW1 (Formerly [facility], 1928–1983) Aspirin 81 MG Chewable Tablet 02/22/2021 12:00:00 AM EDT eCW1 (Formerly [facility], 1928–1983) coenzyme Q10 50 MG Oral Capsule 02/22/2021 12:00:00 AM EDT eCW1 (Formerly [facility], 1928–1983) Rosuvastatin calcium 40 MG Oral Tablet 02/22/2021 12:00:00 AM EDT eCW1 (Formerly [facility], 1928–1983) Aspirin 81 MG Chewable Tablet 02/22/2021 12:00:00 AM EDT eCW1 (Formerly [facility], 1928–1983) coenzyme Q10 50 MG Oral Capsule 02/22/2021 12:00:00 AM EDT eCW1 (Formerly [facility], 1928–1983) Rosuvastatin calcium 40 MG Oral Tablet 02/22/2021 12:00:00 AM EDT eCW1 (Formerly [facility], 1928–1983) Aspirin 81 MG Chewable Tablet 02/22/2021 12:00:00 AM EDT eCW1 (Formerly [facility], 1928–1983) coenzyme Q10 50 MG Oral Capsule 02/22/2021 12:00:00 AM EDT eCW1 (Formerly [facility], 1928–1983) Rosuvastatin calcium 40 MG Oral Tablet 02/22/2021 12:00:00 AM EDT eCW1 (Formerly [facility], 1928–1983) Aspirin 81 MG Chewable Tablet 02/22/2021 12:00:00 AM EDT eCW1 (Formerly [facility], 1928–1983) coenzyme Q10 50 MG Oral Capsule 02/22/2021 12:00:00 AM EDT eCW1 (Formerly [facility], 1928–1983) Rosuvastatin calcium 40 MG Oral Tablet 02/22/2021 12:00:00 AM EDT eCW1 (Formerly [facility], 1928–1983) Aspirin 81 MG Chewable Tablet 02/22/2021 12:00:00 AM EDT eCW1 (Formerly [facility], 1928–1983) coenzyme Q10 50 MG Oral Capsule 02/22/2021 12:00:00 AM EDT eCW1 (Formerly [facility], 1928–1983) Rosuvastatin calcium 40 MG Oral Tablet 02/22/2021 12:00:00 AM EDT eCW1 (Formerly [facility], 1928–1983) Aspirin 81 MG Chewable Tablet 02/22/2021 12:00:00 AM EDT eCW1 (Formerly [facility], 1928–1983) coenzyme Q10 50 MG Oral Capsule 02/22/2021 12:00:00 AM EDT eCW1 (Formerly [facility], 1928–1983) Rosuvastatin calcium 40 MG Oral Tablet 02/22/2021 12:00:00 AM EDT eCW1 (Formerly [facility], 1928–1983) Aspirin 81 MG Chewable Tablet 02/22/2021 12:00:00 AM EDT eCW1 (Formerly [facility], 1928–1983) coenzyme Q10 50 MG Oral Capsule 02/22/2021 12:00:00 AM EDT eCW1 (Formerly [facility], 1928–1983) Rosuvastatin calcium 40 MG Oral Tablet 02/22/2021 12:00:00 AM EDT eCW1 (Formerly [facility], 1928–1983) Aspirin 81 MG Chewable Tablet 02/22/2021 12:00:00 AM EDT eCW1 (Formerly [facility], 1928–1983) coenzyme Q10 50 MG Oral Capsule 02/22/2021 12:00:00 AM EDT eCW1 (Formerly [facility], 1928–1983) Rosuvastatin calcium 40 MG Oral Tablet 02/22/2021 12:00:00 AM EDT eCW1 (Formerly [facility], 1928–1983) Aspirin 81 MG Chewable Tablet 02/22/2021 12:00:00 AM EDT eCW1 (Formerly [facility], 1928–1983) coenzyme Q10 50 MG Oral Capsule 02/22/2021 12:00:00 AM EDT eCW1 (Formerly [facility], 1928–1983) Nasonex 50 MCG/ACT 12/20/2020 12:00:00 AM EDT eCW1 (Formerly [facility], 1928–1983) Nasonex 50 MCG/ACT 12/20/2020 12:00:00 AM EDT eCW1 (Formerly [facility], 1928–1983) Nasonex 50 MCG/ACT 12/20/2020 12:00:00 AM EDT eCW1 (Formerly [facility], 1928–1983) Nasonex 50 MCG/ACT 12/20/2020 12:00:00 AM EDT eCW1 (Formerly [facility], 1928–1983) Nasonex 50 MCG/ACT 12/20/2020 12:00:00 AM EDT eCW1 (Formerly [facility], 1928–1983) Flonase Allergy Relief 50 MCG/ACT 12/14/2020 12:00:00 AM EDT eCW1 (Formerly [facility], 1928–1983) Flonase Allergy Relief 50 MCG/ACT 12/14/2020 12:00:00 AM EDT eCW1 (Formerly [facility], 1928–1983) Flonase Allergy Relief 50 MCG/ACT 12/14/2020 12:00:00 AM EDT eCW1 (Formerly [facility], 1928–1983) Flonase Allergy Relief 50 MCG/ACT 12/14/2020 12:00:00 AM EDT eCW1 (Formerly [facility], 1928–1983) Flonase Allergy Relief 50 MCG/ACT 12/14/2020 12:00:00 AM EDT eCW1 (Formerly [facility], 1928–1983) Flonase Allergy Relief 50 MCG/ACT 12/14/2020 12:00:00 AM EDT eCW1 (Formerly [facility], [facility]–1983) Flonase Allergy Relief 50 MCG/ACT 12/14/2020 12:00:00 AM EDT eCW1 (Formerly [facility], 1928–1983) 120 ACTUAT Budesonide 0.08 MG/ACTUAT / f ormoterol fumarate 0.0045 MG/ACTUAT Metered Dose Inhaler [Symbicort] 11/22/2020 12:00:00 AM EDT eCW1 (Formerly [facility], 1928–1983) 120 ACTUAT Budesonide 0.08 MG/ACTUAT / f ormoterol fumarate 0.0045 MG/ACTUAT Metered Dose Inhaler [Symbicort] 11/22/2020 12:00:00 AM EDT eCW1 (Formerly [facility], 1928–1983) 120 ACTUAT Budesonide 0.08 MG/ACTUAT / f ormoterol fumarate 0.0045 MG/ACTUAT Metered Dose Inhaler [Symbicort] 11/22/2020 12:00:00 AM EDT eCW1 (Formerly [facility], 1928–1983) 120 ACTUAT Budesonide 0.08 MG/ACTUAT / f ormoterol fumarate 0.0045 MG/ACTUAT Metered Dose Inhaler [Symbicort] 11/22/2020 12:00:00 AM EDT eCW1 (Formerly [facility], 1928–1983) 120 ACTUAT Budesonide 0.08 MG/ACTUAT / f ormoterol fumarate 0.0045 MG/ACTUAT Metered Dose Inhaler [Symbicort] 11/22/2020 12:00:00 AM EDT eCW1 (Formerly [facility], 1928–1983) 120 ACTUAT Budesonide 0.08 MG/ACTUAT / f ormoterol fumarate 0.0045 MG/ACTUAT Metered Dose Inhaler [Symbicort] 11/22/2020 12:00:00 AM EDT eCW1 (Formerly [facility], 1928–1983) 120 ACTUAT Budesonide 0.08 MG/ACTUAT / f ormoterol fumarate 0.0045 MG/ACTUAT Metered Dose Inhaler [Symbicort] 11/22/2020 12:00:00 AM EDT eCW1 (Formerly [facility], 1928–1983) Triamcinolone Acetonide 0.001 MG/MG Topical Ointment 021 12:00:00 AM EST eCW1 ([facility]) Ivermectin 3 MG Oral Tablet 09/23/2020 12:00:00 AM EST eCW1 (Formerly [facility], 1928–1983) Doxycycline Monohydrate 100 MG Oral Capsule 09/23/2020 12:00:00 AM EST eCW1 (Formerly [facility], 1928–1983) metoprolol tartrate 25 mg oral tablet 09/21/2020 02:26:[address] [facility] venlafaxine 150 mg oral capsule, extended release 09/21/2020 02: 26:[address] [facility] Metoprolol Tartrate 50 mg oral tablet 09/03/2020 12:55:[address] [facility] Nasonex 50 mcg/inh nasal spray 09/03/2020 12:55:[address] [facility] Amlodipine 5 MG Oral Tablet 08/09/2020 02:05:[address] [facility] Nasonex 50 mcg/inh nasal spray 07/13/2020 09:55:[address] [facility] Metoprolol Tartrate 50 mg oral tablet 06/29/2020 12:35:[address] [facility] metoprolol tartrate 25 mg oral tablet 06/29/2020 12:34:[address] [facility] valsartan 320 MG Oral Tablet 06/18/2020 03:13:[address] [facility] Vitamin B Complex oral capsule 06/14/2020 11:50:[address] [facility] Ginkgo Biloba 06/14/2020 11:49:[address] [facility] Probiotic Formula oral capsule 06/14/2020 11:49:[address] [facility] metoprolol tartrate 25 mg oral tablet 06/14/2020 11:47:[address] [facility] Levothyroxine Sodium 0.025 MG Oral Tablet 06/01/2020 09:15:[address] [facility] Hydrochlorothiazide 12.5 MG Oral Tablet 05/28/2020 11:34:[address] [facility] Hydroxyzine Hydrochloride 25 MG Oral Tablet 05/27/2020 05:26:[address] [facility] Carbidopa 25 MG / Levodopa 100 MG Oral Tablet 04/06/2020 12:00:00 A M T [facility] Nasonex 50 mcg/inh nasal spray 03/15/2020 03:50:[address] [facility] Carbidopa 25 MG / Levodopa 100 MG Oral Tablet 10/21/2019 12:00:00 A M [facility]
[2021-07-04] MEDS ORDERED: fentaNYL 100 MCG/2 ML INJECTION (J3010) As Ordered ONE (11:13)
[2021-07-04] MEDS ORDERED: propofoL 200 MG/20 ML VIAL As Ordered ONE (12:22)
--- NOTE | 2021-07-04 12:23 | ROOR ---
Patient Name: Myles Hannon Procedure Date: 07/04/2021 11:57 AM Date of : 1970 Age: 50 Room: [facility] Gender: Male Note Status: Finalized Procedure: Upper GI endoscopy Indications: Dyspepsia, Heartburn, Early satiety, Eructation Providers: Cedrick Johnson MD Referring MD: Efraín Seth Md Requesting Provider: Medicines: Monitored Anesthesia Care Complications: No immediate complications. Procedure: Pre-Anesthesia Assessment: - The heart rate, respiratory rate, oxygen saturations, blood pressure, adequacy of pulmonary ventilation, and response to care were monitored throughout the procedure. The Endoscope was introduced through the mouth, and advanced to the second part of duodenum. The upper GI endoscopy was somewhat difficult due to presence of food. Successful completion of the procedure was aided by lavage. The patient tolerated the procedure well. Findings: The Z-line was variable and was found 39 cm from the incisors. The examined esophagus was normal. A medium amount of food (residue) was found in the gastric body. Removal of food was accomplished. The entire examined stomach was normal. The examined duodenum was normal. Impression: - Normal esophagus. - Z-line variable, 39 cm from the incisors. - Normal stomach. - A medium amount of food (residue) in the stomach c/w Gastroparesis. Removal was successful. - Normal examined duodenum. Recommendation: - Gastroparesis diet: - Eat smaller, more frequent meals throughout the day. - Low fat diet. - Liquid/soft foods are tolerated better than solid foods. - Low fiber/well cooked vegetables are tolerated better than high fiber/fibrous foods/raw vegetables. - Avoid medications that inhibit gastric/intestinal motility such as narcotic medications. - Follow an antireflux regimen. Procedure Code(s): --- Professional --- 44128, Esophagogastroduodenoscopy, flexible, transoral; with removal of foreign body(s) Diagnosis Code(s): --- Professional --- R14.2, Eructation R68.81, Early satiety R12, Heartburn R10.13, Epigastric pain K22.8, Other specified diseases of esophagus T18.2XXA, Foreign body in stomach, initial encounter CPT copyright 2019 [employer]. All rights reserved. The codes documented in this report are preliminary and upon scooper review may be revised to meet current compliance requirements. Cedrick Johnson MD Cedrick Johnson MD 07/04/2021 12:22:22 PM Electronically signed by Cedrick Johnson MD Number of Addenda: 0 Note Initiated On: 07/04/2021 11:57 AM Estimated Blood Loss: Estimated blood loss: none.
--- NOTE | 2021-07-04 12:41 | ROOR ---
Patient Name: Myles Hannon Procedure Date: 07/04/2021 11:58 AM Date of : 1970 Age: 50 Room: [facility] Gender: Male Note Status: Finalized Procedure: Colonoscopy Indications: High risk colon cancer surveillance: Personal history of colonic polyps Providers: Cedrick Johnson MD Referring MD: Efraín Seth Md Requesting Provider: Medicines: Monitored Anesthesia Care Complications: No immediate complications. Procedure: Pre-Anesthesia Assessment: - The heart rate, respiratory rate, oxygen saturations, blood pressure, adequacy of pulmonary ventilation, and response to care were monitored throughout the procedure. The Colonoscope was introduced through the anus and advanced to 10 cm into the ileum. The colonoscopy was performed without difficulty. The patient tolerated the procedure well. The quality of the bowel preparation was adequate. Findings: The perianal and digital rectal examinations were normal. Two sessile polyps were found in the splenic flexure and proximal ascending colon. The polyps were 4 to 5 mm in size. These polyps were removed with a cold snare. Resection and retrieval were complete. Small Internal Hemorrhoids. The exam was otherwise without abnormality on direct and retroflexion views. Impression: - Two 4 to 5 mm polyps at the splenic flexure and in the proximal ascending colon, removed with a cold snare. Resected and retrieved. - Small Internal Hemorrhoids. - The examination was otherwise normal on direct and retroflexion views. Recommendation: - Repeat colonoscopy in 5 years for surveillance. Procedure Code(s): --- Professional --- 03433, Colonoscopy, flexible; with removal of tumor(s), polyp(s), or other lesion(s) by snare technique Diagnosis Code(s): --- Professional --- K63.5, Polyp of colon Z86.010, Personal history of colonic polyps CPT copyright 2019 [employer]. All rights reserved. The codes documented in this report are preliminary and upon network admin review may be revised to meet current compliance requirements. Cedrick Johnson MD Cedrick Johnson MD 07/04/2021 12:40:57 PM Electronically signed by Cedrick Johnson MD Number of Addenda: 0 Note Initiated On: 07/04/2021 11:58 AM Estimated Blood Loss: Estimated blood loss: none.
[2021-07-04 13:00] VITALS: BP 137/97
== END 2021-07-04 16:45 | disposition home or self-care (01) ==
LOC: M OPP 10:38
PROVIDERS: ATTEND Internal Medicine Gastroenterology
DX: D12.2 Benign neoplasm of ascending colon (principal); Z86.010 Personal history of colon polyps; R14.2 Eructation; K64.8 Other hemorrhoids; K22.89 Other specified disease of esophagus; T18.2XXA Foreign body in stomach, initial encounter; R68.81 Early satiety; R12 Heartburn; I10 Essential (primary) hypertension; E78.5 Hyperlipidemia, unspecified; K74.60 Unspecified cirrhosis of liver; G47.33 Obstructive sleep apnea (adult) (pediatric); E03.9 Hypothyroidism, unspecified; Z79.899 Other long term (current) drug therapy
CPT/HCPCS: 43247; 88305; G0105; J3010

== ENCOUNTER → 2021-07-28 | Outpatient (CLI) | payer MEDICARE, MEDICAID ==
[~2021-07-28] MED LIST changes: -LIDOCAINE 2% 100MG/5ML SDV (FOR ANES.) As Ordered ONE; -NS 1,000 ML IV ONE; -propofoL 500 MG/50 ML VIAL As Ordered ONE
[2021-07-28 16:18] LABS: ALBUMIN 4.5 GM/DL (3.2-5.2); BLOOD UREA NITROGEN 14 MG/DL (7-18); CALCIUM LEVEL 9.7 MG/DL (8.5-10.1); CARBON DIOXIDE LEVEL 33 MEQ/L (21-32); CHLORIDE LEVEL 101 MEQ/L (98-107); CREATININE FOR GFR 0.85 MG/DL (0.70-1.30); GLOMERULAR FILTRATION RATE > 60.0 (>56); GLUCOSE, FASTING 127 MG/DL (70-100); MAGNESIUM LEVEL 2.3 MG/DL (1.8-2.4); NT-PRO BNP 181 PG/ML (<125); PHOSPHORUS LEVEL 2.8 MG/DL (2.5-4.9); POTASSIUM SERUM 4.1 MEQ/L (3.5-5.1); SODIUM LEVEL 139 MEQ/L (136-145)
== END ==
LOC: M LAB 14:48
PROVIDERS: ATTEND Internal Medicine Cardiovascular Disease
DX: I11.9 Hypertensive heart disease without heart failure (principal); R06.02 Shortness of breath; R60.0 Localized edema; E03.9 Hypothyroidism, unspecified